=== PATIENT | female | born 1965 | race Caucasian/White ===

== ENCOUNTER 2022-05-17 11:57 | Inpatient (IN) | payer BC, SELFPAY ==
[2022-05-17] VITALS (11 sets, daily range): BP systolic 122–153; BP diastolic 55–84; PULSE 72–107; RESP 18–20; TEMP 36.2; O2SAT 94–99
--- NOTE | ~2022-05-17 | XR_ITS ---
EXAMINATION: XR foot LT min 3V DATE: 05/17/2022 12:58 INDICATION: Left heel wound. TECHNIQUE: 4 views of left foot were obtained. COMPARISON: None. FINDINGS: Bone alignment is normal. No fracture. There is mild osteoarthritis of first metatarsophala ngeal joint and some the interphalangeal joints and midfoot joints. Osteopenia is noted. There is an enthesophyte at posterior aspect of calcaneal tuberosity. There is soft tissue gas in the lateral felix l. IMPRESSION: 1. No evidence of osteomyelitis. 2. Mild polyarticular osteoarthritis. Reviewed, dictated and finalized at location B.
--- NOTE | ~2022-05-17 | US_ITS ---
US arterial ankle brachial ind INDICATION: Left foot ulcer TECHNIQUE: Segmental pressures and plethysmographic and Doppler waveforms of the brachial and lower e xtremity arteries were obtained. COMPARISON: None. FINDINGS: Right and left brachial artery pressures of 129 mm Hg and 123 mm Hg, respectively, are concordant (no rmal difference <= 30 mmHg). The right ankle-brachial index (JAVON) is 0.89 (normal >= 0.9-1.0). The right great toe-brachial index (TBI) is 0.38 (normal >= 0.60). The left JAVON is 0.72. The left TBI is 0.48. IMPRESSION: 1. Diminished bilateral ankle and toe brachial indices consistent with mild-moderate peripheral arter ial disease. Reviewed, dictated and finalized at location A. IMPRESSION: 1. Diminished bilateral ankle and toe brachial indices consistent with mild-mod erate peripheral arterial disease.
[2022-05-17 12:07] LABS: Glucose Point of Care 323 mg/dl (65-105)
[2022-05-17 12:56] LABS: Basophils Absolute Auto 0.1 K/mm3 (0.0-0.1); Basophils Percent Auto 0.4 % (0.2-1.2); Eosinophils Absolute Auto 0.2 K/mm3 (0-0.3); Hematocrit 43.7 % (37.0-47.0); Hemoglobin 14.2 g/dL (12.0-15.0); Immature Granulocyte Absolute 0.13 K/mm3 (0.00-0.031); Immature Granulocyte Percent A 0.6 % (0-0.5); Lymphocytes Percent Auto 12.6 % (18.3-44.2); Mean Corpuscular HGB Conc 32.5 g/dl (32-36); Mean Corpuscular Volume 92.2 fl (80-100); Mean Platelet Volume 10.1 fl (7.4-10.4); Monocytes Absolute Auto 1.5 K/mm3 (0.1-0.6); Monocytes Percent Auto 7.1 % (2.6-8.5); Neutrophils Absolute Auto 16.1 K/mm3 (1.3-6.7); Neutrophils Percent Auto 78.3 % (45.5-73.1); Platelet Count Result 336 k/mm3 (150-375); Red Blood Count 4.74 M/mm3 (4.2-5.4); Red Cell Distribution Width 13.1 % (11.5-14.5); White Blood Count 20.6 K/mm3 (4.5-10.0)
[2022-05-17 13:13] LABS: Estimated CRCL calculation 106 ml/min; Estimated Glomerular Filt Rate > 60
[2022-05-17] MEDS: SODIUM CHLORIDE 0.9% IV 1,000 ML 999 ML IV CONT (13:22)
[2022-05-17 13:30] LABS: INR 1.1; Prothrombin Time 13.4 Seconds (11.1-14.7)
[2022-05-17 13:31] LABS: Partial Thromboplastin Time 31.6 SECONDS (22.3-36.8)
[2022-05-17 13:36] LABS: Alanine Aminotransferase 18 U/L (6-35); Albumin Level 4.1 g/dL (3.5-5.1); Alkaline Phosphatase 150 U/L (38-126); Anion Gap 13 mmol/L (8-16); Aspartate Amino Transferase 19 U/L (14-36); Bilirubin,Total 0.7 mg/dL (0.2-1.3); Blood Urea Nitrogen 13 mg/dL (7-17); CRP 14.3 mg/dL (<1.0); Calcium 9.3 mg/dL (8.4-10.2); Carbon Dioxide 28 mmol/L (22-30); Chloride 96 mmol/L (98-107); Estimated CRCL calculation 106 ml/min; Estimated Glomerular Filt Rate > 60; Glucose 355 mg/dL (65-110); Magnesium 1.5 mg/dL (1.6-2.3); Potassium 3.7 mmol/L (3.4-5.0); Sodium 137 mmol/L (137-145)
[2022-05-17 13:39] LABS: Appearance Urine Slightly Cloudy (Clear); Bilirubin Urine 1+ (Negative); Blood Urine Trace-intact (Negative); Color Urine Yellow (Yellow); Glucose Urine UA 3+ mg/dL (Negative); Ketones Urine 1+ mg/dL (Negative); Leukocyte Esterase Ur Negative LEU/UL (Negative); Nitrate Urine Negative (Negative); Protein Urine 2+ mg/dL (Negative); Specific Grav Ur >= 1.030 (1.001-1.035); pH Urine 5.5 (5.0-9.0)
[2022-05-17 13:40] LABS: Lactic Acid Reflex 1.5 mmol/L (0.7-2.0)
[2022-05-17 13:41] LABS: Add Urine Microscopic? YES
[2022-05-17] MEDS: TETANUS,DIPHTHERIA,AC PERTUSSIS ADULT (0.5 ML) BOOSTRIX IM (13:53)
[2022-05-17] MEDS: metroNIDAZOLE 500 MG/ISO 100ML 500 MG/100 ML BAG 100 MG IVPB ×2 (13:53→22:46)
--- NOTE | 2022-05-17 13:54 | ED.WOUNDLAC ---
HPI - Wound/Laceration General Chief Complaint: Wound/Laceration Stated Complaint: foot wound-swelling Time Seen by Provider: 05/17/22 12:02 Source: patient and RN notes reviewed Mode of arrival: ambulatory Limitations: no limitations History of Present Illness HPI narrative: This is a 56 year old female who presents for evaluation of left foot wound. She noticed a callous to her left heel in February . She states a nurse friend has been treating her wound. She reports she removed the callous and she has been applying medication to the wound. She woke up this morning with her right foot red and swollen. She thinks it is because she walks around with no socks on. She denies fever, chills, nausea, vomiting or dizziness. She was told today in triage that she has diabetes. She has not seen a doctor in several years. She is unsure of her last tetanus vaccination as well. Extremity Location: Right: foot (heel) Patient tetanus UTD: No Related Data Home Medications Medication Instructions Recorded Confirmed No Home Medications 05/17/22 05/17/22 Allergies Allergy/AdvReac Type Severity Reaction Status Date / Time No Known Allergies Allergy Verified 05/17/22 16:49 Review of Systems Review of Systems: All systems reviewed & are unremarkable except as noted in HPI and below Constitutional: Constitutional: Denies chills, Denies fatigue and Denies fever(s) Cardiovascular: Cardiovascular: Denies chest pain and Denies radiating jaw, neck or arm pain Respiratory: Respiratory: Denies chest congestion, Denies cough and Denies dyspnea Integumentary/Breasts: Skin/Breast: Reports erythema and Reports skin ulcer PMFSH Past Medical History Medical History Tobacco abuse Type 2 diabetes mellitus (05/17/22) Surgical History Surgical History No history of previous surgery Family History Family History Father Heart disease Mother Heart disease Social History Social History Social History: Surrogate medical decision maker: Donald De La Garza, spouse. Code status: Full code. Smoking packs per day: 1 Smoking cigarettes per day: 20.0 Years smoked: 42 Smoking pack-years: 42.00 Smoking status: Current every day smoker Tobacco type: cigarettes Alcohol intake: never Substance use: current Substance use type: marijuana Other substance usage details: Occasional marijuana use. Additional living arrangements comments: The patient lives with her in [place]. She has no children. Spiritual care concerns: No Exam Const: General: no acute distress and alert Nutritional Appearance: well nourished Orientation/consciousness: patient oriented x3 HENMT: Head: normal to inspection Eyes: EOM: EOMs intact bilaterally Chest: Chest palpation & inspection: normal inspection of the chest Resp: Effort & Inspection: normal respiratory effort Auscultation: clear to auscultation bilaterally Cardio: Rate: regular rate Rhythm: regular rhythm GI: GI Palp: Yes Soft to palpation, No Tenderness to palpation present (GI) and No Guarding due to palpation present (GI) Auscultation: normal bowel sounds Skin: Wounds: wounds noted (left heel with ulceration with mild purulent discharge) Other: left foot is swollen and erythematous, palpable pedal pulses Neuro: General: patient oriented x3, moves all extremities and CN's II-XI intact bilaterally Cranial nerves: Yes Nystagmus not present Extrem: Other: left heel with ulceration Psych: Mental Status: mental status grossly normal Affect: normal affect Attitude: cooperative Course Reevaluation(s) Reevaluation #1: I Discussed with patient that she will need to be admitted for IV antibiotics and wound evaluation Da
[2022-05-17 13:57] LABS: Bacteria Urine Trace /hpf; Budding Yeast Urine Present /hpf; Mucus Urine Few /lpf; Squamous Epithelial Cell Urine Many /hpf (Few); WBC Urine 0-3 /hpf
--- NOTE | 2022-05-17 14:57 | ADMGEN ---
This patient, Debbie Elizalde, was admitted to Medical Room 243-. Patient/family oriented to hospital policies and general routines including ID bracelet, bed and alarms, visiting hours, pain management, procedures, bathroom and other care routines, personal items, smoking policy, room service/diet, and visiting hours. Information on how to activate the Rapid Response Team has been discussed. Patient/Family are encouraged to report perceived risks to care and to ask questions if they do not understand what they are told or what they should do.
--- NOTE | 2022-05-17 15:15 | PM.IMHP ---
H&P: HPI History of Present Illness Date/Time: 05/17/22 15:15 Chief Complaint: Left foot wound. Narrative: This is a 56-year-old female smoker with no significant medical history (she has not seen a physician for over 2 decades) who presented to the emergency department from home for evaluation of a left foot wound. She noticed a callused area on the left heel sometime over the summer and about 2 months ago her called attention to the area while they were in the swimming pool as the wound looked open. She has not sought treatment from a physician however she has a friend who does in-home nursing who has has been helping her tend to the wound. Two days ago she developed redness, swelling, and pain in the left heel and she came in today for evaluation. Upon arrival to triage her glucose was 323 and she has no known history of diabetes however she suspected it with a 70 pound unintentionally over the past 1 year and numbness/tingling in her feet. X-ray of the left heel showed no evidence of osteomyelitis however due to obvious infection she is being admitted to the hospital for IV antibiotics. She denies fever, chills, sweats, nausea, and vomiting. No history of multidrug resistant organisms. Review of Systems Review of Systems: Twelve systems were reviewed. No fever, chills, or sweats. No recent cold or flu symptoms. She lost 70 pounds unintentionally over the past 1 year however she goes on to say that she has been trying to cut out snacks and soda. No syncope or presyncope. She denies exertional chest pain, pleuritic pain, shortness a breath. Appetite has been fine. No nausea, vomiting, or diarrhea. No polyuria or polydipsia. No history of venous thromboembolism. Except as documented, all other systems were reviewed and are negative. [facility] Past Medical History Medical History (Updated 05/17/22 @ 17:39 by Diane Acuna PA-C) Tobacco abuse Type 2 diabetes mellitus (05/17/22) Surgical History Surgical History (Updated 05/17/22 @ 17:20 by Diane Acuna PA-C) No history of previous surgery Family History Family History Father Heart disease Mother Heart disease Social History Social History (Updated 05/17/22 @ 17:21 by Diane Acuna PA-C) Social History: Surrogate medical decision maker: Donald De La Garza, spouse. Code status: Full code. Smoking packs per day: 1 Smoking cigarettes per day: 20.0 Years smoked: 42 Smoking pack-years: 42.00 Smoking status: Current every day smoker Tobacco type: cigarettes Alcohol intake: never Substance use: current Substance use type: marijuana Other substance usage details: Occasional marijuana use. Additional living arrangements comments: The patient lives with her in [place]. She has no children. Spiritual care concerns: No Meds Home Medications and Allergies Home Medications Medication Instructions Recorded Confirmed Type No Home Medications 05/17/22 05/17/22 History Allergies Allergy/AdvReac Type Severity Reaction Status Date / Time No Known Allergies Allergy Verified 05/17/22 16:49 Vital Signs Vital Signs - 24 hr 05/17/22 12:03 05/17/22 13:21 05/17/22 13:22 Temperature 97.1 F L Pulse Rate 103 H 80 Respiratory Rate 20 18 Blood Pressure 153/84 H 132/75 Pulse Oximetry 99 97 97 Oxygen Delivery Room Air 05/17/22 13:23 05/17/22 13:30 05/17/22 13:31 Temperature Pulse Rate Respiratory Rate Blood Pressure 132/75 Pulse Oximetry 97 94 95 Oxygen Delivery 05/17/22 13:45 05/17/22 13:46 05/17/22 14:00 Temperature Pulse Rate 72 Respiratory Rate 18 Blood Pressure 146/71 H Pulse Oximetry 95 95 97 Oxygen Delivery 05/17/22 14:01 Temperature Pulse Rate Respiratory Rate Blood Pressure 150/72 H Pulse Oximetry 98 Oxygen Delivery Exam Narrative: General: Well-developed, nontoxic-a
[2022-05-17 17:48] LABS: Glucose Point of Care 363 mg/dl (65-105)
[2022-05-17] MEDS: MAGNESIUM SULF 2 GM/WATER 50ML 2 GM/50 ML BAG IVPB (18:23)
[2022-05-17] MEDS: INSULIN ASPART (*BKC) 100 UNITS/ML SUB-Q (18:23)
--- NOTE | 2022-05-17 19:12 | PM.CNGS ---
Assessment and Plan Assessment and plan (1) Diabetic foot ulcer: Qualifiers: Diabetes mellitus type: other specified (including MARINA) Diabetic foot ulcer location: heel Laterality: right Code(s): E11.621 - Type 2 diabetes mellitus with foot ulcer; L97.509 - Non-pressure chronic ulcer of other part of unspecified foot with unspecified severity Status: Acute Assessment and Plan: Patient has evidence of a left heel ulcer that appears to be developing some soft tissue infection. I have recommended proceeding with incision and drainage of left foot ulcer. Will plan to proceed in the morning under anesthesia. I have discussed that it is wound care will be required after this and she might still need prolonged IV antibiotics. She will need to have better control of her blood sugars and establish care with a primary doctor when she is discharged to help prevent any further wound complications. I might also need to get an arterial ultrasound to assess for any arterial occlusion or peripheral vascular disease. Quitting smoking will also be extremely important to help with wound healing. (2) Cellulitis in diabetic foot: Code(s): E11.628 - Type 2 diabetes mellitus with other skin complications; L03.119 - Cellulitis of unspecified part of limb Status: Acute (3) Tobacco abuse: Code(s): Z72.0 - Tobacco use Status: Acute (4) Type 2 diabetes mellitus: Onset Date: 05/17/22 Code(s): E11.9 - Type 2 diabetes mellitus without complications Status: Acute History of Present Illness Consult details Consult date: 05/17/22 Reason for consult: other ( Foot ulcer) Narrative: this is a 56-year-old woman who I am asked to see for a foot ulcer. She presented to the emergency department this afternoon with a chronic foot wound that worsened over the past few days. She states that she 1st noticed foot wound about 3 months ago and thinks it was due to walking in shoes without socks on. She was trying to treat this herself at home and has not seen a doctor in several years. She was going to be seen a Wound Clinic in [place] but has not seen them yet. She denies any prior knowledge of being diabetic. She has had some weight loss lately and has been very thirsty. She denies any fevers. She is having some tenderness around the outside of her left foot. Review of Systems Review of Systems: All systems reviewed & are unremarkable except as noted in HPI and below Constitutional: Constitutional: Denies chills and Denies fever(s) Eyes: Eyes: Denies change in vision ENT: Denies hearing loss, Denies neck pain and Denies sore throat Cardiovascular: Cardiovascular: Denies chest pain and Denies dyspnea Respiratory: Respiratory: Denies cough, Denies dyspnea and Denies wheezing Gastrointestinal: Gastrointestinal: Denies abdominal pain, Denies nausea and Denies vomiting Genitourinary: Genitourinary: Denies hematuria and Denies dysuria Musculoskeletal: Musculoskeletal: Reports as per HPI, Denies arthralgias, Denies joint swelling and Denies neck pain Endocrine: Endocrine: Reports polydipsia Allergic/Immunologic: Allergic/Immunologic: Denies wheezing [facility] Past Medical History Medical History Tobacco abuse Type 2 diabetes mellitus (05/17/22) Surgical History Surgical History No history of previous surgery Family History Family History Father Heart disease Mother Heart disease Social History Social History Social History: Surrogate medical decision maker: Donald De La Garza, spouse. Code status: Full code. Smoking packs per day: 1 Smoking cigarettes per day: 20.0 Years smoked: 42 Smoking pack-years: 42.00 Smoking status: Current every day
[2022-05-17 20:15] LABS: Hemoglobin A1C 11.3 % (<5.7)
[2022-05-17] MEDS: HYDROcodone/acetaminophen (*CRX) 7.5-325 MG TABLET 1 TAB PO (20:29)
[2022-05-17 21:11] LABS: Glucose Point of Care 254 mg/dl (65-105)
[2022-05-18] VITALS (11 sets, daily range): BP systolic 99–135; BP diastolic 56–72; PULSE 81–104; RESP 10–20; TEMP 36.3–36.9; O2SAT 93–100
[2022-05-18 05:06] LABS: Basophils Absolute Auto 0.1 K/mm3 (0.0-0.1); Basophils Percent Auto 0.3 % (0.2-1.2); Eosinophils Absolute Auto 0.2 K/mm3 (0-0.3); Eosinophils Percent Auto 0.7 % (0-4.4); Hematocrit 36.2 % (37.0-47.0); Hemoglobin 11.8 g/dL (12.0-15.0); Immature Granulocyte Absolute 0.19 K/mm3 (0.00-0.031); Immature Granulocyte Percent A 0.9 % (0-0.5); Lymphocytes Absolute Auto 1.63 K/mm3 (0.9-3.2); Lymphocytes Percent Auto 7.4 % (18.3-44.2); Mean Corpuscular HGB Conc 32.6 g/dl (32-36); Mean Corpuscular Hemoglobin 29.5 pg (26-34); Mean Corpuscular Volume 90.5 fl (80-100); Mean Platelet Volume 9.8 fl (7.4-10.4); Monocytes Absolute Auto 1.9 K/mm3 (0.1-0.6); Monocytes Percent Auto 8.5 % (2.6-8.5); Neutrophils Absolute Auto 18.1 K/mm3 (1.3-6.7); Neutrophils Percent Auto 82.2 % (45.5-73.1); Platelet Count Result 292 k/mm3 (150-375); Red Cell Distribution Width 12.7 % (11.5-14.5)
[2022-05-18 05:27] LABS: Alanine Aminotransferase 18 U/L (6-35); Albumin Level 3.2 g/dL (3.5-5.1); Alkaline Phosphatase 129 U/L (38-126); Anion Gap 9 mmol/L (8-16); Aspartate Amino Transferase 19 U/L (14-36); Bilirubin,Total 0.7 mg/dL (0.2-1.3); Blood Urea Nitrogen 10 mg/dL (7-17); Calcium 8.5 mg/dL (8.4-10.2); Carbon Dioxide 25 mmol/L (22-30); Chloride 100 mmol/L (98-107); Estimated CRCL calculation 101 ml/min; Estimated Glomerular Filt Rate > 60; Glucose 324 mg/dL (65-110); Magnesium 1.8 mg/dL (1.6-2.3); Potassium 3.6 mmol/L (3.4-5.0); Sodium 134 mmol/L (137-145)
[2022-05-18] MEDS: HYDROcodone/acetaminophen (*CRX) 7.5-325 MG TABLET 1 TAB PO ×2 (06:37→20:13)
[2022-05-18] MEDS: ONDANSETRON INJ 4 MG/2 ML VIAL IV PUSH (06:39)
[2022-05-18] MEDS: metroNIDAZOLE 500 MG/ISO 100ML 500 MG/100 ML BAG 100 MG IVPB ×3 (06:42→21:00)
--- NOTE | 2022-05-18 07:40 | WPDANESEPPF ---
Anes - Initial Pre Proc Eval Procedure: Operation Date: 05/18/22 08:00 Proposed Procedures p I&D Debride Lower Extremity Foot(Left) - Shahbaz Ignacio DO Date/Time: 05/18/22 07:40 Surgeon: Jarad Montero MD Pre Op Diagnosis: Infected Diabetic Foot Ulcer/New Onset Diabetes Me Patient Data Age: 56 Gender: F Height: 1.63 m Weight: 74.4 kg Last Vital Signs Temp 36.4 C 05/18/22 03:33 Pulse 104 H 05/18/22 03:33 Resp 20 05/18/22 03:33 BP 121/63 05/18/22 03:33 Pulse Ox 93 05/18/22 03:33 O2 Del Method Room Air 05/17/22 20:30 Allergies Allergy/AdvReac Type Severity Reaction Status Date / Time No Known Allergies Allergy Verified 05/17/22 16:49 Home Medications Medication Instructions Recorded Confirmed Type No Home Medications 05/17/22 05/17/22 History Laboratory Tests 05/17/22 05/17/22 05/17/22 12:05 12:49 12:49 WBC 20.6 K/mm3 H K/mm3 (4.5-10.0) RBC 4.74 M/mm3 M/mm3 (4.2-5.4) Hgb 14.2 g/dL g/dL (12.0-15.0) Hct 43.7 % % (37.0-47.0) MCV 92.2 fl fl (80-100) MCH 30.0 pg pg (26-34) MCHC 32.5 g/dl g/dl (32-36) RDW 13.1 % % (11.5-14.5) Plt Count 336 k/mm3 k/mm3 (150-375) MPV 10.1 fl fl (7.4-10.4) Immature Gran % (Auto) 0.6 % H % (0-0.5) Neut % (Auto) 78.3 % H % (45.5-73.1) Lymph % (Auto) 12.6 % L % (18.3-44.2) Garrett % (Auto) 7.1 % % (2.6-8.5) Eos % (Auto) 1.0 % % (0-4.4) Baso % (Auto) 0.4 % % (0.2-1.2) Lymph # (Auto) 2.60 K/mm3 K/mm3 (0.9-3.2) Garrett # (Auto) 1.5 K/mm3 H K/mm3 (0.1-0.6) Eos # (Auto) 0.2 K/mm3 K/mm3 (0-0.3) Baso # (Auto) 0.1 K/mm3 K/mm3 (0.0-0.1) Abs Immat Gran (auto) 0.13 K/mm3 H K/mm3 (0.00-0.031) Absolute Neuts (auto) 16.1 K/mm3 H K/mm3 (1.3-6.7) Absolute Nucleated RBC 0.0 K/mm3 K/mm3 (0.0-0.012) Nucleated RBC % 0.0 % % (0.0-0.2) PT 13.4 Seconds Seconds (11.1-14.7) INR 1.1 APTT 31.6 SECONDS SECONDS (22.3-36.8) Sodium Potassium Chloride Carbon Dioxide Anion Gap BUN Creatinine Estim Creat Clear Calc Estimated GFR Glucose POC Capillary Glucose 323 mg/dl H mg/dl (65-105) Hemoglobin A1c Lactic Acid Calcium Magnesium Total Bilirubin AST ALT Alkaline Phosphatase C-Reactive Protein Total Protein Albumin Urine Color Urine Appearance Urine pH Ur Specific Apex Urine Protein Urine Glucose (UA) Urine Ketones Ur Blood (Man) Urine Nitrate Urine Bilirubin Urine Urobilinogen Leukocyte Esterase Rfl Urine RBC Urine WBC Ur Squamous Epith Cells Urine Bacteria Urine Mucus Urine Yeast (Budding) 05/17/22 05/17/22 05/17/22 12:49 12:49 12:49 WBC RBC Hgb Hct MCV MCH MCHC RDW Plt Count MPV Immature Gran % (Auto) Neut % (Auto) Lymph % (Auto) Garrett % (Auto) Eos % (Auto) Baso % (Auto) Lymph # (Auto) Garrett # (Auto) Eos # (Auto) Baso # (Auto) Abs Immat Gran (auto) Absolute Neuts (auto) Absolute Nucleated RBC Nucleated RBC % PT INR APTT Sodium 137
--- NOTE | 2022-05-18 08:04 | WPDHPUPDATE1 ---
History and Physical Update Update Date/Time: 05/18/22 08:04 History and Physical has been reviewed, including an updated exam of the patient. There are NO changes in the patient's condition. Risks, benefits, and alternatives have been discussed and questions answered. Patient agrees to proceed with procedure.
[2022-05-18] MEDS: LACTATED RINGERS 1,000 ML 30 ML IV CONT (08:10)
--- NOTE | 2022-05-18 08:48 | W.PM.PROC2 ---
Procedure Note - Detailed Date of Procedure 05/18/22 Pre-op Diagnosis Left diabetic foot ulcer with abscess Post-op Diagnosis Same Procedure Performed 1. Incision and drainage of left foot abscess 2. Sharp excisional debridement of left foot ulcer measuring 6 cm x 2 cm including skin and subcutaneous fat Surgeon Shahbaz Ignacio, DO Anesthesia General and Local (2% lidocaine with epinephrine) Indications This is a 56-year-old woman who presented with a left heel ulcer that has slowly developed over the past 3 months. Over the past several days she has noticed worsening redness and foul smelling drainage around the wound. The pain and redness is extending up along the lateral surface of the heel and ankle. She was found to have a small left heel ulcer and was noted to have fluctuance and crepitus along the left lateral heel. Discussions were made with the patient about treatment options and decision was made to proceed with incision and drainage of left heel ulcer. Findings The patient was found to have a left heel abscess along the lateral aspect of the calcaneus. Incision and drainage was performed over the abscess and cultures were taken for aerobic and anaerobic culture and sensitivity. The incision was carried down to the open left heel ulcer that was more on the lateral plantar surface of the heel. Debridement of some of the skin and subcutaneous fat was performed using curved Arias scissors. The debridement dimensions measured 2 cm x 6 cm. Description of Procedure Procedure as well as risks, benefits, and alternatives were discussed with the patient. Written consent was obtained and placed in chart prior to procedure. Patient was brought back to surgical suite. She was placed supine on operating table. Time-out was done to confirm patient and procedure. She was then intubated by the anesthesia department. Her left foot area was prepped and draped in sterile fashion using Betadine prep. 2% lidocaine with epinephrine was infiltrated locally around the wound. A 6 cm incision was made from the area of fluctuance on the left lateral heel down to the heel ulcer on the plantar surface. Purulence fluid was drained and cultures were taken for aerobic and anaerobic culture and sensitivity. There was some necrotic tissue within the base of the abscess and wound. The skin also appeared slightly necrotic over the surface of the abscess on the lateral aspect. Excisional debridement was performed using curved Arias scissors including some of the skin and subcutaneous fat. The deep tissue appeared intact and viable. Hemostasis appeared adequate. The area was then irrigated with sterile saline. The wound was then packed with half-inch iodoform gauze. Fluff gauze and Kerlix wrap were then applied. The patient was then awakened from anesthesia, extubated, and transferred to recovery. Estimated Blood Loss 5 Urine Output 150 Packing Yes (Half-inch iodoform gauze) Complications No immediate complications Condition Stable Disposition Floor [facility] Billing Surgery - Charge Forward: Surgery Billing
[2022-05-18 09:08] LABS: Glucose Point of Care 317 mg/dl (65-105)
[2022-05-18 10:49] LABS: Glucose Point of Care 296 mg/dl (65-105)
--- NOTE | 2022-05-18 10:57 | PC.NURSE ---
Recovery stated they checked patients blood sugar downstairs and was 317, did not correct because they were told to leave it for us . 30 minute window had passed, LAUNCH ENGINEER re-checked patient's sugar once returned to floor at 10:47, sugar was 296. Sliding scale correction dose not given at this time due to timing of lunch time correction dose.
--- NOTE | 2022-05-18 11:55 | PM.IMPN ---
Progress Note: A&P Assessment and Plan (1) Diabetic foot ulcer: Qualifiers: Diabetes mellitus type: other specified (including MARINA) Diabetic foot ulcer location: heel Laterality: left Code(s): E11.621 - Type 2 diabetes mellitus with foot ulcer; L97.509 - Non-pressure chronic ulcer of other part of unspecified foot with unspecified severity Status: Acute (2) Cellulitis in diabetic foot: Code(s): E11.628 - Type 2 diabetes mellitus with other skin complications; L03.119 - Cellulitis of unspecified part of limb Status: Acute (3) Type 2 diabetes mellitus: Onset Date: 05/17/22 Code(s): E11.9 - Type 2 diabetes mellitus without complications Status: Acute (4) Tobacco abuse: Code(s): Z72.0 - Tobacco use Status: Acute (5) Murmur: Code(s): R01.1 - Cardiac murmur, unspecified Status: Acute Plan 05/17/22 Wound nurse has been consulted and they recommend surgery consultation for probable debridement. She has been started on cefepime, metronidazole, and vancomycin per antibiotic stewardship recommendations. This is a new diagnosis for the patient however she suspected it with an unintentional 70 pound weight loss and symptoms of neuropathy over the past 1 year. Start metformin upon discharge.? Initiate sliding scale insulin while in the hospital.? Depending on her hemoglobin A1c she may very well need to be started on insulin for a period of time. Given risk factors for heart disease, she would benefit from an SGLT2 inhibitor. Consult will be placed for the dietitian and unit educator. Smoking cessation is imperative and was discussed; I spent approximately 5 minutes counseling the patient on smoking cessation. Her at bedside will be good support for her. She understands the importance of quitting smoking and at this time she denies the need for nicotine patch and any other pharmacologic agents. 05/18/22 ECHO normal pt improved NGT clamped trial of PO anticipate NGT to be removed soon after possible dc in 24hrs Subjective Date/time seen: 05/18/22 11:55 pt feeling much better NGT is clamped pt wanting to drink +BM multiple acknowledges that we are waiting for GI Review of Systems Review of Systems: All systems reviewed & are unremarkable except as noted in HPI and below Exam Narrative: GEN: NAD, AAOx3, cooperative HEENT: NCAT, MMM, EOMI Neck: no JVD Heart: S1S2 RRR Lungs: CTA B/l Abd: soft, NT, ND, bowel sounds normoactive Ext: moves all, no cyanosis, no clubbing, no edema Objective Data Vital Signs Vital Signs: Vital Signs - 24 hr 05/17/22 12:03 05/17/22 13:21 05/17/22 13:22 Temperature 97.1 F L Pulse Rate 103 H 80 Respiratory Rate 20 18 Blood Pressure 153/84 H 132/75 Pulse Oximetry 99 97 97 Oxygen Delivery Room Air Oxygen Flow Rate 05/17/22 13:23 05/17/22 13:30 05/17/22 13:31 Temperature Pulse Rate Respiratory Rate Blood Pressure 132/75 Pulse Oximetry 97 94 95 Oxygen Delivery Oxygen Flow Rate 05/17/22 13:45 05/17/22 13:46 05/17/22 14:00 Temperature Pulse Rate 72 Respiratory Rate 18 Blood Pressure 146/71 H Pulse Oximetry 95 95 97 Oxygen Delivery Oxygen Flow Rate 05/17/22 14:01 05/17/22 19:23 05/17/22 20:30 Temperature 97.2 F L Pulse Rate 107 H Respiratory Rate 18 Blood Pressure 150/72 H 122/55 L Pulse Oximetry 98 94 Oxygen Delivery Room Air Oxygen Flow Rate 05/18/22 03:33 05/18/22 08:47 05/18/22 09:01 Temperature 97.6 F 97.4 F L Pulse Rate 104 H 86 85 Respiratory Rate 20 11 L 10 L Blood Pressure 121/63 110/63 113/65 Pulse Oximetry 93 96 100 Oxygen Delivery Simple Face Mask Simple Face Mask Oxygen Flow Rate 10 10 05/18/22 09:15 05/18/22 09:30 05/18/22 09:45 Temperature Pulse Rate 83 84 84 Respiratory Rate 13 11 L 12 Blood Pressure 110/65 99/56 L 99/56 L Pulse Oximetry 93 95 94 Oxygen Delivery Room Air Room Air
[2022-05-18 12:23] LABS: Glucose Point of Care 281 mg/dl (65-105)
[2022-05-18] MEDS: INSULIN ASPART (*BKC) 100 UNITS/ML SUB-Q ×2 (12:34→17:28)
[2022-05-18] MEDS: HYDROcodone/acetaminophen (*CRX) 5-325 MG TABLET 1 TAB PO (15:18)
--- NOTE | 2022-05-18 17:13 | ECHO_ITS ---
Patient Info Name: Debbie Elizalde Age: 56 years : 1965 Gender: Female Ht: 64 in Wt: 180 lbs BSA: 1.95 m2 HR: 88 bpm BP: 121 / 63 mmHg Heart Rhythm: Sinus Rhythm Technical Quality: Fair Exam Date: 05/18/2022 7:38 AM Exam Location: [facility] Pulmonary Exam Room: 243 Patient Status: Inpatient Admit Date: 05/17/2022 Staff Ordering Physician: Diane Acuna PA-C Fur Remodeler: Mary Ellen Duong RDCS Attending Provider: Jarad Montero MD Referring Physician: Kalpana SHETH; Exam Type: CA echo doppler color flow Study Info Indications - MURMUR PRE OP Complete two-dimensional, color flow and Doppler transthoracic echocardiogram is performed. Summary 1. Complete two-dimensional, color flow and Doppler transthoracic echocardiogram is performed. 2. Unremarkable echocardiogram. Left Ventricle Left ventricular chamber dimension is normal. Left ventricular systolic function is normal, estimated at 55-60%. The left ventricular diastolic function is normal. Right Ventricle Right ventricular chamber dimension is normal. Left Atria Left atrial chamber dimension is normal. Right Atria Right atrial chamber dimension is normal. Aortic Valve The aortic valve is normal. Pulmonic Valve The pulmonic valve is normal. Mitral Valve The mitral valve has normal leaflets. Tricuspid Valve The tricuspid valve leaflets are normal. Pericardium/Pleural The pericardium appears normal. Aorta The aortic root size at the sinus of Valsalva is normal. Left Ventricular Outflow Tract Name Value Normal LVOT 2D LVOT Diameter 2.0 cm LVOT Doppler LVOT Peak Gradient 6 mmHg LVOT Mean Gradient 4 mmHg LVOT VTI 24 cm LVOT VTI/AV VTI Ratio 0.8 LVOT Stroke Volume 72 ml LVOT CO 16.2 l/min LVOT CI 8.3 l/min/m2 Pulmonic Valve Name Value Normal PV Doppler PV Peak Gradient 5 mmHg Mitral Valve Name Value Normal MV Doppler MV Decel Sauk 601 cm/s2 MV PHT 52 ms MV Area (PHT) 4.2 cm2 4.0-5.0 MV Diastolic Function MV E Peak Velocity 108 cm/s MV A Peak Velocity 85 cm/s MV E/A 1.3 MV Decel Time
[2022-05-18 17:20] LABS: Glucose Point of Care 252 mg/dl (65-105)
[2022-05-18] MEDS: metFORMIN HCL 500 MG TABLET PO (17:28)
[2022-05-18 20:37] LABS: Glucose Point of Care 329 mg/dl (65-105)
[2022-05-19 02:28] LABS: Vancomycin Trough 11.6 ug/mL (10.0-20.0)
[2022-05-19 02:29] LABS: Anion Gap 9 mmol/L (8-16); Blood Urea Nitrogen 11 mg/dL (7-17); Calcium 8.5 mg/dL (8.4-10.2); Carbon Dioxide 24 mmol/L (22-30); Chloride 100 mmol/L (98-107); Estimated CRCL calculation 101 ml/min; Estimated Glomerular Filt Rate > 60; Glucose 252 mg/dL (65-110); Potassium 3.6 mmol/L (3.4-5.0); Sodium 133 mmol/L (137-145)
[2022-05-19 03:06] LABS: Basophils Absolute Auto 0.1 K/mm3 (0.0-0.1); Basophils Percent Auto 0.4 % (0.2-1.2); Eosinophils Absolute Auto 0.4 K/mm3 (0-0.3); Eosinophils Percent Auto 1.6 % (0-4.4); Hemoglobin 13.1 g/dL (12.0-15.0); Immature Granulocyte Absolute 0.18 K/mm3 (0.00-0.031); Immature Granulocyte Percent A 0.8 % (0-0.5); Lymphocytes Absolute Auto 2.24 K/mm3 (0.9-3.2); Lymphocytes Percent Auto 9.8 % (18.3-44.2); Mean Corpuscular Hemoglobin 29.9 pg (26-34); Mean Corpuscular Volume 93.6 fl (80-100); Mean Platelet Volume 10.3 fl (7.4-10.4); Monocytes Absolute Auto 1.9 K/mm3 (0.1-0.6); Monocytes Percent Auto 8.2 % (2.6-8.5); Neutrophils Absolute Auto 18.1 K/mm3 (1.3-6.7); Neutrophils Percent Auto 79.2 % (45.5-73.1); Platelet Count Result 282 k/mm3 (150-375); Red Blood Count 4.38 M/mm3 (4.2-5.4); White Blood Count 22.8 K/mm3 (4.5-10.0)
[2022-05-19 03:28] VITALS: BP 126/65; PULSE 92; RESP 17; TEMP 36.2; O2SAT 94
[2022-05-19] MEDS: metroNIDAZOLE 500 MG/ISO 100ML 500 MG/100 ML BAG 100 MG IVPB ×3 (06:42→21:59)
[2022-05-19] MEDS: HYDROcodone/acetaminophen (*CRX) 7.5-325 MG TABLET 1 TAB PO (06:44)
[2022-05-19 08:57] LABS: Glucose Point of Care 293 mg/dl (65-105)
[2022-05-19] MEDS: ENOXAPARIN 40 MG/0.4 ML SYRINGE SUB-Q (09:12)
[2022-05-19] MEDS: INSULIN ASPART (*BKC) 100 UNITS/ML SUB-Q ×2 (09:13→12:51)
[2022-05-19] MEDS: metFORMIN HCL 500 MG TABLET PO (09:13)
--- NOTE | 2022-05-19 11:23 | PM.PNGS ---
Progress Note: A&P Assessment and Plan (1) Diabetic foot ulcer: Qualifiers: Diabetes mellitus type: other specified (including MARINA) Diabetic foot ulcer location: heel Laterality: left Code(s): E11.621 - Type 2 diabetes mellitus with foot ulcer; L97.509 - Non-pressure chronic ulcer of other part of unspecified foot with unspecified severity Status: Acute Assessment and Plan: wound still has some foul odor but much drainage. Some necrotic tissue remains within wound bed. Will change wound care orders to Dakin's soaked 4 x 4 gauze dressing changes twice daily. Will reassess with wound care nurses tomorrow. Might need further debridement either surgically or with Santyl. Continue IV antibiotics. Wound cultures pending. (2) Tobacco abuse: Code(s): Z72.0 - Tobacco use Status: Acute (3) Type 2 diabetes mellitus: Onset Date: 05/17/22 Code(s): E11.9 - Type 2 diabetes mellitus without complications Status: Acute (4) Peripheral vascular disease: Code(s): I73.9 - Peripheral vascular disease, unspecified Status: Acute Assessment and Plan: JAVON results reviewed. Patient will need to quit smoking and might need to consider vascular surgery evaluation at some point. She does not have any signs of limb-threatening ischemia at this time but will need to be monitored as an outpatient. Subjective Subjective Date/Time Seen: 05/19/22 11:23 Interval history: Swelling slightly improved. Pain control. No fevers. Exam Extrem: Other: Bandage removed today. Still having foul-smelling drainage and some necrotic tissue within the base of wound. Erythema slightly improved. Edema improved. Objective Data Vital Signs Vital Signs: Vital Signs - 24 hr 05/18/22 14:18 05/18/22 19:24 05/18/22 19:56 Temperature 36.9 C 36.4 C Pulse Rate 97 90 Respiratory Rate 16 17 Blood Pressure 135/72 110/61 Pulse Oximetry 99 96 Oxygen Delivery Room Air 05/19/22 03:28 Temperature 36.2 C L Pulse Rate 92 Respiratory Rate 17 Blood Pressure 126/65 Pulse Oximetry 94 Oxygen Delivery Intake/Output Intake/Output: Intake & Output 05/16/22 05/17/22 05/18/22 05/19/22 23:59 23:59 23:59 23:59 Intake Total 1440 1870 1580 Output Total 600 Balance 1440 1270 1580 Meds/Results Medications: Active Medications Generic Name Dose Route Start Last Admin Trade Name Freq PRN Reason Stop Dose Admin Hydrocodone Bitart/Acetaminophen 1 tab 05/17/22 19:23 05/18/22 15:18 Hydrocodone/Acetaminophen (*Crx) 5-325 Mg Tablet PO 1 tab Q4H PRN Administration Pain Rated 4-6 Hydrocodone Bitart/Acetaminophen 1 tab 05/17/22 19:23 05/19/22 06:44 Hydrocodone/Acetaminophen (*Crx) 7.5-325 Mg Tablet PO 1 tab Q4H PRN Administration Pain Rated 7-10 Dextrose 12.5 gm 05/17/22 17:13 Dextrose 50% 25 Gm/50 Ml Syringe IV PUSH PRN PRN Hypoglycemia Protocol Enoxaparin Sodium 40 mg 05/18/22 09:00 05/19/22 09:12 Enoxaparin 40 Mg/0.4 Ml Syringe SUB-Q 40 mg DAILY JANEY Administration Glipizide 1.25 mg 05/19/22 11:30 Glipizide 1.25 Mg Tablet PO 05/19/22 11:31 ONCE ONE Glucagon 1 mg 05/17/22 17:13 Glucagon For Inj 1 Mg Vial IM PRN PRN Hypoglycemia Protocol Glucose 15 gm 05/17/22 17:13 Glucose Oral Gel 15 Gm Of Glucse In 37.5 Gm Tube PO PRN PRN Hypoglycemia Protocol Cefepime HCl 2 gm in 50 mls @ 100 mls/hr 05/17/22 22:00 05/19/22 09:12 Maxipime 2 Gm/D5w 50 Ml IVPB 100 mls/hr Q12HR JANEY Administration Metronidazole 500 mg in 100 mls @ 100 mls/hr 05/17/22 22:00 05/19/22 07:45 Flagyl 500 Mg/Iso Soln 100 Ml IVPB Infused Q8HR JANEY Infusion Dextrose 1,000 mls @ 100 mls/hr 05/17/22 17:13 Dextrose 5% 1,000 Ml IVPB PRN PRN Hypoglycemia Protocol Vancomycin HCl 1,750 mg in 500 mls @ 250 mls/hr 05/19/22 03:00 05/19/22 05:20 Va
[2022-05-19 12:28] LABS: Glucose Point of Care 226 mg/dl (65-105)
[2022-05-19] MEDS: SOD HYPOCHLORITE 1/4 STRENGTH 473 ML 1 APPLIC TOPICAL (12:39)
--- NOTE | 2022-05-19 13:22 | PM.IMPN ---
Progress Note: A&P Assessment and Plan (1) Diabetic foot ulcer: Qualifiers: Diabetes mellitus type: other specified (including MARINA) Diabetic foot ulcer location: heel Laterality: left Code(s): E11.621 - Type 2 diabetes mellitus with foot ulcer; L97.509 - Non-pressure chronic ulcer of other part of unspecified foot with unspecified severity Status: Acute (2) Cellulitis in diabetic foot: Code(s): E11.628 - Type 2 diabetes mellitus with other skin complications; L03.119 - Cellulitis of unspecified part of limb Status: Acute (3) Type 2 diabetes mellitus: Onset Date: 05/17/22 Code(s): E11.9 - Type 2 diabetes mellitus without complications Status: Acute (4) Tobacco abuse: Code(s): Z72.0 - Tobacco use Status: Acute (5) Murmur: Code(s): R01.1 - Cardiac murmur, unspecified Status: Acute (6) Newly diagnosed diabetes: Code(s): E11.9 - Type 2 diabetes mellitus without complications Status: Acute (7) Peripheral vascular disease: Code(s): I73.9 - Peripheral vascular disease, unspecified Status: Acute Plan 05/17/22 Wound nurse has been consulted and they recommend surgery consultation for probable debridement. She has been started on cefepime, metronidazole, and vancomycin per antibiotic stewardship recommendations. This is a new diagnosis for the patient however she suspected it with an unintentional 70 pound weight loss and symptoms of neuropathy over the past 1 year. Start metformin upon discharge.? Initiate sliding scale insulin while in the hospital.? Depending on her hemoglobin A1c she may very well need to be started on insulin for a period of time. Given risk factors for heart disease, she would benefit from an SGLT2 inhibitor. Consult will be placed for the dietitian and certified diabetes educator. Smoking cessation is imperative and was discussed; I spent approximately 5 minutes counseling the patient on smoking cessation. Her at bedside will be good support for her. She understands the importance of quitting smoking and at this time she denies the need for nicotine patch and any other pharmacologic agents. 05/18/22 ECHO normal pt improved? s/p drainage of R foot abscess consult dietary will try oral agents possible dc in 24hrs pending surgical clearance and wound care orders 05/19/22 increase metformin to 1000 BID start low dose glipizide slow correction to prevent rapid drop in chronically elevated BG wound care recs pending anticipate dc in 24-48 hrs Subjective Date/time seen: 05/19/22 13:22 pt doing ok, grumpy because wants a cigarette, declines nicotine patch , denies pain Review of Systems Review of Systems: All systems reviewed & are unremarkable except as noted in HPI and below Exam Narrative: GEN: NAD, AAOx3, cooperative HEENT: NCAT, MMM, EOMI Neck: no JVD Heart: S1S2 RRR Lungs: symmetric chest rise no use of accessory muscles aerating well Ext: moves all, no cyanosis, no clubbing, LLE edema wound visualized over medial ankle and heel, clean no purulent material could be expressed Objective Data Vital Signs Vital Signs: Vital Signs - 24 hr 05/18/22 14:18 05/18/22 19:24 05/18/22 19:56 Temperature 98.4 F 97.6 F Pulse Rate 97 90 Respiratory Rate 16 17 Blood Pressure 135/72 110/61 Pulse Oximetry 99 96 Oxygen Delivery Room Air 05/19/22 03:28 Temperature 97.2 F L Pulse Rate 92 Respiratory Rate 17 Blood Pressure 126/65 Pulse Oximetry 94 Oxygen Delivery Intake/Output Intake/Output: Intake & Output 05/16/22 05/17/22 05/18/22 05/19/22 23:59 23:59 23:59 23:59 Intake Total 1440 1870 1820 Output Total 600 Balance 1440 1270 1820 Meds/Results Medications: Active Medications Generic Name Dose Route Start Last Admin Trade Name Freq PRN Reason Stop Dose Admin Hydrocodone Bitart/Acetaminophen 1 tab 05/17/22 19:23 05/18/22 15:18 Hydrocodone/Acetaminophen (*
[2022-05-19 16:02] VITALS: BP 147/69; PULSE 87; RESP 18; TEMP 36.5; O2SAT 97
[2022-05-19] MEDS: ONDANSETRON INJ 4 MG/2 ML VIAL IV PUSH ×2 (16:33→23:25)
[2022-05-19 17:09] LABS: Glucose Point of Care 201 mg/dl (65-105)
[2022-05-19] MEDS: metFORMIN HCL 500 MG TABLET 1000 MG PO (17:26)
[2022-05-19 18:01] LABS: Glucose Point of Care 188 mg/dl (65-105)
[2022-05-19 19:55] VITALS: BP 150/71; PULSE 98; RESP 18; TEMP 36.6; O2SAT 97
[2022-05-19 21:34] LABS: Glucose Point of Care 245 mg/dl (65-105)
[2022-05-20 03:54] VITALS: BP 148/78; PULSE 98; RESP 18; TEMP 36.4; O2SAT 94
[2022-05-20] MEDS: ONDANSETRON INJ 4 MG/2 ML VIAL IV PUSH ×2 (04:10→08:47)
[2022-05-20] MEDS: metroNIDAZOLE 500 MG/ISO 100ML 500 MG/100 ML BAG 100 MG IVPB (05:15)
[2022-05-20 08:29] LABS: Glucose Point of Care 295 mg/dl (65-105)
[2022-05-20] MEDS: ENOXAPARIN 40 MG/0.4 ML SYRINGE SUB-Q (08:50)
[2022-05-20] MEDS: SOD HYPOCHLORITE 1/4 STRENGTH 473 ML 1 APPLIC TOPICAL (08:50)
[2022-05-20] MEDS: INSULIN ASPART (*BKC) 100 UNITS/ML SUB-Q ×2 (08:50→12:16)
--- NOTE | 2022-05-20 10:21 | PM.IMPN ---
Progress Note: A&P Assessment and Plan (1) Diabetic foot ulcer: Qualifiers: Diabetes mellitus type: other specified (including MARINA) Diabetic foot ulcer location: heel Laterality: left Code(s): E11.621 - Type 2 diabetes mellitus with foot ulcer; L97.509 - Non-pressure chronic ulcer of other part of unspecified foot with unspecified severity Status: Acute (2) Cellulitis in diabetic foot: Code(s): E11.628 - Type 2 diabetes mellitus with other skin complications; L03.119 - Cellulitis of unspecified part of limb Status: Acute (3) Type 2 diabetes mellitus: Onset Date: 05/17/22 Code(s): E11.9 - Type 2 diabetes mellitus without complications Status: Acute (4) Tobacco abuse: Code(s): Z72.0 - Tobacco use Status: Acute (5) Murmur: Code(s): R01.1 - Cardiac murmur, unspecified Status: Acute (6) Newly diagnosed diabetes: Code(s): E11.9 - Type 2 diabetes mellitus without complications Status: Acute (7) Peripheral vascular disease: Code(s): I73.9 - Peripheral vascular disease, unspecified Status: Acute Plan 05/17/22 Wound nurse has been consulted and they recommend surgery consultation for probable debridement. She has been started on cefepime, metronidazole, and vancomycin per antibiotic stewardship recommendations. This is a new diagnosis for the patient however she suspected it with an unintentional 70 pound weight loss and symptoms of neuropathy over the past 1 year. Start metformin upon discharge.? Initiate sliding scale insulin while in the hospital.? Depending on her hemoglobin A1c she may very well need to be started on insulin for a period of time. Given risk factors for heart disease, she would benefit from an SGLT2 inhibitor. Consult will be placed for the dietitian and informatics educator. Smoking cessation is imperative and was discussed; I spent approximately 5 minutes counseling the patient on smoking cessation. Her at bedside will be good support for her. She understands the importance of quitting smoking and at this time she denies the need for nicotine patch and any other pharmacologic agents. 05/18/22 ECHO normal pt improved? s/p drainage of R foot abscess consult dietary will try oral agents possible dc in 24hrs pending surgical clearance and wound care orders 05/19/22 increase metformin to 1000 BID start low dose glipizide slow correction to prevent rapid drop in chronically elevated BG wound care recs pending anticipate dc in 24-48 hrs 05/20/2022 Patient with nausea vomiting, metronidazole discontinued as well as cefepime. Continues imipenem and vancomycin Surgery to take patient back to OR today for 2nd debridement Hold oral antihyperglycemics as patient will be placed NPO today by surgery Continue oral antihyperglycemic titration after patient placed back into p.o. status Potassium repleted Phenergan for nausea insulin sliding scale increase to medium Surgery recommendations appreciated Subjective Date/time seen: 05/20/22 10:21 pt w nausea and vomiting this morning she states that she has been up all night vomiting. Spoke with RN Zostew changed to Phenergan, follow-up rounding patient's nausea has subsided Review of Systems Review of Systems: All systems reviewed & are unremarkable except as noted in HPI and below Exam Narrative: GEN: NAD, AAOx3, cooperative HEENT: NCAT, MMM, EOMI Neck: no JVD Heart: S1S2 RRR Lungs: clear to auscultation Ext: moves all, no cyanosis, no clubbing, left lower extremity with clean dry bandage not removed during today's examination Objective Data Vital Signs Vital Signs: Vital Signs - 24 hr 05/19/22 16:02 05/19/22 19:55 05/20/22 03:54 Temperature 97.7 F 97.8 F 97.5 F L Pulse Rate 87 98 98 Respiratory Rate 18 18 18 Blood Pressure 147/69 H 150/71 H 148/78 H Pulse Oximetry 97 97 94 Intake/Output Intake/Output: Intake & Output 1
[2022-05-20] MEDS: PROMETHAZINE HCL 25 MG TABLET PO ×2 (10:52→16:48)
[2022-05-20] MEDS: metFORMIN HCL 500 MG TABLET 1000 MG PO (10:52)
[2022-05-20] MEDS: PANTOPRAZOLE SODIUM IV 40 MG VIAL IV PUSH (10:52)
[2022-05-20 10:53] LABS: Basophils Absolute Auto 0.1 K/mm3 (0.0-0.1); Basophils Percent Auto 0.3 % (0.2-1.2); Hematocrit 39.7 % (37.0-47.0); Hemoglobin 13.1 g/dL (12.0-15.0); Immature Granulocyte Absolute 0.13 K/mm3 (0.00-0.031); Immature Granulocyte Percent A 0.7 % (0-0.5); Lymphocytes Percent Auto 7.9 % (18.3-44.2); Mean Corpuscular Hemoglobin 29.8 pg (26-34); Mean Corpuscular Volume 90.4 fl (80-100); Mean Platelet Volume 9.7 fl (7.4-10.4); Monocytes Absolute Auto 0.8 K/mm3 (0.1-0.6); Monocytes Percent Auto 4.5 % (2.6-8.5); Neutrophils Absolute Auto 15.3 K/mm3 (1.3-6.7); Neutrophils Percent Auto 86.6 % (45.5-73.1); Platelet Count Result 371 k/mm3 (150-375); Red Blood Count 4.39 M/mm3 (4.2-5.4); Red Cell Distribution Width 12.7 % (11.5-14.5); White Blood Count 17.7 K/mm3 (4.5-10.0)
[2022-05-20 11:03] LABS: Anion Gap 14 mmol/L (8-16); Blood Urea Nitrogen 11 mg/dL (7-17); Calcium 9.1 mg/dL (8.4-10.2); Carbon Dioxide 37 mmol/L (22-30); Chloride 87 mmol/L (98-107); Estimated CRCL calculation 102 ml/min; Estimated Glomerular Filt Rate > 60; Glucose 306 mg/dL (65-110); Sodium 138 mmol/L (137-145)
[2022-05-20 11:30] VITALS: BMI 28.4
--- NOTE | 2022-05-20 11:44 | PM.PNGS ---
Progress Note: A&P Assessment and Plan (1) Diabetic foot ulcer: Qualifiers: Diabetes mellitus type: other specified (including MARINA) Diabetic foot ulcer location: heel Laterality: left Code(s): E11.621 - Type 2 diabetes mellitus with foot ulcer; L97.509 - Non-pressure chronic ulcer of other part of unspecified foot with unspecified severity Status: Acute Assessment and Plan: Wound still with foul odor and some purulent drainage with necrotic tissue at the edges. Continue Dakin's soaked dressing changes. Discussed with Dr. Ignacio and she will likely need further surgical debridement. Will make her NPO for now and will coordinate with scheduling to see when she can be added onto the surgery schedule. Prelim wound cx show growth of streptococcus anginosus, gram stain with gram + cocci and gram - bacilli. Continue IV antibiotics. Hospitalist switching to IV Primaxin with Vancomycin due to patient's nausea/vomiting as a possible side effect from the antibiotics. (2) Tobacco abuse: Code(s): Z72.0 - Tobacco use Status: Acute (3) Type 2 diabetes mellitus: Onset Date: 05/17/22 Code(s): E11.9 - Type 2 diabetes mellitus without complications Status: Acute Assessment and Plan: Now with nausea and vomiting. Could be related to side effects of new medication or another etiology. Continue antiemetics and monitor closely. (4) Peripheral vascular disease: Code(s): I73.9 - Peripheral vascular disease, unspecified Status: Acute Assessment and Plan: Encouraged to stop smoking. Consider vascular surgery evaluation as an outpatient. Plan I have discussed the patient's case and plan of care with Dr. Ignacio. Subjective Subjective Date/Time Seen: 05/20/22 09:44 Patient reports: nausea, vomiting and afebrile Interval history: Patient seen and examined. Reports nausea starting yesterday and has had multiple episodes of vomiting overnight. She has not been able to keep any fluids or food down since yesterday. She reports only having a small amount of tea for breakfast and has since vomited. No other specific complaints at this time. Review of Systems Review of Systems: All systems reviewed & are unremarkable except as noted in HPI and below Exam Const: General: alert; No acute distress Orientation/consciousness: patient oriented x3 Extrem: Other: Dressing removed. Left lateral food wound with still a foul odor and some necrotic tissue on the edges, there is scant amount of purulent drainage expressed when palpating just posterior to the wound. The wound now has some extended blistering that extends from 3-9 o'clock at 9 cm. Erythema and edema of foot improved per patient. Objective Data Vital Signs Vital Signs: Vital Signs - 24 hr 05/19/22 16:02 05/19/22 19:55 05/20/22 03:54 Temperature 97.7 F 97.8 F 97.5 F L Pulse Rate 87 98 98 Respiratory Rate 18 18 18 Blood Pressure 147/69 H 150/71 H 148/78 H Pulse Oximetry 97 97 94 Intake/Output Intake/Output: Intake & Output 05/17/22 05/18/22 05/19/22 05/20/22 23:59 23:59 23:59 23:59 Intake Total 1440 1870 2870 1130 Output Total 600 400 Balance 1440 1270 2870 730 Meds/Results Medications: Active Medications Generic Name Dose Route Start Last Admin Trade Name Freq PRN Reason Stop Dose Admin Hydrocodone Bitart/Acetaminophen 1 tab 05/17/22 19:23 05/18/22 15:18 Hydrocodone/Acetaminophen (*Crx) 5-325 Mg Tablet PO 1 tab Q4H PRN Administration Pain Rated 4-6 Hydrocodone Bitart/Acetaminophen 1 tab 05/17/22 19:23 05/19/22 06:44 Hydrocodone/Acetaminophen (*Crx) 7.5-325 Mg Tablet PO 1 tab Q4H PRN Administration Pain Rated 7-10 Dextrose 12.5 gm 05/17/22 17:13 Dextrose 50% 25 Gm/50 Ml Syringe IV PUSH PRN PRN Hypoglycemia Protocol Enoxaparin Sodium 40 mg 05/18/22 09:00 05/20/22 08:50 Enoxaparin 40 Mg/0.4 Ml Syringe SUB-Q 4
[2022-05-20 12:06] LABS: Glucose Point of Care 292 mg/dl (65-105)
[2022-05-20] MEDS: SUCRALFATE SUSP 100 MG/ML 10 ML UDC 1000 MG PO ×3 (12:15→20:10)
[2022-05-20] MEDS: POTASSIUM CHLORIDE INJ 40 MEQ in SODIUM CHLORIDE 0.9% IV 500 ML 130 MEQ IVPB (13:13)
[2022-05-20 14:00] VITALS: BP 133/65; PULSE 92; RESP 18; TEMP 37; O2SAT 91
[2022-05-20 14:55] LABS: Vancomycin Trough 12.1 ug/mL (10.0-20.0)
[2022-05-20 17:25] LABS: Glucose Point of Care 193 mg/dl (65-105)
[2022-05-20] MEDS: metFORMIN HCL 500 MG TABLET PO (17:28)
[2022-05-20 20:02] VITALS: BP 138/67; PULSE 85; RESP 18; TEMP 37.2; O2SAT 96
[2022-05-20 20:27] LABS: Glucose Point of Care 284 mg/dl (65-105)
[2022-05-21] VITALS (11 sets, daily range): BP systolic 84–164; BP diastolic 54–75; PULSE 67–80; RESP 9–20; TEMP 36–36.9; O2SAT 94–100
[2022-05-21] MEDS: PROMETHAZINE HCL 25 MG TABLET PO (00:29)
[2022-05-21] MEDS: HYDROcodone/acetaminophen (*CRX) 7.5-325 MG TABLET 1 TAB PO ×2 (03:01→20:19)
[2022-05-21 03:13] LABS: Glucose Point of Care 246 mg/dl (65-105)
[2022-05-21 05:42] LABS: Basophils Absolute Auto 0.1 K/mm3 (0.0-0.1); Basophils Percent Auto 0.3 % (0.2-1.2); Eosinophils Absolute Auto 0.1 K/mm3 (0-0.3); Eosinophils Percent Auto 0.5 % (0-4.4); Hematocrit 35.9 % (37.0-47.0); Hemoglobin 11.5 g/dL (12.0-15.0); Immature Granulocyte Absolute 0.18 K/mm3 (0.00-0.031); Lymphocytes Absolute Auto 2.09 K/mm3 (0.9-3.2); Lymphocytes Percent Auto 11.3 % (18.3-44.2); Mean Corpuscular Hemoglobin 29.6 pg (26-34); Mean Corpuscular Volume 92.3 fl (80-100); Mean Platelet Volume 9.7 fl (7.4-10.4); Monocytes Absolute Auto 1.4 K/mm3 (0.1-0.6); Monocytes Percent Auto 7.4 % (2.6-8.5); Neutrophils Absolute Auto 14.7 K/mm3 (1.3-6.7); Neutrophils Percent Auto 79.5 % (45.5-73.1); Platelet Count Result 336 k/mm3 (150-375); Red Blood Count 3.89 M/mm3 (4.2-5.4); Red Cell Distribution Width 12.7 % (11.5-14.5); White Blood Count 18.5 K/mm3 (4.5-10.0)
[2022-05-21 05:52] LABS: Anion Gap 11 mmol/L (8-16); Blood Urea Nitrogen 11 mg/dL (7-17); Calcium 8.2 mg/dL (8.4-10.2); Carbon Dioxide 32 mmol/L (22-30); Chloride 91 mmol/L (98-107); Estimated CRCL calculation 101 ml/min; Estimated Glomerular Filt Rate > 60; Glucose 267 mg/dL (65-110); Magnesium 1.5 mg/dL (1.6-2.3); Potassium 2.9 mmol/L (3.4-5.0); Sodium 134 mmol/L (137-145)
--- NOTE | 2022-05-21 07:34 | PCNSR ---
On 05/21/22, the student,Richie Bailon, provided care and completed [facility] documentation on this patient. I have reviewed the student's documentation and agree with the findings.
[2022-05-21 08:40] LABS: Glucose Point of Care 284 mg/dl (65-105)
--- NOTE | 2022-05-21 09:38 | PM.IMPN ---
Progress Note: A&P Assessment and Plan (1) Diabetic foot ulcer: Qualifiers: Diabetes mellitus type: other specified (including MARINA) Diabetic foot ulcer location: heel Laterality: left Code(s): E11.621 - Type 2 diabetes mellitus with foot ulcer; L97.509 - Non-pressure chronic ulcer of other part of unspecified foot with unspecified severity Status: Acute (2) Cellulitis in diabetic foot: Code(s): E11.628 - Type 2 diabetes mellitus with other skin complications; L03.119 - Cellulitis of unspecified part of limb Status: Acute (3) Type 2 diabetes mellitus: Onset Date: 05/17/22 Code(s): E11.9 - Type 2 diabetes mellitus without complications Status: Acute (4) Tobacco abuse: Code(s): Z72.0 - Tobacco use Status: Acute (5) Murmur: Code(s): R01.1 - Cardiac murmur, unspecified Status: Acute (6) Newly diagnosed diabetes: Code(s): E11.9 - Type 2 diabetes mellitus without complications Status: Acute (7) Peripheral vascular disease: Code(s): I73.9 - Peripheral vascular disease, unspecified Status: Acute Plan 05/17/22 Wound nurse has been consulted and they recommend surgery consultation for probable debridement. She has been started on cefepime, metronidazole, and vancomycin per antibiotic stewardship recommendations. This is a new diagnosis for the patient however she suspected it with an unintentional 70 pound weight loss and symptoms of neuropathy over the past 1 year. Start metformin upon discharge.? Initiate sliding scale insulin while in the hospital.? Depending on her hemoglobin A1c she may very well need to be started on insulin for a period of time. Given risk factors for heart disease, she would benefit from an SGLT2 inhibitor. Consult will be placed for the dietitian and asphalt heater operator. Smoking cessation is imperative and was discussed; I spent approximately 5 minutes counseling the patient on smoking cessation. Her at bedside will be good support for her. She understands the importance of quitting smoking and at this time she denies the need for nicotine patch and any other pharmacologic agents. 05/18/22 ECHO normal pt improved? s/p drainage of R foot abscess consult dietary will try oral agents possible dc in 24hrs pending surgical clearance and wound care orders 05/19/22 increase metformin to 1000 BID start low dose glipizide slow correction to prevent rapid drop in chronically elevated BG wound care recs pending anticipate dc in 24-48 hrs 05/20/2022 Patient with nausea vomiting, metronidazole discontinued as well as cefepime. Continues imipenem and vancomycin Surgery to take patient back to OR today for 2nd debridement Hold oral antihyperglycemics as patient will be placed NPO today by surgery Continue oral antihyperglycemic titration after patient placed back into p.o. status Potassium repleted Phenergan for nausea insulin sliding scale increase to medium Surgery recommendations appreciated 05/21/22 pt w elevated blood glucose wants to be discharged on oral meds unable to titrate meds today as pt is NPO for 2nd debridement of L ankle abscess and wound possible dc home on glipizide 5mg and metformin cont supportive care Mag and K repleted am labs ordered Subjective Date/time seen: 05/21/22 09:38 pt doing ok lying in bed waiting for surgery Review of Systems Review of Systems: All systems reviewed & are unremarkable except as noted in HPI and below Exam Narrative: GEN: NAD, AAOx3, cooperative HEENT: NCAT, MMM, EOMI Neck: no JVD Heart: S1S2 RRR Lungs: clear to auscultation Ext: moves all, no cyanosis, no clubbing, left lower extremity with clean dry bandage not removed during today's examination Objective Data Vital Signs Vital Signs: Vital Signs - 24 hr 05/20/22 14:00 05/20/22 20:02 05/21/22 04:53 Temperature 98.6 F 98.9 F 96.8 F L Pulse Rate 92 85 79 Respirator
[2022-05-21 09:55] LABS: Glucose Point of Care 240 mg/dl (65-105)
[2022-05-21] MEDS: INSULIN ASPART (*BKC) 100 UNITS/ML SUB-Q ×3 (10:03→23:02)
[2022-05-21] MEDS: MAGNESIUM SULF 2 GM/WATER 50ML 2 GM/50 ML BAG IVPB (10:03)
[2022-05-21] MEDS: POTASSIUM CHLORIDE 20 MEQ TABLET 40 MEQ PO (10:04)
[2022-05-21] MEDS: PANTOPRAZOLE SODIUM IV 40 MG VIAL IV PUSH (10:04)
[2022-05-21] MEDS: SOD HYPOCHLORITE 1/4 STRENGTH 473 ML 1 APPLIC TOPICAL (10:04)
[2022-05-21] MEDS: KCL 20 MEQ/SW 100 ML 100 ML 50 MEQ IVPB (11:40)
[2022-05-21 12:12] LABS: Glucose Point of Care 207 mg/dl (65-105)
[2022-05-21 13:18] LABS: Glucose Point of Care 203 mg/dl (65-105)
[2022-05-21] MEDS: LACTATED RINGERS 1,000 ML 30 ML IV CONT ×2 (15:43→19:19)
[2022-05-21 17:07] LABS: Glucose Point of Care 253 mg/dl (65-105)
--- NOTE | 2022-05-21 17:29 | WPDANESEPPF ---
Anes - Initial Pre Proc Eval Procedure: Operation Date: 05/18/22 08:00 Proposed Procedures p I&D Debride Lower Extremity Foot(Left) - Shahbaz Ignacio DO Operation Date: 05/21/22 18:00 Proposed Procedures p Debridement Left Foot Wound - Shahbaz BrewsterOpal Ignacio DO Date/Time: 05/21/22 17:29 Surgeon: Jarad Montero MD Pre Op Diagnosis: Infected Diabetic Foot Ulcer/New Onset Diabetes Me Patient Data Age: 56 Gender: F Height: 1.63 m Weight: 73.9 kg Last Vital Signs Temp 36.5 C 05/21/22 15:40 Pulse 80 05/21/22 15:40 Resp 16 05/21/22 15:40 BP 154/75 H 05/21/22 15:40 Pulse Ox 100 05/21/22 15:40 O2 Del Method Room Air 05/21/22 15:40 O2 Flow Rate 10 05/18/22 09:01 Allergies Allergy/AdvReac Type Severity Reaction Status Date / Time No Known Allergies Allergy Verified 05/17/22 16:49 Home Medications Medication Instructions Recorded Confirmed Type No Home Medications 05/17/22 05/17/22 History Laboratory Tests 05/20/22 05/21/22 05/21/22 20:14 03:04 05:04 WBC 18.5 K/mm3 H K/mm3 (4.5-10.0) RBC 3.89 M/mm3 L M/mm3 (4.2-5.4) Hgb 11.5 g/dL L g/dL (12.0-15.0) Hct 35.9 % L % (37.0-47.0) MCV 92.3 fl fl (80-100) MCH 29.6 pg pg (26-34) MCHC 32.0 g/dl g/dl (32-36) RDW 12.7 % % (11.5-14.5) Plt Count 336 k/mm3 k/mm3 (150-375) MPV 9.7 fl fl (7.4-10.4) Immature Gran % (Auto) 1.0 % H % (0-0.5) Neut % (Auto) 79.5 % H % (45.5-73.1) Lymph % (Auto) 11.3 % L % (18.3-44.2) Ward % (Auto) 7.4 % % (2.6-8.5) Eos % (Auto) 0.5 % % (0-4.4) Baso % (Auto) 0.3 % % (0.2-1.2) Lymph # (Auto) 2.09 K/mm3 K/mm3 (0.9-3.2) Ward # (Auto) 1.4 K/mm3 H K/mm3 (0.1-0.6) Eos # (Auto) 0.1 K/mm3 K/mm3 (0-0.3) Baso # (Auto) 0.1 K/mm3 K/mm3 (0.0-0.1) Abs Immat Gran (auto) 0.18 K/mm3 H K/mm3 (0.00-0.031) Absolute Neuts (auto) 14.7 K/mm3 H K/mm3 (1.3-6.7) Absolute Nucleated RBC 0.0 K/mm3 K/mm3 (0.0-0.012) Nucleated RBC % 0.0 % % (0.0-0.2) Sodium Potassium Chloride Carbon Dioxide Anion Gap BUN Creatinine Estim Creat Clear Calc Estimated GFR Glucose POC Capillary Glucose 284 mg/dl H mg/dl 246 mg/dl H mg/dl (65-105) (65-105) Calcium Magnesium 05/21/22 05/21/22 05/21/22 05:04 08:36 09:49 WBC RBC Hgb Hct MCV MCH MCHC RDW Plt Count MPV Immature Gran % (Auto) Neut % (Auto) Lymph % (Auto) Ward % (Auto) Eos % (Auto) Baso % (Auto) Lymph # (Auto) Ward # (Auto) Eos # (Auto) Baso # (Auto) Abs Immat Gran (auto) Absolute Neuts (auto) Absolute Nucleated RBC Nucleated RBC % Sodium 134 mmol/L L mmol/L (137-145) Potassium 2.9 mmol/L L mmol/L (3.4-5.0) Chloride 91 mmol/L L mmol/L (98-107) Carbon Dioxide 32 mmol/L H mmol/L (22-30) Anion Gap 11 mmol/L mmol/L (8-16) BUN 11 mg/dL mg/dL (7-17) Creatinine 0.50 mg/dL L mg/dL (0.7-1.0) Estim Creat Clear Calc 101 ml/min ml/min Estimated GFR > 60 (59 - ) Glucose 267 mg/dL H mg/dL (65-110) POC Capillary Glucose 284 mg/dl H mg/dl 240 mg/dl H mg/dl (65-105) (65-105) Calcium 8.2 mg/dL L mg/dL (8.4-10.2) Magnesium 1.5 mg/dL L mg/dL (1.6-2.3) 05/21/22 05/21/22 05/21/22 12:10 13:15 17:05 WBC RBC
--- NOTE | 2022-05-21 18:11 | WPDHPUPDATE1 ---
History and Physical Update Update Date/Time: 05/21/22 18:11 History and Physical has been reviewed, including an updated exam of the patient. There are NO changes in the patient's condition. Risks, benefits, and alternatives have been discussed and questions answered. Patient agrees to proceed with procedure.
--- NOTE | 2022-05-21 18:20 | WPDHPUPDATE1 ---
History and Physical Update Update Date/Time: 05/21/22 18:20 History and Physical has been reviewed, including an updated exam of the patient. There are NO changes in the patient's condition. Risks, benefits, and alternatives have been discussed and questions answered. Patient agrees to proceed with procedure.
--- NOTE | 2022-05-21 19:23 | W.PM.PROC2 ---
Procedure Note - Detailed Date of Procedure 05/21/22 Pre-op Diagnosis Infected Diabetic Foot Ulcer/New Onset Diabetes Me Post-op Diagnosis Same Procedure Performed Sharp excisional debridement left foot ulcer measuring 6 cm x 4 cm including skin, subcutaneous fat, and fascia Surgeon Shahbaz Ignacio, DO Anesthesia General Indications This is a 48-year-old woman who presented with a necrotic wound to her left heel. She was developing a soft tissue necrotizing infection deep to this and underwent incision and drainage and debridement on 05/20/2022. She still continues to have some necrotic tissue within the wound bed and is having a fair amount of purulence drainage. Discussions were made with the patient about treatment options and decision was made to proceed with another debridement of the left foot wound. Findings The left foot wound was sharply debrided using a 15 blade scalpel. The necrotic skin around the surface of the wound was excised and the deep tissue was also excised down to healthy appearing tissue. The total wound measurement was 6 cm x 4 cm. The debridement included skin, subcutaneous fat, and fascia. Description of Procedure Procedure as well as risks, benefits, and alternatives were discussed with the patient. Written consent was obtained and placed in chart prior to procedure. Patient was brought back to surgical suite. She was placed supine on operating table. Time-out was done to confirm patient and procedure. She was then intubated by the anesthesia department. Left foot area was prepped and draped in sterile fashion using Betadine prep. A 15 blade scalpel was used to excise the necrotic skin around the surface of the wound. The tissue deep to this also had some necrotic areas and this was also sharply debrided using a 15 blade scalpel. I then also used a curette to further d?bride some of the base of the wound. There appeared to be mostly healthy appearing bleeding tissue within the wound base now. The area was irrigated with sterile saline. No other significant abnormalities were noted. Betadine-soaked Kerlix gauze was then placed within the wound bed followed by fluff 4 x 4 gauze, ABD pad, and Kerlix roll. The patient was then awakened from anesthesia, extubated, and transferred to recovery. Estimated Blood Loss 5 Urine Output 550 Complications No immediate complications Condition Stable Disposition Floor [facility] Billing Surgery - Charge Forward: Surgery Billing
[2022-05-21 19:26] LABS: Glucose Point of Care 196 mg/dl (65-105)
[2022-05-21] MEDS: fentaNYL CITRATE INJ (*CRX) 100 MCG/2 ML VIAL 25 MCG IV PUSH ×2 (19:41→19:48)
[2022-05-21] MEDS: SUCRALFATE SUSP 100 MG/ML 10 ML UDC 1000 MG PO (20:19)
[2022-05-21 23:10] LABS: Glucose Point of Care 227 mg/dl (65-105)
[2022-05-22] VITALS (7 sets, daily range): BP systolic 124–163; BP diastolic 52–77; PULSE 70–87; RESP 12–20; TEMP 36–36.9; O2SAT 95–100
[2022-05-22 03:33] LABS: Basophils Absolute Auto 0.1 K/mm3 (0.0-0.1); Basophils Percent Auto 0.5 % (0.2-1.2); Eosinophils Percent Auto 0.1 % (0-4.4); Hematocrit 37.3 % (37.0-47.0); Hemoglobin 12.2 g/dL (12.0-15.0); Immature Granulocyte Absolute 0.23 K/mm3 (0.00-0.031); Immature Granulocyte Percent A 1.3 % (0-0.5); Lymphocytes Absolute Auto 2.49 K/mm3 (0.9-3.2); Mean Corpuscular HGB Conc 32.7 g/dl (32-36); Mean Corpuscular Hemoglobin 29.8 pg (26-34); Mean Corpuscular Volume 91.2 fl (80-100); Mean Platelet Volume 9.4 fl (7.4-10.4); Monocytes Absolute Auto 1.3 K/mm3 (0.1-0.6); Neutrophils Absolute Auto 13.7 K/mm3 (1.3-6.7); Neutrophils Percent Auto 77.1 % (45.5-73.1); Platelet Count Result 344 k/mm3 (150-375); Red Blood Count 4.09 M/mm3 (4.2-5.4); Red Cell Distribution Width 12.6 % (11.5-14.5); White Blood Count 17.8 K/mm3 (4.5-10.0)
[2022-05-22 03:44] LABS: Anion Gap 11 mmol/L (8-16); Blood Urea Nitrogen 9 mg/dL (7-17); Calcium 8.5 mg/dL (8.4-10.2); Carbon Dioxide 33 mmol/L (22-30); Chloride 92 mmol/L (98-107); Estimated CRCL calculation 85 ml/min; Estimated Glomerular Filt Rate > 60; Glucose 223 mg/dL (65-110); Magnesium 1.8 mg/dL (1.6-2.3); Sodium 136 mmol/L (137-145)
[2022-05-22 04:01] LABS: Vancomycin Trough 17.6 ug/mL (10.0-20.0)
[2022-05-22] MEDS: INSULIN ASPART (*BKC) 100 UNITS/ML SUB-Q (05:55)
[2022-05-22] MEDS: SUCRALFATE SUSP 100 MG/ML 10 ML UDC 1000 MG PO ×4 (05:57→21:05)
[2022-05-22] MEDS: PROMETHAZINE HCL 25 MG TABLET PO ×2 (05:58→21:05)
[2022-05-22 06:03] LABS: Glucose Point of Care 215 mg/dl (65-105)
[2022-05-22] MEDS: PANTOPRAZOLE SODIUM IV 40 MG VIAL IV PUSH (08:22)
[2022-05-22] MEDS: ENOXAPARIN 40 MG/0.4 ML SYRINGE SUB-Q (08:22)
[2022-05-22] MEDS: glipiZIDE 2.5 MG TABLET PO (08:24)
[2022-05-22] MEDS: SOD HYPOCHLORITE 1/4 STRENGTH 473 ML 1 APPLIC TOPICAL (08:24)
[2022-05-22 08:45] LABS: Glucose Point of Care 192 mg/dl (65-105)
--- NOTE | 2022-05-22 09:07 | WPDANESPN ---
Anes - Prog Note Post-Op Date/Time: 05/22/22 08:35 Cardiovascular status: normal Respiratory status: normal Airway patency: baseline Mental status: baseline Post-Op hydration status: normal Vital Signs: Last Vital Signs Temp 97.1 F L 05/22/22 03:33 Pulse 85 05/22/22 03:33 Resp 20 05/22/22 03:33 BP 163/73 H 05/22/22 03:33 Pulse Ox 100 05/22/22 03:33 O2 Del Method Room Air 05/21/22 20:00 O2 Flow Rate 8 05/21/22 19:30 Pain Score (VAS): 0 I/O: Intake & Output 05/21/22 05/22/22 05/22/22 23:59 07:59 15:59 Intake Total 1050 440 Output Total 550 Balance 500 440 Laboratory Tests 05/22/22 03:28 05/22/22 03:28 05/21/22 05/21/22 05/21/22 09:49 12:10 13:15 WBC RBC Hgb Hct MCV MCH MCHC RDW Plt Count MPV Immature Gran % (Auto) Neut % (Auto) Lymph % (Auto) Cecil % (Auto) Eos % (Auto) Baso % (Auto) Lymph # (Auto) Cecil # (Auto) Eos # (Auto) Baso # (Auto) Abs Immat Gran (auto) Absolute Neuts (auto) Absolute Nucleated RBC Nucleated RBC % Sodium Potassium Chloride Carbon Dioxide Anion Gap BUN Creatinine Estim Creat Clear Calc Estimated GFR Glucose POC Capillary Glucose 240 H 207 H 203 H Calcium Magnesium Vancomycin Trough 05/21/22 05/21/22 05/21/22 17:05 19:24 22:59 WBC RBC Hgb Hct MCV MCH MCHC RDW Plt Count MPV Immature Gran % (Auto) Neut % (Auto) Lymph % (Auto) Cecil % (Auto) Eos % (Auto) Baso % (Auto) Lymph # (Auto) Cecil # (Auto) Eos # (Auto) Baso # (Auto) Abs Immat Gran (auto) Absolute Neuts (auto) Absolute Nucleated RBC Nucleated RBC % Sodium Potassium Chloride Carbon Dioxide Anion Gap BUN Creatinine Estim Creat Clear Calc Estimated GFR Glucose POC Capillary Glucose 253 H 196 H 227 H Calcium Magnesium Vancomycin Trough 05/22/22 05/22/22 05/22/22 03:28 03:28 03:28 WBC 17.8 H RBC 4.09 L Hgb 12.2 Hct 37.3 MCV 91.2 MCH 29.8 MCHC 32.7 RDW 12.6 Plt Count 344 MPV 9.4 Immature Gran % (Auto) 1.3 H Neut % (Auto) 77.1 H Lymph % (Auto) 14.0 L Cecil % (Auto) 7.0 Eos % (Auto) 0.1 Baso % (Auto) 0.5 Lymph # (Auto) 2.49 Cecil # (Auto) 1.3 H Eos # (Auto) 0.0 Baso # (Auto) 0.1 Abs Immat Gran (auto) 0.23 H Absolute Neuts (auto) 13.7 H Absolute Nucleated RBC 0.0 Nucleated RBC % 0.0 Sodium 136 L Potassium 4.0 Chloride 92 L Carbon Dioxide 33 H Anion Gap 11 BUN 9 Creatinine 0.60 L Estim Creat Clear Calc 85 Estimated GFR > 60 Glucose 223 H POC Capillary Glucose Calcium 8.5 Magnesium 1.8 Vancomycin Trough 17.6 05/22/22 05/22/22 05:53 08:42 WBC RBC Hgb Hct MCV MCH MCHC RDW Plt Count MPV Immature Gran % (Auto) Neut % (Auto) Lymph % (Auto) Cecil % (Auto) Eos % (Auto) Baso % (Auto) Lymph # (Auto) Cecil # (Auto) Eos # (Auto) Baso # (Auto) Abs Immat Gran (auto) Absolute Neuts (auto) Absolute Nucleated RBC Nucleated RBC % Sodium Potassium Chloride Carbon Dioxide Anion Gap BUN Creatinine Estim Creat Clear Calc Estimated GFR Glucose POC Capillary Glucose 215 H 192 H Calcium Magnesium Vancomycin Trough Microbiology 05/18/22 08:30 Abscess Anaerobic Culture - Preliminary Bacteroides pyogenes 05/18/22 08:30 Abscess Aerobic Culture - Final Streptococcus anginosus Post-procedural complaints: none Patient Feedback: Patient satisfied with anesthetic care.
[2022-05-22 12:26] LABS: Glucose Point of Care 150 mg/dl (65-105)
--- NOTE | 2022-05-22 13:50 | PM.PNGS ---
Progress Note: A&P Assessment and Plan (1) Diabetic foot ulcer: Qualifiers: Diabetes mellitus type: other specified (including MARINA) Diabetic foot ulcer location: heel Laterality: left Code(s): E11.621 - Type 2 diabetes mellitus with foot ulcer; L97.509 - Non-pressure chronic ulcer of other part of unspecified foot with unspecified severity Status: Acute Assessment and Plan: S/p second excisional debridement on 05/21 and wound looks good today. No further pockets of purulent drainage or significant necrotic tissue. Continue local wound care with Dakin's dressing changes. Continue IV antibiotics. Wound cx growing bacteroides pyogenes and streptococcus anginosus, awaiting final results. WBC 17k today, afebrile, repeat labs tomorrow. (2) Tobacco abuse: Code(s): Z72.0 - Tobacco use Status: Acute (3) Type 2 diabetes mellitus: Onset Date: 05/17/22 Code(s): E11.9 - Type 2 diabetes mellitus without complications Status: Acute (4) Peripheral vascular disease: Code(s): I73.9 - Peripheral vascular disease, unspecified Status: Acute Assessment and Plan: Encouraged to stop smoking. Consider vascular surgery evaluation as an outpatient. Plan I have discussed the patient's case and plan of care with Dr. Ignacio. Subjective Subjective Date/Time Seen: 05/22/22 13:50 Patient reports: no new complaints, feels better and afebrile Interval history: No acute events overnight. No complaints at this time. Review of Systems Review of Systems: All systems reviewed & are unremarkable except as noted in HPI and below Exam Const: General: comfortable, no acute distress and alert Orientation/consciousness: patient oriented x3 Skin: Other: Left foot dressing dry and intact, assessed by Dr. Ignacio earlier today. Objective Data Vital Signs Vital Signs: Vital Signs - 24 hr 05/21/22 14:18 05/21/22 15:40 05/21/22 19:19 Temperature 97.4 F L 97.7 F Pulse Rate 80 80 67 Respiratory Rate 14 16 9 L Blood Pressure 137/63 154/75 H 84/54 L Pulse Oximetry 98 100 100 Oxygen Delivery Room Air Simple Face Mask Oxygen Flow Rate 8 05/21/22 19:30 05/21/22 19:45 05/21/22 19:55 Temperature Pulse Rate 69 74 74 Respiratory Rate 20 14 14 Blood Pressure 94/61 L 142/73 H 142/73 H Pulse Oximetry 100 94 94 Oxygen Delivery Simple Face Mask Room Air Room Air Oxygen Flow Rate 8 05/21/22 19:57 05/21/22 20:12 05/21/22 20:42 Temperature 98.4 F 98.4 F 98.4 F Pulse Rate 73 73 77 Respiratory Rate 18 18 20 Blood Pressure 164/74 H 164/74 H 155/62 H Pulse Oximetry 95 95 96 Oxygen Delivery Oxygen Flow Rate 05/21/22 20:00 05/21/22 21:42 05/22/22 00:16 Temperature 98.4 F 96.8 F L Pulse Rate 80 78 Respiratory Rate 20 18 Blood Pressure 141/65 H 151/77 H Pulse Oximetry 97 95 Oxygen Delivery Room Air Oxygen Flow Rate 05/22/22 03:33 05/22/22 08:24 05/22/22 10:16 Temperature 97.1 F L 98.5 F Pulse Rate 85 73 Respiratory Rate 20 12 Blood Pressure 163/73 H 127/53 L Pulse Oximetry 100 96 Oxygen Delivery Room Air Oxygen Flow Rate Intake/Output Intake/Output: Intake & Output 05/19/22 05/20/22 05/21/22 05/22/22 23:59 23:59 23:59 23:59 Intake Total 2870 2890 2050 560 Output Total 950 550 Balance 2870 1940 1500 560 Meds/Results Medications: Active Medications Generic Name Dose Route Start Last Admin Trade Name Freq PRN Reason Stop Dose Admin Hydrocodone Bitart/Acetaminophen 1 tab 05/17/22 19:23 05/18/22 15:18 Hydrocodone/Acetaminophen (*Crx) 5-325 Mg Tablet PO 1 tab Q4H PRN Administration Pain Rated 4-6 Hydrocodone Bitart/Acetaminophen 1 tab 05/17/22 19:23 05/21/22 20:19 Hydrocodone/Acetaminophen (*Crx) 7.5-325 Mg Tablet PO 1 tab Q4H PRN Administration Pain Rated 7-10 Cefdinir 300 mg 05/22/22 21:00 Cefdinir 300 Mg Capsule PO 05/26/22 23:59 Q12HR JANEY Dextrose
--- NOTE | 2022-05-22 14:03 | PM.IMPN ---
Progress Note: A&P Assessment and Plan (1) Diabetic foot ulcer: Qualifiers: Diabetes mellitus type: other specified (including MARINA) Diabetic foot ulcer location: heel Laterality: left Code(s): E11.621 - Type 2 diabetes mellitus with foot ulcer; L97.509 - Non-pressure chronic ulcer of other part of unspecified foot with unspecified severity Status: Acute (2) Cellulitis in diabetic foot: Code(s): E11.628 - Type 2 diabetes mellitus with other skin complications; L03.119 - Cellulitis of unspecified part of limb Status: Acute (3) Type 2 diabetes mellitus: Onset Date: 05/17/22 Code(s): E11.9 - Type 2 diabetes mellitus without complications Status: Acute (4) Tobacco abuse: Code(s): Z72.0 - Tobacco use Status: Acute (5) Murmur: Code(s): R01.1 - Cardiac murmur, unspecified Status: Acute (6) Newly diagnosed diabetes: Code(s): E11.9 - Type 2 diabetes mellitus without complications Status: Acute (7) Peripheral vascular disease: Code(s): I73.9 - Peripheral vascular disease, unspecified Status: Acute Plan 05/17/22 Wound nurse has been consulted and they recommend surgery consultation for probable debridement. She has been started on cefepime, metronidazole, and vancomycin per antibiotic stewardship recommendations. This is a new diagnosis for the patient however she suspected it with an unintentional 70 pound weight loss and symptoms of neuropathy over the past 1 year. Start metformin upon discharge.? Initiate sliding scale insulin while in the hospital.? Depending on her hemoglobin A1c she may very well need to be started on insulin for a period of time. Given risk factors for heart disease, she would benefit from an SGLT2 inhibitor. Consult will be placed for the dietitian and air carrier inspector. Smoking cessation is imperative and was discussed; I spent approximately 5 minutes counseling the patient on smoking cessation. Her at bedside will be good support for her. She understands the importance of quitting smoking and at this time she denies the need for nicotine patch and any other pharmacologic agents. 05/18/22 ECHO normal pt improved? s/p drainage of R foot abscess consult dietary will try oral agents possible dc in 24hrs pending surgical clearance and wound care orders 05/19/22 increase metformin to 1000 BID start low dose glipizide slow correction to prevent rapid drop in chronically elevated BG wound care recs pending anticipate dc in 24-48 hrs 05/20/2022 Patient with nausea vomiting, metronidazole discontinued as well as cefepime. Continues imipenem and vancomycin Surgery to take patient back to OR today for 2nd debridement Hold oral antihyperglycemics as patient will be placed NPO today by surgery Continue oral antihyperglycemic titration after patient placed back into p.o. status Potassium repleted Phenergan for nausea insulin sliding scale increase to medium Surgery recommendations appreciated 05/21/22 pt w elevated blood glucose wants to be discharged on oral meds unable to titrate meds today as pt is NPO for 2nd debridement of L ankle abscess and wound possible dc home on glipizide 5mg and metformin cont supportive care Mag and K repleted am labs ordered 05/22/2022 interval history: patient s/p 2nd debridement of the left ankle wound on 05/21, no OM, Patient clinically stable is feeling much better compared to when she, discussed with power superintendent id will switch to oral abxm will continue present management, patient seen by surgery service and further recommendation to follow pt w elevated blood glucose wants to be discharged on oral meds, patient hemoglobin A1c is 11.3 will increase glipizide to 5 mg b.i.d. will continue metformin and consult air carrier inspector cont supportive care and Dwight repleted now close to normal am labs ordered Subjective Date/time seen: 05/22/22 14:03 05/11
[2022-05-22 17:25] LABS: Glucose Point of Care 120 mg/dl (65-105)
[2022-05-22] MEDS: CEFDINIR 300 MG CAPSULE PO (21:05)
[2022-05-22] MEDS: metroNIDAZOLE 250 MG TABLET 500 MG PO (21:05)
[2022-05-22 21:09] LABS: Glucose Point of Care 161 mg/dl (65-105)
[2022-05-22 23:34] LABS: Glucose Point of Care 177 mg/dl (65-105)
[2022-05-23 03:26] VITALS: BP 159/77; PULSE 77; RESP 18; TEMP 36.6; O2SAT 100
[2022-05-23 06:04] LABS: Basophils Absolute Auto 0.1 K/mm3 (0.0-0.1); Basophils Percent Auto 0.7 % (0.2-1.2); Eosinophils Absolute Auto 0.4 K/mm3 (0-0.3); Eosinophils Percent Auto 2.4 % (0-4.4); Hematocrit 38.4 % (37.0-47.0); Hemoglobin 12.5 g/dL (12.0-15.0); Immature Granulocyte Absolute 0.31 K/mm3 (0.00-0.031); Immature Granulocyte Percent A 2.1 % (0-0.5); Mean Corpuscular HGB Conc 32.6 g/dl (32-36); Mean Corpuscular Hemoglobin 29.8 pg (26-34); Mean Corpuscular Volume 91.6 fl (80-100); Mean Platelet Volume 9.8 fl (7.4-10.4); Monocytes Absolute Auto 1.2 K/mm3 (0.1-0.6); Monocytes Percent Auto 7.8 % (2.6-8.5); Neutrophils Absolute Auto 9.5 K/mm3 (1.3-6.7); Platelet Count Result 370 k/mm3 (150-375); Red Blood Count 4.19 M/mm3 (4.2-5.4); Red Cell Distribution Width 12.7 % (11.5-14.5)
[2022-05-23 06:11] LABS: Glucose Point of Care 130 mg/dl (65-105)
[2022-05-23 06:13] LABS: Anion Gap 8 mmol/L (8-16); Blood Urea Nitrogen 8 mg/dL (7-17); Calcium 8.5 mg/dL (8.4-10.2); Carbon Dioxide 32 mmol/L (22-30); Chloride 96 mmol/L (98-107); Estimated CRCL calculation 85 ml/min; Estimated Glomerular Filt Rate > 60; Glucose 136 mg/dL (65-110); Magnesium 1.6 mg/dL (1.6-2.3); Potassium 2.9 mmol/L (3.4-5.0); Sodium 136 mmol/L (137-145)
[2022-05-23] MEDS: SUCRALFATE SUSP 100 MG/ML 10 ML UDC 1000 MG PO ×4 (06:13→20:01)
[2022-05-23] MEDS: metroNIDAZOLE 250 MG TABLET 500 MG PO ×3 (06:13→21:00)
[2022-05-23] MEDS: glipiZIDE 2.5 MG TABLET PO (08:41)
[2022-05-23] MEDS: CEFDINIR 300 MG CAPSULE PO ×2 (08:41→20:01)
[2022-05-23] MEDS: PANTOPRAZOLE SODIUM IV 40 MG VIAL IV PUSH (08:41)
[2022-05-23] MEDS: POTASSIUM CHLORIDE 20 MEQ PACKET (FOR LIQUID) 40 MEQ PO (08:41)
[2022-05-23] MEDS: ENOXAPARIN 40 MG/0.4 ML SYRINGE SUB-Q (08:41)
[2022-05-23] MEDS: SOD HYPOCHLORITE 1/4 STRENGTH 473 ML 1 APPLIC TOPICAL (08:42)
[2022-05-23] MEDS: POTASSIUM CHLORIDE INJ 40 MEQ in SODIUM CHLORIDE 0.9% IV 500 ML 130 MEQ IVPB (08:42)
[2022-05-23] MEDS: MAGNESIUM OXIDE 400 MG TABLET PO (08:44)
[2022-05-23] MEDS: PROMETHAZINE HCL 25 MG TABLET PO (08:55)
[2022-05-23 09:45] VITALS: BP 142/57; PULSE 77; RESP 16; TEMP 36.7; O2SAT 96
[2022-05-23 11:51] LABS: Glucose Point of Care 200 mg/dl (65-105)
--- NOTE | 2022-05-23 12:00 | PM.IMPN ---
Progress Note: A&P Assessment and Plan (1) Diabetic foot ulcer: Qualifiers: Diabetes mellitus type: other specified (including MARINA) Diabetic foot ulcer location: heel Laterality: left Code(s): E11.621 - Type 2 diabetes mellitus with foot ulcer; L97.509 - Non-pressure chronic ulcer of other part of unspecified foot with unspecified severity Status: Acute (2) Cellulitis in diabetic foot: Code(s): E11.628 - Type 2 diabetes mellitus with other skin complications; L03.119 - Cellulitis of unspecified part of limb Status: Acute (3) Type 2 diabetes mellitus: Onset Date: 05/17/22 Code(s): E11.9 - Type 2 diabetes mellitus without complications Status: Acute (4) Tobacco abuse: Code(s): Z72.0 - Tobacco use Status: Acute (5) Murmur: Code(s): R01.1 - Cardiac murmur, unspecified Status: Acute (6) Newly diagnosed diabetes: Code(s): E11.9 - Type 2 diabetes mellitus without complications Status: Acute (7) Peripheral vascular disease: Code(s): I73.9 - Peripheral vascular disease, unspecified Status: Acute Plan 05/17/22 Wound nurse has been consulted and they recommend surgery consultation for probable debridement. She has been started on cefepime, metronidazole, and vancomycin per antibiotic stewardship recommendations. This is a new diagnosis for the patient however she suspected it with an unintentional 70 pound weight loss and symptoms of neuropathy over the past 1 year. Start metformin upon discharge.? Initiate sliding scale insulin while in the hospital.? Depending on her hemoglobin A1c she may very well need to be started on insulin for a period of time. Given risk factors for heart disease, she would benefit from an SGLT2 inhibitor. Consult will be placed for the dietitian and software educator. Smoking cessation is imperative and was discussed; I spent approximately 5 minutes counseling the patient on smoking cessation. Her at bedside will be good support for her. She understands the importance of quitting smoking and at this time she denies the need for nicotine patch and any other pharmacologic agents. 05/18/22 ECHO normal pt improved? s/p drainage of R foot abscess consult dietary will try oral agents possible dc in 24hrs pending surgical clearance and wound care orders 05/19/22 increase metformin to 1000 BID start low dose glipizide slow correction to prevent rapid drop in chronically elevated BG wound care recs pending anticipate dc in 24-48 hrs 05/20/2022 Patient with nausea vomiting, metronidazole discontinued as well as cefepime. Continues imipenem and vancomycin Surgery to take patient back to OR today for 2nd debridement Hold oral antihyperglycemics as patient will be placed NPO today by surgery Continue oral antihyperglycemic titration after patient placed back into p.o. status Potassium repleted Phenergan for nausea insulin sliding scale increase to medium Surgery recommendations appreciated 05/21/22 pt w elevated blood glucose wants to be discharged on oral meds unable to titrate meds today as pt is NPO for 2nd debridement of L ankle abscess and wound possible dc home on glipizide 5mg and metformin cont supportive care Mag and K repleted am labs ordered 05/23/2022 interval history: patient s/p 2nd debridement of the left ankle wound on 05/21, no OM, Patient clinically stable is feeling much better compared to when she arrived, on 05/22 discussed with corporate coordinator id will switch to oral abx, patient is on now cefdinir and flagyl, discuss with surgery service will monitor wound for couple of days, will continue present management, patient seen by surgery service and further recommendation to follow pt w elevated blood glucose wants to be discharged on oral meds, patient hemoglobin A1c is 11.3 will increase glipizide to 5 mg b.i.d. will continue metformin and consult software educator cont supportive
[2022-05-23 14:02] VITALS: BP 150/71; PULSE 73; RESP 18; TEMP 36.7; O2SAT 98
[2022-05-23] MEDS: glipiZIDE 5 MG TABLET PO (16:03)
--- NOTE | 2022-05-23 16:09 | PM.PNGS ---
Progress Note: A&P Assessment and Plan (1) Diabetic foot ulcer: Qualifiers: Diabetes mellitus type: other specified (including MARINA) Diabetic foot ulcer location: heel Laterality: left Code(s): E11.621 - Type 2 diabetes mellitus with foot ulcer; L97.509 - Non-pressure chronic ulcer of other part of unspecified foot with unspecified severity Status: Acute Assessment and Plan: S/p second excisional debridement on 05/21 and wound appears stable. Will switch to Santyl dressing changes and would recommend to continue this on discharge. Continue IV antibiotics. WBC trending down again today. Hopefully, if she continues to improve she could potentially be discharged tomorrow. Wound cx growing bacteroides pyogenes and streptococcus anginosus, awaiting final results. (2) Tobacco abuse: Code(s): Z72.0 - Tobacco use Status: Acute (3) Type 2 diabetes mellitus: Onset Date: 05/17/22 Code(s): E11.9 - Type 2 diabetes mellitus without complications Status: Acute (4) Peripheral vascular disease: Code(s): I73.9 - Peripheral vascular disease, unspecified Status: Acute Assessment and Plan: Encouraged to stop smoking. Consider vascular surgery evaluation as an outpatient. Plan I have discussed the patient's case and plan of care with Dr. Ignacio. Subjective Subjective Date/Time Seen: 05/23/22 14:09 Patient reports: no new complaints, feels better and afebrile Interval history: Patient seen and examined. No new complaints. No acute issues overnight. Review of Systems Review of Systems: All systems reviewed & are unremarkable except as noted in HPI and below Exam Const: General: comfortable and alert; No acute distress Orientation/consciousness: patient oriented x3 Skin: Other: Left foot dressing removed. Lateral left foot ulcer looks good today without any foul odor or purulent drainage, there is some yellow slough in about 60% of the wound bed and some pink tissue forming. Objective Data Vital Signs Vital Signs: Vital Signs - 24 hr 05/22/22 18:05 05/22/22 19:34 05/22/22 20:00 Temperature 98.1 F 97.6 F Pulse Rate 87 78 Respiratory Rate 20 18 Blood Pressure 124/55 L 146/62 H Pulse Oximetry 100 99 Oxygen Delivery Room Air 05/22/22 23:19 05/23/22 03:26 05/23/22 08:40 Temperature 98.2 F 97.9 F Pulse Rate 70 77 Respiratory Rate 17 18 Blood Pressure 140/52 L 159/77 H Pulse Oximetry 97 100 Oxygen Delivery Room Air 05/23/22 09:45 05/23/22 14:02 Temperature 98.0 F 98.0 F Pulse Rate 77 73 Respiratory Rate 16 18 Blood Pressure 142/57 H 150/71 H Pulse Oximetry 96 98 Oxygen Delivery Intake/Output Intake/Output: Intake & Output 05/20/22 05/21/22 05/22/22 05/23/22 23:59 23:59 23:59 23:59 Intake Total 2890 2050 1010 580 Output Total 792 567 1882 Balance 1940 1500 10 580 Meds/Results Medications: Active Medications Generic Name Dose Route Start Last Admin Trade Name Freq PRN Reason Stop Dose Admin Hydrocodone Bitart/Acetaminophen 1 tab 05/17/22 19:23 05/18/22 15:18 Hydrocodone/Acetaminophen (*Crx) 5-325 Mg Tablet PO 1 tab Q4H PRN Administration Pain Rated 4-6 Hydrocodone Bitart/Acetaminophen 1 tab 05/17/22 19:23 05/21/22 20:19 Hydrocodone/Acetaminophen (*Crx) 7.5-325 Mg Tablet PO 1 tab Q4H PRN Administration Pain Rated 7-10 Cefdinir 300 mg 05/22/22 21:00 05/23/22 08:41 Cefdinir 300 Mg Capsule PO 05/26/22 23:59 300 mg Q12HR JANEY Administration Dextrose 12.5 gm 05/17/22 17:13 Dextrose 50% 25 Gm/50 Ml Syringe IV PUSH PRN PRN Hypoglycemia Protocol Enoxaparin Sodium 40 mg 05/18/22 09:00 05/23/22 08:41 Enoxaparin 40 Mg/0.4 Ml Syringe SUB-Q 40 mg DAILY JANEY Administration Glipizide 5 mg 05/23/22 17:00 05/23/22 16:03 Glipizide 5 Mg Tablet PO 5 mg BID JANEY Administration Glucagon 1 mg 05/17/22 17:13 Glucagon For
[2022-05-23 18:33] LABS: Glucose Point of Care 115 mg/dl (65-105)
[2022-05-23] MEDS: HYDROcodone/acetaminophen (*CRX) 5-325 MG TABLET 1 TAB PO (18:35)
[2022-05-23 18:42] VITALS: BP 139/56; PULSE 74; RESP 16; TEMP 37.3; O2SAT 96
[2022-05-23 19:20] VITALS: BP 121/52; PULSE 80; RESP 17; TEMP 37.2; O2SAT 98
[2022-05-23 21:06] LABS: Glucose Point of Care 116 mg/dl (65-105)
[2022-05-23 23:23] VITALS: BP 149/62; PULSE 68; RESP 17; TEMP 36.2; O2SAT 99
[2022-05-24 00:12] LABS: Glucose Point of Care 143 mg/dl (65-105)
[2022-05-24 03:27] VITALS: BP 135/66; PULSE 77; RESP 18; TEMP 36.6; O2SAT 98
[2022-05-24] MEDS: SUCRALFATE SUSP 100 MG/ML 10 ML UDC 1000 MG PO ×2 (05:45→11:57)
[2022-05-24] MEDS: HYDROcodone/acetaminophen (*CRX) 7.5-325 MG TABLET 1 TAB PO (05:45)
[2022-05-24] MEDS: metroNIDAZOLE 250 MG TABLET 500 MG PO ×2 (05:45→14:14)
[2022-05-24 05:57] LABS: Glucose Point of Care 134 mg/dl (65-105)
[2022-05-24 06:50] LABS: Hematocrit 38.2 % (37.0-47.0); Hemoglobin 12.3 g/dL (12.0-15.0); Mean Corpuscular HGB Conc 32.2 g/dl (32-36); Mean Corpuscular Hemoglobin 29.6 pg (26-34); Mean Platelet Volume 9.7 fl (7.4-10.4); Platelet Count Result 398 k/mm3 (150-375); Red Blood Count 4.15 M/mm3 (4.2-5.4); Red Cell Distribution Width 12.8 % (11.5-14.5); White Blood Count 13.8 K/mm3 (4.5-10.0)
[2022-05-24 07:03] LABS: Anion Gap 10 mmol/L (8-16); Blood Urea Nitrogen 6 mg/dL (7-17); Calcium 8.6 mg/dL (8.4-10.2); Carbon Dioxide 32 mmol/L (22-30); Chloride 97 mmol/L (98-107); Estimated CRCL calculation 85 ml/min; Estimated Glomerular Filt Rate > 60; Glucose 133 mg/dL (65-110); Magnesium 1.7 mg/dL (1.6-2.3); Potassium 3.1 mmol/L (3.4-5.0); Sodium 139 mmol/L (137-145)
[2022-05-24 07:45] LABS: Glucose Point of Care 170 mg/dl (65-105)
[2022-05-24] MEDS: ENOXAPARIN 40 MG/0.4 ML SYRINGE SUB-Q (09:28)
[2022-05-24] MEDS: MAGNESIUM OXIDE 400 MG TABLET PO (09:29)
[2022-05-24] MEDS: glipiZIDE 5 MG TABLET PO (09:29)
[2022-05-24] MEDS: COLLAGENASE OINT 30 GM TUBE 1 APPLIC TOPICAL (09:29)
[2022-05-24] MEDS: CEFDINIR 300 MG CAPSULE PO (09:29)
[2022-05-24 09:30] VITALS: O2SAT 98
[2022-05-24 09:59] VITALS: BP 143/72; PULSE 65; RESP 20; TEMP 36.4; O2SAT 99
[2022-05-24 10:07] VITALS: O2SAT 96
[2022-05-24] MEDS: POTASSIUM CHLORIDE 20 MEQ TABLET 40 MEQ PO (10:50)
[2022-05-24] MEDS: PANTOPRAZOLE 40 MG TABLET PO (10:50)
[2022-05-24 11:42] LABS: Glucose Point of Care 227 mg/dl (65-105)
--- NOTE | 2022-05-24 11:52 | PM.PNGS ---
Progress Note: A&P Assessment and Plan (1) Diabetic foot ulcer: Qualifiers: Diabetes mellitus type: other specified (including MARINA) Diabetic foot ulcer location: heel Laterality: left Code(s): E11.621 - Type 2 diabetes mellitus with foot ulcer; L97.509 - Non-pressure chronic ulcer of other part of unspecified foot with unspecified severity Status: Acute Assessment and Plan: S/p second excisional debridement on 05/21 and wound appears stable. Will switch to Santyl dressing changes and would recommend to continue this on discharge. OK to discharge today. Will have patient follow up with me in [facility] in 2-3 weeks. (2) Tobacco abuse: Code(s): Z72.0 - Tobacco use Status: Acute (3) Type 2 diabetes mellitus: Onset Date: 05/17/22 Code(s): E11.9 - Type 2 diabetes mellitus without complications Status: Acute (4) Peripheral vascular disease: Code(s): I73.9 - Peripheral vascular disease, unspecified Status: Acute Assessment and Plan: Encouraged to stop smoking. Consider vascular surgery evaluation as an outpatient. Subjective Subjective Date/Time Seen: 05/24/22 11:52 Interval history: Pain controlled. No complaints. Hoping to go home today. Exam Extrem: Other: Left lateral foot ulcer with slight necrotic debris in wound bed. No surrounding erythema or purulent drainage. Objective Data Vital Signs Vital Signs: Vital Signs - 24 hr 05/23/22 14:02 05/23/22 18:42 05/23/22 19:20 Temperature 36.7 C 37.3 C 37.2 C Pulse Rate 73 74 80 Respiratory Rate 18 16 17 Blood Pressure 150/71 H 139/56 L 121/52 L Pulse Oximetry 98 96 98 Oxygen Delivery 05/23/22 20:00 05/23/22 23:23 05/24/22 03:27 Temperature 36.2 C L 36.6 C Pulse Rate 68 77 Respiratory Rate 17 18 Blood Pressure 149/62 H 135/66 Pulse Oximetry 99 98 Oxygen Delivery Room Air 05/24/22 09:59 05/24/22 09:30 05/24/22 10:07 Temperature 36.4 C L Pulse Rate 65 Respiratory Rate 20 Blood Pressure 143/72 H Pulse Oximetry 99 98 96 Oxygen Delivery Room Air Room Air Intake/Output Intake/Output: Intake & Output 10/1105/22/22 05/23/22 05/24/22 23:59 23:59 23:59 23:59 Intake Total 2050 1010 1600 420 Output Total 550 1000 700 Balance 1500 10 1600 -280 Meds/Results Medications: Active Medications Generic Name Dose Route Start Last Admin Trade Name Freq PRN Reason Stop Dose Admin Hydrocodone Bitart/Acetaminophen 1 tab 05/17/22 19:23 05/23/22 18:35 Hydrocodone/Acetaminophen (*Crx) 5-325 Mg Tablet PO 1 tab Q4H PRN Administration Pain Rated 4-6 Hydrocodone Bitart/Acetaminophen 1 tab 05/17/22 19:23 05/24/22 05:45 Hydrocodone/Acetaminophen (*Crx) 7.5-325 Mg Tablet PO 1 tab Q4H PRN Administration Pain Rated 7-10 Cefdinir 300 mg 05/22/22 21:00 05/24/22 09:29 Cefdinir 300 Mg Capsule PO 05/26/22 23:59 300 mg Q12HR JANEY Administration Collagenase 1 applic 05/24/22 09:00 05/24/22 09:29 Collagenase Oint 30 Gm Tube TOPICAL 1 applic QAM JANEY Administration Dextrose 12.5 gm 05/17/22 17:13 Dextrose 50% 25 Gm/50 Ml Syringe IV PUSH PRN PRN Hypoglycemia Protocol Enoxaparin Sodium 40 mg 05/18/22 09:00 05/24/22 09:28 Enoxaparin 40 Mg/0.4 Ml Syringe SUB-Q 40 mg DAILY JANEY Administration Glipizide 5 mg 05/23/22 17:00 05/24/22 09:29 Glipizide 5 Mg Tablet PO 5 mg BID JANEY Administration Glucagon 1 mg 05/17/22 17:13 Glucagon For Inj 1 Mg Vial IM PRN PRN Hypoglycemia Protocol Glucose 15 gm 05/17/22 17:13 Glucose Oral Gel 15 Gm Of Glucse In 37.5 Gm Tube PO PRN PRN Hypoglycemia Protocol Dextrose 1,000 mls @ 100 mls/hr 05/17/22 17:13 Dextrose 5% 1,000 Ml IVPB PRN PRN Hypoglycemia Protocol Insulin Aspart 3 - 6 units 05/21/22 12:00 05/24/22 08:53 Insulin Aspart (*Bkc) 100 Units/Ml SUB-Q Not
[2022-05-24 13:47] VITALS: BMI 27.3
[2022-05-24 14:04] VITALS: BP 145/71; PULSE 74; RESP 18; TEMP 36.7; O2SAT 100
[2022-05-24 15:25] VITALS: BMI 27.3
--- NOTE | 2022-05-24 16:07 | PM.DS ---
DS: Admitting Diagnosis Discharge Date 05/24/2022 Admitting Diagnosis Left foot wound. DS: Discharge Diagnosis Discharge Diagnosis (1) Diabetic foot ulcer: Qualifiers: Diabetes mellitus type: other specified (including MARINA) Diabetic foot ulcer location: heel Laterality: left Code(s): E11.621 - Type 2 diabetes mellitus with foot ulcer; L97.509 - Non-pressure chronic ulcer of other part of unspecified foot with unspecified severity Status: Acute (2) Cellulitis in diabetic foot: Code(s): E11.628 - Type 2 diabetes mellitus with other skin complications; L03.119 - Cellulitis of unspecified part of limb Status: Acute (3) Type 2 diabetes mellitus: Onset Date: 05/17/22 Code(s): E11.9 - Type 2 diabetes mellitus without complications Status: Acute (4) Tobacco abuse: Code(s): Z72.0 - Tobacco use Status: Acute (5) Murmur: Code(s): R01.1 - Cardiac murmur, unspecified Status: Acute (6) Newly diagnosed diabetes: Code(s): E11.9 - Type 2 diabetes mellitus without complications Status: Acute (7) Peripheral vascular disease: Code(s): I73.9 - Peripheral vascular disease, unspecified Status: Acute Plan 05/17/22 Wound nurse has been consulted and they recommend surgery consultation for probable debridement. She has been started on cefepime, metronidazole, and vancomycin per antibiotic stewardship recommendations. This is a new diagnosis for the patient however she suspected it with an unintentional 70 pound weight loss and symptoms of neuropathy over the past 1 year. Start metformin upon discharge.? Initiate sliding scale insulin while in the hospital.? Depending on her hemoglobin A1c she may very well need to be started on insulin for a period of time. Given risk factors for heart disease, she would benefit from an SGLT2 inhibitor. Consult will be placed for the dietitian and suede cleaner. Smoking cessation is imperative and was discussed; I spent approximately 5 minutes counseling the patient on smoking cessation. Her at bedside will be good support for her. She understands the importance of quitting smoking and at this time she denies the need for nicotine patch and any other pharmacologic agents. 05/18/22 ECHO normal pt improved? s/p drainage of R foot abscess consult dietary will try oral agents possible dc in 24hrs pending surgical clearance and wound care orders 05/19/22 increase metformin to 1000 BID start low dose glipizide slow correction to prevent rapid drop in chronically elevated BG wound care recs pending anticipate dc in 24-48 hrs 05/20/2022 Patient with nausea vomiting, metronidazole discontinued as well as cefepime. Continues imipenem and vancomycin Surgery to take patient back to OR today for 2nd debridement Hold oral antihyperglycemics as patient will be placed NPO today by surgery Continue oral antihyperglycemic titration after patient placed back into p.o. status Potassium repleted Phenergan for nausea insulin sliding scale increase to medium Surgery recommendations appreciated 05/21/22 pt w elevated blood glucose wants to be discharged on oral meds unable to titrate meds today as pt is NPO for 2nd debridement of L ankle abscess and wound possible dc home on glipizide 5mg and metformin cont supportive care Mag and K repleted am labs ordered 05/23/2022 interval history: patient s/p 2nd debridement of the left ankle wound on 05/21, no OM, Patient clinically stable is feeling much better compared to when she arrived, on 05/22 discussed with commissions manager id will switch to oral abx, patient is on now cefdinir and flagyl, discuss with surgery service will monitor wound for couple of days, will continue present management, patient seen by surgery service and further recommendation to follow pt w elevated blood glucose wants to be discharged on oral meds, patient hemoglobin A1c is 11.3 will increa
== END 2022-05-24 16:38 | disposition home health service (06) | DRG 380 ==
LOC: ANHED 12:19 → ANH2MED 14:51
PROVIDERS: Hospitalist; Physician Assistant; Surgery; Admitting Provider Chiropractor; Emergency Provider General Practice; Visit Provider Family Medicine
PROC: 0JBR0ZZ Excision of Left Foot Subcutaneous Tissue and Fascia, Open Approach (ICD-10-PCS; principal; 2022-05-18 08:00)
DX: E11.621 Type 2 diabetes mellitus with foot ulcer (principal); E11.51 Type 2 diabetes mellitus with diabetic peripheral angiopathy without gangrene; E11.628 Type 2 diabetes mellitus with other skin complications; L97.429 Non-pressure chronic ulcer of left heel and midfoot with unspecified severity; L02.612 Cutaneous abscess of left foot; F17.210 Nicotine dependence, cigarettes, uncomplicated; L03.116 Cellulitis of left lower limb; R01.1 Cardiac murmur, unspecified
CPT/HCPCS: 36415; 73630; 80048; 80053; 80202; 81001; 82565; 82948; 83036; 83605; 83735; 85025; 85027; 85610; 85730; 86140; 87040; 87070; 87075; 87076; 87077; 87185; 87205; 90471; 90715; 93306; 93922; 96365; 96366; 96367; 96375; 99285; A9270; C9113; G0378; G0379; J0692; J0743; J1100; J1650; J1815; J1940; J2250; J2405; J2704; J3010; J3370; J3475; J3480; J7030; J7040; J7050; J7120

== ENCOUNTER 2022-08-16 07:25 | Outpatient (RCR) | payer BC, SELFPAY ==
[2022-06-13 12:00] VITALS: BMI 25.7
--- NOTE | 2022-06-13 16:01 | P.PNWOUND_ITS ---
Wound Care Note Date/Time: 06/13/22 16:01 History: This is a 56-year-old diabetic woman who was hospitalized from 05/17 through 05/24 for a left foot infection. She underwent surgical debridement of the wound on 05/18/2022 and 05/21/2022. She has been treated with home health with daily dressing changes with Medihoney. She was originally doing Santyl but insurance was not covering this therefore it was switched to Medihoney. Wound history: Patient reports continuing daily dressing changes with Medihoney. Home health has still been seeing patient. Wound width: 6.7cm Wound length: 5.4cm Wound depth: 2cm Drainage: Serous Surrounding tissue appearance: healthy Percentage granulation tissue: 50% Treatment/Procedures: bedside debridement performed by wound care nurse today Dressings: Medihoney with gauze and tape Assessment and Plan Assessment and plan (1) Diabetic foot ulcer: Qualifiers: Diabetes mellitus type: other specified (including MARINA) Diabetic foot ulcer location: heel Laterality: left Code(s): E11.621 - Type 2 diabetes mellitus with foot ulcer; L97.509 - Non-pressure chronic ulcer of other part of unspecified foot with unspecified severity Status: Acute Assessment and Plan: * Patient is continuing to heal with local wound care. Debridement was performed in the wound care clinic today by the wound care nurse. Continue daily dressing changes with Medihoney. Follow-up in the office in 4 weeks. (2) Type 2 diabetes mellitus: Onset Date: 05/17/22 Code(s): E11.9 - Type 2 diabetes mellitus without complications Status: Acute (3) Peripheral vascular disease: Code(s): I73.9 - Peripheral vascular disease, unspecified Status: Acute Exam Extrem: Other: left lateral heel ulcer with signs of progressive healing. There is 1 area of deeper wound but no purulence drainage.
--- NOTE | 2022-07-15 16:46 | P.PNWOUND_ITS ---
Wound Care Note Date/Time: 07/15/22 16:46 History: This is a 56-year-old diabetic woman who was hospitalized from 05/17 through 05/24 for a left foot infection.? She underwent surgical debridement of the wound on 05/18/2022 and 05/21/2022.? She has been treated with home health with daily dressing changes with Santyl. She is doing well with dressing changes and has stopped smoking. She also states her blood sugars have been better controlled. She denies any claudication. Wound history: ? Patient reports continuing daily dressing changes with Santyl.? Home health has still been seeing patient. Wound width: 6 Wound length: 5 Wound depth: 1 Drainage: Serous Surrounding tissue appearance: healthy Percentage granulation tissue: 80% Assessment and Plan Assessment and plan (1) Diabetic foot ulcer: Qualifiers: Diabetes mellitus type: other specified (including MARINA) Diabetic foot ulcer location: heel Laterality: left Code(s): E11.621 - Type 2 diabetes mellitus with foot ulcer; L97.509 - Non-pressure chronic ulcer of other part of unspecified foot with unspecified severity Status: Acute Assessment and Plan: * Patient is continuing to heal with local wound care. Continue daily dressing changes with Santyl, Vaseline gauze and Kerlix wrap. Follow-up in the office in 4 weeks. (2) Type 2 diabetes mellitus: Onset Date: 05/17/22 Code(s): E11.9 - Type 2 diabetes mellitus without complications Status: Acute (3) Peripheral vascular disease: Code(s): I73.9 - Peripheral vascular disease, unspecified Status: Acute Exam Extrem: Other: Left lateral heel wound continues to gradually heal. There are no surrounding signs of infection. Minimal yellow slough in wound bed, otherwise good granulation tissue.
--- NOTE | 2022-08-16 18:10 | WPDWOUNDNOTE ---
Wound Care Note Date/Time: 08/16/22 08:15 History: This is a 56-year-old diabetic woman who was hospitalized from 05/17 through 05/24 for a left foot infection.? She underwent surgical debridement of the wound on 05/18/2022 and 05/21/2022.? She has been treated with home health with daily dressing changes with Santyl.? She is doing well with dressing changes and has cut down significantly on her smoking.? She also states her blood sugars have been better controlled.? She denies any claudication. Wound history: ? Patient reports continuing daily dressing changes with Santyl.? Wound width: 1.7 cm Wound length: 3.9 cm Wound depth: 0.5 cm Surrounding tissue appearance: healthy Percentage granulation tissue: 100% Assessment and Plan Assessment and plan (1) Diabetic foot ulcer: Qualifiers: Diabetes mellitus type: other specified (including MARINA) Diabetic foot ulcer location: heel Laterality: left Code(s): E11.621 - Type 2 diabetes mellitus with foot ulcer; L97.509 - Non-pressure chronic ulcer of other part of unspecified foot with unspecified severity Status: Acute Assessment and Plan: Wound continues to heal with local wound care. Can discontinue Santyl and just do silver gel dressing changes at this point. Follow up in 6 weeks. (2) Type 2 diabetes mellitus: Onset Date: 05/17/22 Code(s): E11.9 - Type 2 diabetes mellitus without complications Status: Acute (3) Tobacco abuse: Code(s): Z72.0 - Tobacco use Status: Acute Assessment and Plan: Patient had quit smoking but now is smoking just a couple cigarettes a day. I re-iterated the importance of smoking cessation with her PVD and diabetes. (4) Peripheral vascular disease: Code(s): I73.9 - Peripheral vascular disease, unspecified Status: Acute Exam Extrem: Other: Left lateral foot wound continuing to heal gradually. No surrounding erythema. No purulent drainage.
== END 2022-09-11 23:59 | disposition home or self-care (01) ==
LOC: ANHWOC 07:25
PROVIDERS: Visit Provider Surgery
DX: E11.621 Type 2 diabetes mellitus with foot ulcer (principal); L97.429 Non-pressure chronic ulcer of left heel and midfoot with unspecified severity
CPT/HCPCS: 97602; 99213; 99214; G0463

== ENCOUNTER 2022-09-26 13:09 | Outpatient (RCR) | payer BC, SELFPAY ==
[2022-09-12 00:04] VITALS: BMI 25.7
--- NOTE | 2022-09-26 16:05 | P.PNWOUND_ITS ---
Wound Care Note Date/Time: 09/26/22 16:05 History: This is a 56-year-old diabetic woman who was hospitalized from 05/17/22 through 05/24/22 for a left foot infection.? She underwent surgical debridement of the wound on 05/18/2022 and 05/21/2022.? She has been treated with home health with daily dressing changes with Santyl.? She is doing well with dressing changes and has cut down significantly on her smoking.? She also states her blood sugars have been better controlled.? She denies any claudication. At her last visit, Santyl was discontinued and this was switched to Silver gel. Wound history: ? Patient reports continuing daily dressing changes with silver gel.? Wound width: 3 cm Wound length: 0.7 cm Wound depth: 0.5 cm Drainage: Serosanguinous Surrounding tissue appearance: healthy Percentage granulation tissue: 100% Assessment and Plan Assessment and plan (1) Diabetic foot ulcer: Qualifiers: Diabetes mellitus type: other specified (including MARINA) Diabetic foot ulcer location: heel Laterality: left Code(s): E11.621 - Type 2 diabetes mellitus with foot ulcer; L97.509 - Non-pressure chronic ulcer of other part of unspecified foot with unspecified severity Status: Acute Assessment and Plan: Continue current treatment with silver gel daily dressing changes. Patient has Podiatry appointment to follow up on diabetic foot exams and toenail care. Will have her follow up with me one more time in 6 weeks to assess wound. (2) Type 2 diabetes mellitus: Onset Date: 05/17/22 Code(s): E11.9 - Type 2 diabetes mellitus without complications Status: Acute Assessment and Plan: Stressed importance of strict glucose control (3) Peripheral vascular disease: Code(s): I73.9 - Peripheral vascular disease, unspecified Status: Acute (4) Tobacco abuse: Code(s): Z72.0 - Tobacco use Status: Acute Assessment and Plan: Stressed importance of quitting smoking. Warned her of the risks of repeat foot wounds and eventual amputation if she continues to smoke. Exam 2 Extrem: Other: Left lateral heel wound continues to improve. Good granulation tissue and signs of skin healing.
--- NOTE | 2022-11-07 13:08 | PCWOUND ---
Addendum entered by Carlos Enrique Hough RN 11/07/22 13:30: received direction from Dr elder office patient does not need to be rescheduled. let patient know and that she should call if wound reopens. Original Note: wocn note patient did not show up for appointment today. called her, she states wound is barely open just a slit and she must of forgot about appointment. placed call to surgeon with info to determine about rescheduling.
--- NOTE | 2022-11-12 14:11 | PCWOUND ---
WOCN NOTE Patient called today with home health nurse on the line. nurse concerned for future wound problems for patient. nurse explained she removed a callus on the patients foot and tiny amount of serosanguineous exudate was present. no s/s of infection today but feels the rest of the callus needs to be removed by a doctor. Placed call to surgeon, Dr Ignacio, spoke to office staff and explained the situation as reported by the patient and home home nurse. Received call back, if surgical incision area is closed and new wounds are the concern patient needs to follow with golf cart mechanic for senior living foot care, offloading, etc. placed call to patient, asked if surgical wound are is closed, patient reported yes . explained to patient she will now need senior living care that is usually provided by a golf cart mechanic. she needs foot and nail care, offloading show insoles, etc. patient agreed she understand and reports she has a golf cart mechanic already, she just does not like him much and wanted the surgeon to follow her. explained she needs to follow her current golf cart mechanic or she can choose to find a new one. patient agreed.
== END 2022-11-07 13:29 | disposition home or self-care (01) ==
LOC: ANHWOC 13:09
PROVIDERS: Visit Provider Surgery
DX: E11.621 Type 2 diabetes mellitus with foot ulcer (principal); L97.429 Non-pressure chronic ulcer of left heel and midfoot with unspecified severity
CPT/HCPCS: 99213; G0463

== ENCOUNTER 2023-07-23 09:45 | Inpatient (IN) | payer BC, SELFPAY ==
--- NOTE | ~2023-07-23 | XR_ITS ---
EXAMINATION: XR foot LT min 3V DATE: 07/23/2023 10:15 INDICATION: Left fifth toe inflammation and erythema. TECHNIQUE: 4 views of left foot were obtained. COMPARISON: Left foot radiographs 05/17/2022 FINDINGS: Bone alignment is normal. No fracture. There is diffuse osteopenia. There is mild osteoarth ritis of first metatarsophalangeal joint and some of the midfoot joints and interphalangeal joints. T here is an enthesophyte at posterior aspect of calcaneal tuberosity. IMPRESSION: 1. No evidence of osteomyelitis. 2. Polyarticular osteoarthritis. Reviewed, dictated and finalized at location [facility]. [employer]
[2023-07-23 09:59] VITALS: BP 120/61; PULSE 90; RESP 18; TEMP 36.7; O2SAT 100
[2023-07-23 10:30] LABS: Basophils Absolute Auto 0.1 K/mm3 (0.0-0.1); Basophils Percent Auto 0.4 % (0.2-1.2); Eosinophils Absolute Auto 0.4 K/mm3 (0-0.3); Eosinophils Percent Auto 3.4 % (0-4.4); Hemoglobin 10.7 g/dL (12.0-15.0); Immature Granulocyte Absolute 0.05 K/mm3 (0.00-0.031); Immature Granulocyte Percent A 0.4 % (0-0.5); Lymphocytes Absolute Auto 2.21 K/mm3 (0.9-3.2); Lymphocytes Percent Auto 19.6 % (18.3-44.2); Mean Corpuscular HGB Conc 30.6 g/dl (32-36); Mean Corpuscular Hemoglobin 28.2 pg (26-34); Mean Corpuscular Volume 92.1 fl (80-100); Mean Platelet Volume 9.1 fl (7.4-10.4); Monocytes Absolute Auto 0.9 K/mm3 (0.1-0.6); Monocytes Percent Auto 8.3 % (2.6-8.5); Neutrophils Absolute Auto 7.6 K/mm3 (1.3-6.7); Neutrophils Percent Auto 67.9 % (45.5-73.1); Platelet Count Result 392 k/mm3 (150-375); Red Cell Distribution Width 12.3 % (11.5-14.5); White Blood Count 11.3 K/mm3 (4.5-10.0)
[2023-07-23 10:42] LABS: Prothrombin Time 13.6 Seconds (11.1-14.7)
[2023-07-23 10:43] LABS: Partial Thromboplastin Time 32.6 SECONDS (22.3-36.8)
[2023-07-23 10:45] LABS: Lactic Acid Reflex 1.8 mmol/L (0.7-2.0)
[2023-07-23 11:01] LABS: Erythrocyte Sedimentation Rate 80 mm/hr (0-20)
[2023-07-23 11:03] LABS: Albumin Level 3.9 g/dL (3.5-5.1); Anion Gap 8 mmol/L (8-16); CRP 2.9 mg/dL (<1.0); Carbon Dioxide 25 mmol/L (22-30); Chloride 105 mmol/L (98-107); Sodium 138 mmol/L (137-145)
[2023-07-23 11:24] LABS: Alanine Aminotransferase 17 U/L (6-35); Alkaline Phosphatase 134 U/L (38-126); Aspartate Amino Transferase 22 U/L (14-36); Bilirubin,Total 0.6 mg/dL (0.2-1.3); Blood Urea Nitrogen 14 mg/dL (7-17); Calcium 9.5 mg/dL (8.4-10.2); Estimated CRCL calculation 73 ml/min; Estimated Glomerular Filt Rate > 60; Glucose 200 mg/dL (65-110); Potassium 4.2 mmol/L (3.4-5.0)
[2023-07-23 12:12] VITALS: BP 123/65; PULSE 78; RESP 14; O2SAT 98
--- NOTE | 2023-07-23 12:29 | ED.EXTPRO ---
HPI - Extremity Problem General Chief complaint: Extremity Problem,Nontraumatic Stated complaint: BLACK 5TH TOE L FOOT Time Seen by Provider: 07/23/23 10:04 History of Present Illness HPI Narrative: patient is a 57-year-old female who presents ER with concerns for an infected toe. Left foot. Digit 5. Noticed it was black and necrotic this morning. She reports that she also noticed this morning that her 4th and 5th toe or erythematous on top with some redness streaking into her midfoot in towards ankle. No fevers or chills or sweats. Reports she had also noticed her dog sniffing in looking at her toe over last week but had not noticed the wound prior to today. She has history of previous diabetic ulcer to the heel last year that was cared for here through wound care. She has no additional concerns at this time. Reports she has been compliant with her home medications. Patient does take Plavix. Related Data Home Medications Medication Instructions Recorded Confirmed atorvastatin 40 mg tablet 40 mg PO QHS 07/23/23 07/23/23 clopidogrel 75 mg tablet 75 mg PO DAILY 07/23/23 07/23/23 dapagliflozin propanediol 10 mg 10 mg PO QAM 07/23/23 07/23/23 tablet (Farxiga) gabapentin 300 mg capsule 300 mg PO BID 07/23/23 07/23/23 metformin 500 mg tablet,extended 1,000 mg PO DAILY 07/23/23 07/23/23 release 24 hr Allergies Allergy/AdvReac Type Severity Reaction Status Date / Time No Known Allergies Allergy Verified 07/23/23 10:03 Review of Systems Review of Systems: All systems reviewed & are unremarkable except as noted in HPI and below ENT: Reports system reviewed and no additional complaints, except as documented Cardiovascular: Cardiovascular: Reports no additional cardiovascular complaints Respiratory: Respiratory: Reports no additional respiratory complaints Gastrointestinal: Gastrointestinal: Reports no additional gastrointestinal complaints Musculoskeletal: Musculoskeletal: Denies arthralgias, Denies joint swelling and Denies muscle cramps Integumentary/Breasts: Skin/Breast: Reports erythema and Reports skin ulcer PMFSH Past Medical History Medical History Tobacco abuse Type 2 diabetes mellitus (05/17/22) Surgical History Surgical History No history of previous surgery Family History Family History Father Heart disease Mother Heart disease Social History Social History Social History: Surrogate medical decision maker: Donald De La Garza, spouse. Code status: Full code. Smoking packs per day: 1 Smoking cigarettes per day: 20.0 Years smoked: 42 Smoking pack-years: 42.00 Smoking status: Current every day smoker Alcohol intake: never Substance use: current Substance use type: marijuana Other substance usage details: Occasional marijuana use. Lack of Transportation: No Lack of Food: Never True Current Housing: I Have Housing Concerned About Future Housing: No Difficulty Paying Gas/Electric Bills: No Difficulty Paying for Meds: No Currently Unemployed: No Education: Don't Know Difficulty w/ Childcare or Family Care: No Additional living arrangements comments: The patient lives with her in [place]. She has no children. Spiritual care concerns: No Exam Narrative: GENERAL: Well-appearing, well-nourished, and in no acute distress. HEAD: Normocephalic, atraumatic. ENT: Mucous membranes moist. NECK: Supple. CHEST: Clear to auscultation. No respiratory distress. HEART: Regular rate and rhythm. Normal peripheral pulses. ABDOMEN: Soft, nontender, nondistended. EXTREMITIES: Normal range of motion. No edema. SKIN: Warm, dry, no rash. a chronic left 5th digit plantar aspect with erythema over the dorsal aspect of the 4th and
[2023-07-23] MEDS: CEFEPIME 2 GM/NS 50 ML 2 GM/50 ML BAG IVPB ×2 (12:48→20:50)
[2023-07-23] MEDS: metroNIDAZOLE 500 MG/ISO 100ML 500 MG/100 ML BAG 100 MG IVPB ×2 (13:37→21:20)
[2023-07-23 13:38] VITALS: BP 129/66; PULSE 72; RESP 17; O2SAT 97
[2023-07-23 14:48] VITALS: BMI 28.0
--- NOTE | 2023-07-23 14:52 | ADMGEN ---
This patient, Debbie Elizalde, was admitted to Medical Room 247-. Patient/family oriented to hospital policies and general routines including ID bracelet, bed and alarms, visiting hours, pain management, procedures, bathroom and other care routines, personal items, smoking policy, room service/diet, and visiting hours. Information on how to activate the Rapid Response Team has been discussed. Patient/Family are encouraged to report perceived risks to care and to ask questions if they do not understand what they are told or what they should do.
[2023-07-23 15:00] VITALS: BP 126/63; PULSE 78; RESP 17; TEMP 36.5; O2SAT 100
[2023-07-23] MEDS: VANCOMYCIN 1,750 MG/NS 500 ML 1,750 MG/500 ML BAG 250 MG IVPB (15:19)
--- NOTE | 2023-07-23 16:18 | WPDCN ---
Assessment and Plan Assessment and plan (1) Peripheral vascular disease: Code(s): I73.9 - Peripheral vascular disease, unspecified Status: Acute Assessment and Plan: The patient's per vascular disease and within the last year has undergone tension and then placement of the left lower extremity at [facility]. Records are not available at this time to review. She remains on Plavix for antiplatelet therapy. We will get a JAVON of the bilateral extremities tomorrow. (2) Cellulitis in diabetic foot: Code(s): E11.628 - Type 2 diabetes mellitus with other skin complications; L03.119 - Cellulitis of unspecified part of limb Status: Acute Assessment and Plan: Cellulitis of the left forefoot which is mild. Treatment has been started with cefepime and vancomycin IV. Continue to monitor. (3) Gangrene of toe of left foot: Code(s): I96 - Gangrene, not elsewhere classified Status: Acute Assessment and Plan: Currently she only has dry gangrene of the left 5th toe. This could be the result of thromboembolic infect and trash toe . No paint the left 4th and 5th toes with Betadine b.i.d. and cover with dry gauze and a sock. She was instructed to only ambulate with a postoperative shoe on the left foot to the bathroom and back to bed. Discuss the possibility of need to have amputation of the left 5th toe. If she has any critical areas of stenosis in the left lower extremity which would possibly impair healing of a left 5th toe amputation wound then we may have to have her be transferred as inpatient or possibly follow-up as an outpatient with her vascular surgeon at [place]. Will follow. HPI Data of Consult Date/Time: 07/23/23 16:18 Requesting Physician: Vandana Coker DO Primary Care Provider: Shahnaz Pratt, PA Consult Narrative Reason for consult: Cellulitis of left foot and dry gangrene of left 5th toe Narrative: Debbie De La Garza is a 57 year old female he has had about a 1 to 2 year known diagnosis of type 2 diabetes on oral therapy. This was diagnosed after she had a left heel wound which did eventually heal with care in the [facility]. She recently developed redness the lateral aspect of the left forefoot and discoloration and now dry gangrene of the left 5th toe. She is able to move all of her toes and does not have any significant pain in the left 5th toe. Within the last 12 months she had a left lower extremity vascular intervention with placement of stents at [facility]. She remains on antiplatelet therapy with Plavix. She is able to ambulate about 100 yd but then has to stop due to leg cramps. She still follows with a vascular surgeon at [place]. Review of Systems Review of Systems: The remainder of the review of systems to include constitutional, HEENT, cardiovascular, respiratory, GI, , integumentary, musculoskeletal, endocrine, immunologic, hematologic, psychiatric, and neurologic are all negative except for which is mentioned above in the HPI. [facility] Past Medical History Medical History Tobacco abuse Type 2 diabetes mellitus (05/17/22) Surgical History Surgical History No history of previous surgery Family History Family History Father Heart disease Mother Heart disease Social History Social History Social History: Surrogate medical decision maker: Donald De La Garza, spouse. Code status: Full code. Smoking packs per day: 1 Smoking cigarettes per day: 20.0 Years smoked: 42 Smoking pack-years: 42.00 Smoking status: Current every day smoker Alcohol intake: never Substance use: current Substance use type: marijuana Other substance usage details: Occasional tianna
--- NOTE | 2023-07-23 19:08 | PM.IMHP ---
H&P: HPI History of Present Illness Date/Time: 07/23/23 19:08 Chief Complaint: Left foot pain and discoloration Narrative: A 57-year-old female with hx of PAD s/p stent who presents ER with concerns for an infected left fifth toe. She Noticed it was black and necrotic this morning.? She reports that she also noticed this morning that her 4th and 5th toe are red on top spreading into her midfoot in towards ankle.? No fevers or chills or sweats.? Reports she had also noticed her dog sniffing in looking at her toe over last week but had not noticed the wound prior to today.? She has history of previous diabetic ulcer to the heel last year that was cared for here through wound care.? She has no additional concerns at this time.? Reports she has been compliant with her home medications.? Patient does take Plavix. She was evaluated in the ED and found to have gangrene of the left fifth toe and cellulitis of the left foot. X-ray was negative for bone involvement. She was stated on vancomycin and cefepime and general surgery consuilted. General surgery recommended continuing antibiotics and also getting JAVON with the possibility of amputation peninf on result of JAVON Review of Systems Review of Systems: All systems reviewed & are unremarkable except as noted in HPI and below PMFSH Past Medical History Medical History Tobacco abuse Type 2 diabetes mellitus (05/17/22) Surgical History Surgical History No history of previous surgery Family History Family History Father Heart disease Mother Heart disease Social History Social History Social History: Surrogate medical decision maker: Donald De La Garza, spouse. Code status: Full code. Smoking packs per day: 1 Smoking cigarettes per day: 20.0 Years smoked: 42 Smoking pack-years: 42.00 Smoking status: Current every day smoker Alcohol intake: never Substance use: current Substance use type: marijuana Other substance usage details: Occasional marijuana use. Lack of Transportation: No Lack of Food: Never True Current Housing: I Have Housing Concerned About Future Housing: No Difficulty Paying Gas/Electric Bills: No Difficulty Paying for Meds: No Currently Unemployed: No Education: Don't Know Difficulty w/ Childcare or Family Care: No Additional living arrangements comments: The patient lives with her in [place]. She has no children. Spiritual care concerns: No Meds Home Medications and Allergies Home Medications Medication Instructions Recorded Confirmed Type atorvastatin 40 mg tablet 40 mg PO QHS 07/23/23 07/23/23 History clopidogrel 75 mg tablet 75 mg PO DAILY 07/23/23 07/23/23 History dapagliflozin propanediol 10 mg 10 mg PO QAM 07/23/23 07/23/23 History tablet (Farxiga) gabapentin 300 mg capsule 300 mg PO BID 07/23/23 07/23/23 History metformin 500 mg tablet,extended 1,000 mg PO DAILY 07/23/23 07/23/23 History release 24 hr Allergies Allergy/AdvReac Type Severity Reaction Status Date / Time No Known Allergies Allergy Verified 07/23/23 10:03 Vital Signs Vital Signs - 24 hr 07/23/23 09:59 07/23/23 12:12 07/23/23 13:38 Temperature 98.1 F Pulse Rate 90 78 72 Respiratory Rate 18 14 17 Blood Pressure 120/61 123/65 129/66 Pulse Oximetry 100 98 97 Oxygen Delivery Room Air 07/23/23 15:00 Temperature 97.7 F Pulse Rate 78 Respiratory Rate 17 Blood Pressure 126/63 Pulse Oximetry 100 Oxygen Delivery Exam Narrative: ?GENERAL: Well-appearing, well-nourished, and in no acute distress. HEAD: Normocephalic, atraumatic. ENT: Mucous membranes moist. NECK: Supple. CHEST: Clear to auscultation.? No respiratory distress. HEART: Regular rate and rhythm. ? Normal periphera
[2023-07-23 19:32] LABS: Basophils Absolute Auto 0.1 K/mm3 (0.0-0.1); Basophils Percent Auto 0.5 % (0.2-1.2); Eosinophils Absolute Auto 0.5 K/mm3 (0-0.3); Eosinophils Percent Auto 5.2 % (0-4.4); Hematocrit 31.2 % (37.0-47.0); Hemoglobin 9.5 g/dL (12.0-15.0); Immature Granulocyte Absolute 0.03 K/mm3 (0.00-0.031); Immature Granulocyte Percent A 0.3 % (0-0.5); Lymphocytes Absolute Auto 2.49 K/mm3 (0.9-3.2); Lymphocytes Percent Auto 25.4 % (18.3-44.2); Mean Corpuscular HGB Conc 30.4 g/dl (32-36); Mean Corpuscular Hemoglobin 28.3 pg (26-34); Mean Corpuscular Volume 92.9 fl (80-100); Monocytes Percent Auto 9.9 % (2.6-8.5); Neutrophils Absolute Auto 5.7 K/mm3 (1.3-6.7); Neutrophils Percent Auto 58.7 % (45.5-73.1); Platelet Count Result 362 k/mm3 (150-375); Red Blood Count 3.36 M/mm3 (4.2-5.4); Red Cell Distribution Width 12.2 % (11.5-14.5); White Blood Count 9.8 K/mm3 (4.5-10.0)
[2023-07-23 19:51] LABS: Anion Gap 6 mmol/L (8-16); Blood Urea Nitrogen 20 mg/dL (7-17); Calcium 8.5 mg/dL (8.4-10.2); Carbon Dioxide 27 mmol/L (22-30); Chloride 104 mmol/L (98-107); Estimated CRCL calculation 65 ml/min; Estimated Glomerular Filt Rate > 60; Glucose 186 mg/dL (65-110); Sodium 137 mmol/L (137-145)
[2023-07-23] MEDS: ATORVASTATIN 40 MG TABLET PO (20:50)
[2023-07-23 20:55] LABS: Glucose Point of Care 174 mg/dl (65-105)
[2023-07-23] MEDS: MELATONIN 3 MG TABLET 6 MG PO (21:20)
[2023-07-24 00:26] VITALS: BP 116/64; PULSE 69; RESP 18; TEMP 36.7; O2SAT 98
[2023-07-24] MEDS: metroNIDAZOLE 500 MG/ISO 100ML 500 MG/100 ML BAG 100 MG IVPB ×3 (05:44→20:36)
[2023-07-24 06:29] LABS: Estimated CRCL calculation 73 ml/min; Estimated Glomerular Filt Rate > 60
[2023-07-24 08:10] LABS: Anion Gap 3 mmol/L (8-16); Blood Urea Nitrogen 16 mg/dL (7-17); Calcium 9.3 mg/dL (8.4-10.2); Carbon Dioxide 26 mmol/L (22-30); Chloride 105 mmol/L (98-107); Estimated CRCL calculation 73 ml/min; Estimated Glomerular Filt Rate > 60; Glucose 155 mg/dL (65-110); Potassium 4.5 mmol/L (3.4-5.0); Sodium 134 mmol/L (137-145)
[2023-07-24 08:20] LABS: Glucose Point of Care 159 mg/dl (65-105)
[2023-07-24 08:27] LABS: Basophils Percent Auto 0.4 % (0.2-1.2); Eosinophils Absolute Auto 0.4 K/mm3 (0-0.3); Eosinophils Percent Auto 3.8 % (0-4.4); Hematocrit 33.3 % (37.0-47.0); Hemoglobin 10.4 g/dL (12.0-15.0); Immature Granulocyte Absolute 0.03 K/mm3 (0.00-0.031); Immature Granulocyte Percent A 0.3 % (0-0.5); Lymphocytes Percent Auto 20.4 % (18.3-44.2); Mean Corpuscular HGB Conc 31.2 g/dl (32-36); Mean Corpuscular Hemoglobin 28.5 pg (26-34); Mean Corpuscular Volume 91.2 fl (80-100); Mean Platelet Volume 8.8 fl (7.4-10.4); Monocytes Absolute Auto 0.7 K/mm3 (0.1-0.6); Neutrophils Absolute Auto 6.7 K/mm3 (1.3-6.7); Neutrophils Percent Auto 68.1 % (45.5-73.1); Platelet Count Result 370 k/mm3 (150-375); Red Blood Count 3.65 M/mm3 (4.2-5.4); White Blood Count 9.8 K/mm3 (4.5-10.0)
[2023-07-24] MEDS: EMPAGLIFLOZIN 25 MG TABLET PO (09:17)
[2023-07-24] MEDS: metFORMIN HCL XR 500 MG TAB.SR.24H 1000 MG PO (09:18)
[2023-07-24] MEDS: CLOPIDOGREL BISULFATE 75 MG TABLET PO (09:18)
[2023-07-24] MEDS: GABAPENTIN 300 MG CAPSULE PO ×2 (09:18→17:40)
[2023-07-24] MEDS: CEFEPIME 2 GM/NS 50 ML 2 GM/50 ML BAG IVPB ×2 (09:19→20:35)
[2023-07-24] MEDS: VANCOMYCIN 1,250 MG/NS 250 ML 1,250 MG/250 ML BAG 166.67 MG IVPB (10:36)
--- NOTE | 2023-07-24 10:37 | PM.IMPN ---
Progress Note: A&P Assessment and Plan (1) Cellulitis of left foot: Code(s): L03.116 - Cellulitis of left lower limb Status: Acute Assessment and Plan: Continue IV Abx of Vancomycin, Flagyl and Cefepime General Surgery is following Unable to do JAVON on this pt due to machine not currently working. Trend labs and VS. Not currently meeting Sepsis criteria. PRN pain meds as ordered. (2) Gangrene of toe of left foot: Code(s): I96 - Gangrene, not elsewhere classified Status: Acute Assessment and Plan: See #1 (3) Peripheral vascular disease: Code(s): I73.9 - Peripheral vascular disease, unspecified Status: Chronic Assessment and Plan: Chronic in nature. Continue Plavix Pt's Vascular surgeon is at [facility]. (4) Type 2 diabetes mellitus: Onset Date: 05/17/22 Code(s): E11.9 - Type 2 diabetes mellitus without complications Status: Chronic Assessment and Plan: Hold all oral/injectable hypoglycemics Initiate Adult insulin protocol with moderate SSI Novolog for tighter glucose control as pt will likely need for healing from surgery. Check A1C Glucose checks AC and HS Hypoglycemic protocol. Continue diabetic diet (5) Dyslipidemia: Code(s): E78.5 - Hyperlipidemia, unspecified Status: Acute Assessment and Plan: Continue Statin therapy with Lipitor 40 mg po HS Time Spent With Patient Time with patient: 25 - 35 minutes Subjective Date/time seen: 07/24/23 0905 Interval history: This very pleasant 57 year old female pt was examined at the bedside today in interval assessment after being admitted for a necrotic left fifth toe. She has no complaints of pain and notes that the redness that was spreading up onto her foot has improved greatly. JAVON's were ordered by Dr. Johnson from general surgery, however, I received a call from [facility] and they advised that they were unable to do any ABIs currently as the machine was broken and not available. Dr. Johnson was made aware and he plans to discuss amputation with pt. At this time she remains on IV Abx of Vancomycin and Cefepime. She has no fevers or any other acute distress/complaints. Review of Systems Review of Systems: All systems reviewed & are unremarkable except as noted in HPI and below Exam Const: General: comfortable and no acute distress HENMT: Mouth: Yes moist mucous membranes Eyes: General: appearance normal, both eyes and all related structures Neck: Neck: supple and no JVD Lymphatic: lymphadenopathy not noted Resp: Effort & Inspection: normal respiratory effort Auscultation: clear to auscultation bilaterally Cardio: Rate: regular rate Rhythm: regular rhythm Heart sounds: no gallops, no murmurs and no rubs GI: Inspection: non-distended GI Palp: Yes Soft to palpation and No Tenderness to palpation present (GI) Auscultation: normal bowel sounds Skin: General skin exam: normal color and no rashes or lesions noted Lesions: no lesions noted Rashes: no rashes noted Wounds: wounds noted (Left fifth toe with gangrene. Red at base of MP joint, no streaking.) Neuro: Speech: normal speech Motor exam (neuro): 5/5 motor strength present throughout and Normal motor muscle tone present throughout Sensory Exam: normal sensation Extrem: Other: Freely and equally MAEW without any focal deficit. Psych: Mental Status: mental status grossly normal Affect: normal affect Objective Data Vital Signs Vital Signs: Vital Signs - 24 hr 07/23/23 12:12 07/23/23 13:38 07/23/23 15:00 Temperature 97.7 F Pulse Rate 78 72 78 Respiratory Rate 14 17 17 Blood Pressure 123/65 129/66 126/63 Pulse Oximetry 98 97 100 07/24/23 00:26 Temperature 98.0 F Pulse Rate 69 Respiratory Rate 18 Blood Pressure 116/64 Pulse Oximetry 98 Intake/Output Intake/Output: Intake & Output 07/21/23 07/22/23 07/23/23 07/24/23 23:59 23:59 23:59 23:59 Intake Total 840 460 Output Tot
[2023-07-24 10:48] VITALS: BP 116/60; PULSE 75; RESP 18; TEMP 36.8; O2SAT 98
[2023-07-24 12:07] LABS: Glucose Point of Care 159 mg/dl (65-105)
[2023-07-24 12:37] LABS: Hemoglobin A1C 6.5 % (<5.7)
--- NOTE | 2023-07-24 14:09 | PM.PNGS ---
Progress Note: A&P Assessment and Plan (1) Gangrene of toe of left foot: Code(s): I96 - Gangrene, not elsewhere classified Status: Acute Assessment and Plan: Cellulitis of the left foot improved. I have recommended proceeding with amputation of the Left 5th toe tomorrow. Continue IV antibiotics for now. She is agreeable to proceeding with the surgery. We will keep her NPO after midnight. I did explain to her that if the wound did not heal that she may need further vascular intervention by her vascular surgeons at [place] which she would then have to see an outpatient. Subjective Subjective Date/Time Seen: 07/24/23 14:09 Interval history: Patient is doing well today. States that the pain the left foot is decreased. Less feeling of pressure and swelling. She remains on cefepime and vancomycin IV. Had ordered a JAVON to be done however it can not be done in radiology at this time. Exam Extrem: Other: Left 5th toe with dry gangrene up to the metatarsophalangeal joint. Redness around the base of the left 5th toe improved and there is no longer any streaking up on the dorsum of the left forefoot. Objective Data Vital Signs Vital Signs: Vital Signs - 24 hr 07/23/23 15:00 07/24/23 00:26 07/24/23 10:48 Temperature 36.5 C 36.7 C 36.8 C Pulse Rate 78 69 75 Respiratory Rate 17 18 18 Blood Pressure 126/63 116/64 116/60 Pulse Oximetry 100 98 98 Oxygen Delivery 07/24/23 09:30 Temperature Pulse Rate Respiratory Rate Blood Pressure Pulse Oximetry Oxygen Delivery Room Air Intake/Output Intake/Output: Intake & Output 07/21/23 07/22/23 07/23/23 07/24/23 23:59 23:59 23:59 23:59 Intake Total 840 1120 Output Total 2 Balance 840 1118 Meds/Results Medications: Active Medications Generic Name Dose Route Start Last Admin Trade Name Freq PRN Reason Stop Dose Admin Acetaminophen 650 mg 07/23/23 12:31 Acetaminophen 325 Mg Tablet PO Q4H PRN Mild Pain (1-3) or Fever Hydrocodone Bitart/Acetaminophen 1 tab 07/23/23 12:31 Hydrocodone/Acetaminophen (*Crx) 5-325 Mg Tablet PO Q4H PRN Pain Rated 4-6 Atorvastatin Calcium 40 mg 07/23/23 21:00 07/23/23 20:50 Atorvastatin 40 Mg Tablet PO 40 mg QHS JANEY Administration Clopidogrel Bisulfate 75 mg 07/24/23 09:00 07/24/23 09:18 Clopidogrel Bisulfate 75 Mg Tablet PO 75 mg DAILY JANEY Administration Dextrose 12.5 gm 07/24/23 10:47 Dextrose 50% 25 Gm/50 Ml Syringe IV PUSH PRN PRN Hypoglycemia Protocol Gabapentin 300 mg 07/24/23 09:00 07/24/23 09:18 Gabapentin 300 Mg Capsule PO 300 mg BID JANEY Administration Glucagon 1 mg 07/24/23 10:47 Glucagon For Inj 1 Mg Vial IM PRN PRN Hypoglycemia Protocol Glucose 15 gm 07/24/23 10:47 Glucose Oral Gel 15 Gm Of Glucse In 37.5 Gm Tube PO PRN PRN Hypoglycemia Protocol Cefepime HCl 2 gm in 50 mls @ 100 mls/hr 07/23/23 21:00 07/24/23 09:19 Maxipime 2 Gm/Ns 50 Ml IVPB 100 mls/hr Q12H JANEY Administration Metronidazole 500 mg in 100 mls @ 100 mls/hr 07/23/23 22:00 07/24/23 07:58 Flagyl 500 Mg/Iso Soln 100 Ml IVPB Infused Q8H JANEY Infusion Vancomycin HCl 1,250 mg in 250 mls @ 166.667 mls/hr 07/24/23 09:00 07/24/23 10:36 Vancomycin 1,250 Mg/Ns 250 Ml IVPB 166.67 mls/hr Q18H JANEY Administration Dextrose 1,000 mls @ 100 mls/hr 07/24/23 10:47 Dextrose 5% 1,000 Ml IVPB PRN PRN Hypoglycemia Protocol Insulin Aspart 3 - 6 units 07/24/23 12:00 07/24/23 12:53 Insulin Aspart (*Bkc) 100 Units/Ml SUB-Q Not Given TIDWM JANEY Protocol Melatonin 6 mg 07/23/23 21:00 07/23/23 21:20 Melatonin 3 Mg Tablet PO 6 mg HS JANEY Administration Morphine Sulfate 2 mg 07/23/23 12:31 Morphine Sulfate (*Crx) 2 Mg/Ml Inj IV PUSH Q2H PRN Pain Rated 7-10 Ondansetron HCl 4 mg 07/23/23 12:31 Ondansetron Inj 4 Mg
[2023-07-24 17:13] LABS: Glucose Point of Care 145 mg/dl (65-105)
[2023-07-24 18:17] VITALS: BP 140/73; PULSE 82; RESP 18; TEMP 36.7; O2SAT 100
[2023-07-24 19:53] VITALS: BP 117/57; PULSE 77; RESP 18; TEMP 36.6; O2SAT 99
[2023-07-24 20:00] VITALS: PULSE 77; RESP 18; O2SAT 99
[2023-07-24] MEDS: MELATONIN 3 MG TABLET 6 MG PO (20:36)
[2023-07-24] MEDS: ATORVASTATIN 40 MG TABLET PO (20:36)
[2023-07-24 21:15] LABS: Glucose Point of Care 190 mg/dl (65-105)
[2023-07-25] VITALS (11 sets, daily range): BP systolic 106–160; BP diastolic 50–78; PULSE 70–81; RESP 14–20; TEMP 36.4–36.9; O2SAT 94–100
[2023-07-25 03:00] LABS: Anion Gap 5 mmol/L (8-16); Basophils Absolute Auto 0.1 K/mm3 (0.0-0.1); Basophils Percent Auto 0.5 % (0.2-1.2); Blood Urea Nitrogen 19 mg/dL (7-17); Calcium 9.2 mg/dL (8.4-10.2); Carbon Dioxide 28 mmol/L (22-30); Chloride 106 mmol/L (98-107); Eosinophils Absolute Auto 0.6 K/mm3 (0-0.3); Estimated CRCL calculation 73 ml/min; Estimated Glomerular Filt Rate > 60; Glucose 155 mg/dL (65-110); Hematocrit 32.5 % (37.0-47.0); Hemoglobin 9.9 g/dL (12.0-15.0); Immature Granulocyte Absolute 0.04 K/mm3 (0.00-0.031); Immature Granulocyte Percent A 0.4 % (0-0.5); Lymphocytes Absolute Auto 2.27 K/mm3 (0.9-3.2); Lymphocytes Percent Auto 23.9 % (18.3-44.2); Mean Corpuscular HGB Conc 30.5 g/dl (32-36); Mean Corpuscular Hemoglobin 27.9 pg (26-34); Mean Corpuscular Volume 91.5 fl (80-100); Mean Platelet Volume 9.2 fl (7.4-10.4); Monocytes Absolute Auto 0.9 K/mm3 (0.1-0.6); Monocytes Percent Auto 9.5 % (2.6-8.5); Neutrophils Absolute Auto 5.7 K/mm3 (1.3-6.7); Neutrophils Percent Auto 59.7 % (45.5-73.1); Platelet Count Result 356 k/mm3 (150-375); Potassium 4.2 mmol/L (3.4-5.0); Red Blood Count 3.55 M/mm3 (4.2-5.4); Red Cell Distribution Width 12.2 % (11.5-14.5); Sodium 139 mmol/L (137-145); White Blood Count 9.5 K/mm3 (4.5-10.0)
[2023-07-25 03:01] LABS: Vancomycin Trough 10.8 ug/mL (10.0-20.0)
[2023-07-25 04:06] LABS: Erythrocyte Sedimentation Rate 122 mm/hr (0-20)
[2023-07-25] MEDS: VANCOMYCIN 1,250 MG/NS 250 ML 1,250 MG/250 ML BAG 166.67 MG IVPB ×2 (04:16→16:00)
[2023-07-25] MEDS: metroNIDAZOLE 500 MG/ISO 100ML 500 MG/100 ML BAG 100 MG IVPB ×2 (05:47→17:38)
[2023-07-25 09:08] LABS: Glucose Point of Care 129 mg/dl (65-105)
[2023-07-25] MEDS: GABAPENTIN 300 MG CAPSULE PO ×2 (09:28→17:39)
--- NOTE | 2023-07-25 09:48 | PM.IMPN ---
Progress Note: A&P Assessment and Plan (1) Cellulitis of left foot: Code(s): L03.116 - Cellulitis of left lower limb Status: Acute Assessment and Plan: Continue IV Abx of Vancomycin, Flagyl and Cefepime General Surgery is following Unable to do JAVON on this pt due to machine not currently working. Trend labs and VS. Not currently meeting Sepsis criteria. PRN pain meds as ordered. (2) Gangrene of toe of left foot: Code(s): I96 - Gangrene, not elsewhere classified Status: Acute Assessment and Plan: See #1 (3) Peripheral vascular disease: Code(s): I73.9 - Peripheral vascular disease, unspecified Status: Chronic Assessment and Plan: Chronic in nature. Continue Plavix Pt's Vascular surgeon is at [facility]. (4) Type 2 diabetes mellitus: Onset Date: 05/17/22 Code(s): E11.9 - Type 2 diabetes mellitus without complications Status: Chronic Assessment and Plan: Hold all oral/injectable hypoglycemics Initiate Adult insulin protocol with moderate SSI Novolog for tighter glucose control as pt will likely need for healing from surgery. Check A1C Glucose checks AC and HS Hypoglycemic protocol. Continue diabetic diet (5) Dyslipidemia: Code(s): E78.5 - Hyperlipidemia, unspecified Status: Acute Assessment and Plan: Continue Statin therapy with Lipitor 40 mg po HS Plan Patient going to the operating room for amputation left 5th toe at 2:[address] Johnson Time Spent With Patient Time with patient: 25 - 35 minutes Subjective Date/time seen: 07/25/23 09:48 Interval history: 07/24: This very pleasant 57 year old female pt was examined at the bedside today in interval assessment after being admitted for a necrotic left fifth toe. She has no complaints of pain and notes that the redness that was spreading up onto her foot has improved greatly. JAVON's were ordered by Dr. Johnson from general surgery, however, I received a call from [facility] and they advised that they were unable to do any ABIs currently as the machine was broken and not available. Dr. Johnson was made aware and he plans to discuss amputation with pt. At this time she remains on IV Abx of Vancomycin and Cefepime. She has no fevers or any other acute distress/complaints. 07/25: patient awake alert oriented with wound to the left 5th digit. Wound is bandaged. Surgery is board and planning on amputation in the operating room had at 2:00 p.m. today. IV antibiotics continue. New IV is being placed at time of evaluation by ultrasound. Patient denies any other complaints except pain to the left foot 5th digit. Review of Systems Review of Systems: All systems reviewed & are unremarkable except as noted in HPI and below Exam Narrative: GENERAL: Well-appearing, well-nourished, and in no acute distress. HEAD: Normocephalic, atraumatic. ENT: Mucous membranes moist. NECK: Supple. no JVD CHEST: Clear to auscultation.? No respiratory distress. HEART: Regular rate and rhythm. ? Normal peripheral pulses. ABDOMEN: Soft, nontender, nondistended. EXTREMITIES: Normal range of motion.? No edema. SKIN: Warm, dry, no rash. a chronic left 5th digit plantar aspect with erythema over the dorsal aspect of the 4th and 5th digits of the same foot with erythema streaking up towards the ankle. NEURO:? Alert and oriented x3. PSYCH: Normal mood and affect. Objective Data Vital Signs Vital Signs: Vital Signs - 24 hr 07/24/23 10:48 07/24/23 18:17 07/24/23 19:53 Temperature 36.8 C 36.7 C 36.6 C Pulse Rate 75 82 77 Respiratory Rate 18 18 18 Blood Pressure 116/60 140/73 117/57 L Pulse Oximetry 98 100 99 Oxygen Delivery 07/24/23 20:00 07/25/23 05:02 Temperature 36.4 C Pulse Rate 77 70 Respiratory Rate 18 17 Blood Pressure 106/50 L Pulse Oximetry 99 98 Oxygen Delivery Room Air Intake/Output Intake/Output: Intake & Output 07/22/23 07/23/23 07/24/23 07/25/23
[2023-07-25] MEDS: CEFEPIME 2 GM/NS 50 ML 2 GM/50 ML BAG IVPB ×2 (10:37→20:59)
[2023-07-25 12:19] LABS: Glucose Point of Care 114 mg/dl (65-105)
[2023-07-25] MEDS: LACTATED RINGERS 1,000 ML 30 ML IV CONT (14:25)
--- NOTE | 2023-07-25 14:51 | WPDANESEPPF ---
Anes - Initial Pre Proc Eval Procedure: Operation Date: 07/25/23 14:00 Proposed Procedures p Left Fifth Toe Amputation - Tadeo Johnson MD Date/Time: 07/25/23 14:51 Surgeon: MARA Lamb Pre Op Diagnosis: necrotic foot wound with cellulitis Patient Data Age: 57 Gender: F Height: 1.63 m Weight: 74 kg Last Vital Signs Temp 36.8 C 07/25/23 14:28 Pulse 74 07/25/23 14:28 Resp 16 07/25/23 14:28 BP 149/69 H 07/25/23 14:28 Pulse Ox 100 07/25/23 14:28 O2 Del Method Room Air 07/25/23 14:28 Allergies Allergy/AdvReac Type Severity Reaction Status Date / Time No Known Allergies Allergy Verified 07/25/23 14:21 Home Medications Medication Instructions Recorded Confirmed Type atorvastatin 40 mg tablet 40 mg PO QHS 07/23/23 07/23/23 History clopidogrel 75 mg tablet 75 mg PO DAILY 07/23/23 07/23/23 History dapagliflozin propanediol 10 mg 10 mg PO QAM 07/23/23 07/23/23 History tablet (Farxiga) gabapentin 300 mg capsule 300 mg PO BID 07/23/23 07/23/23 History metformin 500 mg tablet,extended 1,000 mg PO DAILY 07/23/23 07/23/23 History release 24 hr Laboratory Tests 07/24/23 07/24/23 07/25/23 17:11 20:34 02:12 WBC 9.5 K/mm3 (4.5-10.0) RBC 3.55 L M/mm3 (4.2-5.4) Hgb 9.9 L g/dL (12.0-15.0) Hct 32.5 L % (37.0-47.0) MCV 91.5 fl (80-100) MCH 27.9 pg (26-34) MCHC 30.5 L g/dl (32-36) RDW 12.2 % (11.5-14.5) Plt Count 356 k/mm3 (150-375) MPV 9.2 fl (7.4-10.4) Immature Gran % (Auto) 0.4 % (0-0.5) Neut % (Auto) 59.7 % (45.5-73.1) Lymph % (Auto) 23.9 % (18.3-44.2) [place] % (Auto) 9.5 H % (2.6-8.5) Eos % (Auto) 6.0 H % (0-4.4) Baso % (Auto) 0.5 % (0.2-1.2) Lymph # (Auto) 2.27 K/mm3 (0.9-3.2) [place] # (Auto) 0.9 H K/mm3 (0.1-0.6) Eos # (Auto) 0.6 H K/mm3 (0-0.3) Baso # (Auto) 0.1 K/mm3 (0.0-0.1) Abs Immat Gran (auto) 0.04 H K/mm3 (0.00-0.031) Absolute Neuts (auto) 5.7 K/mm3 (1.3-6.7) Absolute Nucleated RBC 0.0 K/mm3 (0.0-0.012) Nucleated RBC % 0.0 % (0.0-0.2) ESR 122 H mm/hr (0-20) Sodium 139 mmol/L (137-145) Potassium 4.2 mmol/L (3.4-5.0) Chloride 106 mmol/L (98-107) Carbon Dioxide 28 mmol/L (22-30) Anion Gap 5 L mmol/L (8-16) BUN 19 H mg/dL (7-17) Creatinine 0.70 mg/dL (0.7-1.0) Estim Creat Clear Calc 73 ml/min Estimated GFR > 60 (59 - ) Glucose 155 H mg/dL (65-110) POC Capillary Glucose 145 H mg/dl 190 H mg/dl (65-105) (65-105) Calcium 9.2 mg/dL (8.4-10.2) Vancomycin Trough 07/25/23 07/25/23 07/25/23 02:32 09:05 12:17 WBC RBC Hgb Hct MCV MCH MCHC RDW Plt Count MPV Immature Gran % (Auto) Neut % (Auto) Lymph % (Auto) [place] % (Auto) Eos % (Auto) Baso % (Auto) Lymph # (Auto) [place] # (Auto) Eos # (Auto) Baso # (Auto) Abs Immat Gran (auto) Absolute Neuts (auto) Absolute Nucleated RBC Nucleated RBC % ESR Sodium Potassium Chloride Carbon Dioxide Anion Gap BUN Creatinine Estim Creat Clear Calc Estimated GFR Glucose POC Capillary Glucose 129 H mg/dl 114 H mg/dl (65-105) (65-105) Calcium Vancomycin Trough 10.8 ug/mL (10.0-20.0) Patient hx anesthesia problems: none Family h
--- NOTE | 2023-07-25 14:52 | WPDHPUPDATE1 ---
History and Physical Update Update Date/Time: 07/25/23 14:52 History and Physical has been reviewed, including an updated exam of the patient. There are NO changes in the patient's condition. Risks, benefits, and alternatives have been discussed and questions answered. Patient agrees to proceed with procedure.
[2023-07-25] MEDS: BUPivacaine HCL 0.5% 10 ML AMP 30 ML INFILTRATE (15:43)
--- NOTE | 2023-07-25 16:04 | W.PM.PROC2 ---
Procedure Note - Detailed Date of Procedure 07/25/23 Pre-op Diagnosis Dry gangrene left 5th toe and left foot cellulitis. Post-op Diagnosis Same Procedure Performed Amputation of left 5th toe. Surgeon Tadeo Johnson MD Anesthesia MAC and Local Indications Patient is a 57-year-old female who has peripheral vascular disease. He has had vascular event of the left lower extremity with placement of a stent at [facility] within the last 12 months. She suddenly developed pain redness and swelling of her left 5th toe a few days ago. It has gone on to develop dry gangrene with some mild cellulitis of the left foot. The cellulitis has improved with IV antibiotics and she presents now for amputation of the gangrenous left 5th toe. Findings There was dry gangrene of the left 5th toe all the way up to the left proximal metatarsophalangeal joint. The end of the metatarsal appeared to be normal without evidence of any osteomyelitis. The tissue surrounding the metatarsal head was viable without evidence of any infection or necrosis. Description of Procedure After informed consent was obtained patient brought to the operating room she was placed supine position and IV sedation with LMA anesthesia was administered. The left foot from the mid distal leg to the toes was then prepped and draped usual sterile fashion. Time-out was then performed correctly identifying the patient as well as procedure to be performed. Site marking was verified and she was already on scheduled IV antibiotics. I then started by making a circumferential incision around the base of the left 5th toe and extending it along the lateral forefoot towards the heel. Dissection carried sharply down through these tissues until encountered the proximal metatarsophalangeal joint. I then sharply cut through the joint and disarticulated the necrotic gangrenous left 5th toe. This was sent to pathology for examination. I then further sharply the surrounding tissues from the left 5th metatarsal head. A past elevator was also used to help dissect the tonsil had away from the surrounding tissue. I then proceeded to divide the left 5th metatarsal to the head of the bone. This is done with a small bone cutter. This portion bone was sent to pathology as well. Then used a small rongeur to remove any sharp edges off the edge of the bone. There was some bleeding within the wound which was easily achieved electrocautery. I then irrigated out the wound with sterile saline solution. Stasis was good. I then loosely closed the joint capsule with a single 2-0 Vicryl suture placed in a horizontal mattress fashion. The wound was then partially closed by placement of interrupted 3-0 nylon sutures placed in vertical mattress fashion to close the lateral portion of the wound. This left a 1x1cm open incision on the foot which was then packed with quarter-inch iodoform gauze. In the foot an incision was then cleaned and then sterile dressing was applied and the foot was wrapped with Kerlix gauze and a 4in Fili wrap. The patient tolerated the procedure well no complications. All sponges, needles, and instrument counts were correct at the end procedure. EBL was __5_cc. The patient was awakened and taken to recovery in stable and satisfactory condition. Implants None Estimated Blood Loss 5 Urine Output 2 Drains No Packing Yes (About 4 inches of quarter-inch iodoform gauze) Pathology Yes (Left 5th toe and left 5th metatarsal head sent to pathology) Complications No immediate complications Condition Stable Disposition PACU [facility] Billing Surgery - Charge Forward: Surgery Billing
[2023-07-25 16:38] LABS: Glucose Point of Care 96 mg/dl (65-105)
[2023-07-25 17:16] LABS: Glucose Point of Care 91 mg/dl (65-105)
[2023-07-25 20:00] LABS: Glucose Point of Care 163 mg/dl (65-105)
[2023-07-25] MEDS: ATORVASTATIN 40 MG TABLET PO (21:00)
[2023-07-26] MEDS: metroNIDAZOLE 500 MG/ISO 100ML 500 MG/100 ML BAG 100 MG IVPB ×3 (02:38→17:32)
[2023-07-26] MEDS: VANCOMYCIN 1,250 MG/NS 250 ML 1,250 MG/250 ML BAG 125 MG IVPB (03:06)
[2023-07-26 03:30] VITALS: BP 151/64; PULSE 69; RESP 16; TEMP 36.5; O2SAT 99
[2023-07-26 05:37] LABS: Estimated CRCL calculation 85 ml/min; Estimated Glomerular Filt Rate > 60
[2023-07-26 08:27] LABS: Glucose Point of Care 181 mg/dl (65-105)
[2023-07-26 08:56] VITALS: BP 128/61; PULSE 79; RESP 18; TEMP 36.6; O2SAT 99
[2023-07-26] MEDS: GABAPENTIN 300 MG CAPSULE PO ×2 (09:05→17:32)
[2023-07-26] MEDS: CLOPIDOGREL BISULFATE 75 MG TABLET PO (09:05)
[2023-07-26] MEDS: CEFEPIME 2 GM/NS 50 ML 2 GM/50 ML BAG IVPB ×2 (09:06→20:19)
[2023-07-26] MEDS: metFORMIN HCL XR 500 MG TAB.SR.24H 1000 MG PO (12:12)
[2023-07-26] MEDS: EMPAGLIFLOZIN 25 MG TABLET PO (12:12)
[2023-07-26 12:23] LABS: Glucose Point of Care 216 mg/dl (65-105)
[2023-07-26 13:00] VITALS: BP 138/68; PULSE 74; RESP 18; TEMP 36.8; O2SAT 97
--- NOTE | 2023-07-26 14:30 | PM.PNGS ---
Progress Note: A&P Assessment and Plan (1) Amputated toe of left foot: Code(s): S98.132A - Complete traumatic amputation of one left lesser toe, initial encounter Status: Acute Assessment and Plan: Wound looks good after amputation yesterday. Packing removed. There was a small amount of bleeding from the wound which appeared to stop after gentle pressure. Will start silver gel dressing changes with gauze and Fili wrap today. Patient will stay in the hospital today and I will check the wound again tomorrow. Possibly discharge tomorrow. (2) Gangrene of toe of left foot: Code(s): I96 - Gangrene, not elsewhere classified Status: Resolved (3) Cellulitis of left foot: Code(s): L03.116 - Cellulitis of left lower limb Status: Acute Assessment and Plan: Currently on multiple antibiotics including vancomycin, metronidazole, cefepime Subjective Subjective Date/Time Seen: 07/26/23 14:30 Post Op day: 1 Patient reports: no new complaints and afebrile Exam Extrem: Left lower extremity: foot (Fifth toe amp wound looks good, no purulence, good blood supply) Objective Data Vital Signs Vital Signs: Vital Signs - 24 hr 07/25/23 15:56 07/25/23 16:10 07/25/23 16:25 Temperature 36.9 C Pulse Rate 79 78 79 Respiratory Rate 16 16 14 Blood Pressure 121/68 140/70 150/73 H Pulse Oximetry 100 100 98 Oxygen Delivery Simple Face Mask Simple Face Mask Room Air Oxygen Flow Rate 8 8 07/25/23 16:40 07/25/23 17:14 07/25/23 17:29 Temperature 36.7 C 36.7 C Pulse Rate 75 76 79 Respiratory Rate 20 18 18 Blood Pressure 150/72 H 160/60 H 152/78 H Pulse Oximetry 94 98 96 Oxygen Delivery Room Air Oxygen Flow Rate 07/25/23 17:59 07/25/23 19:13 07/25/23 20:08 Temperature 36.7 C 36.9 C Pulse Rate 78 81 Respiratory Rate 18 20 Blood Pressure 150/70 H 118/59 L Pulse Oximetry 98 98 Oxygen Delivery Room Air Oxygen Flow Rate 07/25/23 23:30 07/26/23 03:30 07/26/23 08:56 Temperature 36.4 C L 36.5 C 36.6 C Pulse Rate 70 69 79 Respiratory Rate 16 16 18 Blood Pressure 109/56 L 151/64 H 128/61 Pulse Oximetry 99 99 99 Oxygen Delivery Oxygen Flow Rate 07/26/23 09:10 07/26/23 13:00 Temperature 36.8 C Pulse Rate 74 Respiratory Rate 18 Blood Pressure 138/68 Pulse Oximetry 97 Oxygen Delivery Room Air Oxygen Flow Rate Intake/Output Intake/Output: Intake & Output 07/23/23 07/24/23 07/25/23 07/26/23 23:59 23:59 23:59 23:59 Intake Total 840 2750 1580 1470 Output Total 2 2 Balance 840 2748 1578 1470 Meds/Results Medications: Active Medications Generic Name Dose Route Start Last Admin Trade Name Freq PRN Reason Stop Dose Admin Acetaminophen 650 mg 07/23/23 12:31 Acetaminophen 325 Mg Tablet PO Q4H PRN Mild Pain (1-3) or Fever Hydrocodone Bitart/Acetaminophen 1 tab 07/23/23 12:31 Hydrocodone/Acetaminophen (*Crx) 5-325 Mg Tablet PO Q4H PRN Pain Rated 4-6 Atorvastatin Calcium 40 mg 07/23/23 21:00 07/25/23 21:00 Atorvastatin 40 Mg Tablet PO 40 mg QHS JANEY Administration Clopidogrel Bisulfate 75 mg 07/24/23 09:00 07/26/23 09:05 Clopidogrel Bisulfate 75 Mg Tablet PO 75 mg DAILY JANEY Administration Dextrose 12.5 gm 07/24/23 10:47 Dextrose 50% 25 Gm/50 Ml Syringe IV PUSH PRN PRN Hypoglycemia Protocol Empagliflozin 25 mg 07/26/23 10:40 07/26/23 12:12 Empagliflozin 25 Mg Tablet PO 25 mg DAILY JANEY Administration Gabapentin 300 mg 07/24/23 09:00 07/26/23 09:05 Gabapentin 300 Mg Capsule PO 300 mg BID JANEY Administration Glucagon 1 mg 07/24/23 10:47 Glucagon For Inj 1 Mg Vial IM PRN PRN Hypoglycemia Protocol Glucose 15 gm 07/24/23 10:47 Glucose Oral Gel 15 Gm Of Glucse In 37.5 Gm Tube PO PRN PRN Hypoglycemia Protocol Cefepime HCl 2 gm in 50 mls @ 100 mls/hr 07/23/23 21:00 07/26/23 09:36 Maxipime 2 Gm/
--- NOTE | 2023-07-26 14:40 | PM.IMPN ---
Progress Note: A&P Assessment and Plan (1) Cellulitis of left foot: Code(s): L03.116 - Cellulitis of left lower limb Status: Acute Assessment and Plan: Continue IV Abx of Vancomycin, Flagyl and Cefepime General Surgery is following Unable to do JAVON on this pt due to machine not currently working. Trend labs and VS. Not currently meeting Sepsis criteria. PRN pain meds as ordered. (2) Gangrene of toe of left foot: Code(s): I96 - Gangrene, not elsewhere classified Status: Resolved Assessment and Plan: See #1 07/26: postop day 1 left foot 5th digit amputation with wound care provided by General surgery. Continue IV antibiotics. Consider discharge tomorrow after surgery evaluates. (3) Peripheral vascular disease: Code(s): I73.9 - Peripheral vascular disease, unspecified Status: Chronic Assessment and Plan: Chronic in nature. Continue Plavix Pt's Vascular surgeon is at [facility]. (4) Type 2 diabetes mellitus: Onset Date: 05/17/22 Code(s): E11.9 - Type 2 diabetes mellitus without complications Status: Chronic Assessment and Plan: Hold all oral/injectable hypoglycemics Initiate Adult insulin protocol with moderate SSI Novolog for tighter glucose control as pt will likely need for healing from surgery. Check A1C Glucose checks AC and HS Hypoglycemic protocol. Continue diabetic diet 07/26: Restarted metformin and Jardiance which appear to have discontinued when she went to the operating room and returned to the floor. Patient refused SSI at lunchtime. (5) Dyslipidemia: Code(s): E78.5 - Hyperlipidemia, unspecified Status: Acute Assessment and Plan: Continue Statin therapy with Lipitor 40 mg po HS Time Spent With Patient Time with patient: 25 - 35 minutes Subjective Date/time seen: 07/26/23 14:40 Interval history: 07/24: This very pleasant 57 year old female pt was examined at the bedside today in interval assessment after being admitted for a necrotic left fifth toe. She has no complaints of pain and notes that the redness that was spreading up onto her foot has improved greatly. JAVON's were ordered by Dr. Johnson from general surgery, however, I received a call from [facility] and they advised that they were unable to do any ABIs currently as the machine was broken and not available. Dr. Johnson was made aware and he plans to discuss amputation with pt. At this time she remains on IV Abx of Vancomycin and Cefepime. She has no fevers or any other acute distress/complaints. 07/25: Patient awake alert oriented with wound to the left 5th digit. Wound is bandaged. Surgery is board and planning on amputation in the operating room had at 2:00 p.m. today. IV antibiotics continue. New IV is being placed at time of evaluation by ultrasound. Patient denies any other complaints except pain to the left foot 5th digit. 07/26: Patient is postop day 1 left foot 5th digit amputation. general surgery has seen patient will keep in the hospital overnight on IV antibiotics with silver gel for wound care. Patient possibly could discharge tomorrow. Patient was hoping to be able to leave today but understands caution. Restarted oral anti hyperglycemic medications today. Patient did refuse supplemental insulin injection for nursing staff at lunch. Patient takes Farxiga at home but this is substituted with Jardiance while in the hospital. Review of Systems Review of Systems: All systems reviewed & are unremarkable except as noted in HPI and below Exam Narrative: GENERAL: Well-appearing, well-nourished, and in no acute distress. HEAD: Normocephalic, atraumatic. ENT: Mucous membranes moist. NECK: Supple. no JVD CHEST: Clear to auscultation.? No respiratory distress. HEART: Regular rate and rhythm. ? Normal peripheral pulses. ABDOMEN: Soft, nontender, nondistended. EXTREMITIES: Normal range of motion.? No edema. SKIN: Warm, dry, no rash. Left f
[2023-07-26 16:12] LABS: Vancomycin Trough 17.1 ug/mL (10.0-20.0)
[2023-07-26 16:56] VITALS: BP 151/69; PULSE 77; RESP 18; TEMP 36.4; O2SAT 98
[2023-07-26 17:00] LABS: Glucose Point of Care 176 mg/dl (65-105)
[2023-07-26] MEDS: VANCOMYCIN 1,250 MG/NS 250 ML 1,250 MG/250 ML BAG 166.67 MG IVPB (18:35)
[2023-07-26 19:30] VITALS: BP 144/63; PULSE 82; RESP 17; TEMP 36.6; O2SAT 97
[2023-07-26 20:00] VITALS: PULSE 82; RESP 17; O2SAT 97
[2023-07-26] MEDS: ATORVASTATIN 40 MG TABLET PO (20:19)
[2023-07-26] MEDS: MELATONIN 5 MG TABLET PO (20:19)
[2023-07-26 21:00] LABS: Glucose Point of Care 141 mg/dl (65-105)
[2023-07-27] MEDS: metroNIDAZOLE 500 MG/ISO 100ML 500 MG/100 ML BAG 100 MG IVPB ×2 (03:00→09:36)
[2023-07-27] MEDS: VANCOMYCIN 1,250 MG/NS 250 ML 1,250 MG/250 ML BAG 166.67 MG IVPB (05:44)
[2023-07-27 06:00] VITALS: BP 135/68; PULSE 72; RESP 19; TEMP 36.7; O2SAT 99
[2023-07-27 08:42] LABS: Glucose Point of Care 150 mg/dl (65-105)
[2023-07-27] MEDS: GABAPENTIN 300 MG CAPSULE PO (08:52)
[2023-07-27] MEDS: metFORMIN HCL XR 500 MG TAB.SR.24H 1000 MG PO (08:52)
[2023-07-27] MEDS: EMPAGLIFLOZIN 25 MG TABLET PO (08:52)
[2023-07-27] MEDS: CLOPIDOGREL BISULFATE 75 MG TABLET PO (08:52)
[2023-07-27] MEDS: CEFEPIME 2 GM/NS 50 ML 2 GM/50 ML BAG IVPB (08:53)
[2023-07-27 09:03] LABS: Hematocrit 33.6 % (37.0-47.0); Hemoglobin 10.2 g/dL (12.0-15.0); Mean Corpuscular HGB Conc 30.4 g/dl (32-36); Mean Corpuscular Hemoglobin 27.9 pg (26-34); Mean Corpuscular Volume 91.8 fl (80-100); Mean Platelet Volume 9.1 fl (7.4-10.4); Platelet Count Result 379 k/mm3 (150-375); Red Blood Count 3.66 M/mm3 (4.2-5.4); Red Cell Distribution Width 12.3 % (11.5-14.5); White Blood Count 11.5 K/mm3 (4.5-10.0)
[2023-07-27 09:18] LABS: Anion Gap 8 mmol/L (8-16); Blood Urea Nitrogen 13 mg/dL (7-17); Calcium 8.9 mg/dL (8.4-10.2); Carbon Dioxide 23 mmol/L (22-30); Chloride 106 mmol/L (98-107); Estimated CRCL calculation 85 ml/min; Estimated Glomerular Filt Rate > 60; Glucose 152 mg/dL (65-110); Potassium 4.1 mmol/L (3.4-5.0); Sodium 137 mmol/L (137-145)
[2023-07-27 12:27] LABS: Glucose Point of Care 159 mg/dl (65-105)
--- NOTE | 2023-07-27 13:36 | PM.PNGS ---
Progress Note: A&P Assessment and Plan (1) Amputated toe of left foot: Code(s): S98.132A - Complete traumatic amputation of one left lesser toe, initial encounter Status: Acute Assessment and Plan: Wound looks good. Erythema noted distal forefoot laterally. White blood cell count up to 17,000 today. Will discharge on clindamycin and close follow-up with Dr. Johnson this week. Continue silver gel dressings with gauze and Fili wrap. Walk with cast shoe. (2) Cellulitis of left foot: Code(s): L03.116 - Cellulitis of left lower limb Status: Acute Assessment and Plan: Improved. Home on clindamycin. Subjective Subjective Date/Time Seen: 07/27/23 13:36 Post Op day: 2 Patient reports: no new complaints and afebrile Exam Extrem: Left lower extremity: foot (Amp wound looks good, erythema on distal forefoot assoc toe 4 and amp) Details: tenderness Location: of the base of the 5th metatarsal (Mild) and other (No bleeding, amp wound healing); no crepitus Objective Data Vital Signs Vital Signs: Vital Signs - 24 hr 07/26/23 16:56 07/26/23 19:30 07/26/23 20:00 Temperature 36.4 C L 36.6 C Pulse Rate 77 82 82 Respiratory Rate 18 17 17 Blood Pressure 151/69 H 144/63 H Pulse Oximetry 98 97 97 Oxygen Delivery Room Air 07/27/23 06:00 07/27/23 09:00 Temperature 36.7 C Pulse Rate 72 Respiratory Rate 19 Blood Pressure 135/68 Pulse Oximetry 99 Oxygen Delivery Room Air Intake/Output Intake/Output: Intake & Output 07/24/23 07/25/23 07/26/23 07/27/23 23:59 23:59 23:59 23:59 Intake Total 2750 1580 2610 1170 Output Total 2 2 Balance 2748 1578 2610 1170 Meds/Results Medications: Active Medications Generic Name Dose Route Start Last Admin Trade Name Freq PRN Reason Stop Dose Admin Acetaminophen 650 mg 07/23/23 12:31 Acetaminophen 325 Mg Tablet PO Q4H PRN Mild Pain (1-3) or Fever Hydrocodone Bitart/Acetaminophen 1 tab 07/23/23 12:31 Hydrocodone/Acetaminophen (*Crx) 5-325 Mg Tablet PO Q4H PRN Pain Rated 4-6 Atorvastatin Calcium 40 mg 07/23/23 21:00 07/26/23 20:19 Atorvastatin 40 Mg Tablet PO 40 mg QHS JANEY Administration Clopidogrel Bisulfate 75 mg 07/24/23 09:00 07/27/23 08:52 Clopidogrel Bisulfate 75 Mg Tablet PO 75 mg DAILY JANEY Administration Dextrose 12.5 gm 07/24/23 10:47 Dextrose 50% 25 Gm/50 Ml Syringe IV PUSH PRN PRN Hypoglycemia Protocol Empagliflozin 25 mg 07/26/23 10:40 07/27/23 08:52 Empagliflozin 25 Mg Tablet PO 25 mg DAILY JANEY Administration Gabapentin 300 mg 07/24/23 09:00 07/27/23 08:52 Gabapentin 300 Mg Capsule PO 300 mg BID JANEY Administration Glucagon 1 mg 07/24/23 10:47 Glucagon For Inj 1 Mg Vial IM PRN PRN Hypoglycemia Protocol Glucose 15 gm 07/24/23 10:47 Glucose Oral Gel 15 Gm Of Glucse In 37.5 Gm Tube PO PRN PRN Hypoglycemia Protocol Cefepime HCl 2 gm in 50 mls @ 100 mls/hr 07/23/23 21:00 07/27/23 09:23 Maxipime 2 Gm/Ns 50 Ml IVPB Infused Q12H JANEY Infusion Dextrose 1,000 mls @ 100 mls/hr 07/24/23 10:47 Dextrose 5% 1,000 Ml IVPB PRN PRN Hypoglycemia Protocol Metronidazole 500 mg in 100 mls @ 100 mls/hr 07/25/23 18:00 07/27/23 10:36 Flagyl 500 Mg/Iso Soln 100 Ml IVPB Infused Q8H JANEY Infusion Vancomycin HCl 1,250 mg in 250 mls @ 166.667 mls/hr 07/26/23 18:00 07/27/23 05:44 Vancomycin 1,250 Mg/Ns 250 Ml IVPB 166.67 mls/hr Q12H JANEY Administration Insulin Aspart 3 - 6 units 07/24/23 12:00 07/27/23 12:44 Insulin Aspart (*Bkc) 100 Units/Ml SUB-Q Not Given TIDWM JANEY Protocol Melatonin 5 mg 07/26/23 19:52 07/26/23 20:19 Melatonin 5 Mg Tablet PO 5 mg HS PRN Administration Sleep Metformin HCl 1,000 mg 07/26/23 10:40 07/27/23 08:52 Metformin Hcl Xr 500 Mg Tab.Sr.24h PO 1,000 mg DAILY@0800 JANEY Administration M
--- NOTE | 2023-07-27 14:05 | PM.DS ---
DS: Admitting Diagnosis Discharge Date 07/27/2023 Admitting Diagnosis Cellulitis left foot Gangrene left 5th toe DS: Discharge Diagnosis Discharge Diagnosis Plan Patient had 5th toe amputated and will follow-up with orthopedics as an outpatient. Patient will continue clindamycin for 5 days. DS: Summary Hospital Course Reason for hospitalization: Cellulitis of left foot Gangrene of left 5th toe Hospital Course: Interval history: 07/24: This very pleasant 57 year old female pt was examined at the bedside today in interval assessment after being admitted for a necrotic left fifth toe. She has no complaints of pain and notes that the redness that was spreading up onto her foot has improved greatly. JAVON's were ordered by Dr. Johnson from general surgery, however, I received a call from [facility] and they advised that they were unable to do any ABIs currently as the machine was broken and not available. Dr. Johnson was made aware and he plans to discuss amputation with pt. At this time she remains on IV Abx of Vancomycin and Cefepime. She has no fevers or any other acute distress/complaints. 07/25:? Patient awake alert oriented with wound to the left 5th digit.? Wound is bandaged.? Surgery is board and planning on amputation in the operating room had at 2:00 p.m. today.? IV antibiotics continue.? New IV is being placed at time of evaluation by ultrasound.? Patient denies any other complaints except pain to the left foot 5th digit. 07/26:? Patient is postop day 1 left foot 5th digit amputation. general surgery has seen patient will keep in the hospital overnight on IV antibiotics with silver gel for wound care.? Patient possibly could discharge tomorrow.? Patient was hoping to be able to leave today but understands caution.? Restarted oral anti hyperglycemic medications today.? Patient did refuse supplemental insulin injection for nursing staff at lunch.? Patient takes Farxiga at home but this is substituted with Jardiance while in the hospital. 07/27: Patient is alert and oriented x4 denies any complaints. Denies any pain to the foot. States she is ambulating well with the Lasso shoe. Dressing is dry and intact. Pedal and posterior tibial pulses are palpable and equal bilaterally. Plan to discharge patient home today on clindamycin to follow-up with orthopedics outpatient. Status at Discharge Functional status at discharge: independent ambulation Overall status at discharge: patient is progressing back to baseline Time Spent with Patient Time attestation: Total time spent providing and/or coordinating discharge services: Time spent: Less than 30 minutes Exam Narrative: Patient is alert and oriented x4 and appears in no acute distress. States she is looking forward to going to home. Const: General: comfortable and no acute distress HENMT: Face/Nose/Sinus: Normal nares present Mouth: Yes moist mucous membranes Eyes: General: appearance normal, both eyes and all related structures Sclera: sclerae normal Pupils: Equal, round and reactive pupils present EOM: EOMs intact bilaterally Neck: Neck: supple and no JVD Resp: Effort & Inspection: normal respiratory effort Auscultation: clear to auscultation bilaterally Cardio: Rate: regular rate Rhythm: regular rhythm Other: No murmur, gallop, rub noted GI: GI Palp: Yes Soft to palpation Other: Abdomen is flat, soft to palpation and nontender with bowel sounds present x4 quadrants Skin: General skin exam: normal color Neuro: Motor exam (neuro): 5/5 motor strength present throughout and Normal motor muscle tone present throughout Sensory Exam: normal sensation Extrem: General: normal exam except as noted (Dressing to left foot dry intact with walking shoe in place) Psych: Mental Status: mental status grossly normal Affect: normal affect DS: Data Data Completed and Pending Pending studies at discharge: Pending at discharge 07/25/23 16:29 Surgical [PTH] Routine
[2023-07-27 14:36] VITALS: BP 128/55; PULSE 80; RESP 16; TEMP 36.9; O2SAT 99
== END 2023-07-27 15:52 | disposition home or self-care (01) | DRG 314 ==
LOC: ANHED 10:10 → ANH2MED 14:18
PROVIDERS: Nurse Practitioner Adult Health; Student in an Organized Health Care Education/Training Program; Surgery; Admitting Provider Student in an Organized Health Care Education/Training Program; Emergency Provider Emergency Medicine; PCP Physician Assistant; Visit Provider Nurse Practitioner Family
PROC: 0Y6Y0Z0 Detachment at Left 5th Toe, Complete, Open Approach (ICD-10-PCS; principal; 2023-07-25 14:00)
DX: E11.52 Type 2 diabetes mellitus with diabetic peripheral angiopathy with gangrene (principal); I96 Gangrene, not elsewhere classified; L03.116 Cellulitis of left lower limb; E78.5 Hyperlipidemia, unspecified; F17.210 Nicotine dependence, cigarettes, uncomplicated; Z79.02 Long term (current) use of antithrombotics/antiplatelets; Z79.84 Long term (current) use of oral hypoglycemic drugs
CPT/HCPCS: 36415; 73630; 80048; 80053; 80202; 82565; 82948; 83036; 83605; 85025; 85027; 85610; 85652; 85730; 86140; 88305; 88311; 96365; 96366; 96367; 96375; 99285; A9270; G0378; G0379; J0692; J1836; J2250; J2405; J2704; J3010; J3370; J7120

== ENCOUNTER 2023-08-25 04:17 | Observation (INO) | payer BC, SELFPAY ==
[2023-08-25] VITALS (10 sets, daily range): BP systolic 103–123; BP diastolic 49–68; PULSE 82–107; RESP 14–20; TEMP 36.6–37.1; O2SAT 94–98; BMI 28.8
--- NOTE | ~2023-08-25 | XR_ITS ---
Left foot Technique: AP, oblique, and lateral views were obtained. Clinical History: Postoperative change COMPARISON: 07/23/2023 Findings: Patient is status post interval transmetatarsal interpretation of the fifth digit. There is apparent oblique fracture of the distal fifth metatarsal remnant, acute in appearance. Remaining oss eous structures and joint spaces appear intact. No gross soft tissue abnormality evident. Impression: Status post interval transmetatarsal dictation the fifth digit. Oblique fracture of the distal fifth metatarsal remnant, which has an acute appearance. Reviewed, dictated and finalized at location . IAL DI[employer] COOK Impression: Status post interval transmetatarsal dictation the fifth digit. Oblique fractur e of the distal fifth metatarsal remnant, which has an acute appearance.
--- NOTE | ~2023-08-25 | CT_ITS ---
EXAMINATION: CT brain wo con INDICATION: Dizziness and weakness COMPARISON: None TECHNIQUE: Standard unenhanced head CT. The dose-length product (DLP) was 605.33 mGy-cm. The mA was a djusted according to patient size. Iterative reconstruction technique was employed. FINDINGS: No acute intraparenchymal hemorrhage. No evidence of mass lesion. No evidence of acute infa rction. There is mild periventricular and subcortical hypodensity probably related to small vessel is chemic disease. There is mild prominence of the sulci and ventricles related to cerebral atrophy. Int racranial calcified cerebral atherosclerosis is noted. No extra-axial collections. No mass effect or midline shift. The orbits and soft tissues are unremarkable. There is mild mucosal thickening of the paranasal sinuses. IMPRESSION: 1. No acute intracranial abnormality. 2. Age related findings. Reviewed, dictated and finalized at location F. EL SUPERVISOR
--- NOTE | ~2023-08-25 | XR_ITS ---
Portable chest x-ray Comparison: 04/09/2018 Clinical History: Weakness Findings: Lungs are clear, without focal consolidation or pleural effusion. Cardiomediastinal silho uette is stable. Bones and soft tissues are unremarkable. Impression: Normal chest. Reviewed, dictated and finalized at location . [employer] OF ANALYTICS Impression: Normal chest.
--- NOTE | 2023-08-25 04:28 | ECG_ITS ---
Measurements Intervals [place] Rate: 105 P: 65 RI: 152 QRS: -46 QRSD: 111 T: 72 QT: 348 QTc: 460 Interpretive Statements SINUS TACHYCARDIA INCOMPLETE RIGHT BUNDLE BRANCH BLOCK LEFT ANTERIOR FASCICULAR BLOCK BASELINE ARTIFACT- I, AVL ABNORMAL ECG NO PREVIOUS ECG AVAILABLE FOR COMPARISON Electronically Signed On 08-25-2023 6:24:08 SOFTWARE SPECIALIST by Jermain Pepper D.O.
[2023-08-25 04:37] LABS: Basophils Absolute Auto 0.1 K/mm3 (0.0-0.1); Basophils Percent Auto 0.4 % (0.2-1.2); Eosinophils Absolute Auto 0.1 K/mm3 (0-0.3); Eosinophils Percent Auto 1.2 % (0-4.4); Hemoglobin 11.1 g/dL (12.0-15.0); Immature Granulocyte Absolute 0.06 K/mm3 (0.00-0.031); Immature Granulocyte Percent A 0.5 % (0-0.5); Lymphocytes Absolute Auto 0.49 K/mm3 (0.9-3.2); Lymphocytes Percent Auto 4.1 % (18.3-44.2); Mean Corpuscular Hemoglobin 27.6 pg (26-34); Mean Platelet Volume 9.9 fl (7.4-10.4); Monocytes Absolute Auto 0.8 K/mm3 (0.1-0.6); Monocytes Percent Auto 6.4 % (2.6-8.5); Neutrophils Absolute Auto 10.3 K/mm3 (1.3-6.7); Neutrophils Percent Auto 87.4 % (45.5-73.1); Platelet Count Result 286 k/mm3 (150-375); Red Blood Count 4.02 M/mm3 (4.2-5.4); Red Cell Distribution Width 13.1 % (11.5-14.5); White Blood Count 11.8 K/mm3 (4.5-10.0)
[2023-08-25 05:23] LABS: Alanine Aminotransferase 22 U/L (6-35); Albumin Level 3.9 g/dL (3.5-5.1); Alkaline Phosphatase 109 U/L (38-126); Anion Gap 10 mmol/L (8-16); Aspartate Amino Transferase 31 U/L (14-36); Bilirubin,Total 0.6 mg/dL (0.2-1.3); Blood Urea Nitrogen 24 mg/dL (7-17); Carbon Dioxide 24 mmol/L (22-30); Chloride 103 mmol/L (98-107); Estimated CRCL calculation 58 ml/min; Estimated Glomerular Filt Rate > 60; Glucose 251 mg/dL (65-110); Potassium 3.9 mmol/L (3.4-5.0); Sodium 137 mmol/L (137-145)
--- NOTE | 2023-08-25 05:27 | ED.GENADULT ---
HPI - General Adult General Chief complaint: Weakness <Leonel Soto MD - Last Filed: 08/25/23 08:06> Stated complaint: WEAKNESS <Leonel Soto MD - Last Filed: 08/25/23 08:06> Time Seen by Provider: 08/25/23 08:06 <Leonel Soto MD - Last Filed: 08/25/23 08:06> History of Present Illness HPI narrative: This is a 57-year-old female with a history of diabetes and peripheral neuropathy presenting with generalized weakness. Patient says that she went to bed feeling fine. She woke during the night and was unable to get out of the bed. Her helped her up but she was feeling weak in her legs and slid to the ground. They were unable to get her off the floor and they had call an ambulance tp bring her into the hospital. At this time the patient says she feels weak all over but worse in her legs. She is denying fever chills, URI symptoms, chest pain, difficulty breathing, abdominal pain or urinary symptoms. Patient has a healing amputation of her 5th toe on the left foot she has seen Dr. Johnson. Next appointment is tomorrow. <Leonel Soto MD - Last Filed: 08/25/23 08:06> Related Data Home medications: Home Medications Medication Instructions Recorded Confirmed atorvastatin 40 mg tablet 40 mg PO QHS 07/23/23 08/25/23 clopidogrel 75 mg tablet 75 mg PO DAILY 07/23/23 08/25/23 dapagliflozin propanediol 10 mg 10 mg PO QAM 07/23/23 08/25/23 tablet (Farxiga) gabapentin 300 mg capsule 300 mg PO BID 07/23/23 08/25/23 metformin 500 mg tablet,extended 1,000 mg PO DAILY 07/23/23 08/25/23 release 24 hr <Leonel Soto MD - Last Filed: 08/25/23 08:06> Allergies/adverse reactions: Allergies Allergy/AdvReac Type Severity Reaction Status Date / Time No Known Allergies Allergy Verified 08/20/23 14:18 <Leonel Soto MD - Last Filed: 08/25/23 08:06> COUNT INCLUDES THE [facility] Past Medical History Medical History: Medical History (Updated 08/25/23 @ 13:55 by Diane Acuna PA-C) Dyslipidemia Peripheral vascular disease (05/2022) Diminished bilateral ankle and toe brachial indices consistent with [id number] peripheral arterial disease on JAVON. Tobacco abuse Type 2 diabetes mellitus (05/17/22) <Leonel Soto MD - Last Filed: 08/25/23 08:06> Surgical History Surgical History: Surgical History (Updated 08/25/23 @ 13:55 by Diane Acuna PA-C) Amputation of fifth toe of left foot (07/2023) For dry gangrene of the left 5th toe. History of incision and drainage (05/2022) Incision and drainage of left foot abscess with sharp excisional debridement of left foot ulcer. <Leonel Soto MD - Last Filed: 08/25/23 08:06> Family History Family History: Family History Father Heart disease Mother Heart disease Mother Diabetes mellitus <Leonel Soto MD - Last Filed: 08/25/23 08:06> Social History Social History: Social History Social History: Surrogate medical decision maker: Donald De La Garza, spouse. Code status: Full code. Smoking packs per day: 2 Smoking cigarettes per day: 40.0 Years smoked: 40 Smoking pack-years: 80.00 Smoking status: Former smoker Alcohol intake: never Substance use: current Substance use type: marijuana Other substance usage details: Occasional marijuana use. Do You Feel Safe in your Home?: Yes Lack of Transportation: No Lack of Food: Never True Current Housing: I Have Housing Concerned About Future Housing: No Difficulty Paying Gas/Electric Bills: No Difficulty Paying for Meds: No Currently Unemployed: No Education: High School Diploma/GED Difficulty w/ Childcare or Family Care: No Additional living arrangements comments: The patient lives with her in [place]. She has no children. Spiritual care concerns: No <Leonel Soto MD - Last Filed:
[2023-08-25] MEDS: SODIUM CHLORIDE 0.9% IV 1,000 ML 999 ML IV CONT ×2 (05:34→10:10)
[2023-08-25 07:01] LABS: Lactic Acid Reflex 1.5 mmol/L (0.7-2.0)
[2023-08-25 07:02] LABS: Prothrombin Time 13.7 Seconds (11.1-14.7)
[2023-08-25 07:03] LABS: Partial Thromboplastin Time 32.8 SECONDS (22.3-36.8)
[2023-08-25 07:58] LABS: Appearance Urine Clear (Clear); Bacteria Urine None Seen /hpf; Bilirubin Urine Negative (Negative); Blood Urine Negative (Negative); Color Urine Yellow (Yellow); Glucose Urine UA 3+ mg/dL (Negative); Ketones Urine Negative (Negative); Leukocyte Esterase Ur Negative LEU/UL (Negative); Nitrate Urine Negative (Negative); Non Pathogenic Casts 0-2; Protein Urine 1+ mg/dL (Negative); RBC Urine 0-2 /hpf (0-2); Specific Grav Ur 1.031 (1.001-1.035); Squamous Epithelial Cell Urine None seen /hpf (Few); Urobilinogen Urine 0.2 mg/dL (<2.0); WBC Urine 0-5 /hpf
[2023-08-25 08:00] LABS: Add Urine Microscopic? YES
[2023-08-25 08:41] LABS: Influenza A QL RT-PCR Negative (Negative); Influenza B QL RT-PCR Negative (Negative); RSV RNA, RT-PCR Negative (Negative); SARS-CoV-2 RNA PCR Positive (Negative)
[2023-08-25] MEDS: MECLIZINE HCL 25 MG TABLET PO (10:48)
--- NOTE | 2023-08-25 11:07 | PC.NURSE ---
Attempted to call pt Donald at twice to give update, no answer and no option to leave a message.
--- NOTE | 2023-08-25 11:52 | ADMGEN ---
This patient, Debbie Elizalde, was admitted to [facility] Surg Room 311-01 at 1119. Patient/family oriented to hospital policies and general routines including ID bracelet, bed and alarms, visiting hours, pain management, procedures, bathroom and other care routines, personal items, smoking policy, room service/diet, and visiting hours. Information on how to activate the Rapid Response Team has been discussed. Patient/Family are encouraged to report perceived risks to care and to ask questions if they do not understand what they are told or what they should do.
--- NOTE | 2023-08-25 13:35 | PM.IMHP ---
H&P: HPI History of Present Illness Date/Time: 08/25/23 14:00 Chief Complaint: Weakness. Narrative: This is a 57-year-old female with type 2 diabetes mellitus, anemia, and peripheral vascular disease who presented to the emergency department via EMS from home for evaluation of weakness. The patient provides the following history. She reports feeling fine when she went to sleep last night. She awoke at about 03:00 to go to the bathroom and was unable to get out of bed due to generalized weakness. Her helped her out of bed but she was too weak to stand and slid to the ground. They were apparently unable to get her off of the floor and called 911. She was afebrile with stable vital signs on arrival to the ED. She had no complaints other than weakness and specifically denies fever, chills, cold and flu symptoms, chest pain, pleuritic pain, shortness a breath, abdominal pain, nausea, vomiting, diarrhea, dysuria, vertigo, visual changes, focal weakness, paresthesias, facial droop, and difficulties speaking and swallowing. Labs were significant for a WBC count of 11.8, hemoglobin 11.1, BUN 24, glucose 251, lactic acid 1.5. She was positive for COVID on viral screen. Chest x-ray was unremarkable. She reported feeling dizzy and wobbly when her orthostatic vital signs were taken and she is being admitted in this setting. Note that the orthostatic vital signs were unremarkable. Review of Systems Review of Systems: Twelve systems were reviewed. She is status post left 5th toe amputation on 07/25/2023 for dry gangrene with associated cellulitis per Dr. Johnson. She is supposed to have a follow-up appointment with him tomorrow; she is currently on cefdinir for that. Except as documented, all other systems were reviewed and are negative. [facility] Past Medical History Medical History (Updated 08/25/23 @ 13:55 by Diane Acuna PA-C) Dyslipidemia Peripheral vascular disease (05/2022) Diminished bilateral ankle and toe brachial indices consistent with [id number] peripheral arterial disease on JAVON. Tobacco abuse Type 2 diabetes mellitus (05/17/22) Surgical History Surgical History (Updated 08/25/23 @ 13:55 by Diane Acuna PA-C) Amputation of fifth toe of left foot (07/2023) For dry gangrene of the left 5th toe. History of incision and drainage (05/2022) Incision and drainage of left foot abscess with sharp excisional debridement of left foot ulcer. Family History Family History Father Heart disease Mother Heart disease Mother Diabetes mellitus Social History Social History Social History: Surrogate medical decision maker: Donald Holli, spouse. Code status: Full code. Smoking packs per day: 2 Smoking cigarettes per day: 40.0 Years smoked: 40 Smoking pack-years: 80.00 Smoking status: Former smoker Alcohol intake: never Substance use: current Substance use type: marijuana Other substance usage details: Occasional marijuana use. Do You Feel Safe in your Home?: Yes Lack of Transportation: No Lack of Food: Never True Current Housing: I Have Housing Concerned About Future Housing: No Difficulty Paying Gas/Electric Bills: No Difficulty Paying for Meds: No Currently Unemployed: No Education: High School Diploma/GED Difficulty w/ Childcare or Family Care: No Additional living arrangements comments: The patient lives with her in [place]. She has no children. Spiritual care concerns: No Meds Home Medications and Allergies Home Medications Medication Instructions Recorded Confirmed Type atorvastatin 40 mg tablet 40 mg PO QHS 07/23/23 08/25/23 History clopidogrel 75 mg tablet 75 mg PO DAILY 07/23/23 08/25/23 History dapagliflozin propanediol 10 mg 10 mg PO QAM 07/23/23 08/25/23 History tablet (Farxiga) gabapentin 300 mg capsule 300 mg PO
[2023-08-25] MEDS: CEPHALEXIN 500 MG CAPSULE PO ×2 (16:14→21:05)
[2023-08-25] MEDS: REMDESIVIR 200 MG/NS 250 ML 200 MG/250 ML BAG 250 MG IVPB (16:14)
[2023-08-25 16:35] LABS: Glucose Point of Care 77 mg/dl (65-105)
[2023-08-25] MEDS: GABAPENTIN 300 MG CAPSULE PO (17:39)
[2023-08-25 20:47] LABS: Glucose Point of Care 97 mg/dl (65-105)
[2023-08-25] MEDS: ATORVASTATIN 40 MG TABLET PO (21:05)
[2023-08-26] VITALS (11 sets, daily range): BP systolic 99–126; BP diastolic 55–75; PULSE 69–81; RESP 18; TEMP 36.3–39.4; O2SAT 93–100
[2023-08-26] MEDS: CEPHALEXIN 500 MG CAPSULE PO ×3 (05:40→21:16)
[2023-08-26 07:09] LABS: Hematocrit 34.3 % (37.0-47.0); Hemoglobin 10.1 g/dL (12.0-15.0); Mean Corpuscular HGB Conc 29.4 g/dl (32-36); Mean Corpuscular Hemoglobin 27.3 pg (26-34); Mean Corpuscular Volume 92.7 fl (80-100); Mean Platelet Volume 9.8 fl (7.4-10.4); Platelet Count Result 235 k/mm3 (150-375); Red Cell Distribution Width 13.2 % (11.5-14.5); White Blood Count 6.2 K/mm3 (4.5-10.0)
[2023-08-26 07:22] LABS: Anion Gap 10 mmol/L (8-16); Blood Urea Nitrogen 16 mg/dL (7-17); Calcium 8.7 mg/dL (8.4-10.2); Carbon Dioxide 22 mmol/L (22-30); Chloride 105 mmol/L (98-107); Estimated CRCL calculation 75 ml/min; Estimated Glomerular Filt Rate > 60; Glucose 115 mg/dL (65-110); Magnesium 1.9 mg/dL (1.6-2.3); Potassium 3.9 mmol/L (3.4-5.0); Sodium 137 mmol/L (137-145)
[2023-08-26 07:48] LABS: Glucose Point of Care 109 mg/dl (65-105)
[2023-08-26] MEDS: ENOXAPARIN 40 MG/0.4 ML SYRINGE SUB-Q (09:16)
[2023-08-26] MEDS: metFORMIN HCL XR 500 MG TAB.SR.24H 1000 MG PO (09:16)
[2023-08-26] MEDS: GABAPENTIN 300 MG CAPSULE PO (09:16)
[2023-08-26] MEDS: CLOPIDOGREL BISULFATE 75 MG TABLET PO (09:17)
[2023-08-26] MEDS: EMPAGLIFLOZIN 25 MG TABLET BY MOUTH (09:17)
--- NOTE | 2023-08-26 10:31 | PM.IMPN ---
Progress Note: A&P Assessment and Plan (1) COVID: Code(s): U07.1 - COVID-19 Status: Acute Assessment and Plan: Continue supportive care. Monitor VS. (2) Weakness: Code(s): R53.1 - Weakness Status: Acute Assessment and Plan: PT and OT evaluation Fall Precautions (3) Amputation of fifth toe of left foot: Onset Date: 07/2023 Code(s): S98.132A - Complete traumatic amputation of one left lesser toe, initial encounter Status: Acute Assessment and Plan: Monitor for any S/S of acute infection. Suspect due to PVD from DM. (4) Type 2 diabetes mellitus: Onset Date: 05/17/22 Code(s): E11.9 - Type 2 diabetes mellitus without complications Status: Chronic Assessment and Plan: Glucose checks AC and HS SSI low dose with meals and at bedtime. Hypoglycemic protocol Continue Jardiance Continue Metformin Recent A1C 6.3. (5) Peripheral vascular disease: Onset Date: 05/2022 Code(s): I73.9 - Peripheral vascular disease, unspecified Status: Chronic Time Spent With Patient Time with patient: 15 - 25 minutes Subjective Date/time seen: 08/26/23 0915 Interval history: This 57 year old female pt was examined at the bedside today in interval assessment after being admitted for cough being positive for COVID, and generalized weakness. Orthostats are negative. She has been started on Remdesivir and will have a PT evaluation today. No other acute complaints or symptoms. Review of Systems Review of Systems: All systems reviewed & are unremarkable except as noted in HPI and below Exam Narrative: General:?Well-developed, nontoxic-appearing female in bed in no distress. HEENT:??PERRL, EOMI. Sclera anicteric. Tacky mucous membranes. Essentially edentulous. Neck:??Supple. Respiratory:?Lungs are clear to auscultation bilaterally. Cardiovascular:??Regular rate and rhythm with S1-S2. 2/6 murmur at the left sternal border. Gastrointestinal:??Abdomen is soft, nontender, and nondistended with positive bowel sounds. Skin:??Warm and dry. Left foot is recently dressed and that was not removed for examination. According to ED physician note, there was a black eschar on the operative site without surrounding erythema, edema, drainage, or odor. Extremities:??No cyanosis, clubbing, or significant edema. Radial and pedal pulses intact. Neurological:??Alert.? Cranial nerves 2-12 are grossly intact. No gross focal deficits to casual conversation. Psychiatric:?Appropriate mood and affect. Objective Data Vital Signs Vital Signs: Vital Signs - 24 hr 08/25/23 11:06 08/25/23 14:00 08/25/23 21:06 Temperature 97.8 F 98.8 F Pulse Rate 97 95 82 Respiratory Rate 18 20 18 Blood Pressure 119/61 108/66 103/49 L Pulse Oximetry 94 98 Oxygen Delivery 08/26/23 06:00 08/26/23 08:00 08/26/23 08:30 Temperature 99.7 F H Pulse Rate 80 73 79 Respiratory Rate 18 Blood Pressure 126/58 L 118/61 123/56 L Pulse Oximetry 93 Oxygen Delivery 08/26/23 08:45 08/26/23 09:00 Temperature Pulse Rate 81 Respiratory Rate Blood Pressure 120/59 L Pulse Oximetry Oxygen Delivery Room Air Intake/Output Intake/Output: Intake & Output 08/23/23 08/24/23 08/25/23 08/26/23 23:59 23:59 23:59 23:59 Intake Total 1240 120 Output Total 300 Balance 940 120 Meds/Results Medications: Active Medications Generic Name Dose Route Start Last Admin Trade Name Freq PRN Reason Stop Dose Admin Acetaminophen 650 mg 08/25/23 14:00 Acetaminophen 325 Mg Tablet PO Q6H PRN Mild Pain (1-3) or Fever Atorvastatin Calcium 40 mg 08/25/23 21:00 08/25/23 21:05 Atorvastatin 40 Mg Tablet PO 40 mg QHS JANEY Administration Cephalexin HCl 500 mg 08/25/23 14:05 08/26/23 05:40 Cephalexin 500 Mg Capsule PO 500 mg Q8HR JANEY Administration Clopidogrel Bisulfate 75 mg 08/26/23 09:00 08/26/23 09:17 Clopid
[2023-08-26] MEDS: REMDESIVIR 100 MG/NS 250 ML 100 MG/250 ML BAG 250 MG IVPB (11:17)
[2023-08-26 11:25] LABS: Glucose Point of Care 167 mg/dl (65-105)
[2023-08-26] MEDS: ACETAMINOPHEN 325 MG TABLET 650 MG PO (16:39)
[2023-08-26 16:59] LABS: Glucose Point of Care 74 mg/dl (65-105)
[2023-08-26 20:25] LABS: Glucose Point of Care 127 mg/dl (65-105)
[2023-08-26] MEDS: ATORVASTATIN 40 MG TABLET PO (21:16)
[2023-08-27 06:00] VITALS: BP 131/50; PULSE 76; RESP 18; TEMP 36.5; O2SAT 96
[2023-08-27 06:11] LABS: Basophils Percent Auto 0.5 % (0.2-1.2); Eosinophils Absolute Auto 0.1 K/mm3 (0-0.3); Eosinophils Percent Auto 2.7 % (0-4.4); Hematocrit 35.3 % (37.0-47.0); Hemoglobin 10.5 g/dL (12.0-15.0); Immature Granulocyte Absolute 0.01 K/mm3 (0.00-0.031); Immature Granulocyte Percent A 0.3 % (0-0.5); Lymphocytes Absolute Auto 1.13 K/mm3 (0.9-3.2); Lymphocytes Percent Auto 30.7 % (18.3-44.2); Mean Corpuscular HGB Conc 29.7 g/dl (32-36); Mean Corpuscular Hemoglobin 27.3 pg (26-34); Mean Corpuscular Volume 91.7 fl (80-100); Mean Platelet Volume 9.8 fl (7.4-10.4); Monocytes Absolute Auto 0.5 K/mm3 (0.1-0.6); Monocytes Percent Auto 14.1 % (2.6-8.5); Neutrophils Absolute Auto 1.9 K/mm3 (1.3-6.7); Neutrophils Percent Auto 51.7 % (45.5-73.1); Platelet Count Result 226 k/mm3 (150-375); Red Blood Count 3.85 M/mm3 (4.2-5.4); Red Cell Distribution Width 13.2 % (11.5-14.5); White Blood Count 3.7 K/mm3 (4.5-10.0)
[2023-08-27 06:22] LABS: Prothrombin Time 13.4 Seconds (11.1-14.7)
[2023-08-27] MEDS: CEPHALEXIN 500 MG CAPSULE PO (06:24)
[2023-08-27 06:29] LABS: Alanine Aminotransferase 28 U/L (6-35); Albumin Level 3.5 g/dL (3.5-5.1); Alkaline Phosphatase 101 U/L (38-126); Anion Gap 4 mmol/L (8-16); Aspartate Amino Transferase 46 U/L (14-36); Bilirubin Indirect 0.2 mg/dL (0-1.1); Bilirubin,Total 0.5 mg/dL (0.2-1.3); Blood Urea Nitrogen 14 mg/dL (7-17); Calcium 8.5 mg/dL (8.4-10.2); Carbon Dioxide 26 mmol/L (22-30); Chloride 106 mmol/L (98-107); Estimated CRCL calculation 75 ml/min; Estimated Glomerular Filt Rate > 60; Glucose 106 mg/dL (65-110); Magnesium 1.8 mg/dL (1.6-2.3); Potassium 3.9 mmol/L (3.4-5.0); Sodium 136 mmol/L (137-145)
[2023-08-27 07:38] LABS: Glucose Point of Care 130 mg/dl (65-105)
[2023-08-27] MEDS: ENOXAPARIN 40 MG/0.4 ML SYRINGE SUB-Q (08:41)
[2023-08-27] MEDS: CLOPIDOGREL BISULFATE 75 MG TABLET PO (08:42)
[2023-08-27] MEDS: EMPAGLIFLOZIN 25 MG TABLET BY MOUTH (08:42)
[2023-08-27] MEDS: GABAPENTIN 300 MG CAPSULE PO (08:42)
[2023-08-27] MEDS: metFORMIN HCL XR 500 MG TAB.SR.24H 1000 MG PO (08:42)
[2023-08-27 08:49] LABS: Hypochromasia 1+ (NORMAL); Platelet Estimate Adequate (Adequate); Schistocytes None Seen (NORMAL)
--- NOTE | 2023-08-27 10:51 | PM.DS ---
DS: Admitting Diagnosis Discharge Date 08/27/23 Admitting Diagnosis COVID-19 DS: Discharge Diagnosis Discharge Diagnosis (1) COVID: Code(s): U07.1 - COVID-19 Status: Acute (2) Weakness: Code(s): R53.1 - Weakness Status: Acute (3) Amputation of fifth toe of left foot: Onset Date: 07/2023 Code(s): S98.132A - Complete traumatic amputation of one left lesser toe, initial encounter Status: Acute (4) Type 2 diabetes mellitus: Onset Date: 05/17/22 Code(s): E11.9 - Type 2 diabetes mellitus without complications Status: Chronic (5) Peripheral vascular disease: Onset Date: 05/2022 Code(s): I73.9 - Peripheral vascular disease, unspecified Status: Chronic DS: Summary Hospital Course Hospital Course: This is a 57-year-old female with type 2 diabetes, anemia, PVD present to the ED on 08/25/2023 due to generalized weakness.?She was afebrile with stable vital signs on arrival to the ED. She had no complaints other than weakness and specifically denies fever, chills, cold and flu symptoms, chest pain, pleuritic pain, shortness a breath, abdominal pain, nausea, vomiting, diarrhea, dysuria, vertigo, visual changes, focal weakness, paresthesias, facial droop, and difficulties speaking and swallowing. Labs were significant for a WBC count of 11.8, hemoglobin 11.1, BUN 24, glucose 251, lactic acid 1.5. She was positive for COVID on viral screen. Chest x-ray was unremarkable.? She was started on remdesivir. Patient did not require any oxygen supplementation. After receiving 2 doses of remdesivir patient states that she did not want any more of it and that she would like to go home. Due to patient not having difficulties with walking, taking care resolve or breathing she will be discharged home. Patient's lungs are clear on day of discharge. Her labs and vital signs are stable and she is medically clear for discharge at this time. Time Spent with Patient Time attestation: Total time spent providing and/or coordinating discharge services: Exam Narrative: GENERAL: Comfortable, no acute distress HENMT: moist mucous membranes EYES: EOM intact b/l NECK: no lymphadenopathy RESPIRATORY: clear to auscultation CARDIO: RRR GI: soft, nontender, bowel sounds present SKIN: no rashes EXTREMITIES: no edema, redness or tenderness DS: Data Data Completed and Pending Labs on day of discharge: Labs from last 24 hours 08/27/23 08/27/23 08/26/23 07:35 05:53 19:42 WBC 3.7 L RBC 3.85 L Hgb 10.5 L Hct 35.3 L MCV 91.7 MCH 27.3 MCHC 29.7 L RDW 13.2 Plt Count 226 MPV 9.8 Immature Gran % (Auto) 0.3 Neut % (Auto) 51.7 Lymph % (Auto) 30.7 Mora % (Auto) 14.1 H Eos % (Auto) 2.7 Baso % (Auto) 0.5 Lymph # (Auto) 1.13 Mora # (Auto) 0.5 Eos # (Auto) 0.1 Baso # (Auto) 0.0 Abs Immat Gran (auto) 0.01 Absolute Neuts (auto) 1.9 Absolute Nucleated RBC 0.0 Nucleated RBC % 0.0 Platelet Estimate Adequate Hypochromasia 1+ Schistocytes None seen PT 13.4 INR 1.0 Sodium 136 L Potassium 3.9 Chloride 106 Carbon Dioxide 26 Anion Gap 4 L BUN 14 Creatinine 0.70 Estim Creat Clear Calc 75 Estimated GFR > 60 Glucose 106 POC Capillary Glucose 130 H 127 H Calcium 8.5 Magnesium 1.8 Total Bilirubin 0.5 Direct Bilirubin 0.0 Indirect Bilirubin 0.2 AST 46 H ALT 28 Alkaline Phosphatase 101 Total Protein 7.0 Albumin 3.5 08/26/23 08/26/23 16:55 11:22 WBC RBC Hgb Hct MCV MCH MCHC RDW Plt Count MPV Immature Gran % (Auto) Neut % (Auto) Lymph % (Auto) Mora % (Auto) Eos % (Auto) Baso % (Auto) Lymph # (Auto) Mora # (Auto) Eos # (Auto) Baso # (Auto) Abs Immat Gran (auto) Absolute Neuts (auto) Absolute Nucleated RBC Nucleated RBC % Platelet Estimate Hypochromasia Sc
[2023-08-27 11:30] LABS: Glucose Point of Care 117 mg/dl (65-105)
== END 2023-08-27 12:05 | disposition home or self-care (01) ==
LOC: ANHED 11:22 → ANH3MEDSUR 11:24
PROVIDERS: Emergency Medicine; Physician Assistant; Admitting Provider Internal Medicine; Emergency Provider Emergency Medicine; PCP Physician Assistant; Visit Provider Nurse Practitioner Adult Health
DX: U07.1 COVID-19 (principal); R53.1 Weakness; Z98.890 Other specified postprocedural states; E86.0 Dehydration; E11.51 Type 2 diabetes mellitus with diabetic peripheral angiopathy without gangrene; R94.31 Abnormal electrocardiogram [ECG] [EKG]; E11.42 Type 2 diabetes mellitus with diabetic polyneuropathy; D64.9 Anemia, unspecified; E78.5 Hyperlipidemia, unspecified; Z89.422 Acquired absence of other left toe(s); Z87.891 Personal history of nicotine dependence; F12.90 Cannabis use, unspecified, uncomplicated; Z79.02 Long term (current) use of antithrombotics/antiplatelets; Z79.84 Long term (current) use of oral hypoglycemic drugs; Z79.899 Other long term (current) drug therapy; Z83.3 Family history of diabetes mellitus
CPT/HCPCS: 36415; 70450; 71045; 73630; 80048; 80053; 81001; 82248; 82948; 83605; 83735; 85025; 85027; 85610; 85730; 86850; 86900; 86901; 87040; 87637; 93005; 96361; 96365; 96374; 96376; 97161; 97165; 99285; A9270; G0378; G0379; J0248; J1650; J7030

== ENCOUNTER 2023-11-05 19:13 | Emergency (ER) | payer BC, SELFPAY ==
--- NOTE | ~2023-11-05 | XR_ITS ---
EXAMINATION: XR chest 1V portable Exam Date/Time: 11/05/2023 19:25 CDT HISTORY: SOB, LIGHTHEADED AND DIZZY X 1 DAY Comparison: 08/25/2023. RESULT: Lines, tubes, and devices: None. Lungs and pleura: Clear. Cardiomediastinal silhouette: Stable. Other: No acute osseous or upper abdominal finding. IMPRESSION: No acute cardiopulmonary process. Reviewed, dictated and finalized at location K.
--- NOTE | ~2023-11-05 | CT_ITS ---
EXAMINATION: CT brain wo con DATE: 11/05/2023 19:54 INDICATION: dizzy . TECHNIQUE: Computed tomography (CT) of the head was performed without intravenous contrast. The mA wa s adjusted according to patient size. Iterative reconstruction technique was employed. The dose-lengt h product was 605.33 mGy-cm. COMPARISON: 08/25/2023. FINDINGS: No acute intracranial hemorrhage or extra-axial fluid collection. No hydrocephalus, mass, or herniation. No acute ischemic infarct. Unremarkable dural venous sinus attenuation. No acute osseous abnormality. The aerated spaces are clear. Mild atrophy and chronic white matter change. Atherosclerotic intracranial calcification. IMPRESSION: No acute intracranial process. Reviewed, dictated and finalized at location K.
[2023-11-05 19:13] VITALS: BP 152/76; PULSE 104; RESP 18; TEMP 37.2; O2SAT 94
--- NOTE | 2023-11-05 19:24 | ECG_ITS ---
Measurements Intervals [place] Rate: 104 P: 70 WY: 144 QRS: -40 QRSD: 104 T: 69 QT: 344 QTc: 453 Interpretive Statements SINUS TACHYCARDIA LEFT AXIS DEVIATION INCOMPLETE RIGHT BUNDLE BRANCH BLOCK BORDERLINE R WAVE PROGRESSION, ANTERIOR LEADS BORDERLINE ECG COMPARED TO ECG 08/25/2023 04:24:54 LEFT-AXIS DEVIATION NOW PRESENT Electronically Signed On 11-06-2023 12:12:36 CDT by Jermain Pepper D.O.
[2023-11-05] MEDS: SODIUM CHLORIDE 0.9% IV 1,000 ML 999 ML IV CONT (19:41)
[2023-11-05] MEDS: ONDANSETRON INJ 4 MG/2 ML VIAL IV PUSH (19:41)
[2023-11-05 19:43] LABS: Basophils Percent Auto 0.3 % (0.2-1.2); Eosinophils Absolute Auto 0.1 K/mm3 (0-0.3); Eosinophils Percent Auto 0.9 % (0-4.4); Hematocrit 33.9 % (37.0-47.0); Hemoglobin 10.5 g/dL (12.0-15.0); Immature Granulocyte Absolute 0.08 K/mm3 (0.00-0.031); Immature Granulocyte Percent A 0.5 % (0-0.5); Lymphocytes Absolute Auto 1.33 K/mm3 (0.9-3.2); Lymphocytes Percent Auto 8.8 % (18.3-44.2); Mean Corpuscular Hemoglobin 26.3 pg (26-34); Mean Platelet Volume 9.6 fl (7.4-10.4); Monocytes Absolute Auto 1.1 K/mm3 (0.1-0.6); Monocytes Percent Auto 7.3 % (2.6-8.5); Neutrophils Absolute Auto 12.4 K/mm3 (1.3-6.7); Neutrophils Percent Auto 82.2 % (45.5-73.1); Platelet Count Result 344 k/mm3 (150-375); Red Blood Count 3.99 M/mm3 (4.2-5.4); Red Cell Distribution Width 14.9 % (11.5-14.5); White Blood Count 15.1 K/mm3 (4.5-10.0)
[2023-11-05 19:54] LABS: Alanine Aminotransferase 15 U/L (6-35); Albumin Level 3.8 g/dL (3.5-5.1); Alkaline Phosphatase 123 U/L (38-126); Anion Gap 7 mmol/L (4-12); Aspartate Amino Transferase 21 U/L (14-36); Bilirubin,Total 0.7 mg/dL (0.2-1.3); Blood Urea Nitrogen 19 mg/dL (7-17); Calcium 9.6 mg/dL (8.4-10.2); Carbon Dioxide 28 mmol/L (22-30); Chloride 101 mmol/L (98-107); Estimated CRCL calculation 73 ml/min; Estimated Glomerular Filt Rate > 60; Glucose 196 mg/dL (65-110); Potassium 3.9 mmol/L (3.4-5.0); Sodium 136 mmol/L (137-145)
[2023-11-05 19:57] LABS: Magnesium 1.9 mg/dL (1.6-2.3)
[2023-11-05 19:57] LABS: Lactic Acid Reflex 1.1 mmol/L (0.7-2.0)
[2023-11-05 20:19] LABS: Influenza A QL RT-PCR Negative (Negative); Influenza B QL RT-PCR Negative (Negative); RSV RNA, RT-PCR Negative (Negative); SARS-CoV-2 RNA PCR Negative (Negative)
[2023-11-05 20:50] LABS: Appearance Urine Clear (Clear); Bilirubin Urine Negative (Negative); Blood Urine 1+ (Negative); Color Urine Yellow (Yellow); Glucose Urine UA 3+ mg/dL (Negative); Ketones Urine 1+ mg/dL (Negative); Nitrate Urine Negative (Negative); Protein Urine 3+ mg/dL (Negative); Urobilinogen Urine 0.2 mg/dL (<2.0)
[2023-11-05 20:51] LABS: Leukocyte Esterase Ur Negative LEU/UL (Negative)
[2023-11-05 20:56] LABS: Bacteria Urine None Seen /hpf; Need Manual Microscopic Reviewed; Squamous Epithelial Cell Urine None Seen /hpf (Few); WBC Urine 0-5 /hpf (0-3)
--- NOTE | 2023-11-05 20:56 | ED.DIZZY ---
HPI - Dizziness General Chief Complaint: Dizziness Stated Complaint: DIZZINESS, N/V Time Seen by Provider: 11/05/23 19:16 History of Present Illness HPI Narrative: Patient is a 57-year-old female who presents to the emergency department who presents the emergency department this evening complaining of lightheadedness. Patient denies any spinning sensation, states that it is more of a lightheadedness sensation and feeling unsteady on her feet when she gets up. she denies any falls, any recent trauma or head injuries. Patient has had a toe amputation a few months ago but other than that denies any recent illness. She denies any chest pain or shortness of breath, admits that she has been nauseous and has been vomiting yesterday, denies any abdominal pain, dysuria or hematuria, constipation or diarrhea, melena or hematochezia. Patient also denies any fevers or chills. There are no other modifying, alleviating, or precipitating factors at this time. Related Data Home Medications Medication Instructions Recorded Confirmed atorvastatin 40 mg tablet 40 mg PO QHS 07/23/23 09/17/23 clopidogrel 75 mg tablet 75 mg PO DAILY 07/23/23 09/17/23 dapagliflozin propanediol 10 mg 10 mg PO QAM 07/23/23 09/17/23 tablet (Farxiga) gabapentin 300 mg capsule 300 mg PO BID 07/23/23 09/10/23 metformin 500 mg tablet,extended 1,000 mg PO DAILY 07/23/23 09/17/23 release 24 hr Allergies Allergy/AdvReac Type Severity Reaction Status Date / Time No Known Allergies Allergy Verified 11/05/23 19:22 Review of Systems Review of Systems: All systems are reviewed and are negative unless stated otherwise in the HPI. [facility] Past Medical History Medical History Dyslipidemia Peripheral vascular disease (05/2022) Diminished bilateral ankle and toe brachial indices consistent with [id number] peripheral arterial disease on JAVON. 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 History of incision and drainage (05/2022) Incision and drainage of left foot abscess with sharp excisional debridement of left foot ulcer. Family History Family History Father Heart disease Mother Heart disease Mother Diabetes mellitus Social History Social History Social History: Surrogate medical decision maker: Donald De La Garza, spouse. Code status: Full code. Smoking packs per day: 2 Smoking cigarettes per day: 40.0 Years smoked: 40 Smoking pack-years: 80.00 Smoking status: Former smoker Alcohol intake: never Substance use: current Substance use type: marijuana Other substance usage details: Occasional marijuana use. Do You Feel Safe in your Home?: Yes Lack of Transportation: No Lack of Food: Never True Current Housing: I Have Housing Concerned About Future Housing: No Difficulty Paying Gas/Electric Bills: No Difficulty Paying for Meds: No Currently Unemployed: No Education: High School Diploma/GED Difficulty w/ Childcare or Family Care: No Additional living arrangements comments: The patient lives with her in [place]. She has no children. Spiritual care concerns: No Exam Narrative: General: Alert, awake, afebrile, in no acute distress. HEENT: PERRL, no rhinorrhea, no post nasal drip, oropharynx clear. Neck: Trachea midline, no JVD, no lymphadenopathy. Cardiovascular: Regular rate and rhythm, no murmurs, rubs or gallops, no peripheral edema. Respiratory: Clear to auscultation bilaterally, no tachypnea, no wheezing, no rhonchi, no rubs, no respiratory distress. Abdomen: Soft, nontender, nondistended, no rebound, no guarding, no peritoneal signs. Muscul
[2023-11-05 20:57] LABS: Add Urine Microscopic? YES
[2023-11-05 21:40] VITALS: BP 112/54; PULSE 98; RESP 16; O2SAT 97
[2023-11-05 22:20] VITALS: BP 122/64; PULSE 92; RESP 15; O2SAT 99
== END 2023-11-05 22:20 | disposition home or self-care (01) ==
PROVIDERS: Emergency Provider Emergency Medicine; PCP Physician Assistant
DX: E86.0 Dehydration (principal); R11.2 Nausea with vomiting, unspecified; D72.829 Elevated white blood cell count, unspecified; E78.5 Hyperlipidemia, unspecified; I73.9 Peripheral vascular disease, unspecified; E11.9 Type 2 diabetes mellitus without complications; Z89.422 Acquired absence of other left toe(s); Z87.891 Personal history of nicotine dependence; Z79.84 Long term (current) use of oral hypoglycemic drugs; R00.0 Tachycardia, unspecified; I45.10 Unspecified right bundle-branch block; R94.31 Abnormal electrocardiogram [ECG] [EKG]
CPT/HCPCS: 36415; 70450; 71045; 80053; 81001; 83605; 83735; 85025; 87637; 93005; 96361; 96374; 99284; J2405; J7030

== ENCOUNTER 2023-11-06 17:55 | Inpatient (IN) | payer BC, SELFPAY ==
--- NOTE | ~2023-11-06 | XR_ITS ---
EXAM: XR foot LT min 3V DATE: 11/06/2023 19:16 HISTORY: infected foot . COMPARISON: None available. FINDINGS: Severely decreased mineralization. Status post left distal fifth metatarsal indication. Os teopenia and focal erosion noted along the fifth metatarsal stump. Obliquely oriented lucency in the base of fifth metatarsal. Moderate scattered degenerative changes. Vascular calcification. Achilles e nthesopathy. Forefoot soft tissue swelling. IMPRESSION: Osteomyelitis involving the distal aspect fifth metatarsal stump. Possible oblique fractu re of the fifth metatarsal base. Reviewed, dictated and finalized at location K. IMPRESSION: Osteomyelitis involving the distal aspect fifth metatarsal stump. P ossible oblique fracture of the fifth metatarsal base.
--- NOTE | ~2023-11-06 | CT_ITS ---
CTA OF the left lower extremity EXAMINATION: CTA LE DATE: 11/11/2023 17:07 INDICATION: TECHNIQUE: Computed tomography angiography (CTA) of the left lower extremity was performed with 100 m L Omnipaque 350 intravenous contrast in the arterial phase. Automated exposure control and iterative reconstruction technique were employed. The dose-length product was 867.96 mGy-cm. 3-D volume rendere d images created by the technologist on a separate workstation COMPARISON: X-ray foot 10/29/2023 FINDINGS: Severe atherosclerotic calcifications in the arteries of the left lower extremity. Severe multifocal stenoses in the left internal iliac artery. Long stent in the distal superficial femoral artery and p roximal popliteal artery. The stent appears to be patent. Slow flow in the distal popliteal artery an d trifurcation. Short stent in the trunk of the peroneal and popliteal arteries. Minimal flow in the proximal posterior tibial artery, no definite flow in the mid and distal posterior tibial artery. Slo w flow in the peroneal artery with multifocal atherosclerotic calcifications, flow in the peroneal ar rebekah terminates at the level of the syndesmosis. Slow flow below the level of the ankle via the anter ior tibial artery, with multifocal atherosclerotic calcifications. Overall this evaluation is limited by slow arterial flow and venous contamination. Oblique fracture of the proximal aspect of the base the fifth metatarsal, with sclerotic margins, pro bably old. Overlying soft tissue calcification and soft tissue ulcer. Focal osteopenia and erosion in the stump of the distal fifth metatarsal. Status post distal fifth metatarsal and fifth toe amputati on. IMPRESSION: CT and radiographic findings suspicious for osteomyelitis of the distal aspect of the fifth metatarsa l stump. Old possibly nonunited fracture of the base the fifth metatarsal, with subtle areas of cortical thinn ing with an overlying soft tissue defect which may suggest the presence of subtle osteomyelitis. Consider MRI of the foot without and with contrast for further evaluation of osteomyelitis. Severe atherosclerotic disease in the left lower extremity with multifocal severe stenoses. Patent di stal SFA/proximal popliteal stent. Probably patent short stent in the trunk of the peroneal and poste rior tibial arteries. 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 Tenuous flow to the foot appears to be maintained via the a nterior tibial artery. Reviewed, dictated and finalized at location K. IMPRESSION: CT and radiographic findings suspicious for osteomyelitis of the distal aspect of the fifth metatarsal stump. Old possibly nonunited fracture of the base the fifth metatarsal, with subtle a reas of cortical thinning with an overlying soft tissue defect which may sugges t the presence of subtle osteomyelitis. Consider MRI of the foot without and with contrast for further evaluation of os teomyelitis. Severe atherosclerotic disease in the left lower extremity with multifocal donny re stenoses. Patent distal SFA/proximal popliteal stent. Probably patent short stent in the trunk of the peroneal and posterior tibial arteries. 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 Tenuous flow to the foot appears to b e maintained via the anterior tibial artery.
--- NOTE | ~2023-11-06 | XR_ITS ---
EXAMINATION: XR chest 1V Exam Date/Time: 11/06/2023 19:10 CDT HISTORY: weakness Comparison: 11/05/2023. RESULT: Lines, tubes, and devices: None. Lungs and pleura: Clear. Cardiomediastinal silhouette: Stable. Other: No acute osseous or upper abdominal finding. IMPRESSION: No acute cardiopulmonary process. Reviewed, dictated and finalized at location K.
--- NOTE | ~2023-11-06 | US_ITS ---
EXAMINATION: US arterial ankle brachial ind DATE: 11/11/2023 08:26 INDICATION: Peripheral arterial disease. Nonhealing diabetic infection. TECHNIQUE: Segmental pressures and plethysmographic and Doppler waveforms of the brachial and lower e xtremity arteries were obtained. COMPARISON: ABIs 05/18/2022 FINDINGS: Right and left brachial artery pressures of 163 mm Hg and 175 mm Hg, respectively, are concordant (no rmal difference <= 30 mmHg). The right ankle-brachial index (JAVON) is 0.98 (normal >= 0.9-1.0). The right great toe-brachial index (TBI) is 0.51 (normal >= 0.65). Arterial Doppler waveforms are biphasic in posterior tibial artery an d biphasic in dorsalis pedis. The left JAVON is 0.91. The left TBI is 0.39. Arterial Doppler waveforms are at least biphasic in poste rior tibial artery and monophasic in dorsalis pedis. IMPRESSION: 1. Mildly decreased ABIs, improved from 05/18/2022, consistent with arterial occlusive disease. Reviewed, dictated and finalized at location A. IMPRESSION: 1. Mildly decreased ABIs, improved from 05/18/2022, consistent with arterial occ lusive disease.
[2023-11-06 18:03] VITALS: BP 142/63; PULSE 107; RESP 20; TEMP 37.8; O2SAT 97
--- NOTE | 2023-11-06 18:30 | ECG_ITS ---
Measurements Intervals Lane Rate: 99 P: 58 IA: 152 QRS: -35 QRSD: 102 T: 61 QT: 353 QTc: 454 Interpretive Statements SINUS RHYTHM LEFT AXIS DEVIATION POSSIBLE LEFT ATRIAL ENLARGEMENT INCOMPLETE RIGHT BUNDLE BRANCH BLOCK DELAYED PRECORDIAL R/S TRANSITION BASELINE WANDER- I, II, AVR, AVL, AVF, V1-V6 BORDERLINE ECG COMPARED TO ECG 11/05/2023 19:19:59 SINUS RHYTHM NOW PRESENT Electronically Signed On 11-06-2023 20:24:32 CDT by Jermain Pepper D.O.
--- NOTE | 2023-11-06 18:31 | ED_ITS ---
HPI - Weakness General Chief complaint: Weakness <Carmen Gracia PA-C - Last Filed: 11/16/23 02:49> Stated complaint: lethargy, N/V <Carmen Gracia PA-C - Last Filed: 11/16/23 02:49> Time Seen by Provider: 11/06/23 20:44 <Carmen Gracia PA-C - Last Filed: 11/16/23 02:49> Focused HPI: 57 y/o F with a hx of T2DM presents to the ED with her at bedside for generalized weakness for 1 week. she reports associated nausea and vomiting. Pt states she was seen at our ER yesterday and was discharged home with Zofran without improvement. Denies chest pain, shortness of breath, cough or congestion, abdominal pain, dysuria or hematuria, diarrhea. Patient had a left 5th toe amputation performed by Dr. Johnson on 08/04/24. She has been seeing wound care since for assistance with healing. Her dresses her wound daily and states he notices some increased redness around the wound. GENERAL: Well-appearing, well-nourished, and in no acute distress. HEAD: Normocephalic, atraumatic. CHEST: Clear to auscultation. ?No respiratory distress. EXT: Left foot: 5th toe amputation with poor wound healing, large open ulceration with malodorous purulent drainage and surrounding blanching erythema and warmth. HEART: Regular rate and rhythm.? NEURO: ?Alert and oriented x3. Patient screened in triage and initial orders placed.? ?Additional care and disposition to be based upon?diagnostic testing and treatment. <Carmen Gracia PA-C - Last Filed: 11/16/23 02:49> Focused HPI: 57 y/o F with a hx of T2DM presents to the ED with her at bedside for generalized weakness for 1 week. she reports associated nausea and vomiting. Pt states she was seen at our ER yesterday and was discharged home with Zofran without improvement. Denies chest pain, shortness of breath, cough or congestion, abdominal pain, dysuria or hematuria, diarrhea. Patient had a left 5th toe amputation performed by Dr. Johnson on 08/04/24. She has been seeing wound care since for assistance with healing twice a week and was told her wound is healing well in the last appointment. Her dresses her wound daily and states he notices some increased redness around the wound today and is concerned about infection. GENERAL: Well-appearing, well-nourished, and in no acute distress. HEAD: Normocephalic, atraumatic. CHEST: Clear to auscultation. ?No respiratory distress. EXT: Left foot: 5th toe amputation with poor wound healing, large open ulceration with malodorous purulent drainage and surrounding blanching erythema and warmth. HEART: Regular rate and rhythm.? NEURO: ?Alert and oriented x3. Patient screened in triage and initial orders placed.? ?Additional care and disposition to be based upon?diagnostic testing and treatment. <Bertha Villa MD - Last Filed: 11/17/23 05:58> Related Data Home medications: Home Medications Medication Instructions Recorded Confirmed atorvastatin 40 mg tablet 40 mg PO QHS 07/23/23 11/06/23 dapagliflozin propanediol 10 mg 10 mg PO QAM 07/23/23 11/06/23 tablet (Farxiga) sitagliptin phosphate 100 mg 100 mg PO QAM 11/06/23 11/06/23 tablet (Januvia) <Carmen Gracia PA-C - Last Filed: 11/16/23 02:49> Allergies/Adverse reactions: Allergies Allergy/AdvReac Type Severity Reaction Status Date / Time No Known Allergies Allergy Verified 11/12/23 14:47 <Carmen Gracia PA-C - Last Filed: 11/16/23 02:49> Review of Systems Review of Systems: All systems reviewed & are unremarkable except as noted in HPI and below <Bertha Villa MD - Last Filed: 11/17/23 05:58> PMFSH Past Medical History Medical History: Medical History Diabetic foot ulcer Dyslipidemia Peripheral vascular disease (05/2022) Diminished bilateral ankle and toe brachial indices consistent with euzw-fu-tznphuaf peripheral arterial disease on JAVON. Tobacco abuse Type 2 diabetes mellitus (05/17/22) <Carmen Gracia PA-C - Last Filed: 11/16/23 02:49> Surgical History Surgical History: Surgical History Amputation of fifth toe of left foot (07/2023) For dry gangrene of the left 5th toe. History of incision and drainage (05/2022) Incision and drainage of left foot abscess with sharp excisional debridement of left foot ulcer. <Carmen Gracia PA-C - Last Filed: 11/16/23 02:49> Family History Family History: Family History Father Heart disease Mother Heart disease Mother Diabetes mellitus <Carmen Gracia PA-C - Last Filed: 11/16/23 02:49> Social History Social History: Social History Social History: Patient lives with her spouse of 23 years. She does not meet biologic children but has 2 step children. She used to smoke 1-2 packs a beers per day since she was a young teen but quit smoking February 24, 2023. She still occasionally uses marijuana. She denies any history of heavy alcohol use and has not used any alcohol in many years. She is disabled. They have a [place]. Surrogate medical decision maker: Dnoald De La Garza, spouse. Code status: Full code. Smoking packs per day: 2 Smoking cigarettes per day: 40.0 Years smoked: 40 Smoking pack-years: 80.00 Smoking status: Current every day smoker Tobacco type: e-cigarettes/vaping Smoking end date: 02/24/23 Alcohol intake: never Substance use: current Substance use type: marijuana Other substance usage details: Every once in awhile Do You Feel Safe in your Home?: Yes Lack of Transportation: No Lack of Food: Never True Current Housing: I Have Housing Concerned About Future Housing: No Difficulty Paying Gas/Electric Bills: No Difficulty Paying for Meds: No Currently Unemployed: No Education: Don't Know Difficulty w/ Childcare or Family Care: No Additional living arrangements comments: The patient lives with her in [place]. She has no children. Spiritual care concerns: No <Carmen Gracia PA-C - Last Filed: 11/16/23 02:49> Exam Const: General: healthy appearing <MD Elizabeth Farley Last Filed: 11/17/23 05:58> Nutritional Appearance: well nourished <Bertha Villa MD - Last Filed: 11/17/23 05:58> Orientation/consciousness: patient oriented x3 <MD Elizabeth Farley Last Filed: 11/17/23 05:58> Chest: Chest palpation & inspection: normal inspection of the chest <MD Elizabeth Farley Last Filed: 11/17/23 05:58> Resp: Effort & Inspection: normal respiratory effort <MD Elizabeth Farley Last Filed: 11/17/23 05:58> Auscultation: clear to auscultation bilaterally <MD Elizabeth Farley Last Filed: 11/17/23 05:58> Cardio: Rate: tachycardic <MD Elizabeth Farley Last Filed: 11/17/23 05:58> Rhythm: regular rhythm <MD Elizabeth Farley Last Filed: 11/17/23 05:58> GI: GI Palp: Yes Soft to palpation <Bertha Villa MD - Last Filed: 11/17/23 05:58> Skin: Wounds: wounds noted <Bertha Villa MD - Last Filed: 11/17/23 05:58> Other: Left fifth toe dressing removed and area appears erythematous and malodorous with pustular drainage. <Bertha Villa MD - Last Filed: 11/17/23 05:58> Neuro: General: patient oriented x3, moves all extremities and no focal motor deficits <Bertha Villa MD - Last Filed: 11/17/23 05:58> Psych: Affect: normal affect <MD Elizabeth Farley Last Filed: 11/17/23 05:58> Attitude: cooperative <MD Elizabeth Farley Last Filed: 11/17/23 05:58> Course Vital Signs Vital signs: Vital Signs Temperature 100.1 F H 03/28/24 18:03 Pulse Rate 107 H 11/06/23 18:03 Respiratory Rate 20 11/06/23 18:03 Blood Pressure 142/63 H 11/06/23 18:03 Pulse Oximetry 97 11/06/23 18:03 Oxygen Delivery Room Air 11/06/23 18:03 Temperature 97.7 F 11/16/23 20:48 Pulse Rate 73 11/16/23 20:48 Respiratory Rate 16 11/16/23 20:48 Blood Pressure 138/54 L 11/16/23 20:48 Pulse Oximetry 100 11/16/23 20:48 Oxygen Delivery Room Air 11/16/23 20:00 Oxygen Flow Rate 8 11/12/23 16:57 <Carmen Gracia PA-C - Last Filed: 11/16/23 02:49> Vital Signs Temperature 100.1 F H 11/06/23 18:03 Pulse Rate 107 H 11/06/23 18:03 Respiratory Rate 20 11/06/23 18:03 Blood Pressure 142/63 H 11/06/23 18:03 Pulse Oximetry 97 11/06/23 18:03 Oxygen Delivery Room Air 11/06/23 18:03 Temperature 97.7 F 11/16/23 20:48 Pulse Rate 73 11/16/23 20:48 Respiratory Rate 16 11/16/23 20:48 Blood Pressure 138/54 L 11/16/23 20:48 Pulse Oximetry 100 11/16/23 20:48 Oxygen Delivery Room Air 11/16/23 20:00 Oxygen Flow Rate 8 11/12/23 16:57 <Bertha Villa MD - Last Filed: 11/17/23 05:58> MDM - Weakness MDM Narrative Medical decision making narrative: Patient evaluated in the ED and blood work obtained including inflammatory markers. Patients CRP and ESR noted to be elevated and a WBC of 15. CXR obtained revealed no acute process. Left foot xray revealed osteomyelitis involving the distal aspect fifth metatarsal stump. Possible oblique fracture of the fifth metatarsal base. Patient was started on IV antibiotics and case discussed with on-call hospitalist who accepted admission. Case was also discussed with the on- call general surgeon for wound evaluation for possible debridement. Patient was admitted in stable condition. . <Bertha Villa MD - Last Filed: 11/17/23 05:58> Lab Data Result diagrams: 11/16/23 05:12 11/16/23 05:12 <Carmen Gracia PA-C - Last Filed: 11/16/23 02:49> Labs: Lab Results 11/06/23 11/06/23 11/06/23 Range/Units 18:40 18:47 18:48 WBC 15.8 H (4.5-10.0) K/mm3 RBC 3.82 L (4.2-5.4) M/mm3 Hgb 10.1 L (12.0-15.0) g/dL Hct 32.9 L (37.0-47.0) % MCV 86.1 (80-100) fl MCH 26.4 (26-34) pg MCHC 30.7 L (32-36) g/dl RDW 15.0 H (11.5-14.5) % Plt Count 351 (150-375) k/mm3 MPV 9.5 (7.4-10.4) fl Immature Gran % (Auto) 0.4 (0-0.5) % Neut % (Auto) 86.3 H (45.5-73.1) % Lymph % (Auto) 5.5 L (18.3-44.2) % [place] % (Auto) 7.3 (2.6-8.5) % Eos % (Auto) 0.3 (0-4.4) % Baso % (Auto) 0.2 (0.2-1.2) % Lymph # (Auto) 0.86 L (0.9-3.2) K/mm3 [place] # (Auto) 1.2 H (0.1-0.6) K/mm3 Eos # (Auto) 0.0 (0-0.3) K/mm3 Baso # (Auto) 0.0 (0.0-0.1) K/mm3 Abs Immat Gran (auto) 0.07 H (0.00-0.031) K/mm3 Absolute Neuts (auto) 13.6 H (1.3-6.7) K/mm3 Absolute Nucleated RBC 0.000 (0.0-0.012) K/mm3 Nucleated RBC % 0.0 (0.0-0.2) % ESR 99 H (0-20) mm/hr Sodium 134 L (137-145) mmol/L Potassium 4.1 (3.4-5.0) mmol/L Chloride 99 (98-107) mmol/L Carbon Dioxide 26 (22-30) mmol/L Anion Gap 9 (4-12) mmol/L BUN 19 H (7-17) mg/dL Creatinine 0.70 (0.7-1.0) mg/dL Estim Creat Clear Calc 74 ml/min Estimated GFR > 60 (59 - ) Glucose 204 H (65-110) mg/dL Lactic Acid 0.9 (0.7-2.0) mmol/L Calcium 9.3 (8.4-10.2) mg/dL Total Bilirubin 0.8 (0.2-1.3) mg/dL AST 28 (14-36) U/L ALT 17 (6-35) U/L Alkaline Phosphatase 126 (38-126) U/L C-Reactive Protein 27.4 H (<1.0) mg/dL Total Protein 8.0 (6.3-8.2) g/dL Albumin 3.7 (3.5-5.1) g/dL Influenza A (RT-PCR) Negative (Negative) Influenza B (RT-PCR) Negative (Negative) RSV (RT-PCR) Negative (Negative) SARS-CoV-2 RNA (RT-PCR) Negative (Negative) <Carmen Gracia PA-C - Last Filed: 11/16/23 02:49> Lab Results 11/06/23 11/06/23 11/06/23 Range/Units 18:40 18:47 18:48 WBC 15.8 H (4.5-10.0) K/mm3 RBC 3.82 L (4.2-5.4) M/mm3 Hgb 10.1 L (12.0-15.0) g/dL Hct 32.9 L (37.0-47.0) % MCV 86.1 (80-100) fl MCH 26.4 (26-34) pg MCHC 30.7 L (32-36) g/dl RDW 15.0 H (11.5-14.5) % Plt Count 351 (150-375) k/mm3 MPV 9.5 (7.4-10.4) fl Immature Gran % (Auto) 0.4 (0-0.5) % Neut % (Auto) 86.3 H (45.5-73.1) % Lymph % (Auto) 5.5 L (18.3-44.2) % [place] % (Auto) 7.3 (2.6-8.5) % Eos % (Auto) 0.3 (0-4.4) % Baso % (Auto) 0.2 (0.2-1.2) % Lymph # (Auto) 0.86 L (0.9-3.2) K/mm3 [place] # (Auto) 1.2 H (0.1-0.6) K/mm3 Eos # (Auto) 0.0 (0-0.3) K/mm3 Baso # (Auto) 0.0 (0.0-0.1) K/mm3 Abs Immat Gran (auto) 0.07 H (0.00-0.031) K/mm3 Absolute Neuts (auto) 13.6 H (1.3-6.7) K/mm3 Absolute Nucleated RBC 0.000 (0.0-0.012) K/mm3 Nucleated RBC % 0.0 (0.0-0.2) % ESR 99 H (0-20) mm/hr Sodium 134 L (137-145) mmol/L Potassium 4.1 (3.4-5.0) mmol/L Chloride 99 (98-107) mmol/L Carbon Dioxide 26 (22-30) mmol/L Anion Gap 9 (4-12) mmol/L BUN 19 H (7-17) mg/dL Creatinine 0.70 (0.7-1.0) mg/dL Estim Creat Clear Calc 74 ml/min Estimated GFR > 60 (59 - ) Glucose 204 H (65-110) mg/dL Lactic Acid 0.9 (0.7-2.0) mmol/L Calcium 9.3 (8.4-10.2) mg/dL Total Bilirubin 0.8 (0.2-1.3) mg/dL AST 28 (14-36) U/L ALT 17 (6-35) U/L Alkaline Phosphatase 126 (38-126) U/L C-Reactive Protein 27.4 H (<1.0) mg/dL Total Protein 8.0 (6.3-8.2) g/dL Albumin 3.7 (3.5-5.1) g/dL Influenza A (RT-PCR) Negative (Negative) Influenza B (RT-PCR) Negative (Negative) RSV (RT-PCR) Negative (Negative) SARS-CoV-2 RNA (RT-PCR) Negative (Negative) <Bertha Villa MD - Last Filed: 11/17/23 05:58> Discharge Plan Discharge Clinical Impression: Osteomyelitis <Carmen Gracia PA-C - Last Filed: 11/16/23 02:49> Patient Disposition: Still a Patient <Carmen Gracia PA-C - Last Filed: 11/16/23 02:49> Condition: Stable <Carmen Gracia PA-C - Last Filed: 11/16/23 02:49>
[2023-11-06 18:57] LABS: Basophils Percent Auto 0.2 % (0.2-1.2); Eosinophils Percent Auto 0.3 % (0-4.4); Hematocrit 32.9 % (37.0-47.0); Hemoglobin 10.1 g/dL (12.0-15.0); Immature Granulocyte Absolute 0.07 K/mm3 (0.00-0.031); Immature Granulocyte Percent A 0.4 % (0-0.5); Lymphocytes Absolute Auto 0.86 K/mm3 (0.9-3.2); Lymphocytes Percent Auto 5.5 % (18.3-44.2); Mean Corpuscular HGB Conc 30.7 g/dl (32-36); Mean Corpuscular Hemoglobin 26.4 pg (26-34); Mean Corpuscular Volume 86.1 fl (80-100); Mean Platelet Volume 9.5 fl (7.4-10.4); Monocytes Absolute Auto 1.2 K/mm3 (0.1-0.6); Monocytes Percent Auto 7.3 % (2.6-8.5); Neutrophils Absolute Auto 13.6 K/mm3 (1.3-6.7); Neutrophils Percent Auto 86.3 % (45.5-73.1); Platelet Count Result 351 k/mm3 (150-375); Red Blood Count 3.82 M/mm3 (4.2-5.4); White Blood Count 15.8 K/mm3 (4.5-10.0)
[2023-11-06 19:09] LABS: Lactic Acid Reflex 0.9 mmol/L (0.7-2.0)
[2023-11-06 19:26] LABS: Alanine Aminotransferase 17 U/L (6-35); Albumin Level 3.7 g/dL (3.5-5.1); Alkaline Phosphatase 126 U/L (38-126); Anion Gap 9 mmol/L (4-12); Aspartate Amino Transferase 28 U/L (14-36); Bilirubin,Total 0.8 mg/dL (0.2-1.3); Blood Urea Nitrogen 19 mg/dL (7-17); Calcium 9.3 mg/dL (8.4-10.2); Carbon Dioxide 26 mmol/L (22-30); Chloride 99 mmol/L (98-107); Estimated CRCL calculation 74 ml/min; Estimated Glomerular Filt Rate > 60; Glucose 204 mg/dL (65-110); Potassium 4.1 mmol/L (3.4-5.0); Sodium 134 mmol/L (137-145)
[2023-11-06 19:35] LABS: Influenza A QL RT-PCR Negative (Negative); Influenza B QL RT-PCR Negative (Negative); RSV RNA, RT-PCR Negative (Negative); SARS-CoV-2 RNA PCR Negative (Negative)
[2023-11-06 19:46] LABS: CRP 27.4 mg/dL (<1.0)
[2023-11-06 20:12] LABS: Erythrocyte Sedimentation Rate 99 mm/hr (0-20)
[2023-11-06] MEDS: SODIUM CHLORIDE 0.9% IV 1,000 ML 999 ML IV CONT (21:07)
[2023-11-06] MEDS: cefTRIAXone 2 GM/NS 100 ML 2 GM/100 ML BAG IVPB (21:07)
[2023-11-06 21:28] VITALS: BP 160/80; PULSE 97; RESP 13; O2SAT 100
[2023-11-06] MEDS: ACETAMINOPHEN 325 MG TABLET 650 MG PO (21:31)
[2023-11-06] MEDS: VANCOMYCIN 2,000 MG/NS 500 ML 2,000 MG/500 ML BAG 250 MG IVPB (22:50)
[2023-11-06 23:50] VITALS: BMI 29.6
[2023-11-06 23:56] VITALS: BP 110/61; PULSE 87; RESP 16; TEMP 36.7; O2SAT 100
--- NOTE | 2023-11-07 00:06 | ADMGEN ---
This patient, Debbie Elizalde, was admitted to Medical Room 348-01. Patient/family oriented to hospital policies and general routines including ID bracelet, bed and alarms, visiting hours, pain management, procedures, bathroom and other care routines, personal items, smoking policy, room service/diet, and visiting hours. Information on how to activate the Rapid Response Team has been discussed. Patient/Family are encouraged to report perceived risks to care and to ask questions if they do not understand what they are told or what they should do.
[2023-11-07 04:52] VITALS: BP 146/69; PULSE 97; RESP 16; TEMP 36.6; O2SAT 99
[2023-11-07 06:18] LABS: Estimated CRCL calculation 76 ml/min; Estimated Glomerular Filt Rate > 60
[2023-11-07 07:51] LABS: Anion Gap 5 mmol/L (4-12); Blood Urea Nitrogen 16 mg/dL (7-17); Calcium 8.7 mg/dL (8.4-10.2); Carbon Dioxide 27 mmol/L (22-30); Chloride 104 mmol/L (98-107); Estimated CRCL calculation 76 ml/min; Estimated Glomerular Filt Rate > 60; Glucose 135 mg/dL (65-110); Potassium 3.5 mmol/L (3.4-5.0); Sodium 136 mmol/L (137-145)
[2023-11-07 08:09] LABS: Basophils Percent Auto 0.3 % (0.2-1.2); Eosinophils Absolute Auto 0.3 K/mm3 (0-0.3); Eosinophils Percent Auto 2.4 % (0-4.4); Hematocrit 30.5 % (37.0-47.0); Hemoglobin 9.2 g/dL (12.0-15.0); Immature Granulocyte Absolute 0.08 K/mm3 (0.00-0.031); Immature Granulocyte Percent A 0.7 % (0-0.5); Lymphocytes Absolute Auto 1.12 K/mm3 (0.9-3.2); Lymphocytes Percent Auto 9.3 % (18.3-44.2); Mean Corpuscular HGB Conc 30.2 g/dl (32-36); Mean Corpuscular Hemoglobin 26.4 pg (26-34); Mean Corpuscular Volume 87.6 fl (80-100); Mean Platelet Volume 9.7 fl (7.4-10.4); Monocytes Absolute Auto 1.3 K/mm3 (0.1-0.6); Monocytes Percent Auto 10.4 % (2.6-8.5); Neutrophils Absolute Auto 9.3 K/mm3 (1.3-6.7); Neutrophils Percent Auto 76.9 % (45.5-73.1); Platelet Count Result 319 k/mm3 (150-375); Red Blood Count 3.48 M/mm3 (4.2-5.4); Red Cell Distribution Width 15.2 % (11.5-14.5); White Blood Count 12.1 K/mm3 (4.5-10.0)
--- NOTE | 2023-11-07 08:19 | PM.IMHP ---
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 the patient had initially came to the ER the night before and was given fluids and discharged home after antiemetics. She returns this evening because of chills worsening fatigue and nausea. On arrival to the ER she was found to be febrile with a temperature of 100.1?. The dressings were removed from her left ray wound site and she was noted have some purulent appearing drainage from the area and increased erythema. The patient stated that her wound had not changed prior to that in that they usually visualized the wound each day. Patient did have moderate leukocytosis with a white count of 15.8 and her CRP and ESR Were at or exceeding limits she had when she had prior infection. She reports that her glucoses have been pretty good and her fasting glucose is the only Accu-Cheks she does during the day and it is been between 120 and 160 on average. She did not check her glucoses on the because she felt so bad. The patient does smell strongly of urine but denies any dysuria or urinary symptoms Beyond her baseline. her UA performed on the demonstrate 3+ protein 3+ glucose 1+ ketones and 1+ blood without evidence of infection. Blood cultures were obtained in the ER. She received 1 dose of Rocephin and 1 dose of vancomycin. Review of Systems Review of Systems: 12 systems were reviewed with pertinent positives and negatives per HPI. Except as documented in the HPI, all other systems were reviewed and are negative. [facility] Past Medical History Medical History Dyslipidemia Peripheral vascular disease (05/2022) Diminished bilateral ankle and toe brachial indices consistent with [id number] peripheral arterial disease on JAVON. 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 History of incision and drainage (05/2022) Incision and drainage of left foot abscess with sharp excisional debridement of left foot ulcer. Family History Family History Father Heart disease Mother Heart disease Mother Diabetes mellitus Social History Social History (Updated 11/07/23 @ 21:37 by Maggie Simon DO) Social History: Patient lives with her spouse of 23 years. She does not meet biologic children but has 2 step children. She used to smoke 1-2 packs a beers per day since she was a young teen but quit smoking February 24, 2023. She still occasionally uses marijuana. She denies any history of heavy alcohol use and has not used any alcohol in many years. She is disabled. They have a [place]. Surrogate medical decision maker: Donald Almarazosh, spouse. Code status: Full code. Smoking packs per day: 2 Smoking cigarettes per day: 40.0 Years smoked: 40 Smoking pack-years: 80.00 Smoking status: Current every day smoker Tobacco type: e-cigarettes/vaping Smoking end date: 02/24/23 Alcohol intake: never Substance use: current Substance use type: marijuana Other substance usage details: Every once in awhile Do You Feel Safe in your Home?: Yes Lack of Transportation: No Lack of Food: Never True Current Housing: I Have Housing Concerned About Future Housing: No Difficulty Paying Gas/Electric Bills: No Difficulty Paying for Meds: No Currently Unemployed: No Education: Don't Know Difficulty w/ Childcare or Family Care: No Additional living arrangements comments: The patient lives with her in [place]. She has no children. Spiritual care concerns: No Meds Home Medications and Allergies Home Medications Medication Instructions Recorded Confirmed Type atorvastatin 40 mg tablet 40 mg PO QHS 07/23/23 11/06/23 History dapagliflozin propanediol 10 mg 10 mg PO QAM 07/23/23 11/06/23 History tablet (Farxiga) sitagliptin phosphate 100 mg 100 mg PO QAM 11/06/23 11/06/23 History tablet (Januvia) Allergies Allergy/AdvReac Type Severity Reaction Status Date / Time No Known Allergies Allergy Verified 11/05/23 19:22 Vital Signs Vital Signs - 24 hr 11/06/23 18:03 11/06/23 21:28 11/06/23 23:56 Temperature 100.1 F H 98.1 F Pulse Rate 107 H 97 87 Respiratory Rate 20 13 16 Blood Pressure 142/63 H 160/80 H 110/61 Pulse Oximetry 97 100 100 Oxygen Delivery Room Air 11/07/23 04:52 Temperature 97.8 F Pulse Rate 97 Respiratory Rate 16 Blood Pressure 146/69 H Pulse Oximetry 99 Oxygen Delivery Exam Narrative: Weight 70.4 kg BMI 29.7 Const: Other: Appears much older than stated age, disheveled, smells strongly of urine, height weight proportionate, no acute distress HENMT: Other: Mucous membranes are tacky, no oral pharyngeal erythema, edentulous in upper and lower jaw Eyes: Other: Pupils are equal and reactive, no scleral icterus Neck: Other: Supple, nontender Resp: Other: Decreased breath sounds at the bases, no increased work of breathing Cardio: Other: Regular rate, 2+ bilateral radial pulses, unable to palpate pedal or posterior tibial pulses of bilateral lower extremities GI: Other: Soft, nontender, nondistended, positive bowel sounds Skin: Other: No jaundice, no pallor Neuro: Other: Alert orient x4, speech is clear, no facial asymmetry, no localizing neurologic deficits noted on limited exam Extrem: Other: Patient has chronic wound to the left lateral foot at prior amputation site with small amount of greenish appearing drainage, foot is slightly increased edema especially in the lateral portion, no palpable pulses Psych: Other: Appropriate mood and affect, pleasant and cooperative, judgment and insight intact H&P: Results Labs Labs: Laboratory Tests 11/07/23 05:44 11/07/23 05:47 11/06/23 11/06/23 11/06/23 18:40 18:47 18:48 WBC 15.8 H RBC 3.82 L Hgb 10.1 L Hct 32.9 L MCV 86.1 MCH 26.4 MCHC 30.7 L RDW 15.0 H Plt Count 351 MPV 9.5 Immature Gran % (Auto) 0.4 Neut % (Auto) 86.3 H Lymph % (Auto) 5.5 L [place] % (Auto) 7.3 Eos % (Auto) 0.3 Baso % (Auto) 0.2 Lymph # (Auto) 0.86 L [place] # (Auto) 1.2 H Eos # (Auto) 0.0 Baso # (Auto) 0.0 Abs Immat Gran (auto) 0.07 H Absolute Neuts (auto) 13.6 H Absolute Nucleated RBC 0.000 Nucleated RBC % 0.0 ESR 99 H Sodium 134 L Potassium 4.1 Chloride 99 Carbon Dioxide 26 Anion Gap 9 BUN 19 H Creatinine 0.70 Estim Creat Clear Calc 74 Estimated GFR > 60 Glucose 204 H Lactic Acid 0.9 Calcium 9.3 Total Bilirubin 0.8 AST 28 ALT 17 Alkaline Phosphatase 126 C-Reactive Protein 27.4 H Total Protein 8.0 Albumin 3.7 Influenza A (RT-PCR) Negative Influenza B (RT-PCR) Negative RSV (RT-PCR) Negative SARS-CoV-2 RNA (RT-PCR) Negative 11/07/23 11/07/23 05:44 05:47 WBC 12.1 H RBC 3.48 L Hgb 9.2 L Hct 30.5 L MCV 87.6 MCH 26.4 MCHC 30.2 L RDW 15.2 H Plt Count 319 MPV 9.7 Immature Gran % (Auto) 0.7 H Neut % (Auto) 76.9 H Lymph % (Auto) 9.3 L [place] % (Auto) 10.4 H Eos % (Auto) 2.4 Baso % (Auto) 0.3 Lymph # (Auto) 1.12 [place] # (Auto) 1.3 H Eos # (Auto) 0.3 Baso # (Auto) 0.0 Abs Immat Gran (auto) 0.08 H Absolute Neuts (auto) 9.3 H Absolute Nucleated RBC 0.000 Nucleated RBC % 0.0 ESR Sodium 136 L Potassium 3.5 Chloride 104 Carbon Dioxide 27 Anion Gap 5 L BUN 16 Creatinine 0.70 0.70 Estim Creat Clear Calc 76 76 Estimated GFR > 60 > 60 Glucose 135 H Lactic Acid Calcium 8.7 Total Bilirubin AST ALT Alkaline Phosphatase C-Reactive Protein Total Protein Albumin Influenza A (RT-PCR) Influenza B (RT-PCR) RSV (RT-PCR) SARS-CoV-2 RNA (RT-PCR) Impressions Chest X-Ray 11/06/23 19:42 IMPRESSION: No acute cardiopulmonary process. Foot X-Ray 11/06/23 19:42 IMPRESSION: Osteomyelitis involving the distal aspect fifth metatarsal stump. Possible oblique fracture of the fifth metatarsal base. Assessment and Plan Assessment and plan (1) Sepsis: Qualifiers: Sepsis acute organ dysfunction status: without acute organ dysfunction Sepsis type: sepsis due to unspecified organism Qualified Code(s): A41.9 - Sepsis, unspecified organism Code(s): A41.9 - Sepsis, unspecified organism Status: Acute (2) Osteomyelitis: Qualifiers: Laterality: left Osteomyelitis location: foot Osteomyelitis type: unspecified type Qualified Code(s): M86.9 - Osteomyelitis, unspecified Code(s): M86.9 - Osteomyelitis, unspecified Status: Acute (3) Complication of toe amputation stump: Code(s): T87.9 - Unspecified complications of amputation stump Status: Acute (4) Type 2 diabetes mellitus with hyperglycemia: Qualifiers: Diabetes mellitus long distance operator insulin use: without long distance operator use Qualified Code(s): E11.65 - Type 2 diabetes mellitus with hyperglycemia Code(s): E11.65 - Type 2 diabetes mellitus with hyperglycemia Status: Chronic (5) Peripheral vascular disease: Onset Date: 05/2022 Code(s): I73.9 - Peripheral vascular disease, unspecified Status: Chronic Plan given the patient's history of peripheral vascular disease and diabetes will broaden patient's antibiotic coverage to Zosyn. Will continue vancomycin. Blood cultures are pending. Will optimize glucose contro to help with wound healing. Will continue patient's oral hypoglycemic agents and will add sliding scale insulin with Accu-Cheks a.c. HS and hypoglycemia protocol. MEDICAL DECISION MAKING NARRATIVE -Spoke with the ED provider in detail regarding patient's evaluation, workup and management -Patient seen and examined at bedside -Collaborated with patient's nurse at the bedside in detail and addressed all concerns -Labs, electrolytes, radiology, investigations and test results reviewed -ED/Consult/Nursing/Ancilliary notes on the chart reviewed and appreciated -Spoke with patient/family at the bedside and all questions answered Quality VTE Prophylaxis VTE prophylaxis: pharmacologic ordered ( Lovenox 40 mg subQ daily.)
[2023-11-07] MEDS: EMPAGLIFLOZIN 25 MG TABLET BY MOUTH (08:26)
[2023-11-07] MEDS: PIPERACILLN/TAZ 3.375GM/NS50ML 3.375 GM/50 ML BAG IVPB ×3 (08:26→18:36)
[2023-11-07 08:40] LABS: Glucose Point of Care 135 mg/dl (65-105)
[2023-11-07] MEDS: ENOXAPARIN 40 MG/0.4 ML SYRINGE SUB-Q (09:02)
[2023-11-07] MEDS: SODIUM CHLORIDE 0.9% IV 1,000 ML 100 ML IV CONT (09:02)
[2023-11-07 12:06] LABS: Glucose Point of Care 205 mg/dl (65-105)
[2023-11-07] MEDS: INSULIN ASPART (*BKC) 100 UNITS/ML SUB-Q (12:23)
[2023-11-07] MEDS: COLLAGENASE OINT 30 GM TUBE 1 APPLIC TOPICAL (14:56)
[2023-11-07] MEDS: VANCOMYCIN 1,250 MG/NS 250 ML 1,250 MG/250 ML BAG 166.67 MG IVPB (15:07)
--- NOTE | 2023-11-07 15:11 | P.PNIM_ITS ---
Progress Note: A&P Assessment and Plan (1) Sepsis: Qualifiers: Sepsis type: sepsis due to unspecified organism Sepsis acute organ dysfunction status: without acute organ dysfunction Qualified Code(s): A41.9 - Sepsis, unspecified organism Code(s): A41.9 - Sepsis, unspecified organism Status: Acute Assessment and Plan: * WBC 15.8 --> 12.1 * BC pending * Vancomycin and Zosyn (2) Osteomyelitis: Qualifiers: Osteomyelitis type: unspecified type Osteomyelitis location: foot Laterality: left Qualified Code(s): M86.9 - Osteomyelitis, unspecified Code(s): M86.9 - Osteomyelitis, unspecified Status: Acute Assessment and Plan: * s/p 5th left toe amputation with Dr. Johnson on 07/25/23 * patient has been following in wound clinic * left foot XR showed osteomyelitis involving the distal aspect fifth metatarsal stump. Possible oblique fracture of the fifth metatarsal base * Vancomycin and Zosyn * general surgery consulted (3) Complication of toe amputation stump: Code(s): T87.9 - Unspecified complications of amputation stump Status: Acute Assessment and Plan: * see above (4) Type 2 diabetes mellitus with hyperglycemia: Qualifiers: Diabetes mellitus intermediate frame tender insulin use: without intermediate frame tender use Qualified Code(s): E11.65 - Type 2 diabetes mellitus with hyperglycemia Code(s): E11.65 - Type 2 diabetes mellitus with hyperglycemia Status: Chronic Assessment and Plan: * accuchecks * hypoglycemic protocol * sliding scale insulin * continue patient's home PO regimen (5) Peripheral vascular disease: Onset Date: 05/2022 Code(s): I73.9 - Peripheral vascular disease, unspecified Status: Chronic Subjective Date/time seen: 11/07/23 15:11 Interval history: Patient lying comfortably in bed. She is in no distress, denies any pain at the time of exam. She denies symptomatic symptoms, fevers, chills but does endorse increased malaise. Gen surgery consulted, Alex who previously performed her surgery is out of town. Dr. Álvarez saw her and plan to continue AB therapy and possibly plan for I&D on Friday. Will continue to closely monitor. Review of Systems Review of Systems: All systems reviewed & are unremarkable except as noted in HPI and below Exam Narrative: General: Alert, awake, well nourished in no acute distress. HEENT: PERRLA, EOMI Neck: supple Cardiovascular: RRR, no murmurs, rubs or gallops Respiratory: Clear to auscultation bilaterally, no wheezing, no rhonchi, no rubs, no respiratory distress. Abdomen: Soft, nontender, nondistended, no rebound, no guarding, BS present. Musculoskeletal: Left LL edema, non-pitting into the foot. pedal pulses present bilaterally. Skin: 5th toe amputation with poor wound healing, large open ulceration with malodorous purulent drainage and surrounding blanching erythema and warmth. Psychiatric: normal behavior and judgment Neurological: A&O x3. No focal deficits, speech is clear and fluent. Objective Data Vital Signs Vital Signs: Vital Signs - 24 hr 11/06/23 18:03 11/06/23 21:28 11/06/23 23:56 Temperature 100.1 F H 98.1 F Pulse Rate 107 H 97 87 Respiratory Rate 20 13 16 Blood Pressure 142/63 H 160/80 H 110/61 Pulse Oximetry 97 100 100 Oxygen Delivery Room Air 11/07/23 04:52 11/07/23 08:30 Temperature 97.8 F Pulse Rate 97 Respiratory Rate 16 Blood Pressure 146/69 H Pulse Oximetry 99 Oxygen Delivery Room Air Intake/Output Intake/Output: Intake & Output 11/04/23 11/05/23 11/06/23 11/07/23 23:59 23:59 23:59 23:59 Intake Total 1100 1590 Output Total 350 Balance 1100 1240 Meds/Results Medications: Active Medications Generic Name Dose Route Start Last Admin Trade Name Freq PRN Reason Stop Dose Admin Atorvastatin Calcium 40 mg 11/07/23 21:00 Atorvastatin 40 Mg Tablet PO QHS JANEY Collagenase 1 applic 11/07/23 15:00 11/07/23 14:56 Collagenase Oint 30 Gm Tube TOPICAL 1 applic QAM JANEY Administration Dextrose 12.5 gm 11/07/23 07:14 Dextrose 50% 25 Gm/50 Ml Syringe IV PUSH PRN PRN Hypoglycemia Protocol Empagliflozin 25 mg 11/07/23 09:00 11/07/23 08:26 Empagliflozin 25 Mg Tablet BY MOUTH 25 mg QAM JANEY Administration Enoxaparin Sodium 40 mg 11/07/23 09:00 11/07/23 09:02 Enoxaparin 40 Mg/0.4 Ml Syringe SUB-Q 40 mg DAILY JANEY Administration Glucagon 1 mg 11/07/23 07:14 Glucagon For Inj 1 Mg Vial IM PRN PRN Hypoglycemia Protocol Glucose 15 gm 11/07/23 07:14 Glucose Oral Gel 15 Gm Of Glucse In 37.5 Gm Tube PO PRN PRN Hypoglycemia Protocol Vancomycin HCl 1,250 mg in 250 mls @ 166.667 mls/hr 11/07/23 16:00 11/07/23 15:07 Vancomycin 1,250 Mg/Ns 250 Ml IVPB 166.67 mls/hr Q18H JANEY Administration Piperacillin/Tazobactam/Dextrose 3.375 gm in 50 mls @ 100 mls/hr 11/07/23 07:15 11/07/23 13:58 Zosyn 3.375 Gm/Ns 50 Ml IVPB 100 mls/hr Q6H JANEY Administration Dextrose 1,000 mls @ 100 mls/hr 11/07/23 07:14 Dextrose 5% 1,000 Ml IVPB PRN PRN Hypoglycemia Protocol Sodium Chloride 1,000 mls @ 100 mls/hr 11/07/23 08:30 11/07/23 09:02 Normal Saline Iv IV CONT 100 mls/hr .Q10H JANEY Administration Insulin Aspart 1 - 3 units 11/07/23 21:00 Insulin Aspart (*Bkc) 100 Units/Ml SUB-Q HS JANEY Protocol Insulin Aspart 3 - 6 units 11/07/23 08:00 11/07/23 12:23 Insulin Aspart (*Bkc) 100 Units/Ml SUB-Q 3 units TIDWM JANEY Administration Protocol Sitagliptin Phosphate 100 mg 11/07/23 09:00 11/07/23 08:26 Sitagliptin 100 Mg Tablet PO 100 mg QAM JANEY Administration Radiology Results: ITS Impressions Chest X-Ray 11/06/23 19:42 IMPRESSION: No acute cardiopulmonary process. Foot X-Ray 11/06/23 19:42 IMPRESSION: Osteomyelitis involving the distal aspect fifth metatarsal stump. Possible oblique fracture of the fifth metatarsal base. Labs Labs: Laboratory Results - last 24 hr 11/06/23 11/06/23 11/06/23 18:40 18:47 18:48 WBC 15.8 H RBC 3.82 L Hgb 10.1 L Hct 32.9 L MCV 86.1 MCH 26.4 MCHC 30.7 L RDW 15.0 H Plt Count 351 MPV 9.5 Immature Gran % (Auto) 0.4 Neut % (Auto) 86.3 H Lymph % (Auto) 5.5 L [place] % (Auto) 7.3 Eos % (Auto) 0.3 Baso % (Auto) 0.2 Lymph # (Auto) 0.86 L [place] # (Auto) 1.2 H Eos # (Auto) 0.0 Baso # (Auto) 0.0 Abs Immat Gran (auto) 0.07 H Absolute Neuts (auto) 13.6 H Absolute Nucleated RBC 0.000 Nucleated RBC % 0.0 ESR 99 H Sodium 134 L Potassium 4.1 Chloride 99 Carbon Dioxide 26 Anion Gap 9 BUN 19 H Creatinine 0.70 Estim Creat Clear Calc 74 Estimated GFR > 60 Glucose 204 H POC Capillary Glucose Lactic Acid 0.9 Calcium 9.3 Total Bilirubin 0.8 AST 28 ALT 17 Alkaline Phosphatase 126 C-Reactive Protein 27.4 H Total Protein 8.0 Albumin 3.7 Influenza A (RT-PCR) Negative Influenza B (RT-PCR) Negative RSV (RT-PCR) Negative SARS-CoV-2 RNA (RT-PCR) Negative 11/07/23 11/07/23 11/07/23 05:44 05:47 08:28 WBC 12.1 H RBC 3.48 L Hgb 9.2 L Hct 30.5 L MCV 87.6 MCH 26.4 MCHC 30.2 L RDW 15.2 H Plt Count 319 MPV 9.7 Immature Gran % (Auto) 0.7 H Neut % (Auto) 76.9 H Lymph % (Auto) 9.3 L [place] % (Auto) 10.4 H Eos % (Auto) 2.4 Baso % (Auto) 0.3 Lymph # (Auto) 1.12 [place] # (Auto) 1.3 H Eos # (Auto) 0.3 Baso # (Auto) 0.0 Abs Immat Gran (auto) 0.08 H Absolute Neuts (auto) 9.3 H Absolute Nucleated RBC 0.000 Nucleated RBC % 0.0 ESR Sodium 136 L Potassium 3.5 Chloride 104 Carbon Dioxide 27 Anion Gap 5 L BUN 16 Creatinine 0.70 0.70 Estim Creat Clear Calc 76 76 Estimated GFR > 60 > 60 Glucose 135 H POC Capillary Glucose 135 H Lactic Acid Calcium 8.7 Total Bilirubin AST ALT Alkaline Phosphatase C-Reactive Protein Total Protein Albumin Influenza A (RT-PCR) Influenza B (RT-PCR) RSV (RT-PCR) SARS-CoV-2 RNA (RT-PCR) 11/07/23 11:55 WBC RBC Hgb Hct MCV MCH MCHC RDW Plt Count MPV Immature Gran % (Auto) Neut % (Auto) Lymph % (Auto) [place] % (Auto) Eos % (Auto) Baso % (Auto) Lymph # (Auto) [place] # (Auto) Eos # (Auto) Baso # (Auto) Abs Immat Gran (auto) Absolute Neuts (auto) Absolute Nucleated RBC Nucleated RBC % ESR Sodium Potassium Chloride Carbon Dioxide Anion Gap BUN Creatinine Estim Creat Clear Calc Estimated GFR Glucose POC Capillary Glucose 205 H Lactic Acid Calcium Total Bilirubin AST ALT Alkaline Phosphatase C-Reactive Protein Total Protein Albumin Influenza A (RT-PCR) Influenza B (RT-PCR) RSV (RT-PCR) SARS-CoV-2 RNA (RT-PCR) Quality VTE Prophylaxis VTE prophylaxis: pharmacologic ordered (switched to heparin in case of surgical procedure on Friday)
[2023-11-07 15:31] VITALS: BP 112/58; PULSE 89; RESP 16; TEMP 37.1; O2SAT 95
--- NOTE | 2023-11-07 15:57 | PM.CNGS ---
Assessment and Plan Assessment and plan (1) Complication of toe amputation stump: Code(s): T87.9 - Unspecified complications of amputation stump Status: Acute Assessment and Plan: Complicated left foot wound which has been slowly healing with Santyl dressing changes daily. Foot now edematous with some evidence on imaging of osteomyelitis. Continue Santyl dressing changes for now. (2) Osteomyelitis: Qualifiers: Osteomyelitis type: unspecified type Osteomyelitis location: foot Laterality: left Qualified Code(s): M86.9 - Osteomyelitis, unspecified Code(s): M86.9 - Osteomyelitis, unspecified Status: Acute Assessment and Plan: Distal aspect 5th metatarsal stump. Also possible oblique fracture of the 5th metatarsal base. Continue IV Zosyn. Continue wound care (3) Peripheral vascular disease: Onset Date: 05/2022 Code(s): I73.9 - Peripheral vascular disease, unspecified Status: Chronic Assessment and Plan: No pulses palpable in either foot. Will get ABIs. (4) Type 2 diabetes mellitus with hyperglycemia: Qualifiers: Diabetes mellitus group home insulin use: without group home use Qualified Code(s): E11.65 - Type 2 diabetes mellitus with hyperglycemia Code(s): E11.65 - Type 2 diabetes mellitus with hyperglycemia Status: Chronic Assessment and Plan: Blood sugars in the low 200s. Poor control making wound healing more difficult. (5) Tobacco abuse: Code(s): Z72.0 - Tobacco use Status: Chronic Assessment and Plan: Chronic smoker. Also impairing ability to heal. History of Present Illness Consult details Consult date: 11/07/23 Requesting physician: Bertha Villa MD Narrative: Patient is a 57-year-old diabetic woman who had stenting of peripheral vascular disease in her left leg at an outside facility. She had a blackened left 5th toe and cellulitis of the left foot last July. She was seen in consultation by Dr. Johnson. She was felt to have dry gangrene of the 5th toe but some cellulitis of the left foot. She underwent amputation of the left 5th toe on 07/25/2023. After the amputation she was noted to have an area of nonviable tissue on the lateral aspect of the left foot. This was subsequently debrided and she has been followed regularly in the [facility] and by Dr. Johnson. She has been receiving Santyl dressing changes with some improvement in the lateral left foot wound. Dr. Johnson had just seen her in the wound clinic 5 days ago. The wound has been granulating and healing slowly. The patient and her spouse tell me that about 2 days after she was seen, the left foot began to swell and it was painful for her. They came to the emergency room at [facility] yesterday. Plain films of the left foot showed osteomyelitis of the distal aspect 5th metatarsal stump. The foot was swollen and tender and there was some purulent drainage from the wound. She was admitted to the hospitalist to diagnosed her as having sepsis. She has been on Zosyn and vancomycin. I was asked to see her in consultation regarding the recent changes in her left foot suggesting ongoing infection and osteomyelitis. Patient is known to have peripheral vascular disease. The last set of arterial Dopplers in our records are from May of 2022 which showed an JAVON of the left foot of 0.76. She is seen now in consultation. She is has her foot does feel better than it did when she came in last night. She had a low-grade fever last night of 37.8. White blood cell count on admission was 15,800. This has decreased to 12,100 this morning. She is seen now in consultation. Review of Systems Review of Systems: All systems reviewed & are unremarkable except as noted in HPI and below (HPI and those items noted below) Constitutional: Constitutional: Denies chills and Denies fever(s) Cardiovascular: Cardiovascular: Denies chest pain, Denies diaphoresis, Denies dyspnea and Denies paroxysmal nocturnal dyspnea Respiratory: Respiratory: Denies chest congestion, Denies cough and Denies dyspnea Integumentary/Breasts: Skin/Breast: Denies lesions and Denies rash [facility] Past Medical History Medical History Dyslipidemia Peripheral vascular disease (05/2022) Diminished bilateral ankle and toe brachial indices consistent with [id number] peripheral arterial disease on JAVON. 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 History of incision and drainage (05/2022) Incision and drainage of left foot abscess with sharp excisional debridement of left foot ulcer. Family History Family History Father Heart disease Mother Heart disease Mother Diabetes mellitus Social History Social History Social History: Surrogate medical decision maker: Donald De La Garza, spouse. Code status: Full code. Smoking packs per day: 2 Smoking cigarettes per day: 40.0 Years smoked: 40 Smoking pack-years: 80.00 Smoking status: Current every day smoker Tobacco type: e-cigarettes/vaping Alcohol intake: never Substance use: current Substance use type: marijuana Other substance usage details: Every once in awhile Do You Feel Safe in your Home?: Yes Lack of Transportation: No Lack of Food: Never True Current Housing: I Have Housing Concerned About Future Housing: No Difficulty Paying Gas/Electric Bills: No Difficulty Paying for Meds: No Currently Unemployed: No Education: Don't Know Difficulty w/ Childcare or Family Care: No Additional living arrangements comments: The patient lives with her in [place]. She has no children. Spiritual care concerns: No Meds Home Medications and Allergies Home Medications Medication Instructions Recorded Confirmed Type atorvastatin 40 mg tablet 40 mg PO QHS 07/23/23 11/06/23 History dapagliflozin propanediol 10 mg 10 mg PO QAM 07/23/23 11/06/23 History tablet (Farxiga) sitagliptin phosphate 100 mg 100 mg PO QAM 11/06/23 11/06/23 History tablet (Januvia) Allergies Allergy/AdvReac Type Severity Reaction Status Date / Time No Known Allergies Allergy Verified 11/05/23 19:22 Vital Signs Vital Signs - 24 hr 11/06/23 18:03 11/06/23 21:28 11/06/23 23:56 Temperature 37.8 C H 36.7 C Pulse Rate 107 H 97 87 Respiratory Rate 20 13 16 Blood Pressure 142/63 H 160/80 H 110/61 Pulse Oximetry 97 100 100 Oxygen Delivery Room Air 11/07/23 04:52 11/07/23 08:30 11/07/23 15:31 Temperature 36.6 C 37.1 C Pulse Rate 97 89 Respiratory Rate 16 16 Blood Pressure 146/69 H 112/58 L Pulse Oximetry 99 95 Oxygen Delivery Room Air Exam Const: General: comfortable, no acute distress, alert and awake HENMT: Head: normocephalic and atraumatic Mouth: Yes Normal oral and palatal mucosa present Eyes: Conjunctivae: conjunctivae normal Pupils: Equal, round and reactive pupils present EOM: EOMs intact bilaterally Neck: Neck: normal visual inspection, no lymphadenopathy and nontender Resp: Effort & Inspection: normal respiratory effort Auscultation: clear to auscultation bilaterally Cardio: Rate: regular rate Rhythm: regular rhythm Heart sounds: no gallops, no murmurs and no rubs Peripheral pulses: other (No posterior tibial or dorsalis pedis pulses palpable in either foot) GI: Inspection: non-distended GI Palp: Yes Soft to palpation, No Tenderness to palpation present (GI), No Hepatomegaly present and No Splenomegaly present Skin: Lesions: no lesions Rashes: no rashes Neuro: General: no focal motor deficits and CN's II-XI intact bilaterally Cranial nerves: Yes Equal, round and reactive pupils present, Yes Bilaterally intact EOM present, Yes facial symmetry and Yes Midline tongue present Speech: normal speech Motor exam (neuro): 5/5 motor strength present throughout and Motor abnormalities not present Extrem: General: no clubbing, cyanosis or edema and edema Right lower extremity: foot (Dry eschar lateral distal foot, no sign infection) Details: no edema and vascular exam Details: dorsalis pedis pulse absent, posterior tibial pulse absent, not cool and no cyanosis; no tenderness, no unusual warmth and no crepitus Left lower extremity: foot (Open wound lateral foot 8 x 2.5 x 1 cm. ) Details: edema Location: of the dorsal foot and of the base of the 5th metatarsal and vascular exam Details: dorsalis pedis pulse absent and posterior tivial pulse absent; no crepitus Other: Left lateral foot wound-status post 5th toe amputation. Wound is 80% granulated but with slough distally and necrotic tissue proximally. There is 2+ edema. No purulent drainage noted. Mild tenderness. No erythema Psych: Affect: normal affect Thought process: Normal thought process present Insight: Good insight present (Psych) Results Labs 11/07/23 05:44 11/07/23 05:47 Labs: Abnormal lab results 11/06/23 11/06/23 11/07/23 Range/Units 18:47 18:48 05:44 WBC 15.8 H 12.1 H (4.5-10.0) K/mm3 RBC 3.82 L 3.48 L (4.2-5.4) M/mm3 Hgb 10.1 L 9.2 L (12.0-15.0) g/dL Hct 32.9 L 30.5 L (37.0-47.0) % MCHC 30.7 L 30.2 L (32-36) g/dl RDW 15.0 H 15.2 H (11.5-14.5) % Immature Gran % (Auto) 0.7 H (0-0.5) % Neut % (Auto) 86.3 H 76.9 H (45.5-73.1) % Lymph % (Auto) 5.5 L 9.3 L (18.3-44.2) % [place] % (Auto) 10.4 H (2.6-8.5) % Lymph # (Auto) 0.86 L (0.9-3.2) K/mm3 [place] # (Auto) 1.2 H 1.3 H (0.1-0.6) K/mm3 Abs Immat Gran (auto) 0.07 H 0.08 H (0.00-0.031) K/mm3 Absolute Neuts (auto) 13.6 H 9.3 H (1.3-6.7) K/mm3 ESR 99 H (0-20) mm/hr Sodium 134 L 136 L (137-145) mmol/L Anion Gap 5 L (4-12) mmol/L BUN 19 H (7-17) mg/dL Glucose 204 H 135 H (65-110) mg/dL POC Capillary Glucose (65-105) mg/dl C-Reactive Protein 27.4 H (<1.0) mg/dL 11/07/23 11/07/23 Range/Units 08:28 11:55 WBC (4.5-10.0) K/mm3 RBC (4.2-5.4) M/mm3 Hgb (12.0-15.0) g/dL Hct (37.0-47.0) % MCHC (32-36) g/dl RDW (11.5-14.5) % Immature Gran % (Auto) (0-0.5) % Neut % (Auto) (45.5-73.1) % Lymph % (Auto) (18.3-44.2) % [place] % (Auto) (2.6-8.5) % Lymph # (Auto) (0.9-3.2) K/mm3 [place] # (Auto) (0.1-0.6) K/mm3 Abs Immat Gran (auto) (0.00-0.031) K/mm3 Absolute Neuts (auto) (1.3-6.7) K/mm3 ESR (0-20) mm/hr Sodium (137-145) mmol/L Anion Gap (4-12) mmol/L BUN (7-17) mg/dL Glucose (65-110) mg/dL POC Capillary Glucose 135 H 205 H (65-105) mg/dl C-Reactive Protein (<1.0) mg/dL Diabetes panel 11/06/23 11/07/23 11/07/23 Range/Units 18:47 05:44 05:47 Sodium 134 L 136 L (137-145) mmol/L Potassium 4.1 3.5 (3.4-5.0) mmol/L Chloride 99 104 (98-107) mmol/L Carbon Dioxide 26 27 (22-30) mmol/L BUN 19 H 16 (7-17) mg/dL Creatinine 0.70 0.70 0.70 (0.7-1.0) mg/dL Glucose 204 H 135 H (65-110) mg/dL Calcium 9.3 8.7 (8.4-10.2) mg/dL AST 28 (14-36) U/L ALT 17 (6-35) U/L Alkaline Phosphatase 126 (38-126) U/L Total Protein 8.0 (6.3-8.2) g/dL Albumin 3.7 (3.5-5.1) g/dL Calcium panel 11/06/23 11/07/23 Range/Units 18:47 05:44 Calcium 9.3 8.7 (8.4-10.2) mg/dL Albumin 3.7 (3.5-5.1) g/dL Pituitary panel 11/06/23 11/07/23 11/07/23 Range/Units 18:47 05:44 05:47 Sodium 134 L 136 L (137-145) mmol/L Potassium 4.1 3.5 (3.4-5.0) mmol/L Chloride 99 104 (98-107) mmol/L Carbon Dioxide 26 27 (22-30) mmol/L BUN 19 H 16 (7-17) mg/dL Creatinine 0.70 0.70 0.70 (0.7-1.0) mg/dL Glucose 204 H 135 H (65-110) mg/dL Calcium 9.3 8.7 (8.4-10.2) mg/dL Adrenal panel 11/06/23 11/07/23 11/07/23 Range/Units 18:47 05:44 05:47 Sodium 134 L 136 L (137-145) mmol/L Potassium 4.1 3.5 (3.4-5.0) mmol/L Chloride 99 104 (98-107) mmol/L Carbon Dioxide 26 27 (22-30) mmol/L BUN 19 H 16 (7-17) mg/dL Creatinine 0.70 0.70 0.70 (0.7-1.0) mg/dL Glucose 204 H 135 H (65-110) mg/dL Calcium 9.3 8.7 (8.4-10.2) mg/dL Total Bilirubin 0.8 (0.2-1.3) mg/dL AST 28 (14-36) U/L ALT 17 (6-35) U/L Alkaline Phosphatase 126 (38-126) U/L Total Protein 8.0 (6.3-8.2) g/dL Albumin 3.7 (3.5-5.1) g/dL All other labs normal.
[2023-11-07 17:50] LABS: Glucose Point of Care 143 mg/dl (65-105)
[2023-11-07] MEDS: HEPARIN SODIUM 5,000 UNITS/ML VIAL 5000 UNITS SUB-Q (20:36)
[2023-11-07 21:43] VITALS: TEMP 38.5
[2023-11-07] MEDS: ACETAMINOPHEN 325 MG TABLET 650 MG PO (21:43)
[2023-11-07 22:12] LABS: Glucose Point of Care 161 mg/dl (65-105)
[2023-11-07 22:21] VITALS: BP 148/66; PULSE 89; RESP 16; TEMP 38.5; O2SAT 95
[2023-11-07 22:43] VITALS: TEMP 37.1
[2023-11-08] MEDS: PIPERACILLN/TAZ 3.375GM/NS50ML 3.375 GM/50 ML BAG IVPB ×3 (00:27→14:18)
[2023-11-08 06:00] VITALS: BP 156/78; PULSE 77; RESP 21; TEMP 36.8; O2SAT 100
[2023-11-08 07:57] LABS: Glucose Point of Care 125 mg/dl (65-105)
[2023-11-08] MEDS: EMPAGLIFLOZIN 25 MG TABLET BY MOUTH (08:46)
[2023-11-08] MEDS: HEPARIN SODIUM 5,000 UNITS/ML VIAL 5000 UNITS SUB-Q ×2 (08:46→20:40)
[2023-11-08 09:34] LABS: Basophils Percent Auto 0.3 % (0.2-1.2); Eosinophils Absolute Auto 0.2 K/mm3 (0-0.3); Eosinophils Percent Auto 1.3 % (0-4.4); Hemoglobin 8.9 g/dL (12.0-15.0); Immature Granulocyte Absolute 0.08 K/mm3 (0.00-0.031); Immature Granulocyte Percent A 0.7 % (0-0.5); Lymphocytes Absolute Auto 1.22 K/mm3 (0.9-3.2); Lymphocytes Percent Auto 10.2 % (18.3-44.2); Mean Corpuscular HGB Conc 29.7 g/dl (32-36); Mean Corpuscular Hemoglobin 25.8 pg (26-34); Mean Platelet Volume 9.5 fl (7.4-10.4); Monocytes Absolute Auto 0.8 K/mm3 (0.1-0.6); Monocytes Percent Auto 6.7 % (2.6-8.5); Neutrophils Absolute Auto 9.7 K/mm3 (1.3-6.7); Neutrophils Percent Auto 80.8 % (45.5-73.1); Platelet Count Result 319 k/mm3 (150-375); Red Blood Count 3.45 M/mm3 (4.2-5.4); Red Cell Distribution Width 15.2 % (11.5-14.5)
[2023-11-08 09:44] LABS: Anion Gap 2 mmol/L (4-12); Blood Urea Nitrogen 13 mg/dL (7-17); Calcium 8.6 mg/dL (8.4-10.2); Carbon Dioxide 31 mmol/L (22-30); Chloride 102 mmol/L (98-107); Estimated CRCL calculation 76 ml/min; Estimated Glomerular Filt Rate > 60; Glucose 180 mg/dL (65-110); Potassium 3.6 mmol/L (3.4-5.0); Sodium 135 mmol/L (137-145)
[2023-11-08 10:09] LABS: Vancomycin Trough 9.3 ug/mL (10.0-20.0)
[2023-11-08 11:02] LABS: Anisocytosis 1+; Hypochromasia 1+; Platelet Estimate Adequate (Adequate); Schistocytes None Seen
--- NOTE | 2023-11-08 11:23 | PM.PNGS ---
Progress Note: A&P Assessment and Plan (1) Fever: Qualifiers: Fever type: unspecified Qualified Code(s): R50.9 - Fever, unspecified Code(s): R50.9 - Fever, unspecified Status: Acute Assessment and Plan: 38.5 about 10:00 p.m. last night. May be due to necrotic tissue in left foot wound. (2) Open wound of left foot with complication: Qualifiers: Encounter type: subsequent encounter Qualified Code(s): S91.302D - Unspecified open wound, left foot, subsequent encounter Code(s): S91.302A - Unspecified open wound, left foot, initial encounter Status: Chronic Assessment and Plan: Central portion of 5th metatarsal wound continues to granulate and looks good. Distally and proximally in this wound, there is tissue and possibly underlying infection. This could be the cause of her fever and persistent white blood cell count. Will excisionally debride this at the bedside today. (3) Osteomyelitis: Qualifiers: Osteomyelitis type: unspecified type Osteomyelitis location: foot Laterality: left Qualified Code(s): M86.9 - Osteomyelitis, unspecified Code(s): M86.9 - Osteomyelitis, unspecified Status: Acute Assessment and Plan: Distal 5th metatarsal stump on plain films. Fever as noted. Necrotic tissue as noted. Continue Zosyn and vancomycin antibiotics. (4) Type 2 diabetes mellitus with hyperglycemia: Qualifiers: Diabetes mellitus railroad accountant insulin use: without railroad accountant use Qualified Code(s): E11.65 - Type 2 diabetes mellitus with hyperglycemia Code(s): E11.65 - Type 2 diabetes mellitus with hyperglycemia Status: Chronic Assessment and Plan: Blood sugars look good, staying in the 100s. (5) Amputation of fifth toe of left foot: Onset Date: 07/2023 Code(s): S98.132A - Complete traumatic amputation of one left lesser toe, initial encounter Status: Chronic Assessment and Plan: Performed 07/25/2023. Wound did not heal and eventually opened. (6) Peripheral vascular disease: Onset Date: 05/2022 Code(s): I73.9 - Peripheral vascular disease, unspecified Status: Chronic Assessment and Plan: 0.72 JAVON in May 2022. Repeat JAVON ordered yesterday but not completed. Will reorder. Patient has no palpable pulses in either foot although some of the left 5th metatarsal wound is granulating and healing. Subjective Subjective Date/Time Seen: 11/08/23 11:23 Patient reports: no new complaints, feels better, tolerating a regular diet, no bowel movement and fever Interval history: Patient feels like her left foot is better. Says toes don't look as swollen. Less discomfort Review of Systems Review of Systems: Fever All systems reviewed & are unremarkable except as noted in HPI and below (HPI) Exam Narrative: Febrile to 38.5 about 10:30 last night Const: General: cooperative, comfortable, alert, awake and well groomed; No ill appearing Nutritional Appearance: average body habitus Orientation/consciousness: patient oriented x3 and No confusion Extrem: Right lower extremity: foot (5th MT eschar unchanged) Details: no tenderness, no unusual warmth, no edema and no crepitus Left lower extremity: foot (Lateral foot wound appears same, necrotic tissue as before) Details: edema Location: diffusely (Left foot edema much improved from yesterday) Details: non-pitting and 1+ (Trace to 1+ edema) and other (5th MT wound shows necrotic tissue distally and proximally.); no crepitus Psych: Appearance: grossly normal Mental Status: mental status grossly normal Speech and movement: Normal speech and movement present Affect: normal affect Attitude: cooperative Thought content: Yes Normal thought content present Insight: Good insight present (Psych) Judgement: Good judgement present (Psych) Objective Data Vital Signs Vital Signs: Vital Signs - 24 hr 11/07/23 15:31 11/07/23 21:43 11/07/23 22:21 Temperature 37.1 C 38.5 C H 38.5 C H Pulse Rate 89 89 Respiratory Rate 16 16 Blood Pressure 112/58 L 148/66 H Pulse Oximetry 95 95 11/07/23 22:43 11/08/23 06:00 Temperature 37.1 C 36.8 C Pulse Rate 77 Respiratory Rate 21 H Blood Pressure 156/78 H Pulse Oximetry 100 Intake/Output Intake/Output: Intake & Output 11/05/23 11/06/23 11/07/23 11/08/23 23:59 23:59 23:59 23:59 Intake Total 1100 3790 600 Output Total 350 450 Balance 1100 3440 150 Meds/Results Medications: Active Medications Generic Name Dose Route Start Last Admin Trade Name Freq PRN Reason Stop Dose Admin Acetaminophen 650 mg 11/07/23 21:29 11/07/23 21:43 Acetaminophen 325 Mg Tablet PO 650 mg Q4H PRN Administration Mild Pain (1-3) or Fever Atorvastatin Calcium 40 mg 11/07/23 21:00 11/07/23 20:02 Atorvastatin 40 Mg Tablet PO Not Given QHS JANEY Collagenase 1 applic 11/07/23 15:00 11/07/23 14:56 Collagenase Oint 30 Gm Tube TOPICAL 1 applic QAM JANEY Administration Dextrose 12.5 gm 11/07/23 07:14 Dextrose 50% 25 Gm/50 Ml Syringe IV PUSH PRN PRN Hypoglycemia Protocol Empagliflozin 25 mg 11/07/23 09:00 11/08/23 08:46 Empagliflozin 25 Mg Tablet BY MOUTH 25 mg QAM JANEY Administration Glucagon 1 mg 11/07/23 07:14 Glucagon For Inj 1 Mg Vial IM PRN PRN Hypoglycemia Protocol Glucose 15 gm 11/07/23 07:14 Glucose Oral Gel 15 Gm Of Glucse In 37.5 Gm Tube PO PRN PRN Hypoglycemia Protocol Heparin Sodium (Porcine) 5,000 units 11/07/23 21:00 11/08/23 08:46 Heparin Sodium 5,000 Units/Ml Vial SUB-Q 5,000 units Q12HR JANEY Administration Piperacillin/Tazobactam/Dextrose 3.375 gm in 50 mls @ 100 mls/hr 11/07/23 07:15 11/08/23 07:08 Zosyn 3.375 Gm/Ns 50 Ml IVPB Infused Q6H JANEY Infusion Dextrose 1,000 mls @ 100 mls/hr 11/07/23 07:14 Dextrose 5% 1,000 Ml IVPB PRN PRN Hypoglycemia Protocol Vancomycin HCl 1,500 mg in 500 mls @ 250 mls/hr 11/08/23 11:00 Vancomycin 1,500 Mg/Ns 500 Ml IVPB Q12H JANEY Insulin Aspart 1 - 3 units 11/07/23 21:00 11/07/23 21:48 Insulin Aspart (*Bkc) 100 Units/Ml SUB-Q Not Given HS [facility] Protocol Insulin Aspart 3 - 6 units 11/07/23 08:00 11/08/23 08:01 Insulin Aspart (*Bkc) 100 Units/Ml SUB-Q Not Given TIDWM [facility] Protocol Sitagliptin Phosphate 100 mg 11/07/23 09:00 11/08/23 08:46 Sitagliptin 100 Mg Tablet PO 100 mg QAM JANEY Administration Radiology Results: ITS Impressions Chest X-Ray 11/06/23 19:42 IMPRESSION: No acute cardiopulmonary process. Foot X-Ray 11/06/23 19:42 IMPRESSION: Osteomyelitis involving the distal aspect fifth metatarsal stump. Possible oblique fracture of the fifth metatarsal base. Labs Labs: Laboratory Results - last 24 hr 11/07/23 11/07/23 11/07/23 11:55 17:26 21:47 WBC RBC Hgb Hct MCV MCH MCHC RDW Plt Count MPV Immature Gran % (Auto) Neut % (Auto) Lymph % (Auto) [place] % (Auto) Eos % (Auto) Baso % (Auto) Lymph # (Auto) [place] # (Auto) Eos # (Auto) Baso # (Auto) Abs Immat Gran (auto) Absolute Neuts (auto) Absolute Nucleated RBC Nucleated RBC % Platelet Estimate Hypochromasia Anisocytosis Schistocytes Sodium Potassium Chloride Carbon Dioxide Anion Gap BUN Creatinine Estim Creat Clear Calc Estimated GFR Glucose POC Capillary Glucose 205 H 143 H 161 H Calcium Vancomycin Trough 11/08/23 11/08/23 07:55 08:59 WBC 12.0 H RBC 3.45 L Hgb 8.9 L Hct 30.0 L MCV 87.0 MCH 25.8 L MCHC 29.7 L RDW 15.2 H Plt Count 319 MPV 9.5 Immature Gran % (Auto) 0.7 H Neut % (Auto) 80.8 H Lymph % (Auto) 10.2 L [place] % (Auto) 6.7 Eos % (Auto) 1.3 Baso % (Auto) 0.3 Lymph # (Auto) 1.22 [place] # (Auto) 0.8 H Eos # (Auto) 0.2 Baso # (Auto) 0.0 Abs Immat Gran (auto) 0.08 H Absolute Neuts (auto) 9.7 H Absolute Nucleated RBC 0.000 Nucleated RBC % 0.0 Platelet Estimate Adequate Hypochromasia 1+ Anisocytosis 1+ Schistocytes None seen Sodium 135 L Potassium 3.6 Chloride 102 Carbon Dioxide 31 H Anion Gap 2 L BUN 13 Creatinine 0.70 Estim Creat Clear Calc 76 Estimated GFR > 60 Glucose 180 H POC Capillary Glucose 125 H Calcium 8.6 Vancomycin Trough 9.3 L White blood cell count slowly decreasing, still 12,000. Some evidence left shift on automated differential Imaging Attestation: I personally reviewed and interpreted this imaging study as follows: (Pending ankle brachial index)
[2023-11-08] MEDS: VANCOMYCIN 1,500 MG/NS 500 ML 1,500 MG/500 ML BAG 250 MG IVPB ×2 (11:28→22:18)
[2023-11-08] MEDS: COLLAGENASE OINT 30 GM TUBE 1 APPLIC TOPICAL (11:29)
--- NOTE | 2023-11-08 11:39 | W.PM.PROC2 ---
Procedure Note - Detailed Date of Procedure 11/08/23 Pre-op Diagnosis Necrotic tissue left 5th NV wound Post-op Diagnosis Same (with infection) Procedure Performed Excisional debridement skin, subcutaneous, and muscle left lateral foot wound Surgeon Grabiel Álvarez MD Anesthesia None Indications Patient with chronic poorly healing left lateral foot wound is admitted with diabetic foot infection, sepsis, imaging evidence of osteomyelitis. Febrile to 38.5 last night. Has necrotic tissue in the distal and proximal aspect of the wound. Plan to debride necrotic tissue and any underlying infection. Findings More proximal or posterior area of necrosis and underlying purulent fluid measured 2 x 1.7 cm and was 2 cm deep. This area also tracked 2.5 cm more posterior. Most of the purulent fluid was in this more posterior area and this is where the culture was taken. This wound came very close and may have communicated with the 5th MT. The more distal or anterior wound measured 2.7 x 1.8 x 0.7 cm. Minimal purulence was seen with this wound. The more posterior wound had a size of 6.8cm3 and the more distal wound debridement was 15.6cm3 making the total area [id number]. Description of Procedure Patient was in right lateral decubitus position in her hospital bed. I began the debridement with the more proximal necrotic tissue area. Necrotic skin, subcutaneous, and muscle was debrided with excisional technique. As mentioned, this was a fairly deep wound with depth of 2 cm. Necrotic as well as purulent fluid was in the wound. Cultures were taken for aerobes anaerobes and Gram stain. Once as much necrotic tissue as I could remove was taken, I held pressure and used silver nitrate cautery to achieve hemostasis. As mentioned, this wound tracked 2.5 cm more proximally. The more distal area of necrotic tissue was then debrided. Necrotic subcutaneous and muscle were again excisionally debrided. This tissue was removed and it was not nearly as deep as the previous, more proximal, wound had been. She did have some sensation in the most distal wound. Nonetheless I was able to debride a lot of necrotic tissue with some purulent fluid in the distal aspect of the 5th metatarsal wound as well. Silver nitrate cautery and gentle pressure were used to achieve hemostasis. The wound was dressed with collagenase dressing appointment or Santyl and 4x4s with Kerlix roll were then placed. Patient tolerated the procedure well. Estimated Blood Loss -2 Drains No Packing No Pathology Other (Cultures sent) Condition Stable Disposition No change [facility] Billing Surgery - Charge Forward: Surgery Billing (Excisional debridement skin, subcutaneous, muscle of 22.4cm3 left foot)
[2023-11-08 12:52] LABS: Glucose Point of Care 227 mg/dl (65-105)
[2023-11-08] MEDS: INSULIN ASPART (*BKC) 100 UNITS/ML SUB-Q (12:58)
[2023-11-08 14:00] VITALS: BP 140/64; PULSE 68; RESP 18; TEMP 37.1; O2SAT 97
--- NOTE | 2023-11-08 14:32 | P.PNIM_ITS ---
Progress Note: A&P Assessment and Plan (1) Sepsis: Qualifiers: Sepsis acute organ dysfunction status: without acute organ dysfunction Sepsis type: sepsis due to unspecified organism Qualified Code(s): A41.9 - S epsis, unspecified organism Code(s): A41.9 - Sepsis, unspecified organism Status: Acute Assessment and Plan: 11/08/2023 * Patient currently meeting sepsis criteria with temp of 101.3, heart rate of 107, white blood cell count 12.0, and known source of infection the left foot. * Blood culture showing no growth on preliminary read * Foot wound culture is pending * Patient was originally given Zosyn and vancomycin * Will switch to cefepime, vancomycin, and Flagyl for diabetic foot wound protocol * Left foot x-ray showing osteomyelitis involving the distal aspect of the 5th metatarsal, possible oblique fracture of the 5th metatarsal base. * General surgery was consulted * Patient had a bedside debridement of her wound with General surgery (2) Osteomyelitis: Qualifiers: Laterality: left Osteomyelitis location: foot Osteomyelitis type: unspecified type Qualified Code(s): M86.9 - Osteomyelitis, unspecified Code(s): M86.9 - Osteomyelitis, unspecified Status: Acute Assessment and Plan: 11/08/2023 * The left foot x-ray showing osteomyelitis involving the distal aspect of the 5th metatarsal, possible oblique fracture of the 5th metatarsal base * General surgery consulted * Patient had a bedside debridement of her wound with General surgery * Blood culture showing no growth on preliminary read * Foot wound was cultured and is pending * Patient was given Zosyn and vancomycin initially and we will switch to cefepime vancomycin and Flagyl for diabetic foot wound protocol (3) Complication of toe amputation stump: Code(s): T87.9 - Unspecified complications of amputation stump Status: Acute Assessment and Plan: 11/08/2023 * See above (4) Type 2 diabetes mellitus with hyperglycemia: Qualifiers: 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: without buttermilk drier operator use Qualified Code(s): E11.65 - Type 2 diabetes mellitus with hyperglycemia Code(s): E11.65 - Type 2 diabetes mellitus with hyperglycemia Status: Chronic Assessment and Plan: 11/08/2023 * Blood sugars ranging 125-227 * Hemoglobin A1c on 07/24/2023 was 6.5 * Accu-Cheks AC and HS * Hypoglycemic protocol in place * Moderate does sliding scale insulin ordered * Continue Januvia and Jardiance in replacement of her Wade (5) Peripheral vascular disease: Onset Date: 05/2022 Code(s): I73.9 - Peripheral vascular disease, unspecified Status: Chronic Assessment and Plan: 11/08/2023 * Of note (6) Diabetic foot ulcer: Qualifiers: Diabetes mellitus type: other specified (including MARINA) Diabetic foot ulcer location: heel Laterality: left Code(s): E11.621 - Type 2 diabetes mellitus with foot ulcer; L97.509 - Non-pressure chronic ulcer of other part of unspecified foot with unspecified severity Status: Acute Assessment and Plan: 11/08/2023: * Patient has a diabetic foot ulcer on the lateral aspect of her right foot that looks dry with black eschar. Dr. Álvarez notified of this finding. Time Spent With Patient Time with patient: Greater than 35 minutes Subjective Date/time seen: 11/08/23 14:32 Interval history: This is a 57-year-old female who presented to hospital on 11/07/2023 with complaint of chills and weakness. On arrival to the ED of [facility] she was found to be afebrile with a temp of 100.1?. The dressing was removed from her left foot where she had a recent amputation of the left 5th digit due to dry gangrene and was noted to have per [place] drainage. Workup in the hospital included a chest x-ray which was negative for any acute cardiopulmonary disease. She also had a foot x-ray which showed osteomyelitis involving the distal aspect of the 5th metatarsal stump, possible oblique fracture of the 5th metatarsal base. She was given IV fluids, a dose of Lovenox, Zosyn, and vancomycin while in the ED. Initial labs show a white blood cell count of 12.0, hemoglobin 8.9, sodium 135. UA showed 3+ urine protein, 3+ urine glucose, 1+ urine ketones, 1+ urine blood, 3-5 urine RBCs. Blood cultures were obtained and are showing no growth on preliminary read. General surgery was consulted and patient was taken to the OR 2 day and she had an excisional debridement of skin, subcutaneous, and muscle on the left lateral foot wound. On examination today patient is alert oriented x3, lying in the bed. Patient denies any fever, chills, nausea, vomiting, diarrhea, abdominal pain, chest pain, shortness a breath, headache. She does have some pain down in that left foot however it is well controlled at this time. Will continue with Vancomycin and will change Zosyn to Cefepime and then add Flagyl considering it is a diabetic foot wound. She also has a wound on the right lateral aspect of her right foot that appears dry with black eschar present. I talked to Dr. Álvarez about this wound make sure that he is aware that it is there. He said there is nothing to do for it at this time. He will be by to see her again in the morning. Review of Systems Review of Systems: All systems reviewed & are unremarkable except as noted in HPI and below Constitutional: Constitutional: Reports as per HPI and Reports no additional constitutional complaints Eyes: Eyes: Reports as per HPI and Reports no additional eye complaints ENT: Reports system reviewed and no additional complaints, except as documented and Reports as per HPI Cardiovascular: Cardiovascular: Reports as per HPI and Reports no additional cardiovascular complaints Respiratory: Respiratory: Reports as per HPI and Reports no additional respiratory complaints Gastrointestinal: Gastrointestinal: Reports as per HPI and Reports no additional gastrointestinal complaints Genitourinary: Genitourinary: Reports no additional female genitourinary complaints and Reports as per HPI Musculoskeletal: Musculoskeletal: Reports no additional musculoskeletal complaints and Reports as per HPI Integumentary/Breasts: Skin/Breast: Reports system reviewed and no additional complaints, except as docu and Reports as per HPI Neurologic: Reports system reviewed and no additional complaints, except as documented and Reports as per HPI Psychiatric: Psychiatric: Reports no additional psychiatric complaints and Reports as per HPI Exam Narrative: General: In no acute distress, well nourished Head: atraumatic, no encephalopathy Eyes: EOMI, PERRLA, slcera clear ENT: moist mucous membranes, nasal passages clear Neck: supple, no JVD, no adenopathy, trachea midline Cardiac: Normal S1 and S2. No murmur, gallops or friction rubs, peripheral pulse s intact. Respiratory: Lungs clear to auscultation, no adventitious lung sounds Gastrointestinal: soft, non-distended, non-tender, normoactive bowel sounds. : voiding without difficulty. Extremities: moves all extremities well, no edema, good ROM, strength 5/5 Skin: Dressing to left foot with mild shadowing, right foot has an ulceration on the lateral aspect of her foot that looks dry with black eschar, there is redness noted around it. Neuro: Alert and oriented x4, cranial nerves intact, no neuro deficits. Psych: normal mood, normal affect, interactive Objective Data Vital Signs Vital Signs: Vital Signs - 24 hr 11/07/23 15:31 11/07/23 21:43 11/07/23 22:21 Temperature 98.8 F 101.3 F H 101.3 F H Pulse Rate 89 89 Respiratory Rate 16 16 Blood Pressure 112/58 L 148/66 H Pulse Oximetry 95 95 Oxygen Delivery 11/07/23 22:43 11/08/23 06:00 11/08/23 08:50 Temperature 98.8 F 98.2 F Pulse Rate 77 Respiratory Rate 21 H Blood Pressure 156/78 H Pulse Oximetry 100 Oxygen Delivery Room Air Intake/Output Intake/Output: Intake & Output 11/05/23 11/06/23 11/07/23 11/08/23 23:59 23:59 23:59 23:59 Intake Total 1100 3790 1420 Output Total 350 2000 Balance 1100 3440 -580 Meds/Results Medications: Active Medications Generic Name Dose Route Start Last Admin Trade Name Freq PRN Reason Stop Dose Admin Acetaminophen 650 mg 11/07/23 21:29 11/07/23 21:43 Acetaminophen 325 Mg Tablet PO 650 mg Q4H PRN Administration Mild Pain (1-3) or Fever Atorvastatin Calcium 40 mg 11/07/23 21:00 11/07/23 20:02 Atorvastatin 40 Mg Tablet PO Not Given QHS JANEY Collagenase 1 applic 11/07/23 15:00 11/08/23 11:29 Collagenase Oint 30 Gm Tube TOPICAL 1 applic QAM JANEY Administration Dextrose 12.5 gm 11/07/23 07:14 Dextrose 50% 25 Gm/50 Ml Syringe IV PUSH PRN PRN Hypoglycemia Protocol Empagliflozin 25 mg 11/07/23 09:00 11/08/23 08:46 Empagliflozin 25 Mg Tablet BY MOUTH 25 mg QAM JANEY Administration Glucagon 1 mg 11/07/23 07:14 Glucagon For Inj 1 Mg Vial IM PRN PRN Hypoglycemia Protocol Glucose 15 gm 11/07/23 07:14 Glucose Oral Gel 15 Gm Of Glucse In 37.5 Gm Tube PO PRN PRN Hypoglycemia Protocol Heparin Sodium (Porcine) 5,000 units 11/07/23 21:00 11/08/23 08:46 Heparin Sodium 5,000 Units/Ml Vial SUB-Q 5,000 units Q12HR JANEY Administration Piperacillin/Tazobactam/Dextrose 3.375 gm in 50 mls @ 100 mls/hr 11/07/23 07:15 11/08/23 14:18 Zosyn 3.375 Gm/Ns 50 Ml IVPB 100 mls/hr Q6H JANEY Administration Dextrose 1,000 mls @ 100 mls/hr 11/07/23 07:14 Dextrose 5% 1,000 Ml IVPB PRN PRN Hypoglycemia Protocol Vancomycin HCl 1,500 mg in 500 mls @ 250 mls/hr 11/08/23 11:00 11/08/23 11:28 Vancomycin 1,500 Mg/Ns 500 Ml IVPB 250 mls/hr Q12H JANEY Administration Insulin Aspart 1 - 3 units 11/07/23 21:00 11/07/23 21:48 Insulin Aspart (*Bkc) 100 Units/Ml SUB-Q Not Given HS JANEY Protocol Insulin Aspart 3 - 6 units 11/07/23 08:00 11/08/23 12:58 Insulin Aspart (*Bkc) 100 Units/Ml SUB-Q 3 units TIDWM JANEY Administration Protocol Sitagliptin Phosphate 100 mg 11/07/23 09:00 11/08/23 08:46 Sitagliptin 100 Mg Tablet PO 100 mg QAM JANEY Administration Radiology Results: ITS Impressions Chest X-Ray 11/06/23 19:42 IMPRESSION: No acute cardiopulmonary process. Foot X-Ray 11/06/23 19:42 IMPRESSION: Osteomyelitis involving the distal aspect fifth metatarsal stump. Possible oblique fracture of the fifth metatarsal base. Labs Labs: Laboratory Results - last 24 hr 11/07/23 11/07/23 11/08/23 17:26 21:47 07:55 WBC RBC Hgb Hct MCV MCH MCHC RDW Plt Count MPV Immature Gran % (Auto) Neut % (Auto) Lymph % (Auto) [place] % (Auto) Eos % (Auto) Baso % (Auto) Lymph # (Auto) [place] # (Auto) Eos # (Auto) Baso # (Auto) Abs Immat Gran (auto) Absolute Neuts (auto) Absolute Nucleated RBC Nucleated RBC % Platelet Estimate Hypochromasia Anisocytosis Schistocytes Sodium Potassium Chloride Carbon Dioxide Anion Gap BUN Creatinine Estim Creat Clear Calc Estimated GFR Glucose POC Capillary Glucose 143 H 161 H 125 H Calcium Vancomycin Trough 11/08/23 11/08/23 08:59 12:48 WBC 12.0 H RBC 3.45 L Hgb 8.9 L Hct 30.0 L MCV 87.0 MCH 25.8 L MCHC 29.7 L RDW 15.2 H Plt Count 319 MPV 9.5 Immature Gran % (Auto) 0.7 H Neut % (Auto) 80.8 H Lymph % (Auto) 10.2 L [place] % (Auto) 6.7 Eos % (Auto) 1.3 Baso % (Auto) 0.3 Lymph # (Auto) 1.22 [place] # (Auto) 0.8 H Eos # (Auto) 0.2 Baso # (Auto) 0.0 Abs Immat Gran (auto) 0.08 H Absolute Neuts (auto) 9.7 H Absolute Nucleated RBC 0.000 Nucleated RBC % 0.0 Platelet Estimate Adequate Hypochromasia 1+ Anisocytosis 1+ Schistocytes None seen Sodium 135 L Potassium 3.6 Chloride 102 Carbon Dioxide 31 H Anion Gap 2 L BUN 13 Creatinine 0.70 Estim Creat Clear Calc 76 Estimated GFR > 60 Glucose 180 H POC Capillary Glucose 227 H Calcium 8.6 Vancomycin Trough 9.3 L Imaging Radiologist's impression: EXAM:? XR foot LT min 3V DATE: 11/06/2023 19:16 HISTORY: infected foot . COMPARISON:? None available. FINDINGS:? Severely decreased mineralization. Status post left distal fifth metatarsal indication. Osteopenia and focal erosion noted along the fifth metatarsal stump. Obliquely oriented lucency in the base of fifth metatarsal. Moderate scattered degenerative changes. Vascular calcification. Achilles enthesopathy. Forefoot soft tissue swelling. IMPRESSION: Osteomyelitis involving the distal aspect fifth metatarsal stump. Possible oblique fracture of the fifth metatarsal base. Reviewed, dictated and finalized at location [facility]. EXAMINATION:? XR chest 1V Exam Date/Time:? 11/06/2023 19:10 CDT HISTORY: weakness ? Comparison:? 11/05/2023. RESULT: Lines, tubes, and devices:? None. Lungs and pleura:? Clear. Cardiomediastinal silhouette:? Stable. Other:? No acute osseous or upper abdominal finding. ? IMPRESSION: No acute cardiopulmonary process. Reviewed, dictated and finalized at location [facility]. Quality VTE Prophylaxis VTE prophylaxis: pharmacologic ordered (switched to heparin in case of surgical procedure on Friday)
[2023-11-08] MEDS: CEFEPIME 2 GM/NS 50 ML 2 GM/50 ML BAG IVPB (16:23)
[2023-11-08] MEDS: metroNIDAZOLE 500 MG/ISO 100ML 500 MG/100 ML BAG 100 MG IVPB ×2 (17:06→22:18)
[2023-11-08 17:17] LABS: Glucose Point of Care 147 mg/dl (65-105)
[2023-11-08 20:02] VITALS: BP 142/73; PULSE 89; RESP 16; TEMP 37.6; O2SAT 98
[2023-11-08 21:10] LABS: Glucose Point of Care 167 mg/dl (65-105)
[2023-11-09] MEDS: CEFEPIME 2 GM/NS 50 ML 2 GM/50 ML BAG IVPB ×2 (03:55→15:21)
[2023-11-09] MEDS: metroNIDAZOLE 500 MG/ISO 100ML 500 MG/100 ML BAG 100 MG IVPB ×3 (05:00→21:29)
[2023-11-09 05:21] VITALS: BP 144/68; PULSE 84; RESP 18; TEMP 36.4; O2SAT 98
[2023-11-09 06:17] LABS: Hematocrit 30.8 % (37.0-47.0); Hemoglobin 9.1 g/dL (12.0-15.0); Mean Corpuscular HGB Conc 29.5 g/dl (32-36); Mean Corpuscular Hemoglobin 25.9 pg (26-34); Mean Corpuscular Volume 87.7 fl (80-100); Mean Platelet Volume 9.6 fl (7.4-10.4); Platelet Count Result 344 k/mm3 (150-375); Red Blood Count 3.51 M/mm3 (4.2-5.4); Red Cell Distribution Width 15.1 % (11.5-14.5); White Blood Count 12.2 K/mm3 (4.5-10.0)
[2023-11-09 06:23] LABS: Anion Gap 5 mmol/L (4-12); Blood Urea Nitrogen 9 mg/dL (7-17); Calcium 8.6 mg/dL (8.4-10.2); Carbon Dioxide 26 mmol/L (22-30); Chloride 104 mmol/L (98-107); Estimated CRCL calculation 87 ml/min; Estimated Glomerular Filt Rate > 60; Glucose 157 mg/dL (65-110); Potassium 3.2 mmol/L (3.4-5.0); Sodium 135 mmol/L (137-145)
[2023-11-09 08:40] LABS: Glucose Point of Care 148 mg/dl (65-105)
[2023-11-09] MEDS: POTASSIUM CHLORIDE 20 MEQ ER TABLET 40 MEQ PO (09:05)
[2023-11-09] MEDS: HEPARIN SODIUM 5,000 UNITS/ML VIAL 5000 UNITS SUB-Q ×2 (09:05→21:29)
[2023-11-09] MEDS: EMPAGLIFLOZIN 25 MG TABLET BY MOUTH (09:05)
[2023-11-09] MEDS: COLLAGENASE OINT 30 GM TUBE 1 APPLIC TOPICAL (09:06)
--- NOTE | 2023-11-09 11:28 | P.PNIM_ITS ---
Progress Note: A&P Assessment and Plan (1) Sepsis: Qualifiers: Sepsis type: sepsis due to unspecified organism Sepsis acute organ dysfunction status: without acute organ dysfunction Qualified Code(s): A41.9 - Sepsis, unspecified organism Code(s): A41.9 - Sepsis, unspecified organism Status: Acute Assessment and Plan: 11/08/2023 * Patient currently meeting sepsis criteria with temp of 101.3, heart rate of 107, white blood cell count 12.0, and known source of infection the left foot. * Blood culture showing no growth on preliminary read * Foot wound culture is pending * Patient was originally given Zosyn and vancomycin * Will switch to cefepime, vancomycin, and Flagyl for diabetic foot wound protocol * Left foot x-ray showing osteomyelitis involving the distal aspect of the 5th metatarsal, possible oblique fracture of the 5th metatarsal base. * General surgery was consulted * Patient had a bedside debridement of her wound with General surgery 11/08: General surgery to transition patient to oral antibiotics planned discharge tomorrow after wound care consult will follow-up in clinic for further surgical planning. (2) Osteomyelitis: Qualifiers: Osteomyelitis type: unspecified type Osteomyelitis location: foot Laterality: left Qualified Code(s): M86.9 - Osteomyelitis, unspecified Code(s): M86.9 - Osteomyelitis, unspecified Status: Acute Assessment and Plan: 11/08/2023 * The left foot x-ray showing osteomyelitis involving the distal aspect of the 5th metatarsal, possible oblique fracture of the 5th metatarsal base * General surgery consulted * Patient had a bedside debridement of her wound with General surgery * Blood culture showing no growth on preliminary read * Foot wound was cultured and is pending * Patient was given Zosyn and vancomycin initially and we will switch to cefepime vancomycin and Flagyl for diabetic foot wound protocol 11/08: General surgery to transition patient to oral antibiotics planned discharge tomorrow after wound care consult will follow-up in clinic for further surgical planning. (3) Complication of toe amputation stump: Code(s): T87.9 - Unspecified complications of amputation stump Status: Acute Assessment and Plan: 11/08/2023 * See above 11/08: General surgery to transition patient to oral antibiotics planned discharge tomorrow after wound care consult will follow-up in clinic for further surgical planning. 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 Qual ified Code(s): E11.65 - Type 2 diabetes mellitus with hyperglycemia Code(s): E11.65 - Type 2 diabetes mellitus with hyperglycemia Status: Chronic Assessment and Plan: 11/08/2023 * Blood sugars ranging 125-227 * Hemoglobin A1c on 07/24/2023 was 6.5 * Accu-Cheks AC and HS * Hypoglycemic protocol in place * Moderate does sliding scale insulin ordered * Continue Januvia and Jardiance in replacement of her Farxiga 11/08: Morning glucose 148 by fingerstick (5) Peripheral vascular disease: Onset Date: 05/2022 Code(s): I73.9 - Peripheral vascular disease, unspecified Status: Chronic Assessment and Plan: 11/08/2023 * Of note (6) Diabetic foot ulcer: Qualifiers: Diabetes mellitus type: other specified (including MARINA) Diabetic foot ulcer location: heel Laterality: left Code(s): E11.621 - Type 2 diabetes mellitus with foot ulcer; L97.509 - Non-pressure chronic ulcer of other part of unspecified foot with unspecified severity Status: Acute Assessment and Plan: 11/08/2023: * Patient has a diabetic foot ulcer on the lateral aspect of her right foot that looks dry with black eschar. Dr. Álvarez notified of this finding. 11/08: General surgery to transition patient to oral antibiotics planned discharge tomorrow after wound care consult will follow-up in clinic for further surgical planning. Wound Care to consult on bilateral foot wounds tomorrow. Time Spent With Patient Time with patient: 25 - 35 minutes Subjective Date/time seen: 11/09/23 11:28 Interval history: 11/07: This is a 57-year-old female who presented to hospital on 11/07/2023 with complaint of chills and weakness. On arrival to the ED of [facility] she was found to be afebrile with a temp of 100.1?. The dressing was removed from her left foot where she had a recent amputation of the left 5th digit due to dry gangrene and was noted to have per [place] drainage. Workup in the hospital included a chest x-ray which was negative for any acute cardiopulmonary disease. She also had a foot x-ray which showed osteomyelitis involving the distal aspect of the 5th metatarsal stump, possible oblique fracture of the 5th metatarsal base. She was given IV fluids, a dose of Lovenox, Zosyn, and vancomycin while in the ED. Initial labs show a white blood cell count of 12.0, hemoglobin 8.9, sodium 135. UA showed 3+ urine protein, 3+ urine glucose, 1+ urine ketones, 1+ urine blood, 3-5 urine RBCs. Blood cultures were obtained and are showing no growth on preliminary read. General surgery was consulted and patient was taken to the OR 2 day and she had an excisional debridement of skin, subcutaneous, and muscle on the left lateral foot wound. 11/07: On examination today patient is alert oriented x3, lying in the bed. Patient denies any fever, chills, nausea, vomiting, diarrhea, abdominal pain, chest pain, shortness a breath, headache. She does have some pain down in that left foot however it is well controlled at this time. Will continue with Vancomycin and will change Zosyn to Cefepime and then add Flagyl considering it is a diabetic foot wound. She also has a wound on the right lateral aspect of her right foot that appears dry with black eschar present. I talked to Dr. Álvarez about this wound make sure that he is aware that it is there. He said there is nothing to do for it at this time. He will be by to see her again in the morning. 11/08: Patient is awake, alert oriented, no current complaints except her bilateral foot wounds. RN stated that patient has been incontinent to urine. Dr. Álvarez saw patient and wants wound care to see patient tomorrow and he will place patient on oral antibiotics for office follow up with Dr. Johnson to plan further surgical intervention in the future for chronic osteomyelitis. Review of Systems Review of Systems: All systems reviewed & are unremarkable except as noted in HPI and below Exam Narrative: GENERAL: Well-appearing, well-nourished, and in no acute distress. HEAD: Normocephalic, atraumatic. ENT:? Mucous membranes moist. CHEST: Clear to auscultation.? No respiratory distress. HEART: Regular rate and rhythm. ? Normal peripheral pulses. ABDOMEN: Soft, nontender, nondistended. EXTREMITIES: Normal range of motion. No peripheral edema. Left foot wound had just been wrapped by surgery, right lateral foot wound with eschar and minimal surrounding erythema no purulence. Will have Santyl applied and dressing until wound care can see patient tomorrow. SKIN: Warm dry normal color NEURO: Alert and oriented x3. PSYCH: Normal mood and affect Objective Data Vital Signs Vital Signs: Vital Signs - 24 hr 11/08/23 14:00 11/08/23 20:02 11/09/23 05:21 Temperature 37.1 C 37.6 C H 36.4 C L Pulse Rate 68 89 84 Respiratory Rate 18 16 18 Blood Pressure 140/64 142/73 H 144/68 H Pulse Oximetry 97 98 98 Intake/Output Intake/Output: Intake & Output 11/06/23 11/07/23 11/08/23 11/09/23 23:59 23:59 23:59 23:59 Intake Total 1100 3790 3410 1090 Output Total 350 3600 350 Balance 1100 3440 -190 740 Meds/Results Medications: Active Medications Generic Name Dose Route Start Last Admin Trade Name Freq PRN Reason Stop Dose Admin Acetaminophen 650 mg 11/07/23 21:29 11/07/23 21:43 Acetaminophen 325 Mg Tablet PO 650 mg Q4H PRN Administration Mild Pain (1-3) or Fever Atorvastatin Calcium 40 mg 11/07/23 21:00 11/08/23 20:37 Atorvastatin 40 Mg Tablet PO Not Given QHS JANEY Collagenase 1 applic 11/07/23 15:00 11/09/23 09:06 Collagenase Oint 30 Gm Tube TOPICAL 1 applic QAM JANEY Administration Dextrose 12.5 gm 11/07/23 07:14 Dextrose 50% 25 Gm/50 Ml Syringe IV PUSH PRN PRN Hypoglycemia Protocol Empagliflozin 25 mg 11/07/23 09:00 11/09/23 09:05 Empagliflozin 25 Mg Tablet BY MOUTH 25 mg QAM JANEY Administration Glucagon 1 mg 11/07/23 07:14 Glucagon For Inj 1 Mg Vial IM PRN PRN Hypoglycemia Protocol Glucose 15 gm 11/07/23 07:14 Glucose Oral Gel 15 Gm Of Glucse In 37.5 Gm Tube PO PRN PRN Hypoglycemia Protocol Heparin Sodium (Porcine) 5,000 units 11/07/23 21:00 11/09/23 09:05 Heparin Sodium 5,000 Units/Ml Vial SUB-Q 5,000 units Q12HR JANEY Administration Dextrose 1,000 mls @ 100 mls/hr 11/07/23 07:14 Dextrose 5% 1,000 Ml IVPB PRN PRN Hypoglycemia Protocol Vancomycin HCl 1,500 mg in 500 mls @ 250 mls/hr 11/08/23 11:00 11/09/23 00:18 Vancomycin 1,500 Mg/Ns 500 Ml IVPB Infused Q12H JANEY Infusion Metronidazole 500 mg in 100 mls @ 100 mls/hr 11/08/23 16:00 11/09/23 06:00 Flagyl 500 Mg/Iso Soln 100 Ml IVPB Infused Q8HR JANEY Infusion Cefepime HCl 2 gm in 50 mls @ 100 mls/hr 11/08/23 15:00 11/09/23 04:25 Maxipime 2 Gm/Ns 50 Ml IVPB Infused Q12H JANEY Infusion Insulin Aspart 1 - 3 units 11/07/23 21:00 11/08/23 22:15 Insulin Aspart (*Bkc) 100 Units/Ml SUB-Q Not Given HS JANEY Protocol Insulin Aspart 3 - 6 units 11/07/23 08:00 11/09/23 08:56 Insulin Aspart (*Bkc) 100 Units/Ml SUB-Q Not Given TIDWM JANEY Protocol Sitagliptin Phosphate 100 mg 11/07/23 09:00 11/09/23 09:05 Sitagliptin 100 Mg Tablet PO 100 mg QAM JANEY Administration Radiology Results: ITS Impressions Chest X-Ray 11/06/23 19:42 IMPRESSION: No acute cardiopulmonary process. Foot X-Ray 11/06/23 19:42 IMPRESSION: Osteomyelitis involving the distal aspect fifth metatarsal stump. Possible oblique fracture of the fifth metatarsal base. Labs Labs: Laboratory Results - last 24 hr 11/08/23 11/08/23 11/08/23 12:48 17:13 20:42 WBC RBC Hgb Hct MCV MCH MCHC RDW Plt Count MPV Sodium Potassium Chloride Carbon Dioxide Anion Gap BUN Creatinine Estim Creat Clear Calc Estimated GFR Glucose POC Capillary Glucose 227 H 147 H 167 H Calcium 11/09/23 11/09/23 05:47 08:30 WBC 12.2 H RBC 3.51 L Hgb 9.1 L Hct 30.8 L MCV 87.7 MCH 25.9 L MCHC 29.5 L RDW 15.1 H Plt Count 344 MPV 9.6 Sodium 135 L Potassium 3.2 L Chloride 104 Carbon Dioxide 26 Anion Gap 5 L BUN 9 Creatinine 0.60 L Estim Creat Clear Calc 87 Estimated GFR > 60 Glucose 157 H POC Capillary Glucose 148 H Calcium 8.6 Pulse Oximetry SpO2 results: 98% on room air Quality VTE Prophylaxis VTE prophylaxis: pharmacologic ordered (switched to heparin in case of surgical procedure on Friday)
[2023-11-09] MEDS: VANCOMYCIN 1,500 MG/NS 500 ML 1,500 MG/500 ML BAG 250 MG IVPB (11:36)
[2023-11-09 11:47] LABS: Glucose Point of Care 159 mg/dl (65-105)
[2023-11-09 12:32] VITALS: O2SAT 100
[2023-11-09 14:00] VITALS: BP 151/67; PULSE 80; RESP 16; TEMP 36.6; O2SAT 98
--- NOTE | 2023-11-09 15:20 | P.PNGS_ITS ---
Progress Note: A&P Assessment and Plan (1) Open wound of left foot with complication: Qualifiers: Encounter type: subsequent encounter Qualified Code(s): S91.302D - Unspecified open wound, left foot, subsequent encounter Code(s): S91.302A - Unspecified open wound, left foot, initial encounter Status: Chronic Assessment and Plan: edema gone and swelling down. Wound looks much better after debridement yesterday. Talked about management osteomyelitis 5th MT and patient would prefer surgery rather than prolonged IV antibiotics. Recheck again tomorrow with wound nurses and hopefully discharge on oral antibiotics tomorrow. Dr. Johnson to continue to follow managing wound and possible osteomyelitis as outpatient. 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 (5) Type 2 diabetes mellitus: Onset Date: 05/17/22 Code(s): E11.9 - Type 2 diabetes mellitus without complications Status: Chronic Subjective Subjective Date/Time Seen: 11/09/23 15:20 Post Op day: 1 (debridement left 5th MT wound) Patient reports: no new complaints, no bowel movement and afebrile Exam Const: General: cooperative, comfortable, no acute distress, alert and awake Orientation/consciousness: patient oriented x3 and No confusion Extrem: Left lower extremity: foot (wound has reduced necrotic tissue at debridement sites, no purulence.) Details: no tenderness, no unusual warmth, no edema, no ecchymosis and no crepitus Objective Data Vital Signs Vital Signs: Vital Signs - 24 hr 11/08/23 20:02 11/09/23 05:21 11/09/23 12:32 Temperature 37.6 C H 36.4 C L Pulse Rate 89 84 Respiratory Rate 16 18 Blood Pressure 142/73 H 144/68 H Pulse Oximetry 98 98 100 Oxygen Delivery Room Air 11/09/23 09:05 11/09/23 14:00 Temperature 36.6 C Pulse Rate 80 Respiratory Rate 16 Blood Pressure 151/67 H Pulse Oximetry 98 Oxygen Delivery Room Air Intake/Output Intake/Output: Intake & Output 11/06/23 11/07/23 11/08/23 11/09/23 23:59 23:59 23:59 23:59 Intake Total 1100 3790 3410 1330 Output Total 350 3600 350 Balance 1100 3440 -190 980 Meds/Results Medications: Active Medications Generic Name Dose Route Start Last Admin Trade Name Freq PRN Reason Stop Dose Admin Acetaminophen 650 mg 11/07/23 21:29 11/07/23 21:43 Acetaminophen 325 Mg Tablet PO 650 mg Q4H PRN Administration Mild Pain (1-3) or Fever Atorvastatin Calcium 40 mg 11/07/23 21:00 11/08/23 20:37 Atorvastatin 40 Mg Tablet PO Not Given QHS JANEY Collagenase 1 applic 11/07/23 15:00 11/09/23 09:06 Collagenase Oint 30 Gm Tube TOPICAL 1 applic QAM JANEY Administration Dextrose 12.5 gm 11/07/23 07:14 Dextrose 50% 25 Gm/50 Ml Syringe IV PUSH PRN PRN Hypoglycemia Protocol Empagliflozin 25 mg 11/07/23 09:00 11/09/23 09:05 Empagliflozin 25 Mg Tablet BY MOUTH 25 mg QAM JANEY Administration Glucagon 1 mg 11/07/23 07:14 Glucagon For Inj 1 Mg Vial IM PRN PRN Hypoglycemia Protocol Glucose 15 gm 11/07/23 07:14 Glucose Oral Gel 15 Gm Of Glucse In 37.5 Gm Tube PO PRN PRN Hypoglycemia Protocol Heparin Sodium (Porcine) 5,000 units 11/07/23 21:00 11/09/23 09:05 Heparin Sodium 5,000 Units/Ml Vial SUB-Q 5,000 units Q12HR JANEY Administration Dextrose 1,000 mls @ 100 mls/hr 11/07/23 07:14 Dextrose 5% 1,000 Ml IVPB PRN PRN Hypoglycemia Protocol Vancomycin HCl 1,500 mg in 500 mls @ 250 mls/hr 11/08/23 11:00 11/09/23 11:36 Vancomycin 1,500 Mg/Ns 500 Ml IVPB 250 mls/hr Q12H JANEY Administration Metronidazole 500 mg in 100 mls @ 100 mls/hr 11/08/23 16:00 11/09/23 14:18 Flagyl 500 Mg/Iso Soln 100 Ml IVPB 100 mls/hr Q8HR JANEY Administration Cefepime HCl 2 gm in 50 mls @ 100 mls/hr 11/08/23 15:00 11/09/23 04:25 Maxipime 2 Gm/Ns 50 Ml IVPB Infused Q12H JANEY Infusion Insulin Aspart 1 - 3 units 11/07/23 21:00 11/08/23 22:15 Insulin Aspart (*Bkc) 100 Units/Ml SUB-Q Not Given HS JANEY Protocol Insulin Aspart 3 - 6 units 11/07/23 08:00 11/09/23 11:59 Insulin Aspart (*Bkc) 100 Units/Ml SUB-Q Not Given TIDWM [facility] Protocol Sitagliptin Phosphate 100 mg 11/07/23 09:00 11/09/23 09:05 Sitagliptin 100 Mg Tablet PO 100 mg QAM AJNEY Administration Radiology Results: ITS Impressions Chest X-Ray 11/06/23 19:42 IMPRESSION: No acute cardiopulmonary process. Foot X-Ray 11/06/23 19:42 IMPRESSION: Osteomyelitis involving the distal aspect fifth metatarsal stump. Possible oblique fracture of the fifth metatarsal base. Labs Labs: Laboratory Results - last 24 hr 11/08/23 11/08/23 11/09/23 17:13 20:42 05:47 WBC 12.2 H RBC 3.51 L Hgb 9.1 L Hct 30.8 L MCV 87.7 MCH 25.9 L MCHC 29.5 L RDW 15.1 H Plt Count 344 MPV 9.6 Sodium 135 L Potassium 3.2 L Chloride 104 Carbon Dioxide 26 Anion Gap 5 L BUN 9 Creatinine 0.60 L Estim Creat Clear Calc 87 Estimated GFR > 60 Glucose 157 H POC Capillary Glucose 147 H 167 H Calcium 8.6 11/09/23 11/09/23 08:30 11:42 WBC RBC Hgb Hct MCV MCH MCHC RDW Plt Count MPV Sodium Potassium Chloride Carbon Dioxide Anion Gap BUN Creatinine Estim Creat Clear Calc Estimated GFR Glucose POC Capillary Glucose 148 H 159 H Calcium
[2023-11-09 17:00] LABS: Glucose Point of Care 112 mg/dl (65-105)
[2023-11-09 20:58] VITALS: BP 155/65; PULSE 84; RESP 16; TEMP 36.6; O2SAT 97
[2023-11-09] MEDS: ATORVASTATIN 40 MG TABLET PO (21:29)
[2023-11-09 22:14] LABS: Glucose Point of Care 142 mg/dl (65-105)
[2023-11-09 23:28] LABS: Vancomycin Trough 14.4 ug/mL (10.0-20.0)
[2023-11-10] MEDS: VANCOMYCIN 1,750 MG/NS 500 ML 1,750 MG/500 ML BAG 250 MG IVPB ×2 (00:27→12:36)
[2023-11-10] MEDS: CEFEPIME 2 GM/NS 50 ML 2 GM/50 ML BAG IVPB ×2 (02:17→16:15)
[2023-11-10 03:53] VITALS: BP 145/61; PULSE 80; RESP 20; TEMP 36.4; O2SAT 96
[2023-11-10] MEDS: metroNIDAZOLE 500 MG/ISO 100ML 500 MG/100 ML BAG 100 MG IVPB ×3 (05:23→21:17)
[2023-11-10 06:17] LABS: Hematocrit 32.5 % (37.0-47.0); Hemoglobin 9.3 g/dL (12.0-15.0); Mean Corpuscular HGB Conc 28.6 g/dl (32-36); Mean Corpuscular Hemoglobin 26.1 pg (26-34); Mean Platelet Volume 10.1 fl (7.4-10.4); Platelet Count Result 387 k/mm3 (150-375); Red Blood Count 3.57 M/mm3 (4.2-5.4); Red Cell Distribution Width 15.3 % (11.5-14.5); White Blood Count 14.7 K/mm3 (4.5-10.0)
[2023-11-10 06:25] LABS: Anion Gap 8 mmol/L (4-12); Blood Urea Nitrogen 9 mg/dL (7-17); Carbon Dioxide 24 mmol/L (22-30); Chloride 104 mmol/L (98-107); Estimated CRCL calculation 87 ml/min; Estimated Glomerular Filt Rate > 60; Glucose 112 mg/dL (65-110); Potassium 3.8 mmol/L (3.4-5.0); Sodium 136 mmol/L (137-145)
[2023-11-10 08:00] VITALS: O2SAT 96
[2023-11-10 08:32] LABS: Glucose Point of Care 106 mg/dl (65-105)
[2023-11-10] MEDS: EMPAGLIFLOZIN 25 MG TABLET BY MOUTH (08:46)
[2023-11-10] MEDS: HEPARIN SODIUM 5,000 UNITS/ML VIAL 5000 UNITS SUB-Q ×2 (08:47→21:16)
--- NOTE | 2023-11-10 10:52 | PM.DS ---
DS: Summary Time Spent with Patient Time attestation: Total time spent providing and/or coordinating discharge services: DS: Data Data Completed and Pending Labs on day of discharge: Labs from last 24 hours 11/10/23 11/10/23 11/09/23 08:28 05:58 22:24 WBC 14.7 H RBC 3.57 L Hgb 9.3 L Hct 32.5 L MCV 91.0 MCH 26.1 MCHC 28.6 L RDW 15.3 H Plt Count 387 H MPV 10.1 Sodium 136 L Potassium 3.8 Chloride 104 Carbon Dioxide 24 Anion Gap 8 BUN 9 Creatinine 0.60 L Estim Creat Clear Calc 87 Estimated GFR > 60 Glucose 112 H POC Capillary Glucose 106 H Calcium 9.0 Vancomycin Trough 14.4 11/09/23 11/09/23 11/09/23 21:14 16:49 11:42 WBC RBC Hgb Hct MCV MCH MCHC RDW Plt Count MPV Sodium Potassium Chloride Carbon Dioxide Anion Gap BUN Creatinine Estim Creat Clear Calc Estimated GFR Glucose POC Capillary Glucose 142 H 112 H 159 H Calcium Vancomycin Trough Preliminary micro results at discharge 11/08/23 11:18 Anaerobic Culture - Preliminary Foot Left Aerobic Culture - Preliminary Staphylococcus aureus 11/06/23 21:04 Blood Culture - Preliminary Blood 11/06/23 21:04 Blood Culture - Preliminary Blood Discharge Plan Discharge Consulting providers: Grabiel Álvarez Patient Instructions: How to Stop Smoking (DC) Discharge Medications: No Action atorvastatin 40 mg tablet 40 mg PO QHS dapagliflozin propanediol [Farxiga] 10 mg tablet 10 mg PO QAM Januvia 100 mg tablet 100 mg PO QAM Date of admission: 11/06/23 23:19 Primary Care Provider: DesiShahnaz Admitting Provider: Maggie Simon Attending physician on admission: Maggie Simon
[2023-11-10] MEDS: ONDANSETRON HCL ODT 4 MG TABLET PO (12:18)
[2023-11-10] MEDS: COLLAGENASE OINT 30 GM TUBE 1 APPLIC TOPICAL (12:18)
[2023-11-10 12:22] LABS: Glucose Point of Care 126 mg/dl (65-105)
--- NOTE | 2023-11-10 12:34 | P.PNIM_ITS ---
Progress Note: A&P Assessment and Plan (1) Sepsis: Qualifiers: Sepsis type: sepsis due to unspecified organism Sepsis acute organ dysfunction status: without acute organ dysfunction Qualified Code(s): A41.9 - Sepsis, unspecified organism Code(s): A41.9 - Sepsis, unspecified organism Status: Acute Assessment and Plan: 11/08/2023 * Patient currently meeting sepsis criteria with temp of 101.3, heart rate of 107, white blood cell count 12.0, and known source of infection the left foot. * Blood culture showing no growth on preliminary read * Foot wound culture is pending * Patient was originally given Zosyn and vancomycin * Will switch to cefepime, vancomycin, and Flagyl for diabetic foot wound protocol * Left foot x-ray showing osteomyelitis involving the distal aspect of the 5th metatarsal, possible oblique fracture of the 5th metatarsal base. * General surgery was consulted * Patient had a bedside debridement of her wound with General surgery 11/08: General surgery to transition patient to oral antibiotics planned discharge tomorrow after wound care consult will follow-up in clinic for further surgical planning. 11/09: foot appears more erythematous white blood cell count has increased patient has developed diarrhea and nausea. Surgery is changing planned will keep inpatient and have Dr. Johnson evaluate tomorrow (2) Osteomyelitis: Qualifiers: Osteomyelitis type: unspecified type Osteomyelitis location: foot Laterality: left Qualified Code(s): M86.9 - Osteomyelitis, unspecified Code(s): M86.9 - Osteomyelitis, unspecified Status: Acute Assessment and Plan: 11/08/2023 * The left foot x-ray showing osteomyelitis involving the distal aspect of the 5th metatarsal, possible oblique fracture of the 5th metatarsal base * General surgery consulted * Patient had a bedside debridement of her wound with General surgery * Blood culture showing no growth on preliminary read * Foot wound was cultured and is pending * Patient was given Zosyn and vancomycin initially and we will switch to cefepime vancomycin and Flagyl for diabetic foot wound protocol 11/08: General surgery to transition patient to oral antibiotics planned discharge tomorrow after wound care consult will follow-up in clinic for further surgical planning. 11/09: foot appears more erythematous white blood cell count has increased patient has developed diarrhea and nausea. Surgery is changing planned will keep inpatient and have Dr. Johnson evaluate tomorrow (3) Complication of toe amputation stump: Code(s): T87.9 - Unspecified complications of amputation stump Status: Acute Assessment and Plan: 11/08/2023 * See above 11/08: General surgery to transition patient to oral antibiotics planned discharge tomorrow after wound care consult will follow-up in clinic for further surgical planning. 11/09: foot appears more erythematous white blood cell count has increased patient has developed diarrhea and nausea. Surgery is changing planned will keep inpatient and have Dr. Johnson evaluate tomorrow (4) Type 2 diabetes mellitus with hyperglycemia: Qualifiers: Diabetes mellitus residential insulin use: without toaster element repairer use Q ualified Code(s): E11.65 - Type 2 diabetes mellitus with hyperglycemia Code(s): E11.65 - Type 2 diabetes mellitus with hyperglycemia Status: Chronic Assessment and Plan: 11/08/2023 * Blood sugars ranging 125-227 * Hemoglobin A1c on 07/24/2023 was 6.5 * Accu-Cheks AC and HS * Hypoglycemic protocol in place * Moderate does sliding scale insulin ordered * Continue Januvia and Jardiance in replacement of her Yusufga 11/08: Morning glucose 148 by fingerstick 11/09: morning glucose 106 by fingerstick (5) Peripheral vascular disease: Onset Date: 05/2022 Code(s): I73.9 - Peripheral vascular disease, unspecified Status: Chronic Assessment and Plan: 11/08/2023 * Of note (6) Diabetic foot ulcer: Qualifiers: Diabetes mellitus type: other specified (including MARINA) Diabetic foot ulcer location: heel Laterality: left Code(s): E11.621 - Type 2 diabetes mellitus with foot ulcer; L97.509 - Non-pressure chronic ulcer of other part of unspecified foot with unspecified severity Status: Acute Assessment and Plan: 11/08/2023: * Patient has a diabetic foot ulcer on the lateral aspect of her right foot that looks dry with black eschar. Dr. Álvarez notified of this finding. 11/08: General surgery to transition patient to oral antibiotics planned discharge tomorrow after wound care consult will follow-up in clinic for further surgical planning. Wound Care to consult on bilateral foot wounds tomorrow. 11/09: foot appears more erythematous white blood cell count has increased patient has developed diarrhea and nausea. Surgery is changing planned will keep inpatient and have Dr. Johnson evaluate tomorrow Time Spent With Patient Time with patient: 25 - 35 minutes Subjective Date/time seen: 11/10/23 12:34 Interval history: Yesterday patient had requested something to help her have a bowel movement as she had been constipated for 6 days. Ordered magnesium citrate but does not appear this was ever given. Patient developed multiple bowel movements with diarrhea overnight. She notes a little nausea today. Initial plans were for surgery to discharge patient on oral antibiotics for follow-up planning further amputation however today when surgery evaluated patient her foot was more erythematous and her white blood cell count had increased. They are planning to keep patient admitted and Dr. Johnson will see her tomorrow to determine if she needs further amputation while admitted. Wound care is also to see patient today. Review of Systems Review of Systems: All systems reviewed & are unremarkable except as noted in HPI and below Exam Narrative: GENERAL: appears older than stated age, well-nourished, and in no acute distress. HEAD: Normocephalic, atraumatic. ENT:? Mucous membranes moist. CHEST: Clear to auscultation.? No respiratory distress. HEART: Regular rate and rhythm. ? Normal peripheral pulses. ABDOMEN: Soft, nontender, nondistended. EXTREMITIES: Normal range of motion. Left foot wound had just been wrapped by surgery, right lateral foot wound with eschar and minimal surrounding erythema no purulence. Will have Santyl applied and dressing until wound care can see patient. surgery reports that left foot is more erythematous and appears worse than previously SKIN: Warm dry normal color NEURO: Alert and oriented x3. PSYCH: Normal mood and affect Objective Data Vital Signs Vital Signs: Vital Signs - 24 hr 11/09/23 14:00 11/09/23 20:58 11/09/23 20:00 Temperature 36.6 C 36.6 C Pulse Rate 80 84 Respiratory Rate 16 16 Blood Pressure 151/67 H 155/65 H Pulse Oximetry 98 97 Oxygen Delivery Room Air 11/10/23 03:53 11/10/23 08:00 Temperature 36.4 C Pulse Rate 80 Respiratory Rate 20 Blood Pressure 145/61 H Pulse Oximetry 96 96 Oxygen Delivery Room Air Intake/Output Intake/Output: Intake & Output 11/07/23 11/08/23 11/09/23 11/10/23 23:59 23:59 23:59 23:59 Intake Total 3790 3410 2370 640 Output Total 350 3600 350 Balance 3440 -190 2020 640 Meds/Results Medications: Active Medications Generic Name Dose Route Start Last Admin Trade Name Freq PRN Reason Stop Dose Admin Acetaminophen 650 mg 11/07/23 21:29 11/07/23 21:43 Acetaminophen 325 Mg Tablet PO 650 mg Q4H PRN Administration Mild Pain (1-3) or Fever Atorvastatin Calcium 40 mg 11/07/23 21:00 11/09/23 21:29 Atorvastatin 40 Mg Tablet PO 40 mg QHS JANEY Administration Collagenase 1 applic 11/07/23 15:00 11/10/23 12:18 Collagenase Oint 30 Gm Tube TOPICAL 1 applic QAM JANEY Administration Dextrose 12.5 gm 11/07/23 07:14 Dextrose 50% 25 Gm/50 Ml Syringe IV PUSH PRN PRN Hypoglycemia Protocol Empagliflozin 25 mg 11/07/23 09:00 11/10/23 08:46 Empagliflozin 25 Mg Tablet BY MOUTH 25 mg QAM JANEY Administration Glucagon 1 mg 11/07/23 07:14 Glucagon For Inj 1 Mg Vial IM PRN PRN Hypoglycemia Protocol Glucose 15 gm 11/07/23 07:14 Glucose Oral Gel 15 Gm Of Glucse In 37.5 Gm Tube PO PRN PRN Hypoglycemia Protocol Heparin Sodium (Porcine) 5,000 units 11/07/23 21:00 11/10/23 08:47 Heparin Sodium 5,000 Units/Ml Vial SUB-Q 5,000 units Q12HR JANEY Administration Dextrose 1,000 mls @ 100 mls/hr 11/07/23 07:14 Dextrose 5% 1,000 Ml IVPB PRN PRN Hypoglycemia Protocol Metronidazole 500 mg in 100 mls @ 100 mls/hr 11/08/23 16:00 11/10/23 05:23 Flagyl 500 Mg/Iso Soln 100 Ml IVPB 100 mls/hr Q8HR JANEY Administration Cefepime HCl 2 gm in 50 mls @ 100 mls/hr 11/08/23 15:00 11/10/23 02:17 Maxipime 2 Gm/Ns 50 Ml IVPB 100 mls/hr Q12H JANEY Administration Vancomycin HCl 1,750 mg in 500 mls @ 250 mls/hr 11/10/23 00:00 11/10/23 00:27 Vancomycin 1,750 Mg/Ns 500 Ml IVPB 250 mls/hr Q12H JANEY Administration Insulin Aspart 1 - 3 units 11/07/23 21:00 11/09/23 21:17 Insulin Aspart (*Bkc) 100 Units/Ml SUB-Q Not Given HS [facility] Protocol Insulin Aspart 3 - 6 units 11/07/23 08:00 11/10/23 12:29 Insulin Aspart (*Bkc) 100 Units/Ml SUB-Q Not Given TIDWM [facility] Protocol Ondansetron HCl 4 mg 11/10/23 11:39 11/10/23 12:18 Ondansetron Hcl Odt 4 Mg Tablet PO 4 mg Q6H PRN Administration Nausea And Vomiting Sitagliptin Phosphate 100 mg 11/07/23 09:00 11/10/23 08:46 Sitagliptin 100 Mg Tablet PO 100 mg QAM [facility] Administration Radiology Results: ITS Impressions Chest X-Ray 11/06/23 19:42 IMPRESSION: No acute cardiopulmonary process. Foot X-Ray 11/06/23 19:42 IMPRESSION: Osteomyelitis involving the distal aspect fifth metatarsal stump. Possible oblique fracture of the fifth metatarsal base. Labs Labs: Laboratory Results - last 24 hr 11/09/23 11/09/23 11/09/23 16:49 21:14 22:24 WBC RBC Hgb Hct MCV MCH MCHC RDW Plt Count MPV Sodium Potassium Chloride Carbon Dioxide Anion Gap BUN Creatinine Estim Creat Clear Calc Estimated GFR Glucose POC Capillary Glucose 112 H 142 H Calcium Vancomycin Trough 14.4 11/10/23 11/10/23 11/10/23 05:58 08:28 12:20 WBC 14.7 H RBC 3.57 L Hgb 9.3 L Hct 32.5 L MCV 91.0 MCH 26.1 MCHC 28.6 L RDW 15.3 H Plt Count 387 H MPV 10.1 Sodium 136 L Potassium 3.8 Chloride 104 Carbon Dioxide 24 Anion Gap 8 BUN 9 Creatinine 0.60 L Estim Creat Clear Calc 87 Estimated GFR > 60 Glucose 112 H POC Capillary Glucose 106 H 126 H Calcium 9.0 Vancomycin Trough Pulse Oximetry SpO2 results: 96% on room air Attestation: I personally reviewed and interpreted this pulse oximetry as follows: Interpretation: no need for supplemental oxygenation at this time Quality VTE Prophylaxis VTE prophylaxis: pharmacologic ordered (switched to heparin in case of surgical procedure)
--- NOTE | 2023-11-10 13:13 | PM.PNGS ---
Progress Note: A&P Assessment and Plan (1) Open wound of left foot with complication: Qualifiers: Encounter type: subsequent encounter Qualified Code(s): S91.302D - Unspecified open wound, left foot, subsequent encounter Code(s): S91.302A - Unspecified open wound, left foot, initial encounter Status: Chronic Assessment and Plan: Left foot wound s/p excisional debridement on 11/07. Left foot x-rays showed osteomyelitis of the distal 5th metatarsal stump. Wound care consulted today and continued Santyl dressing changes. There is new erythema extending over the dorsal foot today. Will continue IV antibiotics for today and Dr. Johnson will evaluate the patient tomorrow to decide on surgical management of the osteomyelitis. Wound cx growing staph aureus, final sensitivities pending. 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 Álvarez. Subjective Subjective Date/Time Seen: 11/10/23 13:13 Post Op day: 2 (excisional debridement necrotic left foot wound) Patient reports: afebrile Interval history: This is a 57-year-old woman who was being followed as an outpatient by Dr. Johnson for a left foot wound status post left fifth toe amputation in July. She return to the ER with a necrotic left foot wound. Left foot x-rays showing evidence of osteomyelitis in the distal left fifth metatarsal stump. She was started on IV antibiotics. Wound cultures growing Staphylococcus aureus, final cultures pending. She underwent excisional debridement at the bedside by Dr. Álvarez 2 days ago. Chart reviewed. She is seen today with her at the bedside. Dressing removed and wound care saw the patient earlier this morning. They continued Santyl dressing changes. They noticed scant amount of purulence drainage at the proximal aspect of the wound that also probes to bone. Her reports erythema across the dorsal foot today that was not present prior to admission. No acute events overnight. Exam Const: General: comfortable and no acute distress Orientation/consciousness: patient oriented x3 Extrem: Right upper extremity: normal to inspection Left upper extremity: normal to inspection Right lower extremity: normal capillary refill and foot (Small dry eschar on the right lateral foot, no evident) Details: no edema; no tenderness and no unusual warmth; no edema Left lower extremity: foot Details: tenderness (tenderness at the proximal and distal areas of the wound), toes with normal ROM, warmth, edema Location: diffusely (edema of the lower leg and foot) Details: pitting, 2+ and 3+ and vascular exam Details: dorsalis pedis pulse present (palpable), posterior tibial pulse present (weaker, but found with doppler) and normal capillary refill Other: Left lateral foot wound at the area of the 5th toe amputation extending proximally down to the midfoot with the most proximal area of the wound having necrotic tissue and scant purulent drainage, erythema extending diffusely across the dorsal foot extending to the medial side of the foot. Objective Data Vital Signs Vital Signs: Vital Signs - 24 hr 11/09/23 14:00 11/09/23 20:58 11/09/23 20:00 Temperature 97.9 F 97.8 F Pulse Rate 80 84 Respiratory Rate 16 16 Blood Pressure 151/67 H 155/65 H Pulse Oximetry 98 97 Oxygen Delivery Room Air 11/10/23 03:53 11/10/23 08:00 Temperature 97.6 F Pulse Rate 80 Respiratory Rate 20 Blood Pressure 145/61 H Pulse Oximetry 96 96 Oxygen Delivery Room Air Intake/Output Intake/Output: Intake & Output 11/07/23 11/08/23 11/09/23 11/10/23 23:59 23:59 23:59 23:59 Intake Total 3790 3410 2370 1140 Output Total 350 3600 350 Balance 3440 -190 2020 1140 Meds/Results Medications: Active Medications Generic Name Dose Route Start Last Admin Trade Name Freq PRN Reason Stop Dose Admin Acetaminophen 650 mg 11/07/23 21:29 11/07/23 21:43 Acetaminophen 325 Mg Tablet PO 650 mg Q4H PRN Administration Mild Pain (1-3) or Fever Atorvastatin Calcium 40 mg 11/07/23 21:00 11/09/23 21:29 Atorvastatin 40 Mg Tablet PO 40 mg QHS JANEY Administration Collagenase 1 applic 11/07/23 15:00 11/10/23 12:18 Collagenase Oint 30 Gm Tube TOPICAL 1 applic QAM JANEY Administration Dextrose 12.5 gm 11/07/23 07:14 Dextrose 50% 25 Gm/50 Ml Syringe IV PUSH PRN PRN Hypoglycemia Protocol Empagliflozin 25 mg 11/07/23 09:00 11/10/23 08:46 Empagliflozin 25 Mg Tablet BY MOUTH 25 mg QAM JANEY Administration Glucagon 1 mg 11/07/23 07:14 Glucagon For Inj 1 Mg Vial IM PRN PRN Hypoglycemia Protocol Glucose 15 gm 11/07/23 07:14 Glucose Oral Gel 15 Gm Of Glucse In 37.5 Gm Tube PO PRN PRN Hypoglycemia Protocol Heparin Sodium (Porcine) 5,000 units 11/07/23 21:00 11/10/23 08:47 Heparin Sodium 5,000 Units/Ml Vial SUB-Q 5,000 units Q12HR JANEY Administration Dextrose 1,000 mls @ 100 mls/hr 11/07/23 07:14 Dextrose 5% 1,000 Ml IVPB PRN PRN Hypoglycemia Protocol Metronidazole 500 mg in 100 mls @ 100 mls/hr 11/08/23 16:00 11/10/23 05:23 Flagyl 500 Mg/Iso Soln 100 Ml IVPB 100 mls/hr Q8HR JANEY Administration Cefepime HCl 2 gm in 50 mls @ 100 mls/hr 11/08/23 15:00 11/10/23 02:17 Maxipime 2 Gm/Ns 50 Ml IVPB 100 mls/hr Q12H JANEY Administration Vancomycin HCl 1,750 mg in 500 mls @ 250 mls/hr 11/10/23 00:00 11/10/23 12:36 Vancomycin 1,750 Mg/Ns 500 Ml IVPB 250 mls/hr Q12H JANEY Administration Insulin Aspart 1 - 3 units 11/07/23 21:00 11/09/23 21:17 Insulin Aspart (*Bkc) 100 Units/Ml SUB-Q Not Given HS JANEY Protocol Insulin Aspart 3 - 6 units 11/07/23 08:00 11/10/23 12:29 Insulin Aspart (*Bkc) 100 Units/Ml SUB-Q Not Given TIDWM [facility] Protocol Ondansetron HCl 4 mg 11/10/23 11:39 11/10/23 12:18 Ondansetron Hcl Odt 4 Mg Tablet PO 4 mg Q6H PRN Administration Nausea And Vomiting Sitagliptin Phosphate 100 mg 11/07/23 09:00 11/10/23 08:46 Sitagliptin 100 Mg Tablet PO 100 mg QAM JANEY Administration Radiology Results: ITS Impressions Chest X-Ray 11/06/23 19:42 IMPRESSION: No acute cardiopulmonary process. Foot X-Ray 11/06/23 19:42 IMPRESSION: Osteomyelitis involving the distal aspect fifth metatarsal stump. Possible oblique fracture of the fifth metatarsal base. Labs Labs: Laboratory Results - last 24 hr 11/09/23 11/09/23 11/09/23 16:49 21:14 22:24 WBC RBC Hgb Hct MCV MCH MCHC RDW Plt Count MPV Sodium Potassium Chloride Carbon Dioxide Anion Gap BUN Creatinine Estim Creat Clear Calc Estimated GFR Glucose POC Capillary Glucose 112 H 142 H Calcium Vancomycin Trough 14.4 11/10/23 11/10/23 11/10/23 05:58 08:28 12:20 WBC 14.7 H RBC 3.57 L Hgb 9.3 L Hct 32.5 L MCV 91.0 MCH 26.1 MCHC 28.6 L RDW 15.3 H Plt Count 387 H MPV 10.1 Sodium 136 L Potassium 3.8 Chloride 104 Carbon Dioxide 24 Anion Gap 8 BUN 9 Creatinine 0.60 L Estim Creat Clear Calc 87 Estimated GFR > 60 Glucose 112 H POC Capillary Glucose 106 H 126 H Calcium 9.0 Vancomycin Trough
[2023-11-10 14:00] VITALS: BP 152/68; PULSE 80; RESP 18; TEMP 36.8; O2SAT 97
[2023-11-10 17:20] LABS: Glucose Point of Care 98 mg/dl (65-105)
[2023-11-10 20:06] VITALS: BP 147/50; PULSE 80; RESP 18; TEMP 36.6; O2SAT 98
[2023-11-10] MEDS: ATORVASTATIN 40 MG TABLET PO (21:16)
[2023-11-11 00:03] LABS: Glucose Point of Care 126 mg/dl (65-105)
[2023-11-11] MEDS: VANCOMYCIN 1,750 MG/NS 500 ML 1,750 MG/500 ML BAG 250 MG IVPB ×2 (00:25→13:43)
[2023-11-11] MEDS: CEFEPIME 2 GM/NS 50 ML 2 GM/50 ML BAG IVPB (02:12)
[2023-11-11 04:34] VITALS: BP 152/60; PULSE 82; RESP 18; TEMP 36.9; O2SAT 98
[2023-11-11] MEDS: metroNIDAZOLE 500 MG/ISO 100ML 500 MG/100 ML BAG 100 MG IVPB (04:50)
[2023-11-11 06:02] LABS: Hematocrit 30.5 % (37.0-47.0); Mean Corpuscular HGB Conc 29.5 g/dl (32-36); Mean Corpuscular Volume 88.2 fl (80-100); Mean Platelet Volume 9.1 fl (7.4-10.4); Platelet Count Result 410 k/mm3 (150-375); Red Blood Count 3.46 M/mm3 (4.2-5.4); Red Cell Distribution Width 15.2 % (11.5-14.5); White Blood Count 14.3 K/mm3 (4.5-10.0)
[2023-11-11 06:18] LABS: Anion Gap 7 mmol/L (4-12); Blood Urea Nitrogen 10 mg/dL (7-17); Carbon Dioxide 23 mmol/L (22-30); Chloride 105 mmol/L (98-107); Estimated CRCL calculation 102 ml/min; Estimated Glomerular Filt Rate > 60; Glucose 108 mg/dL (65-110); Potassium 3.5 mmol/L (3.4-5.0); Sodium 135 mmol/L (137-145)
[2023-11-11 06:19] LABS: Calcium 8.5 mg/dL (8.4-10.2)
[2023-11-11 08:30] LABS: Glucose Point of Care 93 mg/dl (65-105)
[2023-11-11] MEDS: EMPAGLIFLOZIN 25 MG TABLET BY MOUTH (09:03)
[2023-11-11] MEDS: HEPARIN SODIUM 5,000 UNITS/ML VIAL 5000 UNITS SUB-Q ×2 (09:04→21:07)
--- NOTE | 2023-11-11 11:25 | P.PNIM_ITS ---
Progress Note: A&P Assessment and Plan (1) Sepsis: Qualifiers: Sepsis type: sepsis due to unspecified organism Sepsis acute organ dysfunction status: without acute organ dysfunction Qualified Code(s): A41.9 - Sepsis, unspecified organism Code(s): A41.9 - Sepsis, unspecified organism Status: Acute Assessment and Plan: 11/08/2023 * Patient currently meeting sepsis criteria with temp of 101.3, heart rate of 107, white blood cell count 12.0, and known source of infection the left foot. * Blood culture showing no growth on preliminary read * Foot wound culture is pending * Patient was originally given Zosyn and vancomycin * Will switch to cefepime, vancomycin, and Flagyl for diabetic foot wound protocol * Left foot x-ray showing osteomyelitis involving the distal aspect of the 5th metatarsal, possible oblique fracture of the 5th metatarsal base. * General surgery was consulted * Patient had a bedside debridement of her wound with General surgery 11/08: General surgery to transition patient to oral antibiotics planned discharge tomorrow after wound care consult will follow-up in clinic for further surgical planning. 11/09: foot appears more erythematous white blood cell count has increased patient has developed diarrhea and nausea. Surgery is changing planned will keep inpatient and have Dr. Johnson evaluate tomorrow (2) Osteomyelitis: Qualifiers: Osteomyelitis type: unspecified type Osteomyelitis location: foot Laterality: left Qualified Code(s): M86.9 - Osteomyelitis, unspecified Code(s): M86.9 - Osteomyelitis, unspecified Status: Acute Assessment and Plan: 11/08/2023 * The left foot x-ray showing osteomyelitis involving the distal aspect of the 5th metatarsal, possible oblique fracture of the 5th metatarsal base * General surgery consulted * Patient had a bedside debridement of her wound with General surgery * Blood culture showing no growth on preliminary read * Foot wound was cultured and is pending * Patient was given Zosyn and vancomycin initially and we will switch to cefepime vancomycin and Flagyl for diabetic foot wound protocol 11/08: General surgery to transition patient to oral antibiotics planned discharge tomorrow after wound care consult will follow-up in clinic for further surgical planning. 11/09: foot appears more erythematous white blood cell count has increased patient has developed diarrhea and nausea. Surgery is changing planned will keep inpatient and have Dr. Johnson evaluate tomorrow (3) Complication of toe amputation stump: Code(s): T87.9 - Unspecified complications of amputation stump Status: Acute Assessment and Plan: 11/08/2023 * See above 11/08: General surgery to transition patient to oral antibiotics planned discharge tomorrow after wound care consult will follow-up in clinic for further surgical planning. 11/09: foot appears more erythematous white blood cell count has increased patient has developed diarrhea and nausea. Surgery is changing planned will keep inpatient and have Dr. Johnson evaluate tomorrow (4) Type 2 diabetes mellitus with hyperglycemia: Qualifiers: Diabetes mellitus jail insulin use: without oysterman use Qualified Code(s): E11.65 - Type 2 diabetes mellitus with hyperglycemia Code(s): E11.65 - Type 2 diabetes mellitus with hyperglycemia Status: Chronic Assessment and Plan: 11/08/2023 * Blood sugars ranging 125-227 * Hemoglobin A1c on 07/24/2023 was 6.5 * Accu-Cheks AC and HS * Hypoglycemic protocol in place * Moderate does sliding scale insulin ordered * Continue Januvia and Jardiance in replacement of her Farxiga 11/08: Morning glucose 148 by fingerstick 11/09: morning glucose 106 by fingerstick (5) Peripheral vascular disease: Onset Date: 05/2022 Code(s): I73.9 - Peripheral vascular disease, unspecified Status: Chronic Assessment and Plan: 11/08/2023 * Of note (6) Diabetic foot ulcer: Qualifiers: Diabetes mellitus type: other specified (including MARINA) Diabetic foot ulcer location: heel Laterality: left Code(s): E11.621 - Type 2 diabetes mellitus with foot ulcer; L97.509 - Non-pressure chronic ulcer of other part of unspecified foot with unspecified severity Status: Acute Assessment and Plan: 11/08/2023: * Patient has a diabetic foot ulcer on the lateral aspect of her right foot that looks dry with black eschar. Dr. Álvarez notified of this finding. 11/08: General surgery to transition patient to oral antibiotics planned discharge tomorrow after wound care consult will follow-up in clinic for further surgical planning. Wound Care to consult on bilateral foot wounds tomorrow. 11/09: foot appears more erythematous white blood cell count has increased patient has developed diarrhea and nausea. Surgery is changing planned will keep inpatient and have Dr. Johnson evaluate tomorrow Time Spent With Patient Time with patient: 25 - 35 minutes Subjective Date/time seen: 11/11/23 11:25 Interval history: White blood cell count remains elevated at 14.3. Patient reports that her abdomen feels better no more constipation or diarrhea. Vancomycin is at 18. Foot wounds still wrapped, surgery to see patient after clinic today for possible amputation. Patient denies new or worsening symptoms. Review of Systems Review of Systems: All systems reviewed & are unremarkable except as noted in HPI and below Exam Narrative: GENERAL: appears older than stated age, well-nourished, and in no acute distress. HEAD: Normocephalic, atraumatic. ENT:? Mucous membranes moist. CHEST: Clear to auscultation.? No respiratory distress. HEART: Regular rate and rhythm. ? Normal peripheral pulses. ABDOMEN: Soft, nontender, nondistended. EXTREMITIES: Normal range of motion. Foot wounds wrapped. SKIN: Warm dry normal color NEURO: Alert and oriented x3. PSYCH: Normal mood and affect Neck: Other: Supple, nontender Objective Data Vital Signs Vital Signs: Vital Signs - 24 hr 11/10/23 14:00 11/10/23 20:06 11/10/23 20:00 Temperature 36.8 C 36.6 C Pulse Rate 80 80 Respiratory Rate 18 18 Blood Pressure 152/68 H 147/50 H Pulse Oximetry 97 98 Oxygen Delivery Room Air 11/11/23 04:34 Temperature 36.9 C Pulse Rate 82 Respiratory Rate 18 Blood Pressure 152/60 H Pulse Oximetry 98 Oxygen Delivery Intake/Output Intake/Output: Intake & Output 11/08/23 11/09/23 11/10/23 11/11/23 23:59 23:59 23:59 23:59 Intake Total 3410 2370 2430 640 Output Total 3600 350 Balance -190 2020 2430 640 Meds/Results Medications: Active Medications Generic Name Dose Route Start Last Admin Trade Name Freq PRN Reason Stop Dose Admin Acetaminophen 650 mg 11/07/23 21:29 11/07/23 21:43 Acetaminophen 325 Mg Tablet PO 650 mg Q4H PRN Administration Mild Pain (1-3) or Fever Atorvastatin Calcium 40 mg 11/07/23 21:00 11/10/23 21:16 Atorvastatin 40 Mg Tablet PO 40 mg QHS JANEY Administration Collagenase 1 applic 11/07/23 15:00 11/10/23 12:18 Collagenase Oint 30 Gm Tube TOPICAL 1 applic QAM JANEY Administration Dextrose 12.5 gm 11/07/23 07:14 Dextrose 50% 25 Gm/50 Ml Syringe IV PUSH PRN PRN Hypoglycemia Protocol Empagliflozin 25 mg 11/07/23 09:00 11/11/23 09:03 Empagliflozin 25 Mg Tablet BY MOUTH 25 mg QAM JANEY Administration Glucagon 1 mg 11/07/23 07:14 Glucagon For Inj 1 Mg Vial IM PRN PRN Hypoglycemia Protocol Glucose 15 gm 11/07/23 07:14 Glucose Oral Gel 15 Gm Of Glucse In 37.5 Gm Tube PO PRN PRN Hypoglycemia Protocol Heparin Sodium (Porcine) 5,000 units 11/07/23 21:00 11/11/23 09:04 Heparin Sodium 5,000 Units/Ml Vial SUB-Q 5,000 units Q12HR JANEY Administration Dextrose 1,000 mls @ 100 mls/hr 11/07/23 07:14 Dextrose 5% 1,000 Ml IVPB PRN PRN Hypoglycemia Protocol Metronidazole 500 mg in 100 mls @ 100 mls/hr 11/08/23 16:00 11/11/23 04:50 Flagyl 500 Mg/Iso Soln 100 Ml IVPB 100 mls/hr Q8HR JANEY Administration Cefepime HCl 2 gm in 50 mls @ 100 mls/hr 11/08/23 15:00 11/11/23 02:12 Maxipime 2 Gm/Ns 50 Ml IVPB 100 mls/hr Q12H JANEY Administration Vancomycin HCl 1,750 mg in 500 mls @ 250 mls/hr 11/10/23 00:00 11/11/23 00:25 Vancomycin 1,750 Mg/Ns 500 Ml IVPB 250 mls/hr Q12H JANEY Administration Insulin Aspart 1 - 3 units 11/07/23 21:00 11/10/23 21:17 Insulin Aspart (*Bkc) 100 Units/Ml SUB-Q Not Given HS JANEY Protocol Insulin Aspart 3 - 6 units 11/07/23 08:00 11/11/23 09:02 Insulin Aspart (*Bkc) 100 Units/Ml SUB-Q Not Given TIDWM JANEY Protocol Ondansetron HCl 4 mg 11/10/23 11:39 11/10/23 12:18 Ondansetron Hcl Odt 4 Mg Tablet PO 4 mg Q6H PRN Administration Nausea And Vomiting Sitagliptin Phosphate 100 mg 11/07/23 09:00 11/11/23 09:03 Sitagliptin 100 Mg Tablet PO 100 mg QAM JANEY Administration Radiology Results: ITS Impressions Chest X-Ray 11/06/23 19:42 IMPRESSION: No acute cardiopulmonary process. Foot X-Ray 11/06/23 19:42 IMPRESSION: Osteomyelitis involving the distal aspect fifth metatarsal stump. Possible oblique fracture of the fifth metatarsal base. Labs Labs: Laboratory Results - last 24 hr 11/06/23 11/06/23 11/08/23 18:47 18:48 08:59 WBC 12.0 H RBC 3.45 L Hgb 8.9 L Hct 30.0 L MCV 87.0 MCH 25.8 L MCHC 29.7 L RDW 15.2 H Plt Count 319 MPV 9.5 Immature Gran % (Auto) 0.7 H Neut % (Auto) 80.8 H Lymph % (Auto) 10.2 L [place] % (Auto) 6.7 Eos % (Auto) 1.3 Baso % (Auto) 0.3 Lymph # (Auto) 1.22 [place] # (Auto) 0.8 H Eos # (Auto) 0.2 Baso # (Auto) 0.0 Abs Immat Gran (auto) 0.08 H Absolute Neuts (auto) 9.7 H Absolute Nucleated RBC 0.000 Nucleated RBC % 0.0 Platelet Estimate Adequate Hypochromasia 1+ Anisocytosis 1+ Schistocytes None seen Sodium 134 L Potassium 4.1 Chloride 99 Carbon Dioxide 26 Anion Gap 9 BUN 19 H Creatinine 0.70 Estim Creat Clear Calc 74 Estimated GFR > 60 Glucose 204 H POC Capillary Glucose Calcium 9.3 Total Bilirubin 0.8 AST 28 ALT 17 Alkaline Phosphatase 126 C-Reactive Protein 27.4 H Total Protein 8.0 Albumin 3.7 Influenza A (RT-PCR) Negative Influenza B (RT-PCR) Negative RSV (RT-PCR) Negative SARS-CoV-2 RNA (RT-PCR) Negative 11/10/23 11/10/23 11/10/23 12:20 17:14 20:10 WBC RBC Hgb Hct MCV MCH MCHC RDW Plt Count MPV Immature Gran % (Auto) Neut % (Auto) Lymph % (Auto) [place] % (Auto) Eos % (Auto) Baso % (Auto) Lymph # (Auto) [place] # (Auto) Eos # (Auto) Baso # (Auto) Abs Immat Gran (auto) Absolute Neuts (auto) Absolute Nucleated RBC Nucleated RBC % Platelet Estimate Hypochromasia Anisocytosis Schistocytes Sodium Potassium Chloride Carbon Dioxide Anion Gap BUN Creatinine Estim Creat Clear Calc Estimated GFR Glucose POC Capillary Glucose 126 H 98 126 H Calcium Total Bilirubin AST ALT Alkaline Phosphatase C-Reactive Protein Total Protein Albumin Influenza A (RT-PCR) Influenza B (RT-PCR) RSV (RT-PCR) SARS-CoV-2 RNA (RT-PCR) 11/11/23 11/11/23 05:42 08:27 WBC 14.3 H RBC 3.46 L Hgb 9.0 L Hct 30.5 L MCV 88.2 MCH 26.0 MCHC 29.5 L RDW 15.2 H Plt Count 410 H MPV 9.1 Immature Gran % (Auto) Neut % (Auto) Lymph % (Auto) [place] % (Auto) Eos % (Auto) Baso % (Auto) Lymph # (Auto) [place] # (Auto) Eos # (Auto) Baso # (Auto) Abs Immat Gran (auto) Absolute Neuts (auto) Absolute Nucleated RBC Nucleated RBC % Platelet Estimate Hypochromasia Anisocytosis Schistocytes Sodium 135 L Potassium 3.5 Chloride 105 Carbon Dioxide 23 Anion Gap 7 L BUN 10 Creatinine 0.50 L Estim Creat Clear Calc 102 Estimated GFR > 60 Glucose 108 POC Capillary Glucose 93 Calcium 8.5 Total Bilirubin AST ALT Alkaline Phosphatase C-Reactive Protein Total Protein Albumin Influenza A (RT-PCR) Influenza B (RT-PCR) RSV (RT-PCR) SARS-CoV-2 RNA (RT-PCR) Pulse Oximetry SpO2 results: 98% on room air Attestation: I personally reviewed and interpreted this pulse oximetry as follows: Interpretation: No need for supplemental oxygenation at this time. Quality VTE Prophylaxis VTE prophylaxis: pharmacologic ordered (switched to heparin in case of surgical procedure)
[2023-11-11 12:06] LABS: Glucose Point of Care 171 mg/dl (65-105)
[2023-11-11 14:00] VITALS: BP 152/66; PULSE 78; RESP 18; TEMP 36.8; O2SAT 98
--- NOTE | 2023-11-11 14:59 | PM.PNGS ---
Progress Note: A&P Assessment and Plan (1) Open wound of left foot with complication: Qualifiers: Encounter type: subsequent encounter Qualified Code(s): S91.302D - Unspecified open wound, left foot, subsequent encounter Code(s): S91.302A - Unspecified open wound, left foot, initial encounter Status: Chronic Assessment and Plan: Left foot wound s/p excisional debridement on 11/07. Left foot x-rays showed osteomyelitis of the distal 5th metatarsal stump. JAVON's showed mildly decreased ABIs improved from 2021. Left JAVON is 0.91. Some concern that this could be falsely elevated since she does not have good palpable distal pulses. Will order a CTA of the left lower extremity to further evaluate her arterial flow. She does have a history of a left lower extremity stent that was done at [facility] years ago. If there are any concerning areas of stenosis on the CTA, then she may need vascular surgery referral to evaluate for any intervention to improve arterial flow and give her the best opportunity for wound healing. If the CTA is essentially negative, then we will may consider further surgical debridement in the next few days. Continue IV antibiotics. Wound cultures growing MSSA and bacteroides. Discussed with ID pharmacist, who recommends de-escalating to IV Ancef and metronidazole oral. 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 (5) Type 2 diabetes mellitus: Onset Date: 05/17/22 Code(s): E11.9 - Type 2 diabetes mellitus without complications Status: Chronic Plan I have discussed the patient's case and plan of care with Dr. Johnson. Subjective Subjective Date/Time Seen: 11/11/23 14:59 Post Op day: 3 (Excisional debridement skin, subcutaneous, and muscle left lateral foot wound) Patient reports: no new complaints and afebrile Interval history: Patient feels the redness on her foot has improved some. She is having diarrhea and upset stomach that she attributes to the IV antibiotics. She reports 4-5 diarrheal bowel movements daily. Exam Extrem: Right lower extremity: foot (Small dry eschar on the right lateral foot, no evident) Details: no edema; no tenderness and no unusual warmth; no edema Left lower extremity: foot Details: tenderness (tenderness at the distal necrotic area of the wound), toes with normal ROM, warmth, edema Location: diffusely (edema of the lower leg and foot) Details: pitting, 2+ and 3+ and vascular exam Details: dorsalis pedis pulse present (very weak but palpable), posterior tibial pulse present (unable to palpate) and normal capillary refill Other: Left lateral foot wound at the area of the 5th toe amputation extending proximally down to the midfoot with the most proximal area of the wound having necrotic tissue and scant purulent drainage, erythema slightly better today and more localized just proximal to the wound. Objective Data Vital Signs Vital Signs: Vital Signs - 24 hr 11/10/23 20:06 11/10/23 20:00 11/11/23 04:34 Temperature 97.8 F 98.5 F Pulse Rate 80 82 Respiratory Rate 18 18 Blood Pressure 147/50 H 152/60 H Pulse Oximetry 98 98 Oxygen Delivery Room Air Intake/Output Intake/Output: Intake & Output 11/08/23 11/09/23 11/10/23 11/11/23 23:59 23:59 23:59 23:59 Intake Total 3410 2370 2430 880 Output Total 3600 350 Balance -190 2020 2430 880 Meds/Results Medications: Active Medications Generic Name Dose Route Start Last Admin Trade Name Freq PRN Reason Stop Dose Admin Acetaminophen 650 mg 11/07/23 21:29 11/07/23 21:43 Acetaminophen 325 Mg Tablet PO 650 mg Q4H PRN Administration Mild Pain (1-3) or Fever Atorvastatin Calcium 40 mg 11/07/23 21:00 11/10/23 21:16 Atorvastatin 40 Mg Tablet PO 40 mg QHS JANEY Administration Collagenase 1 applic 11/07/23 15:00 11/10/23 12:18 Collagenase Oint 30 Gm Tube TOPICAL 1 applic QAM JANEY Administration Dextrose 12.5 gm 11/07/23 07:14 Dextrose 50% 25 Gm/50 Ml Syringe IV PUSH PRN PRN Hypoglycemia Protocol Empagliflozin 25 mg 11/07/23 09:00 11/11/23 09:03 Empagliflozin 25 Mg Tablet BY MOUTH 25 mg QAM JANEY Administration Glucagon 1 mg 11/07/23 07:14 Glucagon For Inj 1 Mg Vial IM PRN PRN Hypoglycemia Protocol Glucose 15 gm 11/07/23 07:14 Glucose Oral Gel 15 Gm Of Glucse In 37.5 Gm Tube PO PRN PRN Hypoglycemia Protocol Heparin Sodium (Porcine) 5,000 units 11/07/23 21:00 11/11/23 09:04 Heparin Sodium 5,000 Units/Ml Vial SUB-Q 5,000 units Q12HR JANEY Administration Dextrose 1,000 mls @ 100 mls/hr 11/07/23 07:14 Dextrose 5% 1,000 Ml IVPB PRN PRN Hypoglycemia Protocol Metronidazole 500 mg in 100 mls @ 100 mls/hr 11/08/23 16:00 11/11/23 04:50 Flagyl 500 Mg/Iso Soln 100 Ml IVPB 100 mls/hr Q8HR JANEY Administration Cefepime HCl 2 gm in 50 mls @ 100 mls/hr 11/08/23 15:00 11/11/23 02:12 Maxipime 2 Gm/Ns 50 Ml IVPB 100 mls/hr Q12H JANEY Administration Vancomycin HCl 1,750 mg in 500 mls @ 250 mls/hr 11/11/23 13:00 11/11/23 13:43 Vancomycin 1,750 Mg/Ns 500 Ml IVPB 250 mls/hr Q12H JANEY Administration Insulin Aspart 1 - 3 units 11/07/23 21:00 11/10/23 21:17 Insulin Aspart (*Bkc) 100 Units/Ml SUB-Q Not Given HS JANEY Protocol Insulin Aspart 3 - 6 units 11/07/23 08:00 11/11/23 12:21 Insulin Aspart (*Bkc) 100 Units/Ml SUB-Q Not Given TIDWM [facility] Protocol Ondansetron HCl 4 mg 11/10/23 11:39 11/10/23 12:18 Ondansetron Hcl Odt 4 Mg Tablet PO 4 mg Q6H PRN Administration Nausea And Vomiting Sitagliptin Phosphate 100 mg 11/07/23 09:00 11/11/23 09:03 Sitagliptin 100 Mg Tablet PO 100 mg QAM JANEY Administration Radiology Results: ITS Impressions Chest X-Ray 11/06/23 19:42 IMPRESSION: No acute cardiopulmonary process. Foot X-Ray 11/06/23 19:42 IMPRESSION: Osteomyelitis involving the distal aspect fifth metatarsal stump. Possible oblique fracture of the fifth metatarsal base. Ankle Brachial Index 11/11/23 14:19 IMPRESSION: 1. Mildly decreased ABIs, improved from 05/18/2022, consistent with arterial occlusive disease. Labs Labs: Laboratory Results - last 24 hr 11/06/23 11/06/23 11/08/23 18:47 18:48 08:59 WBC 12.0 H RBC 3.45 L Hgb 8.9 L Hct 30.0 L MCV 87.0 MCH 25.8 L MCHC 29.7 L RDW 15.2 H Plt Count 319 MPV 9.5 Immature Gran % (Auto) 0.7 H Neut % (Auto) 80.8 H Lymph % (Auto) 10.2 L [place] % (Auto) 6.7 Eos % (Auto) 1.3 Baso % (Auto) 0.3 Lymph # (Auto) 1.22 [place] # (Auto) 0.8 H Eos # (Auto) 0.2 Baso # (Auto) 0.0 Abs Immat Gran (auto) 0.08 H Absolute Neuts (auto) 9.7 H Absolute Nucleated RBC 0.000 Nucleated RBC % 0.0 Platelet Estimate Adequate Hypochromasia 1+ Anisocytosis 1+ Schistocytes None seen Sodium 134 L Potassium 4.1 Chloride 99 Carbon Dioxide 26 Anion Gap 9 BUN 19 H Creatinine 0.70 Estim Creat Clear Calc 74 Estimated GFR > 60 Glucose 204 H POC Capillary Glucose Calcium 9.3 Total Bilirubin 0.8 AST 28 ALT 17 Alkaline Phosphatase 126 C-Reactive Protein 27.4 H Total Protein 8.0 Albumin 3.7 Vancomycin Trough Influenza A (RT-PCR) Negative Influenza B (RT-PCR) Negative RSV (RT-PCR) Negative SARS-CoV-2 RNA (RT-PCR) Negative 11/10/23 11/10/23 11/11/23 17:14 20:10 05:42 WBC 14.3 H RBC 3.46 L Hgb 9.0 L Hct 30.5 L MCV 88.2 MCH 26.0 MCHC 29.5 L RDW 15.2 H Plt Count 410 H MPV 9.1 Immature Gran % (Auto) Neut % (Auto) Lymph % (Auto) [place] % (Auto) Eos % (Auto) Baso % (Auto) Lymph # (Auto) [place] # (Auto) Eos # (Auto) Baso # (Auto) Abs Immat Gran (auto) Absolute Neuts (auto) Absolute Nucleated RBC Nucleated RBC % Platelet Estimate Hypochromasia Anisocytosis Schistocytes Sodium 135 L Potassium 3.5 Chloride 105 Carbon Dioxide 23 Anion Gap 7 L BUN 10 Creatinine 0.50 L Estim Creat Clear Calc 102 Estimated GFR > 60 Glucose 108 POC Capillary Glucose 98 126 H Calcium 8.5 Total Bilirubin AST ALT Alkaline Phosphatase C-Reactive Protein Total Protein Albumin Vancomycin Trough Influenza A (RT-PCR) Influenza B (RT-PCR) RSV (RT-PCR) SARS-CoV-2 RNA (RT-PCR) 11/11/23 11/11/23 11/11/23 08:27 10:55 11:59 WBC RBC Hgb Hct MCV MCH MCHC RDW Plt Count MPV Immature Gran % (Auto) Neut % (Auto) Lymph % (Auto) [place] % (Auto) Eos % (Auto) Baso % (Auto) Lymph # (Auto) [place] # (Auto) Eos # (Auto) Baso # (Auto) Abs Immat Gran (auto) Absolute Neuts (auto) Absolute Nucleated RBC Nucleated RBC % Platelet Estimate Hypochromasia Anisocytosis Schistocytes Sodium Potassium Chloride Carbon Dioxide Anion Gap BUN Creatinine Estim Creat Clear Calc Estimated GFR Glucose POC Capillary Glucose 93 171 H Calcium Total Bilirubin AST ALT Alkaline Phosphatase C-Reactive Protein Total Protein Albumin Vancomycin Trough 18.0 Influenza A (RT-PCR) Influenza B (RT-PCR) RSV (RT-PCR) SARS-CoV-2 RNA (RT-PCR)
[2023-11-11] MEDS: ceFAZolin 2 GM/D5W 50 ML 2 GM/50 ML BAG IVPB ×2 (17:39→21:07)
[2023-11-11] MEDS: metroNIDAZOLE 500 MG TABLET PO ×2 (17:40→21:07)
[2023-11-11] MEDS: COLLAGENASE OINT 30 GM TUBE 1 APPLIC TOPICAL (17:40)
[2023-11-11 17:43] LABS: Glucose Point of Care 125 mg/dl (65-105)
[2023-11-11] MEDS: ATORVASTATIN 40 MG TABLET PO (21:07)
[2023-11-11 21:13] LABS: Glucose Point of Care 152 mg/dl (65-105)
[2023-11-11 21:26] VITALS: BP 124/51; PULSE 84; RESP 16; TEMP 37.1; O2SAT 95
[2023-11-12] VITALS (9 sets, daily range): BP systolic 105–159; BP diastolic 47–73; PULSE 70–98; RESP 12–20; TEMP 36.3–37.7; O2SAT 96–100
[2023-11-12] MEDS: metroNIDAZOLE 500 MG TABLET PO ×3 (05:52→22:16)
[2023-11-12] MEDS: ceFAZolin 2 GM/D5W 50 ML 2 GM/50 ML BAG IVPB (05:52)
[2023-11-12 08:23] LABS: Glucose Point of Care 135 mg/dl (65-105)
--- NOTE | 2023-11-12 09:25 | P.PNIM_ITS ---
Progress Note: A&P Assessment and Plan (1) Sepsis: Qualifiers: Sepsis acute organ dysfunction status: without acute organ dysfunction Sepsis type: sepsis due to unspecified organism Qualified Code(s): A41.9 - S epsis, unspecified organism Code(s): A41.9 - Sepsis, unspecified organism Status: Acute Assessment and Plan: 11/08/2023 * Patient currently meeting sepsis criteria with temp of 101.3, heart rate of 107, white blood cell count 12.0, and known source of infection the left foot. * Blood culture showing no growth on preliminary read * Foot wound culture is pending * Patient was originally given Zosyn and vancomycin * Will switch to cefepime, vancomycin, and Flagyl for diabetic foot wound protocol * Left foot x-ray showing osteomyelitis involving the distal aspect of the 5th metatarsal, possible oblique fracture of the 5th metatarsal base. * General surgery was consulted * Patient had a bedside debridement of her wound with General surgery 11/08: General surgery to transition patient to oral antibiotics planned discharge tomorrow after wound care consult will follow-up in clinic for further surgical planning. 11/09: foot appears more erythematous white blood cell count has increased patient has developed diarrhea and nausea. Surgery is changing planned will keep inpatient and have Dr. Johnson evaluate tomorrow 11/11: Going to surgery for debridement vs amputation? CTA lower extremities shows severe atherosclerotic disease in the left lower extremity with multifocal severe stenosis. Patent distal SFA/proximal popliteal stent. 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 (2) Osteomyelitis: Qualifiers: Laterality: left Osteomyelitis location: foot Osteomyelitis type: unspecified type Qualified Code(s): M86.9 - Osteomyelitis, unspecified Code(s): M86.9 - Osteomyelitis, unspecified Status: Acute Assessment and Plan: 11/08/2023 * The left foot x-ray showing osteomyelitis involving the distal aspect of the 5th metatarsal, possible oblique fracture of the 5th metatarsal base * General surgery consulted * Patient had a bedside debridement of her wound with General surgery * Blood culture showing no growth on preliminary read * Foot wound was cultured and is pending * Patient was given Zosyn and vancomycin initially and we will switch to cefepime vancomycin and Flagyl for diabetic foot wound protocol 11/08: General surgery to transition patient to oral antibiotics planned discharge tomorrow after wound care consult will follow-up in clinic for further surgical planning. 11/09: foot appears more erythematous white blood cell count has increased patient has developed diarrhea and nausea. Surgery is changing planned will keep inpatient and have Dr. Johnson evaluate tomorrow 11/11: See #1 (3) Complication of toe amputation stump: Code(s): T87.9 - Unspecified complications of amputation stump Status: Acute Assessment and Plan: 11/08/2023 * See above 11/08: General surgery to transition patient to oral antibiotics planned dischar ge tomorrow after wound care consult will follow-up in clinic for further surgical planning. 11/09: foot appears more erythematous white blood cell count has increased patient has developed diarrhea and nausea. Surgery is changing planned will keep inpatient and have Dr. Johnson evaluate tomorrow (4) Type 2 diabetes mellitus with hyperglycemia: Qualifiers: Diabetes mellitus half-way insulin use: without half-way use Qualified Code(s): E11.65 - Type 2 diabetes mellitus with hyperglycemia Code(s): E11.65 - Type 2 diabetes mellitus with hyperglycemia Status: Chronic Assessment and Plan: 11/08/2023 * Blood sugars ranging 125-227 * Hemoglobin A1c on 07/24/2023 was 6.5 * Accu-Cheks AC and HS * Hypoglycemic protocol in place * Moderate does sliding scale insulin ordered * Continue Januvia and Jardiance in replacement of her Farxiga 11/08: Morning glucose 148 by fingerstick 11/09: morning glucose 106 by fingerstick 11/11: BG stable 87-152 (5) Peripheral vascular disease: Onset Date: 05/2022 Code(s): I73.9 - Peripheral vascular disease, unspecified Status: Chronic Assessment and Plan: 11/08/2023 * Of note (6) Diabetic foot ulcer: Qualifiers: Diabetes mellitus type: other specified (including MARINA) Diabetic foot ulcer location: heel Laterality: left Code(s): E11.621 - Type 2 diabetes mellitus with foot ulcer; L97.509 - Non-pressure chronic ulcer of other part of unspecified foot with unspecified severity Status: Acute Assessment and Plan: 11/08/2023: * Patient has a diabetic foot ulcer on the lateral aspect of her right foot that looks dry with black eschar. Dr. Álvarez notified of this finding. 11/08: General surgery to transition patient to oral antibiotics planned discharge tomorrow after wound care consult will follow-up in clinic for further surgical planning. Wound Care to consult on bilateral foot wounds tomorrow. 11/09: foot appears more erythematous white blood cell count has increased patient has developed diarrhea and nausea. Surgery is changing planned will keep inpatient and have Dr. Johnson evaluate tomorrow 11/11: see # 1 and 2 Subjective Date/time seen: 11/12/23 09:25 Interval history: HPI obtained from the chart, 57-year-old female with past medical history of diabetic peripheral neuropathy, peripheral vascular disease, 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 And 1 day of chills. the patient had initially came to the ER the night before and was given fluids and discharged home after antiemetics.? She returns this evening because of chills worsening fatigue and nausea.? Interval history: 11/11: Patient is seen resting in bed with at bedside. She is in no acute distress. She is waiting to go to surgery. No questions or concerns at this time. She is hungry and thirsty. Review of Systems Review of Systems: All systems reviewed & are unremarkable except as noted in HPI and below Exam Narrative: General: well appearing, well developed, well nourished, appears older than stated age HEENT: normocephalic, atraumatic. Mucous membranes moist. EOMI, PERRLA, bilateral sclera anicteric, no conjunctival injection. Neck supple without JVD, lymphadenopathy, or bruit. Respiratory: clear to auscultation bilaterally. No rales/rhonic/wheezes. Cardiovascular: Regular rate and rhythm, normal S1-S2 upon auscultation. No murmurs, rubs, or clicks. PMI is nondisplaced, capillary re-fill less than 3 second. Abdomen: Soft, flat, no pulsatile masses, non-distended and non-tender. No rebound, no guarding. No CVA tenderness, no hepatosplenomegaly. Bowel sounds present to all four quadrants. No high pitch or tinkling sounds, resonant to percussion. Extremities: No cyanosis, clubbing, or edema present. Pulses are palpable 2/2. Active ROM to all four extremities. Lower extremity wound is wrapped with kerlix gauze. Neuro: Alert and orientated x 4. PERRLA. Cranial nerves 2-12 intact without focal deficit. Skin: Warm, dry, and intact, without rash, erythema, or lesion. Lines: Incisions: Psych: pleasant, cooperative, normal speech, normal affect, no hallucinations, no dysarthria Objective Data Vital Signs Vital Signs: Vital Signs - 24 hr 11/11/23 14:00 11/11/23 20:00 11/11/23 21:26 Temperature 98.2 F 98.8 F Pulse Rate 78 84 Respiratory Rate 18 16 Blood Pressure 152/66 H 124/51 L Pulse Oximetry 98 95 Oxygen Delivery Room Air 11/12/23 06:00 Temperature 97.8 F Pulse Rate 98 Respiratory Rate 16 Blood Pressure 152/63 H Pulse Oximetry 100 Oxygen Delivery Intake/Output Intake/Output: Intake & Output 11/09/23 11/10/23 11/11/23 11/12/23 23:59 23:59 23:59 23:59 Intake Total 2370 2430 2320 500 Output Total 350 Balance 2020 2430 2320 500 Meds/Results Medications: Active Medications Generic Name Dose Route Start Last Admin Trade Name Freq PRN Reason Stop Dose Admin Acetaminophen 650 mg 11/07/23 21:29 11/07/23 21:43 Acetaminophen 325 Mg Tablet PO 650 mg Q4H PRN Administration Mild Pain (1-3) or Fever Atorvastatin Calcium 40 mg 11/07/23 21:00 11/11/23 21:07 Atorvastatin 40 Mg Tablet PO 40 mg QHS JANEY Administration Collagenase 1 applic 11/07/23 15:00 11/11/23 17:40 Collagenase Oint 30 Gm Tube TOPICAL 1 applic QAM JANEY Administration Dextrose 12.5 gm 11/07/23 07:14 Dextrose 50% 25 Gm/50 Ml Syringe IV PUSH PRN PRN Hypoglycemia Protocol Empagliflozin 25 mg 11/07/23 09:00 11/11/23 09:03 Empagliflozin 25 Mg Tablet BY MOUTH 25 mg QAM JANEY Administration Glucagon 1 mg 11/07/23 07:14 Glucagon For Inj 1 Mg Vial IM PRN PRN Hypoglycemia Protocol Glucose 15 gm 11/07/23 07:14 Glucose Oral Gel 15 Gm Of Glucse In 37.5 Gm Tube PO PRN PRN Hypoglycemia Protocol Heparin Sodium (Porcine) 5,000 units 11/07/23 21:00 11/11/23 21:07 Heparin Sodium 5,000 Units/Ml Vial SUB-Q 5,000 units Q12HR JANEY Administration Dextrose 1,000 mls @ 100 mls/hr 11/07/23 07:14 Dextrose 5% 1,000 Ml IVPB PRN PRN Hypoglycemia Protocol Cefazolin Sodium 2 gm in 50 mls @ 100 mls/hr 11/11/23 16:00 11/12/23 05:52 Ancef 2 Gm/D5w 50 Ml IVPB 100 mls/hr Q8HR JANEY Administration Insulin Aspart 1 - 3 units 11/07/23 21:00 11/11/23 21:07 Insulin Aspart (*Bkc) 100 Units/Ml SUB-Q Not Given HS JANEY Protocol Insulin Aspart 3 - 6 units 11/07/23 08:00 11/12/23 08:23 Insulin Aspart (*Bkc) 100 Units/Ml SUB-Q Not Given TIDWM JANEY Protocol Metronidazole 500 mg 11/11/23 16:00 11/12/23 05:52 Metronidazole 500 Mg Tablet PO 500 mg Q8HR JANEY Administration Ondansetron HCl 4 mg 11/10/23 11:39 11/10/23 12:18 Ondansetron Hcl Odt 4 Mg Tablet PO 4 mg Q6H PRN Administration Nausea And Vomiting Sitagliptin Phosphate 100 mg 11/07/23 09:00 11/11/23 09:03 Sitagliptin 100 Mg Tablet PO 100 mg QAM JANEY Administration Radiology Results: ITS Impressions Chest X-Ray 11/06/23 19:42 IMPRESSION: No acute cardiopulmonary process. Foot X-Ray 11/06/23 19:42 IMPRESSION: Osteomyelitis involving the distal aspect fifth metatarsal stump. Possible oblique fracture of the fifth metatarsal base. Ankle Brachial Index 11/11/23 14:19 IMPRESSION: 1. Mildly decreased ABIs, improved from 05/18/2022, consistent with arterial occlusive disease. Lower Extremity CTA 11/11/23 18:07 IMPRESSION: CT and radiographic findings suspicious for osteomyelitis of the distal aspect of the fifth metatarsal stump. Old possibly nonunited fracture of the base the fifth metatarsal, with subtle areas of cortical thinning with an overlying soft tissue defect which may suggest the presence of subtle osteomyelitis. Consider MRI of the foot without and with contrast for further evaluation of osteomyelitis. Severe atherosclerotic disease in the left lower extremity with multifocal severe stenoses. Patent distal SFA/proximal popliteal stent. Probably patent short stent in the trunk of the peroneal and posterior tibial arteries. 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 Tenuous flow to the foot appears to be maintained via the anterior tibial artery. Labs Labs: Laboratory Results - last 24 hr 11/11/23 11/11/23 11/11/23 10:55 11:59 17:39 POC Capillary Glucose 171 H 125 H Vancomycin Trough 18.0 11/11/23 11/12/23 21:06 08:21 POC Capillary Glucose 152 H 135 H Vancomycin Trough Quality VTE Prophylaxis VTE prophylaxis: pharmacologic ordered (switched to heparin in case of surgical procedure)
[2023-11-12 12:17] LABS: Glucose Point of Care 102 mg/dl (65-105)
[2023-11-12] MEDS: LACTATED RINGERS 1,000 ML 30 ML IV CONT (14:45)
--- NOTE | 2023-11-12 14:54 | P.PNAN_ITS ---
Anes - Initial Pre Proc Eval Procedure: Operation Date: 11/12/23 15:30 Proposed Procedures p Debridement Left Foot Wound - Tadeo Johnson MD Date/Time: 11/12/23 14:54 Surgeon: Maggie Simon DO Pre Op Diagnosis: N/V,Sepsis,Osteomylitis Patient Data Age: 57 Gender: F Height: 1.63 m Weight: 78.4 kg Last Vital Signs Temp 36.6 C 11/12/23 06:00 Pulse 98 11/12/23 06:00 Resp 16 11/12/23 06:00 BP 152/63 H 11/12/23 06:00 Pulse Ox 100 11/12/23 06:00 O2 Del Method Room Air 11/12/23 08:20 Allergies Allergy/AdvReac Type Severity Reaction Status Date / Time No Known Allergies Allergy Verified 11/12/23 14:47 Home Medications Medication Instructions Recorded Confirmed Type atorvastatin 40 mg tablet 40 mg PO QHS 07/23/23 11/06/23 History dapagliflozin propanediol 10 mg 10 mg PO QAM 07/23/23 11/06/23 History tablet (Farxiga) sitagliptin phosphate 100 mg 100 mg PO QAM 11/06/23 11/06/23 History tablet (Januvia) Laboratory Tests 11/11/23 11/11/23 11/12/23 17:39 21:06 08:21 POC Capillary Glucose 125 H mg/dl 152 H mg/dl 135 H mg/dl (65-105) (65-105) (65-105) 11/12/23 12:15 POC Capillary Glucose 102 mg/dl (65-105) Patient hx anesthesia problems: none Family hx anesthesia problems: none Results Review: All pre-operative results and documents have been reviewed as part of the pre- operative evaluation. [facility] Past Medical History Medical History (Updated 11/08/23 @ 17:20 by Natalia Bennett APRN) Diabetic foot ulcer Dyslipidemia Peripheral vascular disease (05/2022) Diminished bilateral ankle and toe brachial indices consistent with [id number] peripheral arterial disease on JAVON. Tobacco abuse Type 2 diabetes mellitus (05/17/22) Surgical History Surgical History (Updated 11/08/23 @ 11:37 by Grabiel Álvarez MD) Amputation of fifth toe of left foot (07/2023) For dry gangrene of the left 5th toe. History of incision and drainage (05/2022) Incision and drainage of left foot abscess with sharp excisional debridement of left foot ulcer. Family History Family History Father Heart disease Mother Heart disease Mother Diabetes mellitus Social History Social History (Updated 11/07/23 @ 21:37 by Maggie Simon DO) Social History: Patient lives with her spouse of 23 years. She does not meet biologic children but has 2 step children. She used to smoke 1-2 packs a beers per day since she was a young teen but quit smoking February 24, 2023. She still occasionally uses marijuana. She denies any history of heavy alcohol use and has not used any alcohol in many years. She is disabled. They have a [place]. Surrogate medical decision maker: Donald De La Garza, spouse. Code status: Full code. Smoking packs per day: 2 Smoking cigarettes per day: 40.0 Years smoked: 40 Smoking pack-years: 80.00 Smoking status: Current every day smoker Tobacco type: e-cigarettes/vaping Smoking end date: 02/24/23 Alcohol intake: never Substance use: current Substance use type: marijuana Other substance usage details: Every once in awhile Do You Feel Safe in your Home?: Yes Lack of Transportation: No Lack of Food: Never True Current Housing: I Have Housing Concerned About Future Housing: No Difficulty Paying Gas/Electric Bills: No Difficulty Paying for Meds: No Currently Unemployed: No Education: Don't Know Difficulty w/ Childcare or Family Care: No Additional living arrangements comments: The patient lives with her in [place]. She has no children. Spiritual care concerns: No Anes - Eval Final PreProcedure Day of Procedure 11/12/23 14:54 Patient weight: overweight Heart: regular rate and rhythm Lungs: clear to auscultation Airway: Mallampati scale class III and special considerations poor dentition Neurological: alert and oriented Last oral intake: >/= 8 hours ASA classification: IV Emergent: no Anesthetic plan: proceed Anesthesia type and monitoring: general LMA and standard monitoring Results Review: All pre-operative results and documents have been reviewed as part of the pre- operative evaluation. Informed Consent: The patient's anesthetic plan and its attendant risks and benefits were discussed with the patient/family/POA. Questions were solicited and answers provided to the satisfaction of the patient/family/POA.
[2023-11-12 14:55] LABS: Glucose Point of Care 87 mg/dl (65-105)
--- NOTE | 2023-11-12 15:44 | WPDHPUPDATE1 ---
History and Physical Update Update Date/Time: 11/12/23 15:44 History and Physical has been reviewed, including an updated exam of the patient. There are NO changes in the patient's condition. Risks, benefits, and alternatives have been discussed and questions answered. Patient agrees to proceed with procedure.
[2023-11-12] MEDS: fentaNYL CITRATE INJ (*CRX) 100 MCG/2 ML VIAL 25 MCG IV PUSH ×4 (17:10→17:48)
[2023-11-12 17:24] LABS: Glucose Point of Care 85 mg/dl (65-105)
[2023-11-12] MEDS: EMPAGLIFLOZIN 25 MG TABLET BY MOUTH (18:00)
--- NOTE | 2023-11-12 18:32 | P.OP_ITS ---
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 Post-op Diagnosis Same Procedure Performed Completion amputation of left 5th metatarsal with sharp excisional debridement of subcutaneous tissue, skin, and bone of the left foot. Application of wound VAC 70 sq cm Surgeon Tadeo Johnson MD Anesthesia General Indications patient is a 57-year-old diabetic who underwent amputation left 5th toe due to dry gangrene of that toe. The left 5th toe and the distal metatarsal head was resected at the time of that surgery. Who wounds closed but unfortunately the subcutaneous flaps became ischemic and had necrosis. She has been undergoing serial debridements and local wound care and our wound care clinic. She had been progressing with angulation of the base of the wound until about 5 days ago when she developed redness drainage and swelling in the proximal part of the wound. X-ray revealed cellulitic changes and osteomyelitis of the 5th metatarsal. She presents now for debridement of the nonhealing left lateral 5th toe wound. Also will proceed with amputation the main her portion left 5th metatarsal. Findings The patient had a draining tract going proximally from the end of the wound and tunneling towards the heel. There was pus draining of this tract. There was necrotic tissue within the tract. The underlying shaft of the metatarsal was soft and consistent with osteomyelitis. The remaining portion of the whole left 5th metatarsal was amputated and removed. All necrotic tissue was removed as well and a wound VAC was placed. Description of Procedure After informed consent was obtained patient brought to the operating room she was placed supine position and general LMA anesthesia was administered. The left lower extremity from the distal tibia to the toes was then prepped draped usual sterile fashion circumferentially. A time-out was then performed [facility] identifying the patient as well as procedure to be performed verifying the site marking. I then 1st started by washing out foot and removing all the Betadine soak it clearly delineate the edges of the wound. I 1st started by performing a sharp excisional debridement with sharp scissors and scalpel of the proximal part of the wound excising away the necrotic skin and subcutaneous tissues from the area. I then opened the skin and subcu tissues over the tunnel to reveal the shaft of the left 5th metatarsal which was soft and appeared to be infected. I then dissected around the shaft of the left [address] all the way down to the proximal metatarsal head. I then disarticulated the left 5th metatarsal and remaining bone was then passed off table sent to pathology for examination. I then irrigated out tissue with sterile saline soluion. a few more I then irrigated out the wound very nicely with sterile saline solution. No purulent fluid or fluid collections remained. at the end of the resection the remaining portion of the left 5th metatarsal and debridement of all of the necrotic subcutaneous tissue, skin, and bone, I then proceeded to place a wound VAC into the wound. Black sponge was then placed into the wound which measured 14cm in length by 5cm in width by 4cm in depth. Clear adhesive dressings were then placed around the wound to create the wound VAC. hole was then cut in the he has a dressing to allow placement of the suction pad. The wound VAC was engaged and achieved a good seal on the wound. The foot was then cleaned and then the patient was taken to recovery in stable satisfactory condition.The patient tolerated the procedure well no complications. All sponges, needles, and instrument counts were correct at the end procedure. EBL was ___cc. The patient was awakened and taken to recovery in stable and satisfactory condition. Implants None Estimated Blood Loss 35 Tourniquet Time Total Tourniquet Time: none Urine Output 350 Drains No Packing Yes ( Wound VAC placed with black sponge. Area of wound vac was 70 cm2) Pathology Yes ( Remaining portion of the 5th metatarsal sent to pathology) Complications No immediate complications Condition Stable Disposition PACU [facility] Billing Surgery - Charge Forward: Surgery Billing
[2023-11-12 19:53] LABS: Glucose Point of Care 106 mg/dl (65-105)
[2023-11-12] MEDS: HYDROcodone/acetaminophen (*CRX) 5-325 MG TABLET 1 TAB PO (20:27)
[2023-11-12] MEDS: ATORVASTATIN 40 MG TABLET PO (20:28)
[2023-11-12] MEDS: HEPARIN SODIUM 5,000 UNITS/ML VIAL 5000 UNITS SUB-Q (20:28)
[2023-11-12] MEDS: ceFAZolin 1 GM/NS 50 ML 1 GM/50 ML BAG IVPB (22:16)
[2023-11-12] MEDS: oxyCODONE HCL (*CRX) 5 MG TAB IR PO (23:31)
[2023-11-13 04:00] VITALS: BP 113/49; PULSE 70; RESP 18; TEMP 36.5; O2SAT 100
[2023-11-13] MEDS: ceFAZolin 1 GM/NS 50 ML 1 GM/50 ML BAG IVPB ×3 (06:25→20:51)
[2023-11-13] MEDS: metroNIDAZOLE 500 MG TABLET PO ×3 (06:25→20:46)
[2023-11-13 06:38] LABS: Basophils Absolute Auto 0.1 K/mm3 (0.0-0.1); Basophils Percent Auto 0.4 % (0.2-1.2); Eosinophils Absolute Auto 0.5 K/mm3 (0-0.3); Eosinophils Percent Auto 3.5 % (0-4.4); Hematocrit 29.7 % (37.0-47.0); Hemoglobin 8.9 g/dL (12.0-15.0); Immature Granulocyte Absolute 0.28 K/mm3 (0.00-0.031); Immature Granulocyte Percent A 2.2 % (0-0.5); Lymphocytes Absolute Auto 2.02 K/mm3 (0.9-3.2); Lymphocytes Percent Auto 15.6 % (18.3-44.2); Mean Corpuscular Hemoglobin 26.1 pg (26-34); Mean Corpuscular Volume 87.1 fl (80-100); Mean Platelet Volume 9.2 fl (7.4-10.4); Monocytes Absolute Auto 0.9 K/mm3 (0.1-0.6); Monocytes Percent Auto 6.9 % (2.6-8.5); Neutrophils Absolute Auto 9.3 K/mm3 (1.3-6.7); Neutrophils Percent Auto 71.4 % (45.5-73.1); Platelet Count Result 474 k/mm3 (150-375); Red Blood Count 3.41 M/mm3 (4.2-5.4); Red Cell Distribution Width 15.6 % (11.5-14.5)
[2023-11-13 06:45] LABS: Alanine Aminotransferase 14 U/L (6-35); Alkaline Phosphatase 143 U/L (38-126); Anion Gap 6 mmol/L (4-12); Aspartate Amino Transferase 21 U/L (14-36); Bilirubin,Total 0.4 mg/dL (0.2-1.3); Blood Urea Nitrogen 12 mg/dL (7-17); Calcium 8.7 mg/dL (8.4-10.2); Carbon Dioxide 27 mmol/L (22-30); Chloride 102 mmol/L (98-107); Estimated CRCL calculation 87 ml/min; Estimated Glomerular Filt Rate > 60; Glucose 102 mg/dL (65-110); Magnesium 1.9 mg/dL (1.6-2.3); Potassium 3.1 mmol/L (3.4-5.0); Sodium 135 mmol/L (137-145)
[2023-11-13] MEDS: HYDROcodone/acetaminophen (*CRX) 5-325 MG TABLET 1 TAB PO (08:23)
[2023-11-13] MEDS: HEPARIN SODIUM 5,000 UNITS/ML VIAL 5000 UNITS SUB-Q ×2 (08:24→20:48)
[2023-11-13] MEDS: EMPAGLIFLOZIN 25 MG TABLET BY MOUTH (08:24)
[2023-11-13 08:38] LABS: Glucose Point of Care 116 mg/dl (65-105)
--- NOTE | 2023-11-13 08:39 | WPDANESPN ---
Anes - Prog Note Post-Op Date/Time: 11/13/23 08:39 Vital Signs: Last Vital Signs Temp 36.5 C 11/13/23 04:00 Pulse 70 11/13/23 04:00 Resp 18 11/13/23 04:00 BP 113/49 L 11/13/23 04:00 Pulse Ox 100 11/13/23 04:00 O2 Del Method Room Air 11/12/23 20:18 O2 Flow Rate 8 11/12/23 16:57 Pain Score (VAS): 0 I/O: Intake & Output 11/12/23 11/13/23 11/13/23 23:59 07:59 15:59 Intake Total 116 550 Output Total 350 Balance -234 550 Laboratory Tests 11/13/23 05:21 11/13/23 05:21 11/12/23 11/12/23 11/12/23 12:15 14:51 17:21 WBC RBC Hgb Hct MCV MCH MCHC RDW Plt Count MPV Immature Gran % (Auto) Neut % (Auto) Lymph % (Auto) [place] % (Auto) Eos % (Auto) Baso % (Auto) Lymph # (Auto) [place] # (Auto) Eos # (Auto) Baso # (Auto) Abs Immat Gran (auto) Absolute Neuts (auto) Absolute Nucleated RBC Nucleated RBC % Sodium Potassium Chloride Carbon Dioxide Anion Gap BUN Creatinine Estim Creat Clear Calc Estimated GFR Glucose POC Capillary Glucose 102 87 85 Calcium Magnesium Total Bilirubin AST ALT Alkaline Phosphatase Total Protein Albumin 11/12/23 11/13/23 11/13/23 19:43 05:21 08:35 WBC 13.0 H RBC 3.41 L Hgb 8.9 L Hct 29.7 L MCV 87.1 MCH 26.1 MCHC 30.0 L RDW 15.6 H Plt Count 474 H MPV 9.2 Immature Gran % (Auto) 2.2 H Neut % (Auto) 71.4 Lymph % (Auto) 15.6 L [place] % (Auto) 6.9 Eos % (Auto) 3.5 Baso % (Auto) 0.4 Lymph # (Auto) 2.02 [place] # (Auto) 0.9 H Eos # (Auto) 0.5 H Baso # (Auto) 0.1 Abs Immat Gran (auto) 0.28 H Absolute Neuts (auto) 9.3 H Absolute Nucleated RBC 0.000 Nucleated RBC % 0.0 Sodium 135 L Potassium 3.1 L Chloride 102 Carbon Dioxide 27 Anion Gap 6 BUN 12 Creatinine 0.60 L Estim Creat Clear Calc 87 Estimated GFR > 60 Glucose 102 POC Capillary Glucose 106 H 116 H Calcium 8.7 Magnesium 1.9 Total Bilirubin 0.4 AST 21 ALT 14 Alkaline Phosphatase 143 H Total Protein 7.0 Albumin 3.0 L Microbiology 11/08/23 11:18 Foot Left Anaerobic Culture - Final Bacteroides pyogenes 11/08/23 11:18 Foot Left Aerobic Culture - Final Staphylococcus aureus 11/06/23 21:04 Blood Blood Culture - Final 11/06/23 21:04 Blood Blood Culture - Final Patient Feedback: Patient satisfied with anesthetic care.
[2023-11-13] MEDS: ONDANSETRON HCL ODT 4 MG TABLET PO ×3 (08:40→21:58)
--- NOTE | 2023-11-13 09:34 | P.PNIM_ITS ---
Progress Note: A&P Assessment and Plan (1) Sepsis: Qualifiers: Sepsis acute organ dysfunction status: without acute organ dysfunction Sepsis type: sepsis due to unspecified organism Qualified Code(s): A41.9 - S epsis, unspecified organism Code(s): A41.9 - Sepsis, unspecified organism Status: Acute Assessment and Plan: 11/08/2023 * Patient currently meeting sepsis criteria with temp of 101.3, heart rate of 107, white blood cell count 12.0, and known source of infection the left foot. * Blood culture showing no growth on preliminary read * Foot wound culture is pending * Patient was originally given Zosyn and vancomycin * Will switch to cefepime, vancomycin, and Flagyl for diabetic foot wound protocol * Left foot x-ray showing osteomyelitis involving the distal aspect of the 5th metatarsal, possible oblique fracture of the 5th metatarsal base. * General surgery was consulted * Patient had a bedside debridement of her wound with General surgery 11/08: General surgery to transition patient to oral antibiotics planned discharge tomorrow after wound care consult will follow-up in clinic for further surgical planning. 11/09: foot appears more erythematous white blood cell count has increased patient has developed diarrhea and nausea. Surgery is changing planned will keep inpatient and have Dr. Johnson evaluate tomorrow 11/11: Going to surgery for debridement vs amputation? CTA lower extremities shows severe atherosclerotic disease in the left lower extremity with multifocal severe stenosis. Patent distal SFA/proximal popliteal stent. 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 11/12: White blood cell 13, wound VAC placed. On p.o. Flagyl and IV cefepime. Will discharge with oral antibiotics. Home health is being arranged. Plan for wound VAC changed. (2) Osteomyelitis: Qualifiers: Laterality: left Osteomyelitis location: foot Osteomyelitis type: unsp ecified type Qualified Code(s): M86.9 - Osteomyelitis, unspecified Code(s): M86.9 - Osteomyelitis, unspecified Status: Acute Assessment and Plan: 11/08/2023 * The left foot x-ray showing osteomyelitis involving the distal aspect of the 5th metatarsal, possible oblique fracture of the 5th metatarsal base * General surgery consulted * Patient had a bedside debridement of her wound with General surgery * Blood culture showing no growth on preliminary read * Foot wound was cultured and is pending * Patient was given Zosyn and vancomycin initially and we will switch to cefepime vancomycin and Flagyl for diabetic foot wound protocol 11/08: General surgery to transition patient to oral antibiotics planned discharge tomorrow after wound care consult will follow-up in clinic for further surgical planning. 11/09: foot appears more erythematous white blood cell count has increased patient has developed diarrhea and nausea. Surgery is changing planned will keep inpatient and have Dr. Johnson evaluate tomorrow 3: See #1 (3) Diabetic foot ulcer: Qualifiers: Diabetes mellitus type: other specified (including MARINA) Diabetic foot ulcer location: heel Laterality: left Code(s): E11.621 - Type 2 diabetes mellitus with foot ulcer; L97.509 - Non-pressure chronic ulcer of other part of unspecified foot with unspecified severity Status: Acute Assessment and Plan: 11/08/2023: * Patient has a diabetic foot ulcer on the lateral aspect of her right foot that looks dry with black eschar. Dr. Álvarez notified of this finding. 11/08: General surgery to transition patient to oral antibiotics planned discharge tomorrow after wound care consult will follow-up in clinic for further surgical planning. Wound Care to consult on bilateral foot wounds tomorrow. 11/09: foot appears more erythematous white blood cell count has increased patient has developed diarrhea and nausea. Surgery is changing planned will keep inpatient and have Dr. Johnson evaluate tomorrow 3: see # 1 and 2 (4) Type 2 diabetes mellitus with hyperglycemia: Qualifiers: Diabetes mellitus shelter insulin use: without vermin exterminator use Qualified Code(s): E11.65 - Type 2 diabetes mellitus with hyperglycemia Code(s): E11.65 - Type 2 diabetes mellitus with hyperglycemia Status: Chronic Assessment and Plan: 11/08/2023 * Blood sugars ranging 125-227 * Hemoglobin A1c on 07/24/2023 was 6.5 * Accu-Cheks AC and HS * Hypoglycemic protocol in place * Moderate does sliding scale insulin ordered * Continue Januvia and Jardiance in replacement of her Farxiga 11/08: Morning glucose 148 by fingerstick 11/09: morning glucose 106 by fingerstick 11/11: BG stable 87-152 11/12: Blood sugars reviewed and are stable Plan Home health is being arranged She will discharge with a wound VAC Oral antibiotics at discharge Subjective Date/time seen: 11/13/23 09:34 Interval history: HPI obtained from the chart, 57-year-old female with past medical history of diabetic peripheral neuropathy, peripheral vascular disease, 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 And 1 day of chills. the patient had initially came to the ER the night before and was given fluids and discharged home after antiemetics.? She returns this evening because of chills worsening fatigue and nausea.? Interval history: 11/11: Patient is seen resting in bed with at bedside. She is in no acute distress. She is waiting to go to surgery. No questions or concerns at this time. She is hungry and thirsty. 11/12: Postop day 1 from amputation and debridement to left 5th toe and lateral aspect of foot. Wound VAC is in place. Per the patient has been alarming off and on all night. With VAC was changed overnight is still alarms with leak. Dr. Johnson was actually at the bedside and there was good suction to the dressing. He recommends contacting wound care should it continue to beep. The plan will be to change wound VAC tomorrow. Home health is being arranged for VAC changes. Once that is completed the patient is stable to discharge home. She will go home on oral antibiotics. She is not having pain at this time. She reports some pain to the lateral aspect of her foot but it was controlled with her p.r.n. pain medication. She did have some nausea after taking that medication but she reports she took it on an empty stomach. Review of Systems Review of Systems: All systems reviewed & are unremarkable except as noted in HPI and below Exam Narrative: General: well appearing, well developed, well nourished, appears older than stated age HEENT: normocephalic, atraumatic. Mucous membranes moist. EOMI, PERRLA, bilateral sclera anicteric, no conjunctival injection. Neck supple without JVD, lymphadenopathy, or bruit. Respiratory: clear to auscultation bilaterally. No rales/rhonic/wheezes. Cardiovascular: Regular rate and rhythm, normal S1-S2 upon auscultation. No murmurs, rubs, or clicks. PMI is nondisplaced, capillary re-fill less than 3 second. Abdomen: Soft, flat, no pulsatile masses, non-distended and non-tender. No rebound, no guarding. No CVA tenderness, no hepatosplenomegaly. Bowel sounds present to all four quadrants. No high pitch or tinkling sounds, resonant to percussion. Extremities: No cyanosis, clubbing, or edema present. Pulses are palpable 2/2. Active ROM to all four extremities. Left foot with wound VAC present. Serosanguineous drainage approximately 50 mils present. Neuro: Alert and orientated x 4. PERRLA. Cranial nerves 2-12 intact without focal deficit. Skin: Warm, dry, and intact, without rash, erythema, or lesion. Lines: Incisions: Psych: pleasant, cooperative, normal speech, normal affect, no hallucinations, no dysarthria Objective Data Vital Signs Vital Signs: Vital Signs - 24 hr 11/12/23 15:07 11/12/23 16:57 11/12/23 17:10 Temperature 99.9 F H 97.3 F L Pulse Rate 73 75 75 Respiratory Rate 16 15 12 Blood Pressure 150/73 H 105/47 L 151/69 H Pulse Oximetry 100 100 96 Oxygen Delivery Room Air Simple Face Mask Room Air Oxygen Flow Rate 8 11/12/23 17:30 11/12/23 17:37 11/12/23 18:00 Temperature 97.8 F Pulse Rate 70 72 74 Respiratory Rate 12 12 16 Blood Pressure 119/51 L 105/51 L 159/66 H Pulse Oximetry 97 97 98 Oxygen Delivery Room Air Room Air Oxygen Flow Rate 11/12/23 21:57 11/12/23 23:42 11/12/23 20:18 Temperature 97.8 F 97.8 F Pulse Rate 80 78 Respiratory Rate 20 20 Blood Pressure 135/62 144/70 H Pulse Oximetry 97 97 Oxygen Delivery Room Air Oxygen Flow Rate 11/13/23 04:00 Temperature 97.7 F Pulse Rate 70 Respiratory Rate 18 Blood Pressure 113/49 L Pulse Oximetry 100 Oxygen Delivery Oxygen Flow Rate Intake/Output Intake/Output: Intake & Output 11/10/23 11/11/23 11/12/23 11/13/23 23:59 23:59 23:59 23:59 Intake Total 2430 2320 616 550 Output Total 350 Balance 2430 2320 266 550 Meds/Results Medications: Active Medications Generic Name Dose Route Start Last Admin Trade Name Freq PRN Reason Stop Dose Admin Acetaminophen 650 mg 11/07/23 21:29 11/07/23 21:43 Acetaminophen 325 Mg Tablet PO 650 mg Q4H PRN Administration Mild Pain (1-3) or Fever Hydrocodone Bitart/Acetaminophen 1 tab 11/12/23 17:20 11/13/23 08:23 Hydrocodone/Acetaminophen (*Crx) 5-325 Mg Tablet PO 1 tab Q4H PRN Administration Pain Rated 4-6 Atorvastatin Calcium 40 mg 11/07/23 21:00 11/12/23 20:28 Atorvastatin 40 Mg Tablet PO 40 mg QHS JANEY Administration Dextrose 12.5 gm 11/07/23 07:14 Dextrose 50% 25 Gm/50 Ml Syringe IV PUSH PRN PRN Hypoglycemia Protocol Empagliflozin 25 mg 11/07/23 09:00 11/13/23 08:24 Empagliflozin 25 Mg Tablet BY MOUTH 25 mg QAM JANEY Administration Glucagon 1 mg 11/07/23 07:14 Glucagon For Inj 1 Mg Vial IM PRN PRN Hypoglycemia Protocol Glucose 15 gm 11/07/23 07:14 Glucose Oral Gel 15 Gm Of Glucse In 37.5 Gm Tube PO PRN PRN Hypoglycemia Protocol Heparin Sodium (Porcine) 5,000 units 11/07/23 21:00 11/13/23 08:24 Heparin Sodium 5,000 Units/Ml Vial SUB-Q 5,000 units Q12HR JANEY Administration Hydromorphone HCl 1 mg 11/12/23 17:20 Hydromorphone Hcl Inj (*Crx) 1 Mg/Ml Syr IV PUSH Q4H PRN Pain Rated 7-10 Dextrose 1,000 mls @ 100 mls/hr 11/07/23 07:14 Dextrose 5% 1,000 Ml IVPB PRN PRN Hypoglycemia Protocol Cefazolin Sodium 1 gm in 50 mls @ 100 mls/hr 11/12/23 22:00 11/13/23 06:25 Ancef 1 Gm/Ns 50 Ml IVPB 100 mls/hr Q8H JANEY Administration Insulin Aspart 1 - 3 units 11/07/23 21:00 11/12/23 20:06 Insulin Aspart (*Bkc) 100 Units/Ml SUB-Q Not Given HS JANEY Protocol Insulin Aspart 3 - 6 units 11/07/23 08:00 11/13/23 08:38 Insulin Aspart (*Bkc) 100 Units/Ml SUB-Q Not Given TIDWM [facility] Protocol Metronidazole 500 mg 11/11/23 16:00 11/13/23 06:25 Metronidazole 500 Mg Tablet PO 500 mg Q8HR JANEY Administration Ondansetron HCl 4 mg 11/10/23 11:39 11/13/23 08:40 Ondansetron Hcl Odt 4 Mg Tablet PO 4 mg Q6H PRN Administration Nausea And Vomiting Ondansetron HCl 4 mg 11/12/23 15:03 Ondansetron Inj 4 Mg/2 Ml Vial IV PUSH ONCE PRN Nausea Oxycodone HCl 5 mg 11/12/23 17:20 11/12/23 23:31 Oxycodone Hcl (*Crx) 5 Mg Tab Ir PO 5 mg Q4H PRN Administration Pain Rated 7-10 Sitagliptin Phosphate 100 mg 11/07/23 09:00 11/13/23 08:24 Sitagliptin 100 Mg Tablet PO 100 mg QAM JANEY Administration Radiology Results: ITS Impressions Chest X-Ray 11/06/23 19:42 IMPRESSION: No acute cardiopulmonary process. Foot X-Ray 11/06/23 19:42 IMPRESSION: Osteomyelitis involving the distal aspect fifth metatarsal stump. Possible oblique fracture of the fifth metatarsal base. Ankle Brachial Index 11/11/23 14:19 IMPRESSION: 1. Mildly decreased ABIs, improved from 05/18/2022, consistent with arterial occlusive disease. Lower Extremity CTA 11/11/23 18:07 IMPRESSION: CT and radiographic findings suspicious for osteomyelitis of the distal aspect of the fifth metatarsal stump. Old possibly nonunited fracture of the base the fifth metatarsal, with subtle areas of cortical thinning with an overlying soft tissue defect which may suggest the presence of subtle osteomyelitis. Consider MRI of the foot without and with contrast for further evaluation of osteomyelitis. Severe atherosclerotic disease in the left lower extremity with multifocal severe stenoses. Patent distal SFA/proximal popliteal stent. Probably patent short stent in the trunk of the peroneal and posterior tibial arteries. 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 Tenuous flow to the foot appears to be maintained via the anterior tibial artery. Labs Labs: Laboratory Results - last 24 hr 11/12/23 11/12/23 11/12/23 12:15 14:51 17:21 WBC RBC Hgb Hct MCV MCH MCHC RDW Plt Count MPV Immature Gran % (Auto) Neut % (Auto) Lymph % (Auto) [place] % (Auto) Eos % (Auto) Baso % (Auto) Lymph # (Auto) [place] # (Auto) Eos # (Auto) Baso # (Auto) Abs Immat Gran (auto) Absolute Neuts (auto) Absolute Nucleated RBC Nucleated RBC % Sodium Potassium Chloride Carbon Dioxide Anion Gap BUN Creatinine Estim Creat Clear Calc Estimated GFR Glucose POC Capillary Glucose 102 87 85 Calcium Magnesium Total Bilirubin AST ALT Alkaline Phosphatase Total Protein Albumin 11/12/23 11/13/23 11/13/23 19:43 05:21 08:35 WBC 13.0 H RBC 3.41 L Hgb 8.9 L Hct 29.7 L MCV 87.1 MCH 26.1 MCHC 30.0 L RDW 15.6 H Plt Count 474 H MPV 9.2 Immature Gran % (Auto) 2.2 H Neut % (Auto) 71.4 Lymph % (Auto) 15.6 L [place] % (Auto) 6.9 Eos % (Auto) 3.5 Baso % (Auto) 0.4 Lymph # (Auto) 2.02 [place] # (Auto) 0.9 H Eos # (Auto) 0.5 H Baso # (Auto) 0.1 Abs Immat Gran (auto) 0.28 H Absolute Neuts (auto) 9.3 H Absolute Nucleated RBC 0.000 Nucleated RBC % 0.0 Sodium 135 L Potassium 3.1 L Chloride 102 Carbon Dioxide 27 Anion Gap 6 BUN 12 Creatinine 0.60 L Estim Creat Clear Calc 87 Estimated GFR > 60 Glucose 102 POC Capillary Glucose 106 H 116 H Calcium 8.7 Magnesium 1.9 Total Bilirubin 0.4 AST 21 ALT 14 Alkaline Phosphatase 143 H Total Protein 7.0 Albumin 3.0 L Quality VTE Prophylaxis VTE prophylaxis: pharmacologic ordered (switched to heparin in case of surgical procedure)
[2023-11-13] MEDS: POTASSIUM CHLORIDE 20 MEQ ER TABLET 40 MEQ PO (10:10)
--- NOTE | 2023-11-13 10:45 | PCNWS ---
Weekly nutritional screen. Patient is tolerating current diet. No weight loss reported. No nutritional needs at this time.
[2023-11-13 12:22] LABS: Glucose Point of Care 128 mg/dl (65-105)
--- NOTE | 2023-11-13 13:41 | PM.PNGS ---
Progress Note: A&P Assessment and Plan (1) Open wound of left foot with complication: Qualifiers: Encounter type: subsequent encounter Qualified Code(s): S91.302D - Unspecified open wound, left foot, subsequent encounter Code(s): S91.302A - Unspecified open wound, left foot, initial encounter Status: Chronic Assessment and Plan: Left foot wound with osteomyelitis of the distal 5th metatarsal stump. She had excisional debridement and completion amputation of left 5th metatarsal with wound vac placement yesterday. Continue IV antibiotics for now. Spoke with wound care nurses and care coordination about setting the patient up for a home wound vac and also home health. They are working on approval for both. She should be heel-touch weight bearing to her left lower extremity. She will not be able to ambulate at home with the wound vac, which was discussed, and she has ordered a knee scooter to get around her home. Could consider placing a graft on her foot early next week depending on discharge planning and how her wound looks. (2) Osteomyelitis: Qualifiers: Osteomyelitis type: unspecified type Osteomyelitis location: foot Laterality: left Qualified Code(s): M86.9 - Osteomyelitis, unspecified Code(s): M86.9 - Osteomyelitis, unspecified Status: Acute Assessment and Plan: S/p completion amputation of left 5th metatarsal. Continue IV antibiotics for now. Patient will be able to transition to oral antibiotics on discharge. (3) Peripheral vascular disease: Onset Date: 05/2022 Code(s): I73.9 - Peripheral vascular disease, unspecified Status: Chronic Assessment and Plan: CTA left lower extremity showed her arterial stents were patent, but there is severe arthrosclerotic disease with multifocal severe stenoses. Will refer to vascular surgery at [facility] as an outpatient. (4) Type 2 diabetes mellitus: Onset Date: 05/17/22 Code(s): E11.9 - Type 2 diabetes mellitus without complications Status: Chronic Plan I have discussed the patient's case and plan of care with Dr. Johnson. Subjective Subjective Date/Time Seen: 11/13/23 13:41 Post Op day: 1 (Completion amputation of left 5th metatarsal with sharp excisional debridement of subcutaneous tissue, skin, and bone of the left foot. Application wound VAC.) Patient reports: no new complaints, tolerating a regular diet and afebrile Interval history: Patient doing well today. No specific complaints. She ordered a knee scooter for her home since she is unable to ambulate on her foot with the wound vac. CC working on wound vac approval for a home wound vac. Patient is also having a friend build a ramp to get into their house since she will not be able to do stairs. Exam Const: General: comfortable and no acute distress Orientation/consciousness: patient oriented x3 Extrem: Other: Left foot with wound vac in place and functioning well. Mild diffuse erythema of the dorsal foot. Objective Data Vital Signs Vital Signs: Vital Signs - 24 hr 11/12/23 15:07 11/12/23 16:57 11/12/23 17:10 Temperature 99.9 F H 97.3 F L Pulse Rate 73 75 75 Respiratory Rate 16 15 12 Blood Pressure 150/73 H 105/47 L 151/69 H Pulse Oximetry 100 100 96 Oxygen Delivery Room Air Simple Face Mask Room Air Oxygen Flow Rate 8 11/12/23 17:30 11/12/23 17:37 11/12/23 18:00 Temperature 97.8 F Pulse Rate 70 72 74 Respiratory Rate 12 12 16 Blood Pressure 119/51 L 105/51 L 159/66 H Pulse Oximetry 97 97 98 Oxygen Delivery Room Air Room Air Oxygen Flow Rate 11/12/23 21:57 11/12/23 23:42 11/12/23 20:18 Temperature 97.8 F 97.8 F Pulse Rate 80 78 Respiratory Rate 20 20 Blood Pressure 135/62 144/70 H Pulse Oximetry 97 97 Oxygen Delivery Room Air Oxygen Flow Rate 11/13/23 04:00 11/13/23 08:20 Temperature 97.7 F Pulse Rate 70 Respiratory Rate 18 Blood Pressure 113/49 L Pulse Oximetry 100 Oxygen Delivery Room Air Oxygen Flow Rate Intake/Output Intake/Output: Intake & Output 11/10/23 11/11/23 11/12/23 11/13/23 23:59 23:59 23:59 23:59 Intake Total 2430 2320 616 550 Output Total 350 Balance 2430 2320 266 550 Meds/Results Medications: Active Medications Generic Name Dose Route Start Last Admin Trade Name Freq PRN Reason Stop Dose Admin Acetaminophen 650 mg 11/07/23 21:29 11/07/23 21:43 Acetaminophen 325 Mg Tablet PO 650 mg Q4H PRN Administration Mild Pain (1-3) or Fever Hydrocodone Bitart/Acetaminophen 1 tab 11/12/23 17:20 11/13/23 08:23 Hydrocodone/Acetaminophen (*Crx) 5-325 Mg Tablet PO 1 tab Q4H PRN Administration Pain Rated 4-6 Atorvastatin Calcium 40 mg 11/07/23 21:00 11/12/23 20:28 Atorvastatin 40 Mg Tablet PO 40 mg QHS JANEY Administration Dextrose 12.5 gm 11/07/23 07:14 Dextrose 50% 25 Gm/50 Ml Syringe IV PUSH PRN PRN Hypoglycemia Protocol Empagliflozin 25 mg 11/07/23 09:00 11/13/23 08:24 Empagliflozin 25 Mg Tablet BY MOUTH 25 mg QAM JANEY Administration Glucagon 1 mg 11/07/23 07:14 Glucagon For Inj 1 Mg Vial IM PRN PRN Hypoglycemia Protocol Glucose 15 gm 11/07/23 07:14 Glucose Oral Gel 15 Gm Of Glucse In 37.5 Gm Tube PO PRN PRN Hypoglycemia Protocol Heparin Sodium (Porcine) 5,000 units 11/07/23 21:00 11/13/23 08:24 Heparin Sodium 5,000 Units/Ml Vial SUB-Q 5,000 units Q12HR JANEY Administration Hydromorphone HCl 1 mg 11/12/23 17:20 Hydromorphone Hcl Inj (*Crx) 1 Mg/Ml Syr IV PUSH Q4H PRN Pain Rated 7-10 Dextrose 1,000 mls @ 100 mls/hr 11/07/23 07:14 Dextrose 5% 1,000 Ml IVPB PRN PRN Hypoglycemia Protocol Cefazolin Sodium 1 gm in 50 mls @ 100 mls/hr 11/12/23 22:00 11/13/23 06:25 Ancef 1 Gm/Ns 50 Ml IVPB 100 mls/hr Q8H JANEY Administration Insulin Aspart 1 - 3 units 11/07/23 21:00 11/12/23 20:06 Insulin Aspart (*Bkc) 100 Units/Ml SUB-Q Not Given HS JANEY Protocol Insulin Aspart 3 - 6 units 11/07/23 08:00 11/13/23 12:28 Insulin Aspart (*Bkc) 100 Units/Ml SUB-Q Not Given TIDWM [facility] Protocol Metronidazole 500 mg 11/11/23 16:00 11/13/23 06:25 Metronidazole 500 Mg Tablet PO 500 mg Q8HR JANEY Administration Ondansetron HCl 4 mg 11/10/23 11:39 11/13/23 08:40 Ondansetron Hcl Odt 4 Mg Tablet PO 4 mg Q6H PRN Administration Nausea And Vomiting Ondansetron HCl 4 mg 11/12/23 15:03 Ondansetron Inj 4 Mg/2 Ml Vial IV PUSH ONCE PRN Nausea Oxycodone HCl 5 mg 11/12/23 17:20 11/12/23 23:31 Oxycodone Hcl (*Crx) 5 Mg Tab Ir PO 5 mg Q4H PRN Administration Pain Rated 7-10 Sitagliptin Phosphate 100 mg 11/07/23 09:00 11/13/23 08:24 Sitagliptin 100 Mg Tablet PO 100 mg QAM JANEY Administration Radiology Results: ITS Impressions Chest X-Ray 11/06/23 19:42 IMPRESSION: No acute cardiopulmonary process. Foot X-Ray 11/06/23 19:42 IMPRESSION: Osteomyelitis involving the distal aspect fifth metatarsal stump. Possible oblique fracture of the fifth metatarsal base. Ankle Brachial Index 11/11/23 14:19 IMPRESSION: 1. Mildly decreased ABIs, improved from 05/18/2022, consistent with arterial occlusive disease. Lower Extremity CTA 11/11/23 18:07 IMPRESSION: CT and radiographic findings suspicious for osteomyelitis of the distal aspect of the fifth metatarsal stump. Old possibly nonunited fracture of the base the fifth metatarsal, with subtle areas of cortical thinning with an overlying soft tissue defect which may suggest the presence of subtle osteomyelitis. Consider MRI of the foot without and with contrast for further evaluation of osteomyelitis. Severe atherosclerotic disease in the left lower extremity with multifocal severe stenoses. Patent distal SFA/proximal popliteal stent. Probably patent short stent in the trunk of the peroneal and posterior tibial arteries. 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 Tenuous flow to the foot appears to be maintained via the anterior tibial artery. Labs Labs: Laboratory Results - last 24 hr 11/12/23 11/12/23 11/12/23 14:51 17:21 19:43 WBC RBC Hgb Hct MCV MCH MCHC RDW Plt Count MPV Immature Gran % (Auto) Neut % (Auto) Lymph % (Auto) [place] % (Auto) Eos % (Auto) Baso % (Auto) Lymph # (Auto) [place] # (Auto) Eos # (Auto) Baso # (Auto) Abs Immat Gran (auto) Absolute Neuts (auto) Absolute Nucleated RBC Nucleated RBC % Sodium Potassium Chloride Carbon Dioxide Anion Gap BUN Creatinine Estim Creat Clear Calc Estimated GFR Glucose POC Capillary Glucose 87 85 106 H Calcium Magnesium Total Bilirubin AST ALT Alkaline Phosphatase Total Protein Albumin 11/13/23 11/13/23 11/13/23 05:21 08:35 12:20 WBC 13.0 H RBC 3.41 L Hgb 8.9 L Hct 29.7 L MCV 87.1 MCH 26.1 MCHC 30.0 L RDW 15.6 H Plt Count 474 H MPV 9.2 Immature Gran % (Auto) 2.2 H Neut % (Auto) 71.4 Lymph % (Auto) 15.6 L [place] % (Auto) 6.9 Eos % (Auto) 3.5 Baso % (Auto) 0.4 Lymph # (Auto) 2.02 [place] # (Auto) 0.9 H Eos # (Auto) 0.5 H Baso # (Auto) 0.1 Abs Immat Gran (auto) 0.28 H Absolute Neuts (auto) 9.3 H Absolute Nucleated RBC 0.000 Nucleated RBC % 0.0 Sodium 135 L Potassium 3.1 L Chloride 102 Carbon Dioxide 27 Anion Gap 6 BUN 12 Creatinine 0.60 L Estim Creat Clear Calc 87 Estimated GFR > 60 Glucose 102 POC Capillary Glucose 116 H 128 H Calcium 8.7 Magnesium 1.9 Total Bilirubin 0.4 AST 21 ALT 14 Alkaline Phosphatase 143 H Total Protein 7.0 Albumin 3.0 L
[2023-11-13 17:26] LABS: Glucose Point of Care 230 mg/dl (65-105)
[2023-11-13] MEDS: INSULIN ASPART (*BKC) 100 UNITS/ML SUB-Q (17:27)
[2023-11-13 20:07] VITALS: BP 150/59; PULSE 80; RESP 20; TEMP 36.5; O2SAT 98
[2023-11-13 20:31] LABS: Glucose Point of Care 113 mg/dl (65-105)
[2023-11-13] MEDS: ATORVASTATIN 40 MG TABLET PO (20:46)
[2023-11-13 21:07] VITALS: O2SAT 94
[2023-11-14] VITALS: BP 144/55; PULSE 74; RESP 20; TEMP 36.6; O2SAT 100
[2023-11-14 04:00] VITALS: BP 159/68; PULSE 75; RESP 20; TEMP 36.5; O2SAT 97
[2023-11-14 06:06] LABS: Basophils Absolute Auto 0.1 K/mm3 (0.0-0.1); Basophils Percent Auto 0.4 % (0.2-1.2); Eosinophils Absolute Auto 0.3 K/mm3 (0-0.3); Eosinophils Percent Auto 2.1 % (0-4.4); Hemoglobin 9.2 g/dL (12.0-15.0); Immature Granulocyte Absolute 0.26 K/mm3 (0.00-0.031); Immature Granulocyte Percent A 2.1 % (0-0.5); Lymphocytes Absolute Auto 1.83 K/mm3 (0.9-3.2); Lymphocytes Percent Auto 14.8 % (18.3-44.2); Mean Corpuscular HGB Conc 29.7 g/dl (32-36); Mean Corpuscular Hemoglobin 25.7 pg (26-34); Mean Corpuscular Volume 86.6 fl (80-100); Mean Platelet Volume 8.8 fl (7.4-10.4); Monocytes Absolute Auto 0.8 K/mm3 (0.1-0.6); Monocytes Percent Auto 6.7 % (2.6-8.5); Neutrophils Absolute Auto 9.2 K/mm3 (1.3-6.7); Neutrophils Percent Auto 73.9 % (45.5-73.1); Platelet Count Result 456 k/mm3 (150-375); Red Blood Count 3.58 M/mm3 (4.2-5.4); Red Cell Distribution Width 15.6 % (11.5-14.5); White Blood Count 12.4 K/mm3 (4.5-10.0)
[2023-11-14] MEDS: ceFAZolin 1 GM/NS 50 ML 1 GM/50 ML BAG IVPB ×3 (06:23→21:06)
[2023-11-14] MEDS: metroNIDAZOLE 500 MG TABLET PO ×3 (06:24→21:05)
[2023-11-14] MEDS: ONDANSETRON HCL ODT 4 MG TABLET PO ×3 (06:26→21:06)
[2023-11-14 06:35] LABS: Alanine Aminotransferase 13 U/L (6-35); Albumin Level 3.2 g/dL (3.5-5.1); Alkaline Phosphatase 134 U/L (38-126); Anion Gap 8 mmol/L (4-12); Aspartate Amino Transferase 21 U/L (14-36); Bilirubin,Total 0.4 mg/dL (0.2-1.3); Blood Urea Nitrogen 8 mg/dL (7-17); Calcium 8.9 mg/dL (8.4-10.2); Carbon Dioxide 26 mmol/L (22-30); Chloride 101 mmol/L (98-107); Estimated CRCL calculation 87 ml/min; Estimated Glomerular Filt Rate > 60; Glucose 112 mg/dL (65-110); Potassium 3.6 mmol/L (3.4-5.0); Sodium 135 mmol/L (137-145)
[2023-11-14 06:54] LABS: Anisocytosis 1+; Hypochromasia 1+; Platelet Estimate Increased (Adequate); Schistocytes None Seen
[2023-11-14] MEDS: EMPAGLIFLOZIN 25 MG TABLET BY MOUTH (08:35)
[2023-11-14] MEDS: HEPARIN SODIUM 5,000 UNITS/ML VIAL 5000 UNITS SUB-Q ×2 (08:35→21:05)
[2023-11-14 08:42] LABS: Glucose Point of Care 116 mg/dl (65-105)
--- NOTE | 2023-11-14 10:30 | PCPTNOTE ---
Attempted physical therapy at this time however patient declined services due to stating she is too tired. Patient reports she is in no pain but continued to decline services. Will attempt at a later time.
[2023-11-14 12:04] LABS: Glucose Point of Care 134 mg/dl (65-105)
--- NOTE | 2023-11-14 13:53 | PCPTNOTE ---
Addendum entered by Mariela Holt, [employer] 11/14/23 13:56: RN notified. Original Note: Attempted to see patient for Physical Therapy this PM. Patient declined to participate in therapy due to just getting back in bed. Pt. declined to perform argelia LE exercises in bed.
[2023-11-14 16:18] VITALS: BP 122/41; PULSE 75; RESP 18; TEMP 36.8; O2SAT 98
--- NOTE | 2023-11-14 16:50 | P.PNIM_ITS ---
Progress Note: A&P Assessment and Plan (1) Sepsis: Qualifiers: Sepsis type: sepsis due to unspecified organism Sepsis acute organ dysfunction status: without acute organ dysfunction Qualified Code(s): A41.9 - Sepsis, unspecified organism Code(s): A41.9 - Sepsis, unspecified organism Status: Acute Assessment and Plan: 11/08/2023 * Patient currently meeting sepsis criteria with temp of 101.3, heart rate of 107, white blood cell count 12.0, and known source of infection the left foot. * Blood culture showing no growth on preliminary read * Foot wound culture is pending * Patient was originally given Zosyn and vancomycin * Will switch to cefepime, vancomycin, and Flagyl for diabetic foot wound protocol * Left foot x-ray showing osteomyelitis involving the distal aspect of the 5th metatarsal, possible oblique fracture of the 5th metatarsal base. * General surgery was consulted * Patient had a bedside debridement of her wound with General surgery 11/08: General surgery to transition patient to oral antibiotics planned discharge tomorrow after wound care consult will follow-up in clinic for further surgical planning. 11/09: foot appears more erythematous white blood cell count has increased patient has developed diarrhea and nausea. Surgery is changing planned will keep inpatient and have Dr. Johnson evaluate tomorrow 11/11: Going to surgery for debridement vs amputation? CTA lower extremities shows severe atherosclerotic disease in the left lower extremity with multifocal severe stenosis. Patent distal SFA/proximal popliteal stent. 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 11/12: White blood cell 13, wound VAC placed. On p.o. Flagyl and IV cefepime. Will discharge with oral antibiotics. Home health is being arranged. Plan for wound VAC changed. 11/13: Wound VAC change this morning. Continue with antibiotics. Awaiting wound VAC for home. Possibly receiving a skin graft on Friday (2) Osteomyelitis: Qualifiers: Osteomyelitis type: unspecified type Osteomyelitis location: foot Laterality: left Qualified Code(s): M86.9 - Osteomyelitis, unspecified Code(s): M86.9 - Osteomyelitis, unspecified Status: Acute Assessment and Plan: 11/08/2023 * The left foot x-ray showing osteomyelitis involving the distal aspect of the 5th metatarsal, possible oblique fracture of the 5th metatarsal base * General surgery consulted * Patient had a bedside debridement of her wound with General surgery * Blood culture showing no growth on preliminary read * Foot wound was cultured and is pending * Patient was given Zosyn and vancomycin initially and we will switch to cefepime vancomycin and Flagyl for diabetic foot wound protocol 11/08: General surgery to transition patient to oral antibiotics planned discharge tomorrow after wound care consult will follow-up in clinic for further surgical planning. 11/09: foot appears more erythematous white blood cell count has increased patient has developed diarrhea and nausea. Surgery is changing planned will keep inpatient and have Dr. Johnson evaluate tomorrow 4/3: See #1 (3) Diabetic foot ulcer: Qualifiers: Diabetes mellitus type: other specified (including MARINA) Diabetic foot ulcer location: heel Laterality: left Code(s): E11.621 - Type 2 diabetes mellitus with foot ulcer; L97.509 - Non-pressure chronic ulcer of other part of unspecified foot with unspecified severity Status: Acute Assessment and Plan: 11/08/2023: * Patient has a diabetic foot ulcer on the lateral aspect of her right foot that looks dry with black eschar. Dr. Álvarez notified of this finding. 11/08: General surgery to transition patient to oral antibiotics planned discharge tomorrow after wound care consult will follow-up in clinic for further surgical planning. Wound Care to consult on bilateral foot wounds tomorrow. 11/09: foot appears more erythematous white blood cell count has increased patient has developed diarrhea and nausea. Surgery is changing planned will keep inpatient and have Dr. Johnson evaluate tomorrow 3: see # 1 and 2 (4) Type 2 diabetes mellitus with hyperglycemia: Qualifiers: Diabetes mellitus group home insulin use: without joint terminal attack controller use Qualified Code(s): E11.65 - Type 2 diabetes mellitus with hyperglycemia Code(s): E11.65 - Type 2 diabetes mellitus with hyperglycemia Status: Chronic Assessment and Plan: 11/08/2023 * Blood sugars ranging 125-227 * Hemoglobin A1c on 07/24/2023 was 6.5 * Accu-Cheks AC and HS * Hypoglycemic protocol in place * Moderate does sliding scale insulin ordered * Continue Januvia and Jardiance in replacement of her Farxiga 11/08: Morning glucose 148 by fingerstick 11/09: morning glucose 106 by fingerstick 11/11: BG stable 87-152 4/4: Blood sugars reviewed and are stable Plan She will come to the wound clinic for wound VAC changes She will discharge with a wound VAC Oral antibiotics at discharge May be having skin graft done on Friday Subjective Date/time seen: 11/14/23 16:50 Interval history: HPI obtained from the chart, 57-year-old female with past medical history of diabetic peripheral neuropathy, peripheral vascular disease, 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 And 1 day of chills. the patient had initially came to the ER the night before and was given fluids and discharged home after antiemetics.? She returns this evening because of chills worsening fatigue and nausea.? Interval history: 11/11: Patient is seen resting in bed with at bedside. She is in no acute distress. She is waiting to go to surgery. No questions or concerns at this time. She is hungry and thirsty. 11/12: Postop day 1 from amputation and debridement to left 5th toe and lateral aspect of foot. Wound VAC is in place. Per the patient has been alarming off and on all night. With VAC was changed overnight is still alarms with leak. Dr. Johnson was actually at the bedside and there was good suction to the dressing. He recommends contacting wound care should it continue to beep. The plan will be to change wound VAC tomorrow. Home health is being arranged for VAC changes. Once that is completed the patient is stable to discharge home. She will go home on oral antibiotics. She is not having pain at this time. She reports some pain to the lateral aspect of her foot but it was controlled with her p.r.n. pain medication. She did have some nausea after taking that medication but she reports she took it on an empty stomach. 11/13: No acute events overnight. Wound VAC was changed this morning. Patient is up to the chair LCX she feels well. Her pain is well controlled. She says that she will be here through early next week as Dr. Johnson is planning on doing a skin graft on Friday. We also do not have a home wound VAC approved yet. She reports having a bowel movement yesterday and is tolerating a diet. Review of Systems Review of Systems: All systems reviewed & are unremarkable except as noted in HPI and below Exam Narrative: General: well appearing, well developed, well nourished, appears older than stated age HEENT: normocephalic, atraumatic. Mucous membranes moist. EOMI, PERRLA, bilateral sclera anicteric, no conjunctival injection. Neck supple without JVD, lymphadenopathy, or bruit. Respiratory: clear to auscultation bilaterally. No rales/rhonic/wheezes. Cardiovascular: Regular rate and rhythm, normal S1-S2 upon auscultation. No murm urs, rubs, or clicks. PMI is nondisplaced, capillary re-fill less than 3 second. Abdomen: Soft, flat, no pulsatile masses, non-distended and non-tender. No rebound, no guarding. No CVA tenderness, no hepatosplenomegaly. Bowel sounds present to all four quadrants. No high pitch or tinkling sounds, resonant to percussion. Extremities: No cyanosis, clubbing, or edema present. Pulses are palpable 2/2. Active ROM to all four extremities. Left foot with wound VAC present. Serosanguineous drainage approximately 50 mils present. Neuro: Alert and orientated x 4. PERRLA. Cranial nerves 2-12 intact without focal deficit. Skin: Warm, dry, and intact, without rash, erythema, or lesion. Lines: Incisions: Psych: pleasant, cooperative, normal speech, normal affect, no hallucinations, no dysarthria Objective Data Vital Signs Vital Signs: Vital Signs - 24 hr 11/13/23 21:07 11/13/23 20:07 11/14/23 00:00 Temperature 97.7 F 97.8 F Pulse Rate 80 74 Respiratory Rate 20 20 Blood Pressure 150/59 H 144/55 H Pulse Oximetry 94 98 100 Oxygen Delivery Room Air 11/13/23 20:00 11/14/23 04:00 11/14/23 08:43 Temperature 97.7 F Pulse Rate 75 Respiratory Rate 20 Blood Pressure 159/68 H Pulse Oximetry 97 Oxygen Delivery Room Air Room Air 11/14/23 16:18 Temperature 98.2 F Pulse Rate 75 Respiratory Rate 18 Blood Pressure 122/41 L Pulse Oximetry 98 Oxygen Delivery Intake/Output Intake/Output: Intake & Output 11/11/23 11/12/23 11/13/23 11/14/23 23:59 23:59 23:59 23:59 Intake Total 2320 616 2540 1560 Output Total 350 Balance 2320 266 2540 1560 Meds/Results Medications: Active Medications Generic Name Dose Route Start Last Admin Trade Name Freq PRN Reason Stop Dose Admin Acetaminophen 650 mg 11/07/23 21:29 11/07/23 21:43 Acetaminophen 325 Mg Tablet PO 650 mg Q4H PRN Administration Mild Pain (1-3) or Fever Hydrocodone Bitart/Acetaminophen 1 tab 11/12/23 17:20 11/13/23 08:23 Hydrocodone/Acetaminophen (*Crx) 5-325 Mg Tablet PO 1 tab Q4H PRN Administration Pain Rated 4-6 Atorvastatin Calcium 40 mg 11/07/23 21:00 11/13/23 20:46 Atorvastatin 40 Mg Tablet PO 40 mg QHS JANEY Administration Dextrose 12.5 gm 11/07/23 07:14 Dextrose 50% 25 Gm/50 Ml Syringe IV PUSH PRN PRN Hypoglycemia Protocol Empagliflozin 25 mg 11/07/23 09:00 11/14/23 08:35 Empagliflozin 25 Mg Tablet BY MOUTH 25 mg QAM JANEY Administration Glucagon 1 mg 11/07/23 07:14 Glucagon For Inj 1 Mg Vial IM PRN PRN Hypoglycemia Protocol Glucose 15 gm 11/07/23 07:14 Glucose Oral Gel 15 Gm Of Glucse In 37.5 Gm Tube PO PRN PRN Hypoglycemia Protocol Heparin Sodium (Porcine) 5,000 units 11/07/23 21:00 11/14/23 08:35 Heparin Sodium 5,000 Units/Ml Vial SUB-Q 5,000 units Q12HR JANEY Administration Hydromorphone HCl 1 mg 11/12/23 17:20 Hydromorphone Hcl Inj (*Crx) 1 Mg/Ml Syr IV PUSH Q4H PRN Pain Rated 7-10 Dextrose 1,000 mls @ 100 mls/hr 11/07/23 07:14 Dextrose 5% 1,000 Ml IVPB PRN PRN Hypoglycemia Protocol Cefazolin Sodium 1 gm in 50 mls @ 100 mls/hr 11/12/23 22:00 11/14/23 14:39 Ancef 1 Gm/Ns 50 Ml IVPB Infused Q8H JANEY Infusion Insulin Aspart 1 - 3 units 11/07/23 21:00 11/13/23 20:50 Insulin Aspart (*Bkc) 100 Units/Ml SUB-Q Not Given HS [facility] Protocol Insulin Aspart 3 - 6 units 11/07/23 08:00 11/14/23 12:14 Insulin Aspart (*Bkc) 100 Units/Ml SUB-Q Not Given TIDWM [facility] Protocol Metronidazole 500 mg 11/11/23 16:00 11/14/23 14:09 Metronidazole 500 Mg Tablet PO 500 mg Q8HR JANEY Administration Ondansetron HCl 4 mg 11/10/23 11:39 11/14/23 14:09 Ondansetron Hcl Odt 4 Mg Tablet PO 4 mg Q6H PRN Administration Nausea And Vomiting Ondansetron HCl 4 mg 11/12/23 15:03 Ondansetron Inj 4 Mg/2 Ml Vial IV PUSH ONCE PRN Nausea Oxycodone HCl 5 mg 11/12/23 17:20 11/12/23 23:31 Oxycodone Hcl (*Crx) 5 Mg Tab Ir PO 5 mg Q4H PRN Administration Pain Rated 7-10 Sitagliptin Phosphate 100 mg 11/07/23 09:00 11/14/23 08:35 Sitagliptin 100 Mg Tablet PO 100 mg QAM JANEY Administration Radiology Results: ITS Impressions Chest X-Ray 11/06/23 19:42 IMPRESSION: No acute cardiopulmonary process. Foot X-Ray 11/06/23 19:42 IMPRESSION: Osteomyelitis involving the distal aspect fifth metatarsal stump. Possible oblique fracture of the fifth metatarsal base. Ankle Brachial Index 11/11/23 14:19 IMPRESSION: 1. Mildly decreased ABIs, improved from 05/18/2022, consistent with arterial occlusive disease. Lower Extremity CTA 11/11/23 18:07 IMPRESSION: CT and radiographic findings suspicious for osteomyelitis of the distal aspect of the fifth metatarsal stump. Old possibly nonunited fracture of the base the fifth metatarsal, with subtle areas of cortical thinning with an overlying soft tissue defect which may suggest the presence of subtle osteomyelitis. Consider MRI of the foot without and with contrast for further evaluation of osteomyelitis. Severe atherosclerotic disease in the left lower extremity with multifocal severe stenoses. Patent distal SFA/proximal popliteal stent. Probably patent s hort stent in the trunk of the peroneal and posterior tibial arteries. 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 Tenuous flow to the foot appears to be maintained via the anterior tibial artery. Labs Labs: Laboratory Results - last 24 hr 11/13/23 11/13/23 11/14/23 17:23 20:25 05:52 WBC 12.4 H RBC 3.58 L Hgb 9.2 L Hct 31.0 L MCV 86.6 MCH 25.7 L MCHC 29.7 L RDW 15.6 H Plt Count 456 H MPV 8.8 Immature Gran % (Auto) 2.1 H Neut % (Auto) 73.9 H Lymph % (Auto) 14.8 L [place] % (Auto) 6.7 Eos % (Auto) 2.1 Baso % (Auto) 0.4 Lymph # (Auto) 1.83 [place] # (Auto) 0.8 H Eos # (Auto) 0.3 Baso # (Auto) 0.1 Abs Immat Gran (auto) 0.26 H Absolute Neuts (auto) 9.2 H Absolute Nucleated RBC 0.000 Nucleated RBC % 0.0 Platelet Estimate Increased Hypochromasia 1+ Anisocytosis 1+ Schistocytes None seen Sodium 135 L Potassium 3.6 Chloride 101 Carbon Dioxide 26 Anion Gap 8 BUN 8 Creatinine 0.60 L Estim Creat Clear Calc 87 Estimated GFR > 60 Glucose 112 H POC Capillary Glucose 230 H 113 H Calcium 8.9 Magnesium 2.0 Total Bilirubin 0.4 AST 21 ALT 13 Alkaline Phosphatase 134 H Total Protein 7.0 Albumin 3.2 L 11/14/23 11/14/23 08:40 12:01 WBC RBC Hgb Hct MCV MCH MCHC RDW Plt Count MPV Immature Gran % (Auto) Neut % (Auto) Lymph % (Auto) [place] % (Auto) Eos % (Auto) Baso % (Auto) Lymph # (Auto) [place] # (Auto) Eos # (Auto) Baso # (Auto) Abs Immat Gran (auto) Absolute Neuts (auto) Absolute Nucleated RBC Nucleated RBC % Platelet Estimate Hypochromasia Anisocytosis Schistocytes Sodium Potassium Chloride Carbon Dioxide Anion Gap BUN Creatinine Estim Creat Clear Calc Estimated GFR Glucose POC Capillary Glucose 116 H 134 H Calcium Magnesium Total Bilirubin AST ALT Alkaline Phosphatase Total Protein Albumin Quality VTE Prophylaxis VTE prophylaxis: pharmacologic ordered (switched to heparin in case of surgical procedure)
[2023-11-14 17:41] LABS: Glucose Point of Care 143 mg/dl (65-105)
--- NOTE | 2023-11-14 19:06 | WPDPN ---
Progress Note: A&P Assessment and Plan (1) Osteomyelitis: Qualifiers: Osteomyelitis type: unspecified type Osteomyelitis location: foot Laterality: left Qualified Code(s): M86.9 - Osteomyelitis, unspecified Code(s): M86.9 - Osteomyelitis, unspecified Status: Acute Assessment and Plan: Osteomyelitis of the left foot of the residual metatarsal has now been treated with opening the wound and completion amputation of the left 5th metatarsal. The wound is cleaning up well with the wound VAC. She continues on IV Ancef which is culture driven. Awaiting approval for I wound VAC at home. In the meantime she continues on IV antibiotics in the hospital and local wound care with a wound VAC in place. Plan for Friday is to remove the wound VAC and place a seen a graft onto the granulating bed to augment healing of the wound. If that goes well then I would expect later go home the next day with the wound VAC in place and follow-up in the Wound Care Clinic for changes of the wound VAC. Continue supportive care. Subjective Date/time seen: 11/14/23 19:06 Interval history: Patient is doing well today. She has no complaints. The wound VAC on the left foot was removed today. I examined the wound at the bedside With the wound care [place] [address] which is relatively stable. Blood sugars have been running in the 120s to 140s . Exam Extrem: Other: Left foot with open wound on the lateral portion. The wound measures 13.5cm in length by 2.5cm in width by 2cm in depth. Deep in the wound the bone is exposed but it is viable. No drainage of any pus. Drainage is mostly all serous. No necrotic nonviable tissue noted in the wound or the skin edges. Portions of the wound have excellent granulation tissue no approximate 50% granulation tissues noted the base. Minimal swelling cross the left forefoot. Remaining left toes are all viable and she has movement in all the toes. Objective Data Vital Signs Vital Signs: Vital Signs - 24 hr 11/13/23 21:07 11/13/23 20:07 11/14/23 00:00 Temperature 36.5 C 36.6 C Pulse Rate 80 74 Respiratory Rate 20 20 Blood Pressure 150/59 H 144/55 H Pulse Oximetry 94 98 100 Oxygen Delivery Room Air 11/13/23 20:00 11/14/23 04:00 11/14/23 08:43 Temperature 36.5 C Pulse Rate 75 Respiratory Rate 20 Blood Pressure 159/68 H Pulse Oximetry 97 Oxygen Delivery Room Air Room Air 11/14/23 16:18 Temperature 36.8 C Pulse Rate 75 Respiratory Rate 18 Blood Pressure 122/41 L Pulse Oximetry 98 Oxygen Delivery Intake/Output Intake/Output: Intake & Output 11/11/23 11/12/23 11/13/23 11/14/23 23:59 23:59 23:59 23:59 Intake Total 2320 616 2540 1800 Output Total 350 Balance 2320 266 2540 1800 Meds/Results Medications: Active Medications Generic Name Dose Route Start Last Admin Trade Name Freq PRN Reason Stop Dose Admin Acetaminophen 650 mg 11/07/23 21:29 11/07/23 21:43 Acetaminophen 325 Mg Tablet PO 650 mg Q4H PRN Administration Mild Pain (1-3) or Fever Hydrocodone Bitart/Acetaminophen 1 tab 11/12/23 17:20 11/13/23 08:23 Hydrocodone/Acetaminophen (*Crx) 5-325 Mg Tablet PO 1 tab Q4H PRN Administration Pain Rated 4-6 Atorvastatin Calcium 40 mg 11/07/23 21:00 11/13/23 20:46 Atorvastatin 40 Mg Tablet PO 40 mg QHS JANEY Administration Dextrose 12.5 gm 11/07/23 07:14 Dextrose 50% 25 Gm/50 Ml Syringe IV PUSH PRN PRN Hypoglycemia Protocol Empagliflozin 25 mg 11/07/23 09:00 11/14/23 08:35 Empagliflozin 25 Mg Tablet BY MOUTH 25 mg QAM JANEY Administration Glucagon 1 mg 11/07/23 07:14 Glucagon For Inj 1 Mg Vial IM PRN PRN Hypoglycemia Protocol Glucose 15 gm 11/07/23 07:14 Glucose Oral Gel 15 Gm Of Glucse In 37.5 Gm Tube PO PRN PRN Hypoglycemia Protocol Heparin Sodium (Porcine) 5,000 units 11/07/23 21:00 11/14/23 08:35 Heparin Sodium 5,000 Units/Ml Vial SUB-Q 5,000 units Q12HR JANEY Administration Hydromorphone HCl 1 mg 11/12/23 17:20 Hydromorphone Hcl Inj (*Crx) 1 Mg/Ml Syr IV PUSH Q4H PRN Pain Rated 7-10 Dextrose 1,000 mls @ 100 mls/hr 11/07/23 07:14 Dextrose 5% 1,000 Ml IVPB PRN PRN Hypoglycemia Protocol Cefazolin Sodium 1 gm in 50 mls @ 100 mls/hr 11/12/23 22:00 11/14/23 14:39 Ancef 1 Gm/Ns 50 Ml IVPB Infused Q8H JANEY Infusion Insulin Aspart 1 - 3 units 11/07/23 21:00 11/13/23 20:50 Insulin Aspart (*Bkc) 100 Units/Ml SUB-Q Not Given HS [facility] Protocol Insulin Aspart 3 - 6 units 11/07/23 08:00 11/14/23 17:38 Insulin Aspart (*Bkc) 100 Units/Ml SUB-Q Not Given TIDWM [facility] Protocol Metronidazole 500 mg 11/11/23 16:00 11/14/23 14:09 Metronidazole 500 Mg Tablet PO 500 mg Q8HR JANEY Administration Ondansetron HCl 4 mg 11/10/23 11:39 11/14/23 14:09 Ondansetron Hcl Odt 4 Mg Tablet PO 4 mg Q6H PRN Administration Nausea And Vomiting Ondansetron HCl 4 mg 11/12/23 15:03 Ondansetron Inj 4 Mg/2 Ml Vial IV PUSH ONCE PRN Nausea Oxycodone HCl 5 mg 11/12/23 17:20 11/12/23 23:31 Oxycodone Hcl (*Crx) 5 Mg Tab Ir PO 5 mg Q4H PRN Administration Pain Rated 7-10 Sitagliptin Phosphate 100 mg 11/07/23 09:00 11/14/23 08:35 Sitagliptin 100 Mg Tablet PO 100 mg QAM JANEY Administration Radiology Results: ITS Impressions Chest X-Ray 11/06/23 19:42 IMPRESSION: No acute cardiopulmonary process. Foot X-Ray 11/06/23 19:42 IMPRESSION: Osteomyelitis involving the distal aspect fifth metatarsal stump. Possible oblique fracture of the fifth metatarsal base. Ankle Brachial Index 11/11/23 14:19 IMPRESSION: 1. Mildly decreased ABIs, improved from 05/18/2022, consistent with arterial occlusive disease. Lower Extremity CTA 11/11/23 18:07 IMPRESSION: CT and radiographic findings suspicious for osteomyelitis of the distal aspect of the fifth metatarsal stump. Old possibly nonunited fracture of the base the fifth metatarsal, with subtle areas of cortical thinning with an overlying soft tissue defect which may suggest the presence of subtle osteomyelitis. Consider MRI of the foot without and with contrast for further evaluation of osteomyelitis. Severe atherosclerotic disease in the left lower extremity with multifocal severe stenoses. Patent distal SFA/proximal popliteal stent. Probably patent short stent in the trunk of the peroneal and posterior tibial arteries. 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 Tenuous flow to the foot appears to be maintained via the anterior tibial artery. Labs Labs: Laboratory Results - last 24 hr 11/13/23 11/14/23 11/14/23 20:25 05:52 08:40 WBC 12.4 H RBC 3.58 L Hgb 9.2 L Hct 31.0 L MCV 86.6 MCH 25.7 L MCHC 29.7 L RDW 15.6 H Plt Count 456 H MPV 8.8 Immature Gran % (Auto) 2.1 H Neut % (Auto) 73.9 H Lymph % (Auto) 14.8 L [place] % (Auto) 6.7 Eos % (Auto) 2.1 Baso % (Auto) 0.4 Lymph # (Auto) 1.83 [place] # (Auto) 0.8 H Eos # (Auto) 0.3 Baso # (Auto) 0.1 Abs Immat Gran (auto) 0.26 H Absolute Neuts (auto) 9.2 H Absolute Nucleated RBC 0.000 Nucleated RBC % 0.0 Platelet Estimate Increased Hypochromasia 1+ Anisocytosis 1+ Schistocytes None seen Sodium 135 L Potassium 3.6 Chloride 101 Carbon Dioxide 26 Anion Gap 8 BUN 8 Creatinine 0.60 L Estim Creat Clear Calc 87 Estimated GFR > 60 Glucose 112 H POC Capillary Glucose 113 H 116 H Calcium 8.9 Magnesium 2.0 Total Bilirubin 0.4 AST 21 ALT 13 Alkaline Phosphatase 134 H Total Protein 7.0 Albumin 3.2 L 11/14/23 11/14/23 12:01 17:38 WBC RBC Hgb Hct MCV MCH MCHC RDW Plt Count MPV Immature Gran % (Auto) Neut % (Auto) Lymph % (Auto) [place] % (Auto) Eos % (Auto) Baso % (Auto) Lymph # (Auto) [place] # (Auto) Eos # (Auto) Baso # (Auto) Abs Immat Gran (auto) Absolute Neuts (auto) Absolute Nucleated RBC Nucleated RBC % Platelet Estimate Hypochromasia Anisocytosis Schistocytes Sodium Potassium Chloride Carbon Dioxide Anion Gap BUN Creatinine Estim Creat Clear Calc Estimated GFR Glucose POC Capillary Glucose 134 H 143 H Calcium Magnesium Total Bilirubin AST ALT Alkaline Phosphatase Total Protein Albumin
[2023-11-14] MEDS: ATORVASTATIN 40 MG TABLET PO (21:06)
[2023-11-14] MEDS: INSULIN ASPART (*BKC) 100 UNITS/ML SUB-Q (21:24)
[2023-11-14 21:27] LABS: Glucose Point of Care 207 mg/dl (65-105)
[2023-11-14 21:32] VITALS: BP 138/53; PULSE 76; RESP 18; TEMP 36.6; O2SAT 99
[2023-11-14 23:27] VITALS: O2SAT 98
[2023-11-15 05:00] LABS: Basophils Absolute Auto 0.1 K/mm3 (0.0-0.1); Basophils Percent Auto 0.5 % (0.2-1.2); Eosinophils Absolute Auto 0.4 K/mm3 (0-0.3); Eosinophils Percent Auto 2.8 % (0-4.4); Hematocrit 31.5 % (37.0-47.0); Hemoglobin 9.4 g/dL (12.0-15.0); Immature Granulocyte Absolute 0.28 K/mm3 (0.00-0.031); Immature Granulocyte Percent A 2.1 % (0-0.5); Lymphocytes Absolute Auto 2.23 K/mm3 (0.9-3.2); Lymphocytes Percent Auto 17.1 % (18.3-44.2); Mean Corpuscular HGB Conc 29.8 g/dl (32-36); Mean Corpuscular Hemoglobin 25.9 pg (26-34); Mean Corpuscular Volume 86.8 fl (80-100); Mean Platelet Volume 8.8 fl (7.4-10.4); Monocytes Percent Auto 7.7 % (2.6-8.5); Neutrophils Absolute Auto 9.1 K/mm3 (1.3-6.7); Neutrophils Percent Auto 69.8 % (45.5-73.1); Platelet Count Result 494 k/mm3 (150-375); Red Blood Count 3.63 M/mm3 (4.2-5.4); Red Cell Distribution Width 15.9 % (11.5-14.5); White Blood Count 13.1 K/mm3 (4.5-10.0)
[2023-11-15 05:12] LABS: Alanine Aminotransferase 13 U/L (6-35); Albumin Level 3.1 g/dL (3.5-5.1); Alkaline Phosphatase 138 U/L (38-126); Anion Gap 4 mmol/L (4-12); Aspartate Amino Transferase 22 U/L (14-36); Bilirubin,Total 0.3 mg/dL (0.2-1.3); Blood Urea Nitrogen 9 mg/dL (7-17); Calcium 8.5 mg/dL (8.4-10.2); Carbon Dioxide 31 mmol/L (22-30); Chloride 101 mmol/L (98-107); Estimated CRCL calculation 87 ml/min; Estimated Glomerular Filt Rate > 60; Glucose 147 mg/dL (65-110); Potassium 3.5 mmol/L (3.4-5.0); Sodium 136 mmol/L (137-145)
[2023-11-15] MEDS: ceFAZolin 1 GM/NS 50 ML 1 GM/50 ML BAG IVPB ×3 (05:48→22:14)
[2023-11-15 05:49] VITALS: BP 171/71; PULSE 76; RESP 20; TEMP 36.6; O2SAT 97
[2023-11-15] MEDS: metroNIDAZOLE 500 MG TABLET PO ×3 (06:31→22:13)
[2023-11-15 08:22] LABS: Glucose Point of Care 162 mg/dl (65-105)
[2023-11-15] MEDS: HEPARIN SODIUM 5,000 UNITS/ML VIAL 5000 UNITS SUB-Q ×2 (09:12→22:14)
[2023-11-15] MEDS: EMPAGLIFLOZIN 25 MG TABLET BY MOUTH (09:12)
--- NOTE | 2023-11-15 09:49 | WPDPN ---
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 She is doing well. The wound is being dressed with a wound VAC. Continue Ancef IV for methicillin sensitive Staph aureus infection. Also continue oral Flagyl for anaerobic infection. Plan on change of wound VAC and application of the xenograft Friday. Subjective Date/time seen: 11/15/23 09:49 Interval history: Patient is doing well today. No new complaints regards to her left foot. Wound VAC is in place and is working well. Keeping good suction. Tolerating diabetic diet. No fever. White blood cell count stable [place] 12 [place] [id number]. Exam Extrem: Other: Left foot wound VAC in place. Suction. No redness or swelling around the wound across the left forefoot. Remaining toes are all viable. Objective Data Vital Signs Vital Signs: Vital Signs - 24 hr 11/14/23 16:18 11/14/23 20:33 11/14/23 21:32 Temperature 36.8 C 36.6 C Pulse Rate 75 76 Respiratory Rate 18 18 Blood Pressure 122/41 L 138/53 L Pulse Oximetry 98 99 Oxygen Delivery Room Air 11/14/23 23:27 11/15/23 05:49 Temperature 36.6 C Pulse Rate 76 Respiratory Rate 20 Blood Pressure 171/71 H Pulse Oximetry 98 97 Oxygen Delivery Room Air Intake/Output Intake/Output: Intake & Output 11/12/23 11/13/23 11/14/23 11/15/23 23:59 23:59 23:59 23:59 Intake Total 616 2540 1850 1590 Output Total 350 600 300 Balance 266 2540 1250 1290 Meds/Results Medications: Active Medications Generic Name Dose Route Start Last Admin Trade Name Freq PRN Reason Stop Dose Admin Acetaminophen 650 mg 11/07/23 21:29 11/07/23 21:43 Acetaminophen 325 Mg Tablet PO 650 mg Q4H PRN Administration Mild Pain (1-3) or Fever Hydrocodone Bitart/Acetaminophen 1 tab 11/12/23 17:20 11/13/23 08:23 Hydrocodone/Acetaminophen (*Crx) 5-325 Mg Tablet PO 1 tab Q4H PRN Administration Pain Rated 4-6 Atorvastatin Calcium 40 mg 11/07/23 21:00 11/14/23 21:06 Atorvastatin 40 Mg Tablet PO 40 mg QHS JANEY Administration Dextrose 12.5 gm 11/07/23 07:14 Dextrose 50% 25 Gm/50 Ml Syringe IV PUSH PRN PRN Hypoglycemia Protocol Empagliflozin 25 mg 11/07/23 09:00 11/15/23 09:12 Empagliflozin 25 Mg Tablet BY MOUTH 25 mg QAM JANEY Administration Glucagon 1 mg 11/07/23 07:14 Glucagon For Inj 1 Mg Vial IM PRN PRN Hypoglycemia Protocol Glucose 15 gm 11/07/23 07:14 Glucose Oral Gel 15 Gm Of Glucse In 37.5 Gm Tube PO PRN PRN Hypoglycemia Protocol Heparin Sodium (Porcine) 5,000 units 11/07/23 21:00 11/15/23 09:12 Heparin Sodium 5,000 Units/Ml Vial SUB-Q 5,000 units Q12HR JANEY Administration Hydromorphone HCl 1 mg 11/12/23 17:20 Hydromorphone Hcl Inj (*Crx) 1 Mg/Ml Syr IV PUSH Q4H PRN Pain Rated 7-10 Dextrose 1,000 mls @ 100 mls/hr 11/07/23 07:14 Dextrose 5% 1,000 Ml IVPB PRN PRN Hypoglycemia Protocol Cefazolin Sodium 1 gm in 50 mls @ 100 mls/hr 11/12/23 22:00 11/15/23 06:20 Ancef 1 Gm/Ns 50 Ml IVPB Infused Q8H JANEY Infusion Insulin Aspart 1 - 3 units 11/07/23 21:00 11/14/23 21:24 Insulin Aspart (*Bkc) 100 Units/Ml SUB-Q 1 units HS JANEY Administration Protocol Insulin Aspart 3 - 6 units 11/07/23 08:00 11/15/23 09:10 Insulin Aspart (*Bkc) 100 Units/Ml SUB-Q Not Given TIDWM [facility] Protocol Metronidazole 500 mg 11/11/23 16:00 11/15/23 06:31 Metronidazole 500 Mg Tablet PO 500 mg Q8HR JANEY Administration Ondansetron HCl 4 mg 11/10/23 11:39 11/14/23 21:06 Ondansetron Hcl Odt 4 Mg Tablet PO 4 mg Q6H PRN Administration Nausea And Vomiting Ondansetron HCl 4 mg 11/12/23 15:03 Ondansetron Inj 4 Mg/2 Ml Vial IV PUSH ONCE PRN Nausea Oxycodone HCl 5 mg 11/12/23 17:20 11/12/23 23:31 Oxycodone Hcl (*Crx) 5 Mg Tab Ir PO 5 mg Q4H PRN Administration Pain Rated 7-10 Sitagliptin Phosphate 100 mg 11/07/23 09:00 11/15/23 09:12 Sitagliptin 100 Mg Tablet PO 100 mg QAM JANEY Administration Radiology Results: ITS Impressions Chest X-Ray 11/06/23 19:42 IMPRESSION: No acute cardiopulmonary process. Foot X-Ray 11/06/23 19:42 IMPRESSION: Osteomyelitis involving the distal aspect fifth metatarsal stump. Possible oblique fracture of the fifth metatarsal base. Ankle Brachial Index 11/11/23 14:19 IMPRESSION: 1. Mildly decreased ABIs, improved from 05/18/2022, consistent with arterial occlusive disease. Lower Extremity CTA 11/11/23 18:07 IMPRESSION: CT and radiographic findings suspicious for osteomyelitis of the distal aspect of the fifth metatarsal stump. Old possibly nonunited fracture of the base the fifth metatarsal, with subtle areas of cortical thinning with an overlying soft tissue defect which may suggest the presence of subtle osteomyelitis. Consider MRI of the foot without and with contrast for further evaluation of osteomyelitis. Severe atherosclerotic disease in the left lower extremity with multifocal severe stenoses. Patent distal SFA/proximal popliteal stent. Probably patent short stent in the trunk of the peroneal and posterior tibial arteries. 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 Tenuous flow to the foot appears to be maintained via the anterior tibial artery. Labs Labs: Laboratory Results - last 24 hr 11/14/23 11/14/23 11/14/23 12:01 17:38 21:10 WBC RBC Hgb Hct MCV MCH MCHC RDW Plt Count MPV Immature Gran % (Auto) Neut % (Auto) Lymph % (Auto) [place] % (Auto) Eos % (Auto) Baso % (Auto) Lymph # (Auto) [place] # (Auto) Eos # (Auto) Baso # (Auto) Abs Immat Gran (auto) Absolute Neuts (auto) Absolute Nucleated RBC Nucleated RBC % Sodium Potassium Chloride Carbon Dioxide Anion Gap BUN Creatinine Estim Creat Clear Calc Estimated GFR Glucose POC Capillary Glucose 134 H 143 H 207 H Calcium Magnesium Total Bilirubin AST ALT Alkaline Phosphatase Total Protein Albumin 11/15/23 11/15/23 04:39 08:18 WBC 13.1 H RBC 3.63 L Hgb 9.4 L Hct 31.5 L MCV 86.8 MCH 25.9 L MCHC 29.8 L RDW 15.9 H Plt Count 494 H MPV 8.8 Immature Gran % (Auto) 2.1 H Neut % (Auto) 69.8 Lymph % (Auto) 17.1 L [place] % (Auto) 7.7 Eos % (Auto) 2.8 Baso % (Auto) 0.5 Lymph # (Auto) 2.23 [place] # (Auto) 1.0 H Eos # (Auto) 0.4 H Baso # (Auto) 0.1 Abs Immat Gran (auto) 0.28 H Absolute Neuts (auto) 9.1 H Absolute Nucleated RBC 0.000 Nucleated RBC % 0.0 Sodium 136 L Potassium 3.5 Chloride 101 Carbon Dioxide 31 H Anion Gap 4 BUN 9 Creatinine 0.60 L Estim Creat Clear Calc 87 Estimated GFR > 60 Glucose 147 H POC Capillary Glucose 162 H Calcium 8.5 Magnesium 2.0 Total Bilirubin 0.3 AST 22 ALT 13 Alkaline Phosphatase 138 H Total Protein 7.0 Albumin 3.1 L
[2023-11-15 12:14] LABS: Glucose Point of Care 222 mg/dl (65-105)
[2023-11-15] MEDS: INSULIN ASPART (*BKC) 100 UNITS/ML SUB-Q (12:35)
[2023-11-15] MEDS: ONDANSETRON HCL ODT 4 MG TABLET PO ×2 (14:06→22:13)
[2023-11-15 14:25] VITALS: BP 146/80; PULSE 73; RESP 17; TEMP 36.7; O2SAT 98
--- NOTE | 2023-11-15 15:42 | PM.IMPN ---
Progress Note: A&P Assessment and Plan (1) Sepsis: Qualifiers: Sepsis type: sepsis due to unspecified organism Sepsis acute organ dysfunction status: without acute organ dysfunction Qualified Code(s): A41.9 - Sepsis, unspecified organism Code(s): A41.9 - Sepsis, unspecified organism Status: Acute Assessment and Plan: 11/08/2023 Patient currently meeting sepsis criteria with temp of 101.3, heart rate of 107, white blood cell count 12.0, and known source of infection the left foot. Blood culture showing no growth on preliminary read Foot wound culture is pending Patient was originally given Zosyn and vancomycin Will switch to cefepime, vancomycin, and Flagyl for diabetic foot wound protocol Left foot x-ray showing osteomyelitis involving the distal aspect of the 5th metatarsal, possible oblique fracture of the 5th metatarsal base. General surgery was consulted Patient had a bedside debridement of her wound with General surgery 11/08: General surgery to transition patient to oral antibiotics planned discharge tomorrow after wound care consult will follow-up in clinic for further surgical planning. 11/09: foot appears more erythematous white blood cell count has increased patient has developed diarrhea and nausea. Surgery is changing planned will keep inpatient and have Dr. Johnson evaluate tomorrow 11/11: Going to surgery for debridement vs amputation? CTA lower extremities shows severe atherosclerotic disease in the left lower extremity with multifocal severe stenosis. Patent distal SFA/proximal popliteal stent. 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 11/12: White blood cell 13, wound VAC placed. On p.o. Flagyl and IV cefepime. Will discharge with oral antibiotics. Home health is being arranged. Plan for wound VAC changed. 11/13: Wound VAC change this morning. Continue with antibiotics. Awaiting wound VAC for home. Possibly receiving a skin graft on Tuesday 11/14: Wound VAC is intact. (2) Osteomyelitis: Qualifiers: Osteomyelitis type: unspecified type Osteomyelitis location: foot Laterality: left Qualified Code(s): M86.9 - Osteomyelitis, unspecified Code(s): M86.9 - Osteomyelitis, unspecified Status: Acute Assessment and Plan: 11/08/2023 The left foot x-ray showing osteomyelitis involving the distal aspect of the 5th metatarsal, possible oblique fracture of the 5th metatarsal base General surgery consulted Patient had a bedside debridement of her wound with General surgery Blood culture showing no growth on preliminary read Foot wound was cultured and is pending Patient was given Zosyn and vancomycin initially and we will switch to cefepime vancomycin and Flagyl for diabetic foot wound protocol 11/08: General surgery to transition patient to oral antibiotics planned discharge tomorrow after wound care consult will follow-up in clinic for further surgical planning. 11/09: foot appears more erythematous white blood cell count has increased patient has developed diarrhea and nausea. Surgery is changing planned will keep inpatient and have Dr. Johnson evaluate tomorrow 43: See #1 (3) Diabetic foot ulcer: Qualifiers: Diabetes mellitus type: other specified (including MARINA) Diabetic foot ulcer location: heel Laterality: left Code(s): E11.621 - Type 2 diabetes mellitus with foot ulcer; L97.509 - Non-pressure chronic ulcer of other part of unspecified foot with unspecified severity Status: Acute Assessment and Plan: 11/08/2023: Patient has a diabetic foot ulcer on the lateral aspect of her right foot that looks dry with black eschar. Dr. Álvarez notified of this finding. 11/08: General surgery to transition patient to oral antibiotics planned discharge tomorrow after wound care consult will follow-up in clinic for further surgical planning. Wound Care to consult on bilateral foot wounds tomorrow. 11/09: foot appears more erythematous white blood cell count has increased patient has developed diarrhea and nausea. Surgery is changing planned will keep inpatient and have Dr. Johnson evaluate tomorrow 3: see # 1 and 2 (4) Type 2 diabetes mellitus with hyperglycemia: Qualifiers: Diabetes mellitus halfway insulin use: without halfway use Qualified Code(s): E11.65 - Type 2 diabetes mellitus with hyperglycemia Code(s): E11.65 - Type 2 diabetes mellitus with hyperglycemia Status: Chronic Assessment and Plan: 11/08/2023 Blood sugars ranging 125-227 Hemoglobin A1c on 07/24/2023 was 6.5 Accu-Cheks AC and HS Hypoglycemic protocol in place Moderate does sliding scale insulin ordered Continue Lilliana and Arianaance in replacement of her Farxiga 11/08: Morning glucose 148 by fingerstick 11/09: morning glucose 106 by fingerstick 11/11: BG stable 87-152 11/12: Blood sugars reviewed and are stable Plan She will come to the wound clinic for wound VAC changes She will discharge with a wound VAC Oral antibiotics at discharge May be having skin graft done on Friday Subjective Date/time seen: 11/15/23 15:42 Interval history: HPI obtained from the chart, 57-year-old female with past medical history of diabetic peripheral neuropathy, peripheral vascular disease, 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 And 1 day of chills. the patient had initially came to the ER the night before and was given fluids and discharged home after antiemetics.? She returns this evening because of chills worsening fatigue and nausea.? Interval history: 11/11: Patient is seen resting in bed with at bedside. She is in no acute distress. She is waiting to go to surgery. No questions or concerns at this time. She is hungry and thirsty. 11/12: Postop day 1 from amputation and debridement to left 5th toe and lateral aspect of foot. Wound VAC is in place. Per the patient has been alarming off and on all night. With VAC was changed overnight is still alarms with leak. Dr. Johnson was actually at the bedside and there was good suction to the dressing. He recommends contacting wound care should it continue to beep. The plan will be to change wound VAC tomorrow. Home health is being arranged for VAC changes. Once that is completed the patient is stable to discharge home. She will go home on oral antibiotics. She is not having pain at this time. She reports some pain to the lateral aspect of her foot but it was controlled with her p.r.n. pain medication. She did have some nausea after taking that medication but she reports she took it on an empty stomach. 11/13: No acute events overnight. Wound VAC was changed this morning. Patient is up to the chair LCX she feels well. Her pain is well controlled. She says that she will be here through early next week as Dr. Johnson is planning on doing a skin graft on Friday. We also do not have a home wound VAC approved yet. She reports having a bowel movement yesterday and is tolerating a diet. 11/14: No acute changes overnight. She is sitting up in the chair with aspirin at bedside. Wound VAC with good seal. No changes today. She denies complaints. Review of Systems Review of Systems: All systems reviewed & are unremarkable except as noted in HPI and below Exam Narrative: General: well appearing, well developed, well nourished, appears older than stated age HEENT: normocephalic, atraumatic. Mucous membranes moist. EOMI, PERRLA, bilateral sclera anicteric, no conjunctival injection. Neck supple without JVD, lymphadenopathy, or bruit. Respiratory: clear to auscultation bilaterally. No rales/rhonic/wheezes. Cardiovascular: Regular rate and rhythm, normal S1-S2 upon auscultation. No murmurs, rubs, or clicks. PMI is nondisplaced, capillary re-fill less than 3 second. Abdomen: Soft, flat, no pulsatile masses, non-distended and non-tender. No rebound, no guarding. No CVA tenderness, no hepatosplenomegaly. Bowel sounds present to all four quadrants. No high pitch or tinkling sounds, resonant to percussion. Extremities: No cyanosis, clubbing, or edema present. Pulses are palpable 2/2. Active ROM to all four extremities. Left foot with wound VAC present. Serosanguineous drainage approximately 50 mils present. Neuro: Alert and orientated x 4. PERRLA. Cranial nerves 2-12 intact without focal deficit. Skin: Warm, dry, and intact, without rash, erythema, or lesion. Lines: Incisions: Psych: pleasant, cooperative, normal speech, normal affect, no hallucinations, no dysarthria Objective Data Vital Signs Vital Signs: Vital Signs - 24 hr 11/14/23 16:18 11/14/23 20:33 11/14/23 21:32 Temperature 98.2 F 97.8 F Pulse Rate 75 76 Respiratory Rate 18 18 Blood Pressure 122/41 L 138/53 L Pulse Oximetry 98 99 Oxygen Delivery Room Air 11/14/23 23:27 11/15/23 05:49 11/15/23 14:25 Temperature 97.8 F 98.0 F Pulse Rate 76 73 Respiratory Rate 20 17 Blood Pressure 171/71 H 146/80 H Pulse Oximetry 98 97 98 Oxygen Delivery Room Air Intake/Output Intake/Output: Intake & Output 11/12/23 11/13/23 11/14/23 11/15/23 23:59 23:59 23:59 23:59 Intake Total 616 2540 1850 1830 Output Total 350 600 300 Balance 266 2540 1250 1530 Meds/Results Medications: Active Medications Generic Name Dose Route Start Last Admin Trade Name Freq PRN Reason Stop Dose Admin Acetaminophen 650 mg 11/07/23 21:29 11/07/23 21:43 Acetaminophen 325 Mg Tablet PO 650 mg Q4H PRN Administration Mild Pain (1-3) or Fever Hydrocodone Bitart/Acetaminophen 1 tab 11/12/23 17:20 11/13/23 08:23 Hydrocodone/Acetaminophen (*Crx) 5-325 Mg Tablet PO 1 tab Q4H PRN Administration Pain Rated 4-6 Atorvastatin Calcium 40 mg 11/07/23 21:00 11/14/23 21:06 Atorvastatin 40 Mg Tablet PO 40 mg QHS JANEY Administration Dextrose 12.5 gm 11/07/23 07:14 Dextrose 50% 25 Gm/50 Ml Syringe IV PUSH PRN PRN Hypoglycemia Protocol Empagliflozin 25 mg 11/07/23 09:00 11/15/23 09:12 Empagliflozin 25 Mg Tablet BY MOUTH 25 mg QAM JANEY Administration Glucagon 1 mg 11/07/23 07:14 Glucagon For Inj 1 Mg Vial IM PRN PRN Hypoglycemia Protocol Glucose 15 gm 11/07/23 07:14 Glucose Oral Gel 15 Gm Of Glucse In 37.5 Gm Tube PO PRN PRN Hypoglycemia Protocol Heparin Sodium (Porcine) 5,000 units 11/07/23 21:00 11/15/23 09:12 Heparin Sodium 5,000 Units/Ml Vial SUB-Q 5,000 units Q12HR JANEY Administration Hydromorphone HCl 1 mg 11/12/23 17:20 Hydromorphone Hcl Inj (*Crx) 1 Mg/Ml Syr IV PUSH Q4H PRN Pain Rated 7-10 Dextrose 1,000 mls @ 100 mls/hr 11/07/23 07:14 Dextrose 5% 1,000 Ml IVPB PRN PRN Hypoglycemia Protocol Cefazolin Sodium 1 gm in 50 mls @ 100 mls/hr 11/12/23 22:00 11/15/23 14:05 Ancef 1 Gm/Ns 50 Ml IVPB 100 mls/hr Q8H JANEY Administration Insulin Aspart 1 - 3 units 11/07/23 21:00 11/14/23 21:24 Insulin Aspart (*Bkc) 100 Units/Ml SUB-Q 1 units HS [facility] Administration Protocol Insulin Aspart 3 - 6 units 11/07/23 08:00 11/15/23 12:35 Insulin Aspart (*Bkc) 100 Units/Ml SUB-Q 3 units TIDWM [facility] Administration Protocol Metronidazole 500 mg 11/11/23 16:00 11/15/23 14:06 Metronidazole 500 Mg Tablet PO 500 mg Q8HR [facility] Administration Ondansetron HCl 4 mg 11/10/23 11:39 11/15/23 14:06 Ondansetron Hcl Odt 4 Mg Tablet PO 4 mg Q6H PRN Administration Nausea And Vomiting Ondansetron HCl 4 mg 11/12/23 15:03 Ondansetron Inj 4 Mg/2 Ml Vial IV PUSH ONCE PRN Nausea Oxycodone HCl 5 mg 11/12/23 17:20 11/12/23 23:31 Oxycodone Hcl (*Crx) 5 Mg Tab Ir PO 5 mg Q4H PRN Administration Pain Rated 7-10 Sitagliptin Phosphate 100 mg 11/07/23 09:00 11/15/23 09:12 Sitagliptin 100 Mg Tablet PO 100 mg QAM [facility] Administration Radiology Results: ITS Impressions Chest X-Ray 11/06/23 19:42 IMPRESSION: No acute cardiopulmonary process. Foot X-Ray 11/06/23 19:42 IMPRESSION: Osteomyelitis involving the distal aspect fifth metatarsal stump. Possible oblique fracture of the fifth metatarsal base. Ankle Brachial Index 11/11/23 14:19 IMPRESSION: 1. Mildly decreased ABIs, improved from 05/18/2022, consistent with arterial occlusive disease. Lower Extremity CTA 11/11/23 18:07 IMPRESSION: CT and radiographic findings suspicious for osteomyelitis of the distal aspect of the fifth metatarsal stump. Old possibly nonunited fracture of the base the fifth metatarsal, with subtle areas of cortical thinning with an overlying soft tissue defect which may suggest the presence of subtle osteomyelitis. Consider MRI of the foot without and with contrast for further evaluation of osteomyelitis. Severe atherosclerotic disease in the left lower extremity with multifocal severe stenoses. Patent distal SFA/proximal popliteal stent. Probably patent short stent in the trunk of the peroneal and posterior tibial arteries. 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 Tenuous flow to the foot appears to be maintained via the anterior tibial artery. Labs Labs: Laboratory Results - last 24 hr 11/14/23 11/14/23 11/15/23 17:38 21:10 04:39 WBC 13.1 H RBC 3.63 L Hgb 9.4 L Hct 31.5 L MCV 86.8 MCH 25.9 L MCHC 29.8 L RDW 15.9 H Plt Count 494 H MPV 8.8 Immature Gran % (Auto) 2.1 H Neut % (Auto) 69.8 Lymph % (Auto) 17.1 L [place] % (Auto) 7.7 Eos % (Auto) 2.8 Baso % (Auto) 0.5 Lymph # (Auto) 2.23 [place] # (Auto) 1.0 H Eos # (Auto) 0.4 H Baso # (Auto) 0.1 Abs Immat Gran (auto) 0.28 H Absolute Neuts (auto) 9.1 H Absolute Nucleated RBC 0.000 Nucleated RBC % 0.0 Sodium 136 L Potassium 3.5 Chloride 101 Carbon Dioxide 31 H Anion Gap 4 BUN 9 Creatinine 0.60 L Estim Creat Clear Calc 87 Estimated GFR > 60 Glucose 147 H POC Capillary Glucose 143 H 207 H Calcium 8.5 Magnesium 2.0 Total Bilirubin 0.3 AST 22 ALT 13 Alkaline Phosphatase 138 H Total Protein 7.0 Albumin 3.1 L 11/15/23 11/15/23 08:18 12:09 WBC RBC Hgb Hct MCV MCH MCHC RDW Plt Count MPV Immature Gran % (Auto) Neut % (Auto) Lymph % (Auto) [place] % (Auto) Eos % (Auto) Baso % (Auto) Lymph # (Auto) [place] # (Auto) Eos # (Auto) Baso # (Auto) Abs Immat Gran (auto) Absolute Neuts (auto) Absolute Nucleated RBC Nucleated RBC % Sodium Potassium Chloride Carbon Dioxide Anion Gap BUN Creatinine Estim Creat Clear Calc Estimated GFR Glucose POC Capillary Glucose 162 H 222 H Calcium Magnesium Total Bilirubin AST ALT Alkaline Phosphatase Total Protein Albumin Quality VTE Prophylaxis VTE prophylaxis: pharmacologic ordered (switched to heparin in case of surgical procedure)
[2023-11-15 17:21] LABS: Glucose Point of Care 189 mg/dl (65-105)
[2023-11-15 22:00] VITALS: BP 158/75; PULSE 70; RESP 20; TEMP 36.6; O2SAT 100
[2023-11-15] MEDS: ATORVASTATIN 40 MG TABLET PO (22:13)
[2023-11-15 22:26] LABS: Glucose Point of Care 188 mg/dl (65-105)
[2023-11-16] MEDS: ceFAZolin 1 GM/NS 50 ML 1 GM/50 ML BAG IVPB ×3 (05:23→21:16)
[2023-11-16] MEDS: metroNIDAZOLE 500 MG TABLET PO ×3 (05:24→21:16)
[2023-11-16 05:28] LABS: Basophils Absolute Auto 0.1 K/mm3 (0.0-0.1); Basophils Percent Auto 0.5 % (0.2-1.2); Eosinophils Absolute Auto 0.4 K/mm3 (0-0.3); Hemoglobin 9.5 g/dL (12.0-15.0); Immature Granulocyte Absolute 0.18 K/mm3 (0.00-0.031); Immature Granulocyte Percent A 1.5 % (0-0.5); Lymphocytes Absolute Auto 2.34 K/mm3 (0.9-3.2); Lymphocytes Percent Auto 19.1 % (18.3-44.2); Mean Corpuscular HGB Conc 29.7 g/dl (32-36); Mean Corpuscular Volume 87.4 fl (80-100); Mean Platelet Volume 8.8 fl (7.4-10.4); Monocytes Absolute Auto 0.8 K/mm3 (0.1-0.6); Monocytes Percent Auto 6.7 % (2.6-8.5); Neutrophils Absolute Auto 8.5 K/mm3 (1.3-6.7); Neutrophils Percent Auto 69.2 % (45.5-73.1); Platelet Count Result 496 k/mm3 (150-375); Red Blood Count 3.66 M/mm3 (4.2-5.4); Red Cell Distribution Width 15.9 % (11.5-14.5); White Blood Count 12.2 K/mm3 (4.5-10.0)
[2023-11-16 05:36] LABS: Alanine Aminotransferase 12 U/L (6-35); Albumin Level 3.1 g/dL (3.5-5.1); Alkaline Phosphatase 141 U/L (38-126); Anion Gap 4 mmol/L (4-12); Aspartate Amino Transferase 20 U/L (14-36); Bilirubin,Total 0.3 mg/dL (0.2-1.3); Blood Urea Nitrogen 8 mg/dL (7-17); Calcium 8.4 mg/dL (8.4-10.2); Carbon Dioxide 28 mmol/L (22-30); Chloride 103 mmol/L (98-107); Estimated CRCL calculation 76 ml/min; Estimated Glomerular Filt Rate > 60; Glucose 145 mg/dL (65-110); Magnesium 1.8 mg/dL (1.6-2.3); Potassium 3.2 mmol/L (3.4-5.0); Sodium 135 mmol/L (137-145)
[2023-11-16 05:56] VITALS: BP 147/73; PULSE 74; RESP 18; TEMP 36.4; O2SAT 99
[2023-11-16 06:00] LABS: Anisocytosis 1+; Hypochromasia 1+; Platelet Estimate Increased (Adequate); Schistocytes None Seen
[2023-11-16 07:33] LABS: Glucose Point of Care 165 mg/dl (65-105)
[2023-11-16] MEDS: HEPARIN SODIUM 5,000 UNITS/ML VIAL 5000 UNITS SUB-Q ×2 (08:30→21:16)
[2023-11-16] MEDS: EMPAGLIFLOZIN 25 MG TABLET BY MOUTH (08:30)
--- NOTE | 2023-11-16 08:55 | P.PN_ITS ---
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 Wound is open with wound VAC in place. Swelling and redness in the left foot has resolved. Blood count stable 12- 13,000. She continued on Ancef IV. Will plan on discharging home on oral antibiotics to cover methicillin sensitive Staph aureus which was cultured. Tomorrow she will go to the operating room for placement of a xenograft to promote wound healing prior to discharge home with a wound VAC hopefully the next day. Subjective Date/time seen: 11/16/23 08:55 Interval history: Without acute change. Wound VAC still on left lateral foot. No issues with air leaks on the wound VAC. White blood count very stable 12 13,000 the past several days. No fever. Exam Extrem: Other: Left foot redness or swelling. Wound VAC in place. Minimal drainage. Objective Data Vital Signs Vital Signs: Vital Signs - 24 hr 11/15/23 14:25 11/15/23 22:00 11/15/23 20:00 Temperature 36.7 C 36.6 C Pulse Rate 73 70 Respiratory Rate 17 20 Blood Pressure 146/80 H 158/75 H Pulse Oximetry 98 100 Oxygen Delivery Room Air 11/16/23 05:56 Temperature 36.4 C Pulse Rate 74 Respiratory Rate 18 Blood Pressure 147/73 H Pulse Oximetry 99 Oxygen Delivery Intake/Output Intake/Output: Intake & Output 11/13/23 11/14/23 11/15/23 11/16/23 23:59 23:59 23:59 23:59 Intake Total 2540 1850 2520 800 Output Total 600 300 600 Balance 2540 1250 2220 200 Meds/Results Medications: Active Medications Generic Name Dose Route Start Last Admin Trade Name Freq PRN Reason Stop Dose Admin Acetaminophen 650 mg 11/07/23 21:29 11/07/23 21:43 Acetaminophen 325 Mg Tablet PO 650 mg Q4H PRN Administration Mild Pain (1-3) or Fever Hydrocodone Bitart/Acetaminophen 1 tab 11/12/23 17:20 11/13/23 08:23 Hydrocodone/Acetaminophen (*Crx) 5-325 Mg Tablet PO 1 tab Q4H PRN Administration Pain Rated 4-6 Atorvastatin Calcium 40 mg 11/07/23 21:00 11/15/23 22:13 Atorvastatin 40 Mg Tablet PO 40 mg QHS JANEY Administration Dextrose 12.5 gm 11/07/23 07:14 Dextrose 50% 25 Gm/50 Ml Syringe IV PUSH PRN PRN Hypoglycemia Protocol Empagliflozin 25 mg 11/07/23 09:00 11/16/23 08:30 Empagliflozin 25 Mg Tablet BY MOUTH 25 mg QAM JANEY Administration Glucagon 1 mg 11/07/23 07:14 Glucagon For Inj 1 Mg Vial IM PRN PRN Hypoglycemia Protocol Glucose 15 gm 11/07/23 07:14 Glucose Oral Gel 15 Gm Of Glucse In 37.5 Gm Tube PO PRN PRN Hypoglycemia Protocol Heparin Sodium (Porcine) 5,000 units 11/07/23 21:00 11/16/23 08:30 Heparin Sodium 5,000 Units/Ml Vial SUB-Q 5,000 units Q12HR JANEY Administration Hydromorphone HCl 1 mg 11/12/23 17:20 Hydromorphone Hcl Inj (*Crx) 1 Mg/Ml Syr IV PUSH Q4H PRN Pain Rated 7-10 Dextrose 1,000 mls @ 100 mls/hr 11/07/23 07:14 Dextrose 5% 1,000 Ml IVPB PRN PRN Hypoglycemia Protocol Cefazolin Sodium 1 gm in 50 mls @ 100 mls/hr 11/12/23 22:00 11/16/23 05:58 Ancef 1 Gm/Ns 50 Ml IVPB Infused Q8H JANEY Infusion Insulin Aspart 1 - 3 units 11/07/23 21:00 11/15/23 22:14 Insulin Aspart (*Bkc) 100 Units/Ml SUB-Q Not Given HS JANEY Protocol Insulin Aspart 3 - 6 units 11/07/23 08:00 11/16/23 08:29 Insulin Aspart (*Bkc) 100 Units/Ml SUB-Q Not Given TIDWM [facility] Protocol Metronidazole 500 mg 11/11/23 16:00 11/16/23 05:24 Metronidazole 500 Mg Tablet PO 500 mg Q8HR JANEY Administration Ondansetron HCl 4 mg 11/10/23 11:39 11/15/23 22:13 Ondansetron Hcl Odt 4 Mg Tablet PO 4 mg Q6H PRN Administration Nausea And Vomiting Ondansetron HCl 4 mg 11/12/23 15:03 Ondansetron Inj 4 Mg/2 Ml Vial IV PUSH ONCE PRN Nausea Oxycodone HCl 5 mg 11/12/23 17:20 11/12/23 23:31 Oxycodone Hcl (*Crx) 5 Mg Tab Ir PO 5 mg Q4H PRN Administration Pain Rated 7-10 Sitagliptin Phosphate 100 mg 11/07/23 09:00 11/16/23 08:30 Sitagliptin 100 Mg Tablet PO 100 mg QAM JANEY Administration Radiology Results: ITS Impressions Chest X-Ray 11/06/23 19:42 IMPRESSION: No acute cardiopulmonary process. Foot X-Ray 11/06/23 19:42 IMPRESSION: Osteomyelitis involving the distal aspect fifth metatarsal stump. Possible oblique fracture of the fifth metatarsal base. Ankle Brachial Index 11/11/23 14:19 IMPRESSION: 1. Mildly decreased ABIs, improved from 05/18/2022, consistent with arterial occlusive disease. Lower Extremity CTA 11/11/23 18:07 IMPRESSION: CT and radiographic findings suspicious for osteomyelitis of the distal aspect of the fifth metatarsal stump. Old possibly nonunited fracture of the base the fifth metatarsal, with subtle areas of cortical thinning with an overlying soft tissue defect which may suggest the presence of subtle osteomyelitis. Consider MRI of the foot without and with contrast for further evaluation of osteomyelitis. Severe atherosclerotic disease in the left lower extremity with multifocal severe stenoses. Patent distal SFA/proximal popliteal stent. Probably patent short stent in the trunk of the peroneal and posterior tibial arteries. 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 Tenuous flow to the foot appears to be maintained via the anterior tibial artery. Labs Labs: Laboratory Results - last 24 hr 11/15/23 11/15/23 11/15/23 12:09 17:17 22:12 WBC RBC Hgb Hct MCV MCH MCHC RDW Plt Count MPV Immature Gran % (Auto) Neut % (Auto) Lymph % (Auto) [place] % (Auto) Eos % (Auto) Baso % (Auto) Lymph # (Auto) [place] # (Auto) Eos # (Auto) Baso # (Auto) Abs Immat Gran (auto) Absolute Neuts (auto) Absolute Nucleated RBC Nucleated RBC % Platelet Estimate Hypochromasia Anisocytosis Schistocytes Sodium Potassium Chloride Carbon Dioxide Anion Gap BUN Creatinine Estim Creat Clear Calc Estimated GFR Glucose POC Capillary Glucose 222 H 189 H 188 H Calcium Magnesium Total Bilirubin AST ALT Alkaline Phosphatase Total Protein Albumin 11/16/23 11/16/23 05:12 07:29 WBC 12.2 H RBC 3.66 L Hgb 9.5 L Hct 32.0 L MCV 87.4 MCH 26.0 MCHC 29.7 L RDW 15.9 H Plt Count 496 H MPV 8.8 Immature Gran % (Auto) 1.5 H Neut % (Auto) 69.2 Lymph % (Auto) 19.1 [place] % (Auto) 6.7 Eos % (Auto) 3.0 Baso % (Auto) 0.5 Lymph # (Auto) 2.34 [place] # (Auto) 0.8 H Eos # (Auto) 0.4 H Baso # (Auto) 0.1 Abs Immat Gran (auto) 0.18 H Absolute Neuts (auto) 8.5 H Absolute Nucleated RBC 0.000 Nucleated RBC % 0.0 Platelet Estimate Increased Hypochromasia 1+ Anisocytosis 1+ Schistocytes None seen Sodium 135 L Potassium 3.2 L Chloride 103 Carbon Dioxide 28 Anion Gap 4 BUN 8 Creatinine 0.70 Estim Creat Clear Calc 76 Estimated GFR > 60 Glucose 145 H POC Capillary Glucose 165 H Calcium 8.4 Magnesium 1.8 Total Bilirubin 0.3 AST 20 ALT 12 Alkaline Phosphatase 141 H Total Protein 7.0 Albumin 3.1 L
[2023-11-16 12:54] LABS: Glucose Point of Care 152 mg/dl (65-105)
[2023-11-16] MEDS: ONDANSETRON HCL ODT 4 MG TABLET PO (13:55)
[2023-11-16 14:00] VITALS: BP 149/67; PULSE 73; RESP 16; TEMP 36.3; O2SAT 98
--- NOTE | 2023-11-16 16:28 | PM.IMPN ---
Progress Note: A&P Assessment and Plan (1) Sepsis: Qualifiers: Sepsis type: sepsis due to unspecified organism Sepsis acute organ dysfunction status: without acute organ dysfunction Qualified Code(s): A41.9 - Sepsis, unspecified organism Code(s): A41.9 - Sepsis, unspecified organism Status: Acute Assessment and Plan: 11/08/2023 Patient currently meeting sepsis criteria with temp of 101.3, heart rate of 107, white blood cell count 12.0, and known source of infection the left foot. Blood culture showing no growth on preliminary read Foot wound culture is pending Patient was originally given Zosyn and vancomycin Will switch to cefepime, vancomycin, and Flagyl for diabetic foot wound protocol Left foot x-ray showing osteomyelitis involving the distal aspect of the 5th metatarsal, possible oblique fracture of the 5th metatarsal base. General surgery was consulted Patient had a bedside debridement of her wound with General surgery 11/08: General surgery to transition patient to oral antibiotics planned discharge tomorrow after wound care consult will follow-up in clinic for further surgical planning. 11/09: foot appears more erythematous white blood cell count has increased patient has developed diarrhea and nausea. Surgery is changing planned will keep inpatient and have Dr. Johnson evaluate tomorrow 11/11: Going to surgery for debridement vs amputation? CTA lower extremities shows severe atherosclerotic disease in the left lower extremity with multifocal severe stenosis. Patent distal SFA/proximal popliteal stent. 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 11/12: White blood cell 13, wound VAC placed. On p.o. Flagyl and IV cefepime. Will discharge with oral antibiotics. Home health is being arranged. Plan for wound VAC changed. 11/13: Wound VAC change this morning. Continue with antibiotics. Awaiting wound VAC for home. Possibly receiving a skin graft on Tuesday 11/14: Wound VAC is intact. 11/15: Plan for surgery tomorrow with skin graft (2) Osteomyelitis: Qualifiers: Osteomyelitis type: unspecified type Osteomyelitis location: foot Laterality: left Qualified Code(s): M86.9 - Osteomyelitis, unspecified Code(s): M86.9 - Osteomyelitis, unspecified Status: Acute Assessment and Plan: 11/08/2023 The left foot x-ray showing osteomyelitis involving the distal aspect of the 5th metatarsal, possible oblique fracture of the 5th metatarsal base General surgery consulted Patient had a bedside debridement of her wound with General surgery Blood culture showing no growth on preliminary read Foot wound was cultured and is pending Patient was given Zosyn and vancomycin initially and we will switch to cefepime vancomycin and Flagyl for diabetic foot wound protocol 11/08: General surgery to transition patient to oral antibiotics planned discharge tomorrow after wound care consult will follow-up in clinic for further surgical planning. 11/09: foot appears more erythematous white blood cell count has increased patient has developed diarrhea and nausea. Surgery is changing planned will keep inpatient and have Dr. Johnson evaluate tomorrow 4/3: See #1 (3) Diabetic foot ulcer: Qualifiers: Diabetes mellitus type: other specified (including MARINA) Diabetic foot ulcer location: heel Laterality: left Code(s): E11.621 - Type 2 diabetes mellitus with foot ulcer; L97.509 - Non-pressure chronic ulcer of other part of unspecified foot with unspecified severity Status: Acute Assessment and Plan: 11/08/2023: Patient has a diabetic foot ulcer on the lateral aspect of her right foot that looks dry with black eschar. Dr. Álvarez notified of this finding. 11/08: General surgery to transition patient to oral antibiotics planned discharge tomorrow after wound care consult will follow-up in clinic for further surgical planning. Wound Care to consult on bilateral foot wounds tomorrow. 11/09: foot appears more erythematous white blood cell count has increased patient has developed diarrhea and nausea. Surgery is changing planned will keep inpatient and have Dr. Johnson evaluate tomorrow 3: see # 1 and 2 (4) Type 2 diabetes mellitus with hyperglycemia: Qualifiers: Diabetes mellitus mcfp insulin use: without predatory animal exterminator use Qualified Code(s): E11.65 - Type 2 diabetes mellitus with hyperglycemia Code(s): E11.65 - Type 2 diabetes mellitus with hyperglycemia Status: Chronic Assessment and Plan: 11/08/2023 Blood sugars ranging 125-227 Hemoglobin A1c on 07/24/2023 was 6.5 Accu-Cheks AC and HS Hypoglycemic protocol in place Moderate does sliding scale insulin ordered Continue Januvia and Jardiance in replacement of her Farxiga 11/08: Morning glucose 148 by fingerstick 11/09: morning glucose 106 by fingerstick 11/11: BG stable 87-152 11/12: Blood sugars reviewed and are stable Plan She will come to the wound clinic for wound VAC changes She will discharge with a wound VAC Oral antibiotics at discharge May be having skin graft done on Friday Subjective Date/time seen: 11/16/23 16:28 Interval history: HPI obtained from the chart, 57-year-old female with past medical history of diabetic peripheral neuropathy, peripheral vascular disease, 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 And 1 day of chills. the patient had initially came to the ER the night before and was given fluids and discharged home after antiemetics.? She returns this evening because of chills worsening fatigue and nausea.? Interval history: 11/11: Patient is seen resting in bed with at bedside. She is in no acute distress. She is waiting to go to surgery. No questions or concerns at this time. She is hungry and thirsty. 11/12: Postop day 1 from amputation and debridement to left 5th toe and lateral aspect of foot. Wound VAC is in place. Per the patient has been alarming off and on all night. With VAC was changed overnight is still alarms with leak. Dr. Johnson was actually at the bedside and there was good suction to the dressing. He recommends contacting wound care should it continue to beep. The plan will be to change wound VAC tomorrow. Home health is being arranged for VAC changes. Once that is completed the patient is stable to discharge home. She will go home on oral antibiotics. She is not having pain at this time. She reports some pain to the lateral aspect of her foot but it was controlled with her p.r.n. pain medication. She did have some nausea after taking that medication but she reports she took it on an empty stomach. 11/13: No acute events overnight. Wound VAC was changed this morning. Patient is up to the chair LCX she feels well. Her pain is well controlled. She says that she will be here through early next week as Dr. Johnson is planning on doing a skin graft on Friday. We also do not have a home wound VAC approved yet. She reports having a bowel movement yesterday and is tolerating a diet. 6: No acute changes overnight. She is sitting up in the chair with aspirin at bedside. Wound VAC with good seal. No changes today. She denies complaints. 11/15: No acute events overnight. Plan to go to surgery tomorrow for skin graft. Awaiting wound VAC at home. Review of Systems Review of Systems: All systems reviewed & are unremarkable except as noted in HPI and below Exam Narrative: General: well appearing, well developed, well nourished, appears older than stated age HEENT: normocephalic, atraumatic. Mucous membranes moist. EOMI, PERRLA, bilateral sclera anicteric, no conjunctival injection. Neck supple without JVD, lymphadenopathy, or bruit. Respiratory: clear to auscultation bilaterally. No rales/rhonic/wheezes. Cardiovascular: Regular rate and rhythm, normal S1-S2 upon auscultation. No murmurs, rubs, or clicks. PMI is nondisplaced, capillary re-fill less than 3 second. Abdomen: Soft, flat, no pulsatile masses, non-distended and non-tender. No rebound, no guarding. No CVA tenderness, no hepatosplenomegaly. Bowel sounds present to all four quadrants. No high pitch or tinkling sounds, resonant to percussion. Extremities: No cyanosis, clubbing, or edema present. Pulses are palpable 2/2. Active ROM to all four extremities. Left foot with wound VAC present. Serosanguineous drainage approximately 50 mils present. Neuro: Alert and orientated x 4. PERRLA. Cranial nerves 2-12 intact without focal deficit. Skin: Warm, dry, and intact, without rash, erythema, or lesion. Lines: Incisions: Psych: pleasant, cooperative, normal speech, normal affect, no hallucinations, no dysarthria Objective Data Vital Signs Vital Signs: Vital Signs - 24 hr 11/15/23 22:00 11/15/23 20:00 11/16/23 05:56 Temperature 97.9 F 97.6 F Pulse Rate 70 74 Respiratory Rate 20 18 Blood Pressure 158/75 H 147/73 H Pulse Oximetry 100 99 Oxygen Delivery Room Air 11/16/23 14:00 Temperature 97.4 F L Pulse Rate 73 Respiratory Rate 16 Blood Pressure 149/67 H Pulse Oximetry 98 Oxygen Delivery Intake/Output Intake/Output: Intake & Output 11/13/23 11/14/23 11/15/23/07/24 23:59 23:59 23:59 23:59 Intake Total 2540 1850 2520 995 Output Total 600 300 600 Balance 2540 1250 2220 395 Meds/Results Medications: Active Medications Generic Name Dose Route Start Last Admin Trade Name Freq PRN Reason Stop Dose Admin Acetaminophen 650 mg 11/07/23 21:29 11/07/23 21:43 Acetaminophen 325 Mg Tablet PO 650 mg Q4H PRN Administration Mild Pain (1-3) or Fever Hydrocodone Bitart/Acetaminophen 1 tab 11/12/23 17:20 11/13/23 08:23 Hydrocodone/Acetaminophen (*Crx) 5-325 Mg Tablet PO 1 tab Q4H PRN Administration Pain Rated 4-6 Atorvastatin Calcium 40 mg 11/07/23 21:00 11/15/23 22:13 Atorvastatin 40 Mg Tablet PO 40 mg QHS JANEY Administration Dextrose 12.5 gm 11/07/23 07:14 Dextrose 50% 25 Gm/50 Ml Syringe IV PUSH PRN PRN Hypoglycemia Protocol Empagliflozin 25 mg 11/07/23 09:00 11/16/23 08:30 Empagliflozin 25 Mg Tablet BY MOUTH 25 mg QAM JANEY Administration Glucagon 1 mg 11/07/23 07:14 Glucagon For Inj 1 Mg Vial IM PRN PRN Hypoglycemia Protocol Glucose 15 gm 11/07/23 07:14 Glucose Oral Gel 15 Gm Of Glucse In 37.5 Gm Tube PO PRN PRN Hypoglycemia Protocol Heparin Sodium (Porcine) 5,000 units 11/07/23 21:00 11/16/23 08:30 Heparin Sodium 5,000 Units/Ml Vial SUB-Q 5,000 units Q12HR JANEY Administration Hydromorphone HCl 1 mg 11/12/23 17:20 Hydromorphone Hcl Inj (*Crx) 1 Mg/Ml Syr IV PUSH Q4H PRN Pain Rated 7-10 Dextrose 1,000 mls @ 100 mls/hr 11/07/23 07:14 Dextrose 5% 1,000 Ml IVPB PRN PRN Hypoglycemia Protocol Cefazolin Sodium 1 gm in 50 mls @ 100 mls/hr 11/12/23 22:00 11/16/23 13:56 Ancef 1 Gm/Ns 50 Ml IVPB 100 mls/hr Q8H JANEY Administration Insulin Aspart 1 - 3 units 11/07/23 21:00 04/06/24 22:14 Insulin Aspart (*Bkc) 100 Units/Ml SUB-Q Not Given HS [facility] Protocol Insulin Aspart 3 - 6 units 11/07/23 08:00 11/16/23 12:58 Insulin Aspart (*Bkc) 100 Units/Ml SUB-Q Not Given TIDWM [facility] Protocol Metronidazole 500 mg 11/11/23 16:00 11/16/23 13:55 Metronidazole 500 Mg Tablet PO 500 mg Q8HR JANEY Administration Ondansetron HCl 4 mg 11/10/23 11:39 11/16/23 13:55 Ondansetron Hcl Odt 4 Mg Tablet PO 4 mg Q6H PRN Administration Nausea And Vomiting Ondansetron HCl 4 mg 11/12/23 15:03 Ondansetron Inj 4 Mg/2 Ml Vial IV PUSH ONCE PRN Nausea Oxycodone HCl 5 mg 11/12/23 17:20 11/12/23 23:31 Oxycodone Hcl (*Crx) 5 Mg Tab Ir PO 5 mg Q4H PRN Administration Pain Rated 7-10 Sitagliptin Phosphate 100 mg 11/07/23 09:00 11/16/23 08:30 Sitagliptin 100 Mg Tablet PO 100 mg QAM JANEY Administration Radiology Results: ITS Impressions Chest X-Ray 11/06/23 19:42 IMPRESSION: No acute cardiopulmonary process. Foot X-Ray 11/06/23 19:42 IMPRESSION: Osteomyelitis involving the distal aspect fifth metatarsal stump. Possible oblique fracture of the fifth metatarsal base. Ankle Brachial Index 11/11/23 14:19 IMPRESSION: 1. Mildly decreased ABIs, improved from 05/18/2022, consistent with arterial occlusive disease. Lower Extremity CTA 11/11/23 18:07 IMPRESSION: CT and radiographic findings suspicious for osteomyelitis of the distal aspect of the fifth metatarsal stump. Old possibly nonunited fracture of the base the fifth metatarsal, with subtle areas of cortical thinning with an overlying soft tissue defect which may suggest the presence of subtle osteomyelitis. Consider MRI of the foot without and with contrast for further evaluation of osteomyelitis. Severe atherosclerotic disease in the left lower extremity with multifocal severe stenoses. Patent distal SFA/proximal popliteal stent. Probably patent short stent in the trunk of the peroneal and posterior tibial arteries. 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 Tenuous flow to the foot appears to be maintained via the anterior tibial artery. Labs Labs: Laboratory Results - last 24 hr 11/15/23 11/15/23 11/16/23 17:17 22:12 05:12 WBC 12.2 H RBC 3.66 L Hgb 9.5 L Hct 32.0 L MCV 87.4 MCH 26.0 MCHC 29.7 L RDW 15.9 H Plt Count 496 H MPV 8.8 Immature Gran % (Auto) 1.5 H Neut % (Auto) 69.2 Lymph % (Auto) 19.1 [place] % (Auto) 6.7 Eos % (Auto) 3.0 Baso % (Auto) 0.5 Lymph # (Auto) 2.34 [place] # (Auto) 0.8 H Eos # (Auto) 0.4 H Baso # (Auto) 0.1 Abs Immat Gran (auto) 0.18 H Absolute Neuts (auto) 8.5 H Absolute Nucleated RBC 0.000 Nucleated RBC % 0.0 Platelet Estimate Increased Hypochromasia 1+ Anisocytosis 1+ Schistocytes None seen Sodium 135 L Potassium 3.2 L Chloride 103 Carbon Dioxide 28 Anion Gap 4 BUN 8 Creatinine 0.70 Estim Creat Clear Calc 76 Estimated GFR > 60 Glucose 145 H POC Capillary Glucose 189 H 188 H Calcium 8.4 Magnesium 1.8 Total Bilirubin 0.3 AST 20 ALT 12 Alkaline Phosphatase 141 H Total Protein 7.0 Albumin 3.1 L 11/16/23 11/16/23 07:29 11:49 WBC RBC Hgb Hct MCV MCH MCHC RDW Plt Count MPV Immature Gran % (Auto) Neut % (Auto) Lymph % (Auto) [place] % (Auto) Eos % (Auto) Baso % (Auto) Lymph # (Auto) [place] # (Auto) Eos # (Auto) Baso # (Auto) Abs Immat Gran (auto) Absolute Neuts (auto) Absolute Nucleated RBC Nucleated RBC % Platelet Estimate Hypochromasia Anisocytosis Schistocytes Sodium Potassium Chloride Carbon Dioxide Anion Gap BUN Creatinine Estim Creat Clear Calc Estimated GFR Glucose POC Capillary Glucose 165 H 152 H Calcium Magnesium Total Bilirubin AST ALT Alkaline Phosphatase Total Protein Albumin Quality VTE Prophylaxis VTE prophylaxis: pharmacologic ordered (switched to heparin in case of surgical procedure)
[2023-11-16] MEDS: INSULIN ASPART (*BKC) 100 UNITS/ML SUB-Q ×2 (16:30→21:16)
[2023-11-16 16:55] LABS: Glucose Point of Care 204 mg/dl (65-105)
[2023-11-16 20:35] LABS: Glucose Point of Care 222 mg/dl (65-105)
[2023-11-16 20:48] VITALS: BP 138/54; PULSE 73; RESP 16; TEMP 36.5; O2SAT 100
[2023-11-16] MEDS: ATORVASTATIN 40 MG TABLET PO (21:16)
[2023-11-17] VITALS (9 sets, daily range): BP systolic 138–183; BP diastolic 56–82; PULSE 65–79; RESP 12–18; TEMP 36.5–37; O2SAT 96–100
[2023-11-17] MEDS: metroNIDAZOLE 500 MG TABLET PO ×3 (05:21→21:12)
[2023-11-17] MEDS: ceFAZolin 1 GM/NS 50 ML 1 GM/50 ML BAG IVPB ×3 (05:21→21:13)
[2023-11-17 05:52] LABS: Basophils Absolute Auto 0.1 K/mm3 (0.0-0.1); Basophils Percent Auto 0.4 % (0.2-1.2); Eosinophils Absolute Auto 0.5 K/mm3 (0-0.3); Eosinophils Percent Auto 3.6 % (0-4.4); Hematocrit 33.1 % (37.0-47.0); Hemoglobin 9.8 g/dL (12.0-15.0); Immature Granulocyte Absolute 0.22 K/mm3 (0.00-0.031); Immature Granulocyte Percent A 1.7 % (0-0.5); Lymphocytes Absolute Auto 2.63 K/mm3 (0.9-3.2); Lymphocytes Percent Auto 20.4 % (18.3-44.2); Mean Corpuscular HGB Conc 29.6 g/dl (32-36); Mean Corpuscular Volume 87.8 fl (80-100); Mean Platelet Volume 8.8 fl (7.4-10.4); Monocytes Absolute Auto 0.9 K/mm3 (0.1-0.6); Monocytes Percent Auto 7.1 % (2.6-8.5); Neutrophils Absolute Auto 8.6 K/mm3 (1.3-6.7); Neutrophils Percent Auto 66.8 % (45.5-73.1); Platelet Count Result 539 k/mm3 (150-375); Red Blood Count 3.77 M/mm3 (4.2-5.4); Red Cell Distribution Width 16.2 % (11.5-14.5); White Blood Count 12.9 K/mm3 (4.5-10.0)
[2023-11-17 06:12] LABS: Alanine Aminotransferase 11 U/L (6-35); Albumin Level 3.3 g/dL (3.5-5.1); Alkaline Phosphatase 154 U/L (38-126); Anion Gap 3 mmol/L (4-12); Aspartate Amino Transferase 18 U/L (14-36); Bilirubin,Total 0.3 mg/dL (0.2-1.3); Blood Urea Nitrogen 10 mg/dL (7-17); Calcium 9.1 mg/dL (8.4-10.2); Carbon Dioxide 31 mmol/L (22-30); Chloride 102 mmol/L (98-107); Estimated CRCL calculation 75 ml/min; Estimated Glomerular Filt Rate > 60; Glucose 165 mg/dL (65-110); Potassium 3.8 mmol/L (3.4-5.0); Sodium 136 mmol/L (137-145)
[2023-11-17 08:28] LABS: Glucose Point of Care 179 mg/dl (65-105)
[2023-11-17 12:36] LABS: Glucose Point of Care 137 mg/dl (65-105)
--- NOTE | 2023-11-17 13:34 | P.PNAN_ITS ---
Anes - Initial Pre Proc Eval Procedure: Operation Date: 11/12/23 15:30 Proposed Procedures p Debridement Left Foot Wound - Tadeo Johnson MD Operation Date: 11/17/23 14:30 Proposed Procedures p Irrigation and Debridement Left Foot with Graft Application and Wound Vac Placement(Left) - Tadeo Johnson MD Date/Time: 11/17/23 13:34 Surgeon: Maggie Simon DO Pre Op Diagnosis: N/V,Sepsis,Osteomylitis Patient Data Age: 58 Gender: F Height: 1.63 m Weight: 78.4 kg Last Vital Signs Temp 97.7 F 11/17/23 05:25 Pulse 73 11/17/23 05:25 Resp 16 11/17/23 05:25 BP 160/72 H 11/17/23 05:25 Pulse Ox 99 11/17/23 05:25 O2 Del Method Room Air 11/16/23 20:00 O2 Flow Rate 8 11/12/23 16:57 Allergies Allergy/AdvReac Type Severity Reaction Status Date / Time No Known Allergies Allergy Verified 11/12/23 14:47 Home Medications Medication Instructions Recorded Confirmed Type atorvastatin 40 mg tablet 40 mg PO QHS 07/23/23 11/06/23 History dapagliflozin propanediol 10 mg 10 mg PO QAM 07/23/23 11/06/23 History tablet (Farxiga) sitagliptin phosphate 100 mg 100 mg PO QAM 11/06/23 11/06/23 History tablet (Januvia) Laboratory Tests 11/16/23 11/16/23 11/17/23 16:26 20:29 05:33 WBC 12.9 H K/mm3 (4.5-10.0) RBC 3.77 L M/mm3 (4.2-5.4) Hgb 9.8 L g/dL (12.0-15.0) Hct 33.1 L % (37.0-47.0) MCV 87.8 fl (80-100) MCH 26.0 pg (26-34) MCHC 29.6 L g/dl (32-36) RDW 16.2 H % (11.5-14.5) Plt Count 539 H k/mm3 (150-375) MPV 8.8 fl (7.4-10.4) Immature Gran % (Auto) 1.7 H % (0-0.5) Neut % (Auto) 66.8 % (45.5-73.1) Lymph % (Auto) 20.4 % (18.3-44.2) [place] % (Auto) 7.1 % (2.6-8.5) Eos % (Auto) 3.6 % (0-4.4) Baso % (Auto) 0.4 % (0.2-1.2) Lymph # (Auto) 2.63 K/mm3 (0.9-3.2) [place] # (Auto) 0.9 H K/mm3 (0.1-0.6) Eos # (Auto) 0.5 H K/mm3 (0-0.3) Baso # (Auto) 0.1 K/mm3 (0.0-0.1) Abs Immat Gran (auto) 0.22 H K/mm3 (0.00-0.031) Absolute Neuts (auto) 8.6 H K/mm3 (1.3-6.7) Absolute Nucleated RBC 0.000 K/mm3 (0.0-0.012) Nucleated RBC % 0.0 % (0.0-0.2) Sodium 136 L mmol/L (137-145) Potassium 3.8 mmol/L (3.4-5.0) Chloride 102 mmol/L (98-107) Carbon Dioxide 31 H mmol/L (22-30) Anion Gap 3 L mmol/L (4-12) BUN 10 mg/dL (7-17) Creatinine 0.70 mg/dL (0.7-1.0) Estim Creat Clear Calc 75 ml/min Estimated GFR > 60 (59 - ) Glucose 165 H mg/dL (65-110) POC Capillary Glucose 204 H mg/dl 222 H mg/dl (65-105) (65-105) Calcium 9.1 mg/dL (8.4-10.2) Magnesium 2.0 mg/dL (1.6-2.3) Total Bilirubin 0.3 mg/dL (0.2-1.3) AST 18 U/L (14-36) ALT 11 U/L (6-35) Alkaline Phosphatase 154 H U/L (38-126) Total Protein 8.0 g/dL (6.3-8.2) Albumin 3.3 L g/dL (3.5-5.1) 11/17/23 11/17/23 08:25 12:31 WBC RBC Hgb Hct MCV MCH MCHC RDW Plt Count MPV Immature Gran % (Auto) Neut % (Auto) Lymph % (Auto) [place] % (Auto) Eos % (Auto) Baso % (Auto) Lymph # (Auto) [place] # (Auto) Eos # (Auto) Baso # (Auto) Abs Immat Gran (auto) Absolute Neuts (auto) Absolute Nucleated RBC Nucleated RBC % Sodium Potassium Chloride Carbon Dioxide Anion Gap BUN Creatinine Estim Creat Clear Calc Estimated GFR Glucose POC Capillary Glucose 179 H mg/dl 137 H mg/dl (65-105) (65-105) Calcium Magnesium Total Bilirubin AST ALT Alkaline Phosphatase Total Protein Albumin Patient hx anesthesia problems: none Family hx anesthesia problems: none Results Review: All pre-operative results and documents have been reviewed as part of the pre- operative evaluation. [facility] Past Medical History Medical History Diabetic foot ulcer Dyslipidemia Peripheral vascular disease (05/2022) Diminished bilateral ankle and toe brachial indices consistent with [id number] peripheral arterial disease on JAVON. 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 History of incision and drainage (05/2022) Incision and drainage of left foot abscess with sharp excisional debridement of left foot ulcer. Family History Family History Father Heart disease Mother Heart disease Mother Diabetes mellitus Social History Social History Social History: Patient lives with her spouse of 23 years. She does not meet biologic children but has 2 step children. She used to smoke 1-2 packs a beers per day since she was a young teen but quit smoking February 24, 2023. She still occasionally uses marijuana. She denies any history of heavy alcohol use and has not used any alcohol in many years. She is disabled. They have a [place]. Surrogate medical decision maker: Donald Almarazosh, spouse. Code status: Full code. Smoking packs per day: 2 Smoking cigarettes per day: 40.0 Years smoked: 40 Smoking pack-years: 80.00 Smoking status: Current every day smoker Tobacco type: e-cigarettes/vaping Smoking end date: 02/24/23 Alcohol intake: never Substance use: current Substance use type: marijuana Other substance usage details: Every once in awhile Do You Feel Safe in your Home?: Yes Lack of Transportation: No Lack of Food: Never True Current Housing: I Have Housing Concerned About Future Housing: No Difficulty Paying Gas/Electric Bills: No Difficulty Paying for Meds: No Currently Unemployed: No Education: Don't Know Difficulty w/ Childcare or Family Care: No Additional living arrangements comments: The patient lives with her in [place]. She has no children. Spiritual care concerns: No Anes - Eval Final PreProcedure Day of Procedure 11/17/23 13:34 Patient weight: normal and obese Heart: regular rate and rhythm Lungs: clear to auscultation Airway: Mallampati scale and special considerations (Edentulous upper, several teeth on lower aspect in poor condition. ) Neurological: alert and oriented Last oral intake: >/= 8 hours ASA classification: IV Emergent: no Anesthetic plan: proceed Anesthesia type and monitoring: general LMA and standard monitoring Results Review: All pre-operative results and documents have been reviewed as part of the pre- operative evaluation. Ex smoker, 45 pack years, quit 2022. Poorly controlled DM. Informed Consent: The patient's anesthetic plan and its attendant risks and benefits were discussed with the patient/family/POA. Questions were solicited and answers provided to the satisfaction of the patient/family/POA.
--- NOTE | 2023-11-17 14:03 | WPDHPUPDATE1 ---
History and Physical Update Update Date/Time: 11/17/23 14:03 History and Physical has been reviewed, including an updated exam of the patient. There are NO changes in the patient's condition. Risks, benefits, and alternatives have been discussed and questions answered. Patient agrees to proceed with procedure.
[2023-11-17] MEDS: LACTATED RINGERS 1,000 ML 30 ML IV CONT (15:18)
[2023-11-17 15:27] LABS: Glucose Point of Care 131 mg/dl (65-105)
--- NOTE | 2023-11-17 16:05 | SUR.PHASEI ---
Dr. Mcdonnell aware of patient's elevated BP. No further treatment at this time.
[2023-11-17] MEDS: ONDANSETRON HCL ODT 4 MG TABLET PO (16:43)
[2023-11-17 17:32] LABS: Glucose Point of Care 150 mg/dl (65-105)
--- NOTE | 2023-11-17 17:45 | P.PNIM_ITS ---
Progress Note: A&P Assessment and Plan (1) Sepsis: Qualifiers: Sepsis type: sepsis due to unspecified organism Sepsis acute organ dysfunction status: without acute organ dysfunction Qualified Code(s): A41.9 - Sepsis, unspecified organism Code(s): A41.9 - Sepsis, unspecified organism Status: Acute Assessment and Plan: 11/08/2023 * Patient currently meeting sepsis criteria with temp of 101.3, heart rate of 107, white blood cell count 12.0, and known source of infection the left foot. * Blood culture showing no growth on preliminary read * Foot wound culture is pending * Patient was originally given Zosyn and vancomycin * Will switch to cefepime, vancomycin, and Flagyl for diabetic foot wound protocol * Left foot x-ray showing osteomyelitis involving the distal aspect of the 5th metatarsal, possible oblique fracture of the 5th metatarsal base. * General surgery was consulted * Patient had a bedside debridement of her wound with General surgery 11/08: General surgery to transition patient to oral antibiotics planned discharge tomorrow after wound care consult will follow-up in clinic for further surgical planning. 11/09: foot appears more erythematous white blood cell count has increased patient has developed diarrhea and nausea. Surgery is changing planned will keep inpatient and have Dr. Johnson evaluate tomorrow 11/11: Going to surgery for debridement vs amputation? CTA lower extremities shows severe atherosclerotic disease in the left lower extremity with multifocal severe stenosis. Patent distal SFA/proximal popliteal stent. 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 11/12: White blood cell 13, wound VAC placed. On p.o. Flagyl and IV cefepime. Will discharge with oral antibiotics. Home health is being arranged. Plan for wound VAC changed. 11/13: Wound VAC change this morning. Continue with antibiotics. Awaiting wound VAC for home. Possibly receiving a skin graft on Tuesday 11/14: Wound VAC is intact. 11/15: Plan for surgery tomorrow with skin graft (2) Osteomyelitis: Code(s): M86.9 - Osteomyelitis, unspecified Status: Acute Assessment and Plan: 11/08/2023 * The left foot x-ray showing osteomyelitis involving the distal aspect of the 5th metatarsal, possible oblique fracture of the 5th metatarsal base * General surgery consulted * Patient had a bedside debridement of her wound with General surgery * Blood culture showing no growth on preliminary read * Foot wound was cultured and is pending * Patient was given Zosyn and vancomycin initially and we will switch to cefepime vancomycin and Flagyl for diabetic foot wound protocol 11/08: General surgery to transition patient to oral antibiotics planned discharge tomorrow after wound care consult will follow-up in clinic for further surgical planning. 11/09: foot appears more erythematous white blood cell count has increased patient has developed diarrhea and nausea. Surgery is changing planned will keep inpatient and have Dr. Johnson evaluate tomorrow 4/3: See #1 (3) Diabetic foot ulcer: Qualifiers: Diabetes mellitus type: other specified (including MARINA) Diabetic foot ulcer location: heel Laterality: left Code(s): E11.621 - Type 2 diabetes mellitus with foot ulcer; L97.509 - Non-pressure chronic ulcer of other part of unspecified foot with unspecified severity Status: Acute Assessment and Plan: 11/08/2023: * Patient has a diabetic foot ulcer on the lateral aspect of her right foot that looks dry with black eschar. Dr. Álvarez notified of this finding. 11/08: General surgery to transition patient to oral antibiotics planned discharge tomorrow after wound care consult will follow-up in clinic for further surgical planning. Wound Care to consult on bilateral foot wounds tomorrow. 11/09: foot appears more erythematous white blood cell count has increased patient has developed diarrhea and nausea. Surgery is changing planned will keep inpatient and have Dr. 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: without ferry terminal supervisor use Qualified Code(s): E11.65 - Type 2 diabetes mellitus with hyperglycemia Code(s): E11.65 - Type 2 diabetes mellitus with hyperglycemia Status: Chronic Assessment and Plan: 11/08/2023 * Blood sugars ranging 125-227 * Hemoglobin A1c on 07/24/2023 was 6.5 * Accu-Cheks AC and HS * Hypoglycemic protocol in place * Moderate does sliding scale insulin ordered * Continue Januvia and Jardiance in replacement of her Farxiga 11/08: Morning glucose 148 by fingerstick 11/09: morning glucose 106 by fingerstick 11/11: BG stable 87-152 11/12: Blood sugars reviewed and are stable Plan She will come to the wound clinic for wound VAC changes She will discharge with a wound VAC Oral antibiotics at discharge Skin graft completed today 11/16 Wound vac has been approved per care coordination note Anticipate d/c tomorrow 11/17 Subjective Date/time seen: 11/17/23 17:45 Interval history: HPI obtained from the chart, 57-year-old female with past medical history of diabetic peripheral neuropathy, peripheral vascular disease, 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 And 1 day of chills. the patient had initially came to the ER the night before and was given fluids and discharged home after antiemetics.? She returns this evening because of chills worsening fatigue and nausea.? Interval history: 11/11: Patient is seen resting in bed with at bedside. She is in no acute distress. She is waiting to go to surgery. No questions or concerns at this time. She is hungry and thirsty. 11/12: Postop day 1 from amputation and debridement to left 5th toe and lateral aspect of foot. Wound VAC is in place. Per the patient has been alarming off and on all night. With VAC was changed overnight is still alarms with leak. Dr. Johnson was actually at the bedside and there was good suction to the dressing. He recommends contacting wound care should it continue to beep. The plan will be to change wound VAC tomorrow. Home health is being arranged for VAC changes. Once that is completed the patient is stable to discharge home. She will go home on oral antibiotics. She is not having pain at this time. She reports some pain to the lateral aspect of her foot but it was controlled with her p.r.n. pain medication. She did have some nausea after taking that medication but she reports she took it on an empty stomach. 11/13: No acute events overnight. Wound VAC was changed this morning. Patient is up to the chair LCX she feels well. Her pain is well controlled. She says that she will be here through early next week as Dr. Johnson is planning on doing a skin graft on Friday. We also do not have a home wound VAC approved yet. She reports having a bowel movement yesterday and is tolerating a diet. 11/14: No acute changes overnight. She is sitting up in the chair with aspirin at bedside. Wound VAC with good seal. No changes today. She denies complaints. 11/15: No acute events overnight. Plan to go to surgery tomorrow for skin graft. Awaiting wound VAC at home. 11/16: To OR today for skin graft. Having some HTN after surgery. Will give hydralazine 10 mg IVP Q 6 ours as needed for SBP > 180 mm hg. Review of Systems Review of Systems: All systems reviewed & are unremarkable except as noted in HPI and below Exam Narrative: General: well appearing, well developed, well nourished, appears older than stated age HEENT: normocephalic, atraumatic. Mucous membranes moist. EOMI, PERRLA, bilateral sclera anicteric, no conjunctival injection. Neck supple without JVD, lymphadenopathy, or bruit. Respiratory: clear to auscultation bilaterally. No rales/rhonic/wheezes. Cardiovascular: Regular rate and rhythm, normal S1-S2 upon auscultation. No murmurs, rubs, or clicks. PMI is nondisplaced, capillary re-fill less than 3 second. Abdomen: Soft, flat, no pulsatile masses, non-distended and non-tender. No rebound, no guarding. No CVA tenderness, no hepatosplenomegaly. Bowel sounds present to all four quadrants. No high pitch or tinkling sounds, resonant to percussion. Extremities: No cyanosis, clubbing, or edema present. Pulses are palpable 2/2. Active ROM to all four extremities. Left foot with wound VAC present. Serosanguineous drainage approximately 50 mils present. Neuro: Alert and orientated x 4. PERRLA. Cranial nerves 2-12 intact without focal deficit. Skin: Warm, dry, and intact, without rash, erythema, or lesion. Lines: Incisions: Psych: pleasant, cooperative, normal speech, normal affect, no hallucinations, no dysarthria Objective Data Vital Signs Vital Signs: Vital Signs - 24 hr 11/16/23 20:48 11/16/23 20:00 11/17/23 05:25 Temperature 97.7 F 97.7 F Pulse Rate 73 73 Respiratory Rate 16 16 Blood Pressure 138/54 L 160/72 H Pulse Oximetry 100 99 Oxygen Delivery Room Air Oxygen Flow Rate 11/17/23 14:01 11/17/23 15:18 11/17/23 15:30 Temperature 97.8 F Pulse Rate 65 73 69 Respiratory Rate 18 12 12 Blood Pressure 162/63 H 138/56 L 147/65 H Pulse Oximetry 100 100 100 Oxygen Delivery Room Air Simple Face Mask Simple Face Mask Oxygen Flow Rate 10 10 11/17/23 15:45 11/17/23 16:00 11/17/23 17:00 Temperature 98.4 F Pulse Rate 69 69 79 Respiratory Rate 13 12 16 Blood Pressure 178/82 H 183/73 H 178/70 H Pulse Oximetry 98 100 96 Oxygen Delivery Room Air Room Air Oxygen Flow Rate Intake/Output Intake/Output: Intake & Output 11/14/23 11/15/23 11/16/23 11/17/23 23:59 23:59 23:59 23:59 Intake Total 1850 2520 1895 500 Output Total 600 300 600 0 Balance 1250 2220 1295 500 Meds/Results Medications: Active Medications Generic Name Dose Route Start Last Admin Trade Name Freq PRN Reason Stop Dose Admin Acetaminophen 650 mg 11/07/23 21:29 11/07/23 21:43 Acetaminophen 325 Mg Tablet PO 650 mg Q4H PRN Administration Mild Pain (1-3) or Fever Hydrocodone Bitart/Acetaminophen 1 tab 11/12/23 17:20 11/13/23 08:23 Hydrocodone/Acetaminophen (*Crx) 5-325 Mg Tablet PO 1 tab Q4H PRN Administration Pain Rated 4-6 Atorvastatin Calcium 40 mg 11/07/23 21:00 11/16/23 21:16 Atorvastatin 40 Mg Tablet PO 40 mg QHS JANEY Administration Dextrose 12.5 gm 11/07/23 07:14 Dextrose 50% 25 Gm/50 Ml Syringe IV PUSH PRN PRN Hypoglycemia Protocol Empagliflozin 25 mg 11/07/23 09:00 11/17/23 12:33 Empagliflozin 25 Mg Tablet BY MOUTH Not Given QAM JANEY Glucagon 1 mg 11/07/23 07:14 Glucagon For Inj 1 Mg Vial IM PRN PRN Hypoglycemia Protocol Glucose 15 gm 11/07/23 07:14 Glucose Oral Gel 15 Gm Of Glucse In 37.5 Gm Tube PO PRN PRN Hypoglycemia Protocol Heparin Sodium (Porcine) 5,000 units 11/07/23 21:00 11/17/23 16:32 Heparin Sodium 5,000 Units/Ml Vial SUB-Q Not Given Q12HR JANEY Hydralazine HCl 10 mg 11/17/23 16:56 Hydralazine Hcl 20 Mg/Ml Vial IV PUSH Q6H PRN Blood Pressure - High Hydromorphone HCl 1 mg 11/12/23 17:20 Hydromorphone Hcl Inj (*Crx) 1 Mg/Ml Syr IV PUSH Q4H PRN Pain Rated 7-10 Dextrose 1,000 mls @ 100 mls/hr 11/07/23 07:14 Dextrose 5% 1,000 Ml IVPB PRN PRN Hypoglycemia Protocol Cefazolin Sodium 1 gm in 50 mls @ 100 mls/hr 11/12/23 22:00 11/17/23 14:43 Ancef 1 Gm/Ns 50 Ml IVPB Infused Q8H JANEY Infusion Lactated Ringer's 1,000 mls @ 30 mls/hr 11/17/23 12:40 11/17/23 16:15 Lr - Lactated Ringers Iv IV CONT Infused .Q24H JANEY Infusion Insulin Aspart 1 - 3 units 11/07/23 21:00 11/16/23 21:16 Insulin Aspart (*Bkc) 100 Units/Ml SUB-Q 1 units HS [facility] Administration Protocol Insulin Aspart 3 - 6 units 11/07/23 08:00 11/17/23 13:01 Insulin Aspart (*Bkc) 100 Units/Ml SUB-Q Not Given TIDWM [facility] Protocol Metronidazole 500 mg 11/11/23 16:00 11/17/23 16:43 Metronidazole 500 Mg Tablet PO 500 mg Q8HR JANEY Administration Ondansetron HCl 4 mg 11/10/23 11:39 11/17/23 16:43 Ondansetron Hcl Odt 4 Mg Tablet PO 4 mg Q6H PRN Administration Nausea And Vomiting Ondansetron HCl 4 mg 11/17/23 13:38 Ondansetron Inj 4 Mg/2 Ml Vial IV PUSH ONCE PRN Nausea Oxycodone HCl 5 mg 11/12/23 17:20 11/12/23 23:31 Oxycodone Hcl (*Crx) 5 Mg Tab Ir PO 5 mg Q4H PRN Administration Pain Rated 7-10 Sitagliptin Phosphate 100 mg 11/07/23 09:00 11/17/23 12:33 Sitagliptin 100 Mg Tablet PO Not Given QAM [facility] Radiology Results: ITS Impressions Chest X-Ray 11/06/23 19:42 IMPRESSION: No acute cardiopulmonary process. Foot X-Ray 11/06/23 19:42 IMPRESSION: Osteomyelitis involving the distal aspect fifth metatarsal stump. Possible oblique fracture of the fifth metatarsal base. Ankle Brachial Index 11/11/23 14:19 IMPRESSION: 1. Mildly decreased ABIs, improved from 05/18/2022, consistent with arterial occlusive disease. Lower Extremity CTA 11/11/23 18:07 IMPRESSION: CT and radiographic findings suspicious for osteomyelitis of the distal aspect of the fifth metatarsal stump. Old possibly nonunited fracture of the base the fifth metatarsal, with subtle areas of cortical thinning with an overlying soft tissue defect which may suggest the presence of subtle osteomyelitis. Consider MRI of the foot without and with contrast for further evaluation of osteomyelitis. Severe atherosclerotic disease in the left lower extremity with multifocal severe stenoses. Patent distal SFA/proximal popliteal stent. Probably patent short stent in the trunk of the peroneal and posterior tibial arteries. 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 Tenuous flow to the foot appears to be maintained via the anterior tibial artery. Labs Labs: Laboratory Results - last 24 hr 11/16/23 11/17/23 11/17/23 20:29 05:33 08:25 WBC 12.9 H RBC 3.77 L Hgb 9.8 L Hct 33.1 L MCV 87.8 MCH 26.0 MCHC 29.6 L RDW 16.2 H Plt Count 539 H MPV 8.8 Immature Gran % (Auto) 1.7 H Neut % (Auto) 66.8 Lymph % (Auto) 20.4 [place] % (Auto) 7.1 Eos % (Auto) 3.6 Baso % (Auto) 0.4 Lymph # (Auto) 2.63 [place] # (Auto) 0.9 H Eos # (Auto) 0.5 H Baso # (Auto) 0.1 Abs Immat Gran (auto) 0.22 H Absolute Neuts (auto) 8.6 H Absolute Nucleated RBC 0.000 Nucleated RBC % 0.0 Sodium 136 L Potassium 3.8 Chloride 102 Carbon Dioxide 31 H Anion Gap 3 L BUN 10 Creatinine 0.70 Estim Creat Clear Calc 75 Estimated GFR > 60 Glucose 165 H POC Capillary Glucose 222 H 179 H Calcium 9.1 Magnesium 2.0 Total Bilirubin 0.3 AST 18 ALT 11 Alkaline Phosphatase 154 H Total Protein 8.0 Albumin 3.3 L 11/17/23 11/17/23 11/17/23 12:31 15:25 17:29 WBC RBC Hgb Hct MCV MCH MCHC RDW Plt Count MPV Immature Gran % (Auto) Neut % (Auto) Lymph % (Auto) [place] % (Auto) Eos % (Auto) Baso % (Auto) Lymph # (Auto) [place] # (Auto) Eos # (Auto) Baso # (Auto) Abs Immat Gran (auto) Absolute Neuts (auto) Absolute Nucleated RBC Nucleated RBC % Sodium Potassium Chloride Carbon Dioxide Anion Gap BUN Creatinine Estim Creat Clear Calc Estimated GFR Glucose POC Capillary Glucose 137 H 131 H 150 H Calcium Magnesium Total Bilirubin AST ALT Alkaline Phosphatase Total Protein Albumin Quality VTE Prophylaxis VTE prophylaxis: pharmacologic ordered (switched to heparin in case of surgical procedure)
[2023-11-17] MEDS: ATORVASTATIN 40 MG TABLET PO (21:12)
[2023-11-17 21:13] LABS: Glucose Point of Care 272 mg/dl (65-105)
[2023-11-17] MEDS: INSULIN ASPART (*BKC) 100 UNITS/ML SUB-Q (21:13)
[2023-11-17] MEDS: HEPARIN SODIUM 5,000 UNITS/ML VIAL 5000 UNITS SUB-Q (21:13)
[2023-11-18] MEDS: metroNIDAZOLE 500 MG TABLET PO (05:04)
[2023-11-18] MEDS: ceFAZolin 1 GM/NS 50 ML 1 GM/50 ML BAG IVPB (05:04)
[2023-11-18 06:00] VITALS: BP 158/74; PULSE 78; RESP 18; TEMP 36.4; O2SAT 98
[2023-11-18 06:12] LABS: Basophils Absolute Auto 0.1 K/mm3 (0.0-0.1); Basophils Percent Auto 0.4 % (0.2-1.2); Eosinophils Absolute Auto 0.4 K/mm3 (0-0.3); Eosinophils Percent Auto 2.8 % (0-4.4); Hematocrit 31.7 % (37.0-47.0); Hemoglobin 9.5 g/dL (12.0-15.0); Immature Granulocyte Absolute 0.15 K/mm3 (0.00-0.031); Immature Granulocyte Percent A 1.1 % (0-0.5); Lymphocytes Percent Auto 17.6 % (18.3-44.2); Mean Corpuscular Hemoglobin 26.4 pg (26-34); Mean Corpuscular Volume 88.1 fl (80-100); Mean Platelet Volume 9.2 fl (7.4-10.4); Monocytes Absolute Auto 0.8 K/mm3 (0.1-0.6); Monocytes Percent Auto 6.1 % (2.6-8.5); Neutrophils Absolute Auto 9.4 K/mm3 (1.3-6.7); Platelet Count Result 547 k/mm3 (150-375); Red Cell Distribution Width 16.4 % (11.5-14.5); White Blood Count 13.1 K/mm3 (4.5-10.0)
[2023-11-18 06:34] LABS: Alanine Aminotransferase 10 U/L (6-35); Albumin Level 3.3 g/dL (3.5-5.1); Alkaline Phosphatase 137 U/L (38-126); Anion Gap 1 mmol/L (4-12); Aspartate Amino Transferase 22 U/L (14-36); Bilirubin,Total 0.3 mg/dL (0.2-1.3); Blood Urea Nitrogen 11 mg/dL (7-17); Calcium 8.8 mg/dL (8.4-10.2); Carbon Dioxide 31 mmol/L (22-30); Chloride 102 mmol/L (98-107); Estimated CRCL calculation 75 ml/min; Estimated Glomerular Filt Rate > 60; Glucose 194 mg/dL (65-110); Magnesium 1.9 mg/dL (1.6-2.3); Potassium 4.1 mmol/L (3.4-5.0); Sodium 134 mmol/L (137-145)
--- NOTE | 2023-11-18 08:19 | P.PNIM_ITS ---
Progress Note: A&P Assessment and Plan (1) Diabetic foot ulcer: Qualifiers: Diabetes mellitus type: other specified (including MARINA) Diabetic foot ulcer location: heel Laterality: left Code(s): E11.621 - Type 2 diabetes mellitus with foot ulcer; L97.509 - Non-pressure chronic ulcer of other part of unspecified foot with unspecified severity Status: Acute (2) Type 2 diabetes mellitus with hyperglycemia: Qualifiers: Diabetes mellitus retirement insulin use: without vermin exterminator use Qualified Code(s): E11.65 - Type 2 diabetes mellitus with hyperglycemia Code(s): E11.65 - Type 2 diabetes mellitus with hyperglycemia Status: Chronic (3) Sepsis: Qualifiers: Sepsis acute organ dysfunction status: without acute organ dysfunction Sepsis type: sepsis due to unspecified organism Qualified Code(s): A41.9 - Sepsis, unspecified organism Code(s): A41.9 - Sepsis, unspecified organism Status: Acute (4) Complication of toe amputation stump: Code(s): T87.9 - Unspecified complications of amputation stump Status: Acute Plan (1) Sepsis: ?Qualifiers: ?Sepsis type:?sepsis due to unspecified organism??Sepsis acute organ dysfunction status:?without acute organ dysfunction? Qualified Code(s):?A41.9 - Sepsis, unspecified organism ?Code(s): A41.9 - Sepsis, unspecified organism ?Status:?Acute ?Assessment and Plan: 11/08/2023 * Patient currently meeting sepsis criteria with temp of 101.3, heart rate of 107, white blood cell count 12.0, and known source of infection the left foot. * Blood culture showing no growth on preliminary read * Foot wound culture is pending * Patient was originally given Zosyn and vancomycin * Will switch to cefepime, vancomycin, and Flagyl for diabetic foot wound protocol * Left foot x-ray showing osteomyelitis involving the distal aspect of the 5th metatarsal, possible oblique fracture of the 5th metatarsal base. * General surgery was consulted * Patient had a bedside debridement of her wound with General surgery 11/08:? General surgery to transition patient to oral antibiotics planned discharge tomorrow after wound care consult will follow-up in clinic for further surgical planning. 11/09: foot appears more erythematous white blood cell count has increased patient has developed diarrhea and nausea.? Surgery is changing planned will keep inpatient and have Dr. Johnson evaluate tomorrow 11/11: Going to surgery for debridement vs amputation? CTA lower extremities shows severe atherosclerotic disease in the left lower extremity with multifocal severe stenosis. Patent distal SFA/proximal popliteal stent. 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 11/12:? White blood cell 13, wound VAC placed.? On p.o. Flagyl and IV cefepime.? Will discharge with oral antibiotics.? Home health is being arranged.? Plan for wound VAC changed. 11/13:? Wound VAC change this morning.? Continue with antibiotics.? Awaiting wound VAC for home.? Possibly receiving a skin graft on Tuesday 11/14:? Wound VAC is intact. 11/15:? Plan for surgery tomorrow with skin graft 4:9, sepsis has resolved, changed to Augmentin p.o. (2) Osteomyelitis: ?Code(s): M86.9 - Osteomyelitis, unspecified ?Status:?Acute ?Assessment and Plan: 11/08/2023 * The left foot x-ray showing osteomyelitis involving the distal aspect of the 5th metatarsal, possible oblique fracture of the 5th metatarsal base * General surgery consulted * Patient had a bedside debridement of her wound with General surgery * Blood culture showing no growth on preliminary read * Foot wound was cultured and is pending * Patient was given Zosyn and vancomycin initially and we will switch to cefepime vancomycin and Flagyl for diabetic foot wound protocol 11/08: General surgery to transition patient to oral antibiotics planned discharge tomorrow after wound care consult will follow-up in clinic for further surgical planning. 11/09: foot appears more erythematous white blood cell count has increased patient has developed diarrhea and nausea.? Surgery is changing planned will keep inpatient and have Dr. Johnson evaluate tomorrow 11/11: See #1 discharge with Augmentin p.o. for 10 more days, patient will see general surgeon and PCP in the office, further treatment per general surgeon or PCP evaluation (3) Diabetic foot ulcer: ?Qualifiers: ?Diabetes mellitus type:?other specified (including MARINA)??Diabetic foot ulcer location:?heel??Laterality:?left ?Code(s): E11.621 - Type 2 diabetes mellitus with foot ulcer; L97.509 - Non-pressure chronic ulcer of other part of unspecified foot with unspecified severity ?Status:?Acute ?Assessment and Plan: 11/08/2023: * Patient has a diabetic foot ulcer on the lateral aspect of her right foot that looks dry with black eschar.? Dr. Álvarez notified of this finding. 11/08:? General surgery to transition patient to oral antibiotics planned discharge tomorrow after wound care consult will follow-up in clinic for further surgical planning.? Wound Care to consult on bilateral foot wounds tomorrow. 11/09: foot appears more erythematous white blood cell count has increased patient has developed diarrhea and nausea.? Surgery is changing planned will keep inpatient and have Dr. Johnson evaluate tomorrow 11/11: see # 1 and 2 (4) Type 2 diabetes mellitus with hyperglycemia: ?Qualifiers: ?Diabetes mellitus vermin exterminator insulin use:?without vermin exterminator use? Qualified Code(s):?E11.65 - Type 2 diabetes mellitus with hyperglycemia ?Code(s): E11.65 - Type 2 diabetes mellitus with hyperglycemia ?Status:?Chronic ?Assessment and Plan: 11/08/2023 * Blood sugars ranging 125-227 * Hemoglobin A1c on 07/24/2023 was 6.5 * Accu-Cheks AC and HS * Hypoglycemic protocol in place * Moderate does sliding scale insulin ordered * Continue Januvia and Jardiance in replacement of her Farneil 11/08:? Morning glucose 148 by fingerstick 11/09: morning glucose 106 by fingerstick 11/11: BG stable 87-152 11/12:? Blood sugars reviewed and are stable She will come to the wound clinic for wound VAC changes She will discharge with a wound VAC Oral antibiotics at discharge Skin graft completed 11/16 Wound vac has been approved per care coordination note patient will discharge home with home health Subjective Date/time seen: 11/18/23 08:19 Interval history: I saw and examined patient today. patient feels better today, no significant pain, patient denies headache, chest pain, shortness of breath, abdomen pain, nausea vomiting diarrhea. Patient is afebrile, blood pressure stable Exam Narrative: GENERAL: Pleasant, in no acute distress. Well-nourished. - EYES: EOMI. Anicteric. - HENT: Moist mucous membranes. - LUNGS: Clear to auscultation bilateral ly, no wheezing, rhonchi, or rales. - CARDIOVASCULAR: Regular rate and rhyth m. No murmur. No JVD. - ABDOMEN: Soft, non-tender and non-dist ended. No palpable masses. - EXTREMITIES: No edema. Peripheral puls es 2+. Non-tender.Left 5th toe amputation, wound is well dressed, dressing is dry and clean - NEUROLOGIC: No focal neurological defi cits. CN II-XII grossly intact. - PSYCHIATRIC: Awake, Alert and oriented x 3. Appropriate mood and affect. - SKIN: No rashes or lesions. Warm. - LYMPH: No cervical lymphadenopathy. Objective Data Vital Signs Vital Signs: Vital Signs - 24 hr 11/17/23 14:01 11/17/23 15:18 11/17/23 15:30 Temperature 97.8 F Pulse Rate 65 73 69 Respiratory Rate 18 12 12 Blood Pressure 162/63 H 138/56 L 147/65 H Pulse Oximetry 100 100 100 Oxygen Delivery Room Air Simple Face Mask Simple Face Mask Oxygen Flow Rate 10 10 11/17/23 15:45 11/17/23 16:00 11/17/23 17:00 Temperature 98.4 F Pulse Rate 69 69 79 Respiratory Rate 13 12 16 Blood Pressure 178/82 H 183/73 H 178/70 H Pulse Oximetry 98 100 96 Oxygen Delivery Room Air Room Air Oxygen Flow Rate 11/17/23 21:15 11/17/23 22:00 11/18/23 06:00 Temperature 98.6 F 97.6 F Pulse Rate 78 78 78 Respiratory Rate 16 16 18 Blood Pressure 146/62 H 158/74 H Pulse Oximetry 97 100 98 Oxygen Delivery Room Air Oxygen Flow Rate Intake/Output Intake/Output: Intake & Output 11/15/23 11/16/23 11/17/23 11/18/23 23:59 23:59 23:59 23:59 Intake Total 2520 1895 1472 500 Output Total 300 600 900 800 Balance 2220 1295 572 -300 Meds/Results Medications: Active Medications Generic Name Dose Route Start Last Admin Trade Name Freq PRN Reason Stop Dose Admin Acetaminophen 650 mg 11/07/23 21:29 11/07/23 21:43 Acetaminophen 325 Mg Tablet PO 650 mg Q4H PRN Administration Mild Pain (1-3) or Fever Hydrocodone Bitart/Acetaminophen 1 tab 11/12/23 17:20 11/13/23 08:23 Hydrocodone/Acetaminophen (*Crx) 5-325 Mg Tablet PO 1 tab Q4H PRN Administration Pain Rated 4-6 Atorvastatin Calcium 40 mg 11/07/23 21:00 11/17/23 21:12 Atorvastatin 40 Mg Tablet PO 40 mg QHS JANEY Administration Dextrose 12.5 gm 11/07/23 07:14 Dextrose 50% 25 Gm/50 Ml Syringe IV PUSH PRN PRN Hypoglycemia Protocol Empagliflozin 25 mg 11/07/23 09:00 11/17/23 12:33 Empagliflozin 25 Mg Tablet BY MOUTH Not Given QAM JANEY Glucagon 1 mg 11/07/23 07:14 Glucagon For Inj 1 Mg Vial IM PRN PRN Hypoglycemia Protocol Glucose 15 gm 11/07/23 07:14 Glucose Oral Gel 15 Gm Of Glucse In 37.5 Gm Tube PO PRN PRN Hypoglycemia Protocol Heparin Sodium (Porcine) 5,000 units 11/07/23 21:00 11/17/23 21:13 Heparin Sodium 5,000 Units/Ml Vial SUB-Q 5,000 units Q12HR JANEY Administration Hydralazine HCl 10 mg 11/17/23 16:56 Hydralazine Hcl 20 Mg/Ml Vial IV PUSH Q6H PRN Blood Pressure - High Hydromorphone HCl 1 mg 11/12/23 17:20 Hydromorphone Hcl Inj (*Crx) 1 Mg/Ml Syr IV PUSH Q4H PRN Pain Rated 7-10 Dextrose 1,000 mls @ 100 mls/hr 11/07/23 07:14 Dextrose 5% 1,000 Ml IVPB PRN PRN Hypoglycemia Protocol Cefazolin Sodium 1 gm in 50 mls @ 100 mls/hr 11/12/23 22:00 11/18/23 05:04 Ancef 1 Gm/Ns 50 Ml IVPB 100 mls/hr Q8H JANEY Administration Lactated Ringer's 1,000 mls @ 30 mls/hr 11/17/23 12:40 11/17/23 16:15 Lr - Lactated Ringers Iv IV CONT Infused .Q24H JANEY Infusion Insulin Aspart 1 - 3 units 11/07/23 21:00 11/17/23 21:13 Insulin Aspart (*Bkc) 100 Units/Ml SUB-Q 2 units HS [facility] Administration Protocol Insulin Aspart 3 - 6 units 11/07/23 08:00 11/17/23 19:24 Insulin Aspart (*Bkc) 100 Units/Ml SUB-Q Not Given TIDWM [facility] Protocol Metronidazole 500 mg 11/11/23 16:00 11/18/23 05:04 Metronidazole 500 Mg Tablet PO 500 mg Q8HR JANEY Administration Ondansetron HCl 4 mg 11/10/23 11:39 11/17/23 16:43 Ondansetron Hcl Odt 4 Mg Tablet PO 4 mg Q6H PRN Administration Nausea And Vomiting Ondansetron HCl 4 mg 11/17/23 13:38 Ondansetron Inj 4 Mg/2 Ml Vial IV PUSH ONCE PRN Nausea Oxycodone HCl 5 mg 11/12/23 17:20 11/12/23 23:31 Oxycodone Hcl (*Crx) 5 Mg Tab Ir PO 5 mg Q4H PRN Administration Pain Rated 7-10 Sitagliptin Phosphate 100 mg 11/07/23 09:00 11/17/23 12:33 Sitagliptin 100 Mg Tablet PO Not Given QAM [facility] Radiology Results: ITS Impressions Chest X-Ray 11/06/23 19:42 IMPRESSION: No acute cardiopulmonary process. Foot X-Ray 11/06/23 19:42 IMPRESSION: Osteomyelitis involving the distal aspect fifth metatarsal stump. Possible oblique fracture of the fifth metatarsal base. Ankle Brachial Index 11/11/23 14:19 IMPRESSION: 1. Mildly decreased ABIs, improved from 05/18/2022, consistent with arterial occlusive disease. Lower Extremity CTA 11/11/23 18:07 IMPRESSION: CT and radiographic findings suspicious for osteomyelitis of the distal aspect of the fifth metatarsal stump. Old possibly nonunited fracture of the base the fifth metatarsal, with subtle areas of cortical thinning with an overlying soft tissue defect which may suggest the presence of subtle osteomyelitis. Consider MRI of the foot without and with contrast for further evaluation of osteomyelitis. Severe atherosclerotic disease in the left lower extremity with multifocal severe stenoses. Patent distal SFA/proximal popliteal stent. Probably patent short stent in the trunk of the peroneal and posterior tibial arteries. 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 Tenuous flow to the foot appears to be maintained via the anterior tibial artery. Labs Labs: Laboratory Results - last 24 hr 11/17/23 11/17/23 11/17/23 08:25 12:31 15:25 WBC RBC Hgb Hct MCV MCH MCHC RDW Plt Count MPV Immature Gran % (Auto) Neut % (Auto) Lymph % (Auto) Garza % (Auto) Eos % (Auto) Baso % (Auto) Lymph # (Auto) Garza # (Auto) Eos # (Auto) Baso # (Auto) Abs Immat Gran (auto) Absolute Neuts (auto) Absolute Nucleated RBC Nucleated RBC % Sodium Potassium Chloride Carbon Dioxide Anion Gap BUN Creatinine Estim Creat Clear Calc Estimated GFR Glucose POC Capillary Glucose 179 H 137 H 131 H Calcium Magnesium Total Bilirubin AST ALT Alkaline Phosphatase Total Protein Albumin 11/17/23 11/17/23 11/18/23 17:29 21:10 05:23 WBC 13.1 H RBC 3.60 L Hgb 9.5 L Hct 31.7 L MCV 88.1 MCH 26.4 MCHC 30.0 L RDW 16.4 H Plt Count 547 H MPV 9.2 Immature Gran % (Auto) 1.1 H Neut % (Auto) 72.0 Lymph % (Auto) 17.6 L Garza % (Auto) 6.1 Eos % (Auto) 2.8 Baso % (Auto) 0.4 Lymph # (Auto) 2.30 Garza # (Auto) 0.8 H Eos # (Auto) 0.4 H Baso # (Auto) 0.1 Abs Immat Gran (auto) 0.15 H Absolute Neuts (auto) 9.4 H Absolute Nucleated RBC 0.000 Nucleated RBC % 0.0 Sodium 134 L Potassium 4.1 Chloride 102 Carbon Dioxide 31 H Anion Gap 1 L BUN 11 Creatinine 0.70 Estim Creat Clear Calc 75 Estimated GFR > 60 Glucose 194 H POC Capillary Glucose 150 H 272 H Calcium 8.8 Magnesium 1.9 Total Bilirubin 0.3 AST 22 ALT 10 Alkaline Phosphatase 137 H Total Protein 7.0 Albumin 3.3 L
--- NOTE | 2023-11-18 08:26 | P.DS_ITS ---
DS: Admitting Diagnosis Discharge Date 11/17 Admitting Diagnosis Sepsis: ?Osteomyelitis: DS: Discharge Diagnosis Discharge Diagnosis (1) Diabetic foot ulcer: Qualifiers: Diabetes mellitus type: other specified (including MARINA) Diabetic foot ulcer location: heel Laterality: left Code(s): E11.621 - Type 2 diabetes mellitus with foot ulcer; L97.509 - Non-pressure chronic ulcer of other part of unspecified foot with unspecified severity Status: Acute (2) Type 2 diabetes mellitus with hyperglycemia: Qualifiers: Diabetes mellitus chcf insulin use: without superintendent container terminal use Qualified Code(s): E11.65 - Type 2 diabetes mellitus with hyperglycemia Code(s): E11.65 - Type 2 diabetes mellitus with hyperglycemia Status: Chronic (3) Sepsis: Qualifiers: Sepsis acute organ dysfunction status: without acute organ dysfunction Sepsis type: sepsis due to unspecified organism Qualified Code(s): A41.9 - Sepsis, unspecified organism Code(s): A41.9 - Sepsis, unspecified organism Status: Acute (4) Complication of toe amputation stump: Code(s): T87.9 - Unspecified complications of amputation stump Status: Acute DS: Summary Hospital Course Hospital Course: per H&P, ?57-year-old female with past medical history of diabetic peripheral neuropathy, peripheral vascular disease, 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 And 1 day of chills. the patient had initially came to the ER the night before and was given fluids and discharged home after antiemetics.? She returns this evening because of chills worsening fatigue and nausea.? On arrival to the ER she was found to be febrile with a temperature of 100.1?.? The dressings were removed from her left ray wound site and she was noted have some purulent appearing drainage from the area and increased erythema.? The patient stated that her wound had not changed prior to that in that they usually visualized the wound each day.? Patient did have moderate leukocytosis with a white count of 15.8 and her CRP and ESR ? Were at or exceeding limits she had when she had prior infection.? She reports that her glucoses have been pretty good and her fasting glucose is the only Accu- Cheks she does during the day and it is been between 120 and 160 on average.? She did not check her glucoses on the because she felt so bad.? The patient does smell strongly of urine but denies any dysuria or urinary symptoms? Beyond her baseline. her UA performed on the demonstrate 3+ protein 3+ glucose 1+ ketones and 1+ blood without evidence of infection.? Blood cultures were obtained in the ER.? She received 1 dose of Rocephin and 1 dose of vancomycin. the following med issues have been addressed during hospitalization (1) Sepsis: ?Qualifiers: ?Sepsis type:?sepsis due to unspecified organism??Sepsis acute organ dysfunction status:?without acute organ dysfunction? Qualified Code(s):?A41.9 - Sepsis, unspecified organism ?Code(s): A41.9 - Sepsis, unspecified organism ?Status:?Acute ?Assessment and Plan: 11/08/2023 * Patient currently meeting sepsis criteria with temp of 101.3, heart rate of 107, white blood cell count 12.0, and known source of infection the left foot. * Blood culture showing no growth on preliminary read * Foot wound culture is pending * Patient was originally given Zosyn and vancomycin * Will switch to cefepime, vancomycin, and Flagyl for diabetic foot wound protocol * Left foot x-ray showing osteomyelitis involving the distal aspect of the 5th metatarsal, possible oblique fracture of the 5th metatarsal base. * General surgery was consulted * Patient had a bedside debridement of her wound with General surgery 11/08:? General surgery to transition patient to oral antibiotics planned jim crews tomorrow after wound care consult will follow-up in clinic for further surgical planning. 11/09: foot appears more erythematous white blood cell count has increased patient has developed diarrhea and nausea.? Surgery is changing planned will keep inpatient and have Dr. Johnson evaluate tomorrow 11/11: Going to surgery for debridement vs amputation? CTA lower extremities shows severe atherosclerotic disease in the left lower extremity with multifocal severe stenosis. Patent distal SFA/proximal popliteal stent. 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 11/12:? White blood cell 13, wound VAC placed.? On p.o. Flagyl and IV cefepime.? Will discharge with oral antibiotics.? Home health is being arranged.? Plan for wound VAC changed. 11/13:? Wound VAC change this morning.? Continue with antibiotics.? Awaiting wound VAC for home.? Possibly receiving a skin graft on Tuesday 11/14:? Wound VAC is intact. 11/15:? Plan for surgery tomorrow with skin graft 4:9, sepsis has resolved, changed to Augmentin p.o. (2) Osteomyelitis: ?Code(s): M86.9 - Osteomyelitis, unspecified ?Status:?Acute ?Assessment and Plan: 11/08/2023 * The left foot x-ray showing osteomyelitis involving the distal aspect of the 5th metatarsal, possible oblique fracture of the 5th metatarsal base * General surgery consulted * Patient had a bedside debridement of her wound with General surgery * Blood culture showing no growth on preliminary read * Foot wound was cultured and is pending * Patient was given Zosyn and vancomycin initially and we will switch to cefepime vancomycin and Flagyl for diabetic foot wound protocol 11/08: General surgery to transition patient to oral antibiotics planned discharge tomorrow after wound care consult will follow-up in clinic for further surgical planning. 11/09: foot appears more erythematous white blood cell count has increased patient has developed diarrhea and nausea.? Surgery is changing planned will keep inpatient and have Dr. Johnson evaluate tomorrow 11/11: See #1 discharge with Augmentin p.o. for 10 more days, patient will see general surgeon and PCP in the office, further treatment per general surgeon or PCP evaluation (3) Diabetic foot ulcer: ?Qualifiers: ?Diabetes mellitus type:?other specified (including MARINA)??Diabetic foot ulcer location:?heel??Laterality:?left ?Code(s): E11.621 - Type 2 diabetes mellitus with foot ulcer; L97.509 - Non-pressure chronic ulcer of other part of unspecified foot with unspecified severity ?Status:?Acute ?Assessment and Plan: 11/08/2023: * Patient has a diabetic foot ulcer on the lateral aspect of her right foot that looks dry with black eschar.? Dr. Álvarez notified of this finding. 11/08:? General surgery to transition patient to oral antibiotics planned discharge tomorrow after wound care consult will follow-up in clinic for further surgical planning.? Wound Care to consult on bilateral foot wounds tomorrow. 11/09: foot appears more erythematous white blood cell count has increased patient has developed diarrhea and nausea.? Surgery is changing planned will keep inpatient and have Dr. Johnson evaluate tomorrow 11/11: see # 1 and 2 (4) Type 2 diabetes mellitus with hyperglycemia: ?Qualifiers: ?Diabetes mellitus chcf insulin use:?without superintendent container terminal use? Qualified Code(s):?E11.65 - Type 2 diabetes mellitus with hyperglycemia ?Code(s): E11.65 - Type 2 diabetes mellitus with hyperglycemia ?Status:?Chronic ?Assessment and Plan: 11/08/2023 * Blood sugars ranging 125-227 * Hemoglobin A1c on 07/24/2023 was 6.5 * Accu-Cheks AC and HS * Hypoglycemic protocol in place * Moderate does sliding scale insulin ordered * Continue Januvia and Jardiance in replacement of her Farxiga 11/08:? Morning glucose 148 by fingerstick 11/09: morning glucose 106 by fingerstick 11/11: BG stable 87-152 11/12:? Blood sugars reviewed and are stable She will come to the wound clinic for wound VAC changes She will discharge with a wound VAC Oral antibiotics at discharge Skin graft completed 11/16 Wound vac has been approved per care coordination note patient will discharge home with home health Time Spent with Patient Time attestation: Total time spent providing and/or coordinating discharge services: Exam Narrative: GENERAL: Pleasant, in no acute distress. Well-nourished. - EYES: EOMI. Anicteric. - HENT: Moist mucous membranes. - LUNGS: Clear to auscultation bilateral ly, no wheezing, rhonchi, or rales. - CARDIOVASCULAR: Regular rate and rhyth m. No murmur. No JVD. - ABDOMEN: Soft, non-tender and non-dist ended. No palpable masses. - EXTREMITIES: No edema. Peripheral puls es 2+. Non-tender.Left 5th toe amputation, wound is well dressed, dressing is dry and clean - NEUROLOGIC: No focal neurological defi cits. CN II-XII grossly intact. - PSYCHIATRIC: Awake, Alert and oriented x 3. Appropriate mood and affect. - SKIN: No rashes or lesions. Warm. - LYMPH: No cervical lymphadenopathy. DS: Data Data Completed and Pending Completed studies during hospitalization: Pending at discharge 11/12/23 16:31 Surgical [PTH] Routine Labs on day of discharge: Labs from last 24 hours 11/18/23 11/17/23 11/17/23 05:23 21:10 17:29 WBC 13.1 H RBC 3.60 L Hgb 9.5 L Hct 31.7 L MCV 88.1 MCH 26.4 MCHC 30.0 L RDW 16.4 H Plt Count 547 H MPV 9.2 Immature Gran % (Auto) 1.1 H Neut % (Auto) 72.0 Lymph % (Auto) 17.6 L [place] % (Auto) 6.1 Eos % (Auto) 2.8 Baso % (Auto) 0.4 Lymph # (Auto) 2.30 [place] # (Auto) 0.8 H Eos # (Auto) 0.4 H Baso # (Auto) 0.1 Abs Immat Gran (auto) 0.15 H Absolute Neuts (auto) 9.4 H Absolute Nucleated RBC 0.000 Nucleated RBC % 0.0 Sodium 134 L Potassium 4.1 Chloride 102 Carbon Dioxide 31 H Anion Gap 1 L BUN 11 Creatinine 0.70 Estim Creat Clear Calc 75 Estimated GFR > 60 Glucose 194 H POC Capillary Glucose 272 H 150 H Calcium 8.8 Magnesium 1.9 Total Bilirubin 0.3 AST 22 ALT 10 Alkaline Phosphatase 137 H Total Protein 7.0 Albumin 3.3 L 11/17/23 11/17/23 11/17/23 15:25 12:31 08:25 WBC RBC Hgb Hct MCV MCH MCHC RDW Plt Count MPV Immature Gran % (Auto) Neut % (Auto) Lymph % (Auto) [place] % (Auto) Eos % (Auto) Baso % (Auto) Lymph # (Auto) [place] # (Auto) Eos # (Auto) Baso # (Auto) Abs Immat Gran (auto) Absolute Neuts (auto) Absolute Nucleated RBC Nucleated RBC % Sodium Potassium Chloride Carbon Dioxide Anion Gap BUN Creatinine Estim Creat Clear Calc Estimated GFR Glucose POC Capillary Glucose 131 H 137 H 179 H Calcium Magnesium Total Bilirubin AST ALT Alkaline Phosphatase Total Protein Albumin Discharge Plan Discharge Attending physician on discharge: Kaleb Maya Consulting providers: Tadeo Johnson Discharging Clinician: Maya,Changqing Patient Disposition: Home Health Service Activity: as tolerated Diet: as tolerated and diabetic Wound Care Instructions: other - see discharge instructions Discharge Instructions: Patient to come to [facility] 3 times a week for wound vac dressing changes. First follow up appointment will be on Tuesday November 21, 2023 at 1:00pm Patient Instructions: Antibiotic Form, How to Stop Smoking (DC) Stand Alone Forms: General Discharge Information Follow-up/Referrals: Desi,ANA ROSA Christie [Primary Care Provider] - ( patient needs to see primary care doctor in 1 week) Tadeo Johnson MD [Physician] - 11/21/23 1:00 pm (You will see Dr. Johnson at the [facility] on Tuesday November 21, 2023 at 1:00pm) Discharge Medications: New hydrocodone-acetaminophen 5-325 mg Tablet 1 tablet PO Q4H PRN (Reason: Pain Rated 4-6) Qty: 14 0RF amoxicillin-pot clavulanate 875-125 mg tablet 1 tablet PO Q12H Qty: 20 0RF Continued atorvastatin 40 mg tablet 40 mg PO QHS dapagliflozin propanediol [Farxiga] 10 mg tablet 10 mg PO QAM Januvia 100 mg tablet 100 mg PO QAM Date of admission: 11/06/23 23:19 Primary Care Provider: Shahnaz Moreland Admitting Provider: Maggie Simon Attending physician on admission: Maggie Simon Condition: Stable
[2023-11-18 08:33] LABS: Glucose Point of Care 186 mg/dl (65-105)
[2023-11-18] MEDS: EMPAGLIFLOZIN 25 MG TABLET BY MOUTH (09:37)
[2023-11-18] MEDS: HEPARIN SODIUM 5,000 UNITS/ML VIAL 5000 UNITS SUB-Q (09:37)
[2023-11-18 12:30] LABS: Glucose Point of Care 197 mg/dl (65-105)
--- NOTE | 2023-11-18 14:25 | P.PNGS_ITS ---
Progress Note: A&P Assessment and Plan (1) Complication of toe amputation stump: Code(s): T87.9 - Unspecified complications of amputation stump Status: Acute Assessment and Plan: Doing well after completion amputation of the left 5th metatarsal. S/p graft application to the left foot wound yesterday with wound vac placement. Okay to discharge on oral antibiotics today from a surgical standpoint. She will follow up with Dr. Johnson on Friday for her first wound VAC change. Plan I have discussed the patient's case and plan of care with Dr. Johnson. Subjective Subjective Date/Time Seen: 11/18/23 11:25 Post Op day: 1 (Irrigation and debridement left foot wound with graft application) Patient reports: no new complaints and afebrile Interval history: Plan to discharge today. Patient without any specific complaints. Denies any pain at this time. Wound VAC placed during surgery yesterday. Wound care nurses are coming to change her to a home VAC this afternoon. Exam Narrative: Left foot dressing dry and intact. Wound VAC in place and functioning well. Objective Data Vital Signs Vital Signs: Vital Signs - 24 hr 11/17/23 15:18 11/17/23 15:30 11/17/23 15:45 Temperature Pulse Rate 73 69 69 Respiratory Rate 12 12 13 Blood Pressure 138/56 L 147/65 H 178/82 H Pulse Oximetry 100 100 98 Oxygen Delivery Simple Face Mask Simple Face Mask Room Air Oxygen Flow Rate 10 10 11/17/23 16:00 11/17/23 17:00 11/17/23 21:15 Temperature 98.4 F Pulse Rate 69 79 78 Respiratory Rate 12 16 16 Blood Pressure 183/73 H 178/70 H Pulse Oximetry 100 96 97 Oxygen Delivery Room Air Room Air Oxygen Flow Rate 11/17/23 22:00 11/18/23 06:00 Temperature 98.6 F 97.6 F Pulse Rate 78 78 Respiratory Rate 16 18 Blood Pressure 146/62 H 158/74 H Pulse Oximetry 100 98 Oxygen Delivery Oxygen Flow Rate Intake/Output Intake/Output: Intake & Output 11/15/23 11/16/23 11/17/23 11/18/23 23:59 23:59 23:59 23:59 Intake Total 2520 1895 1472 980 Output Total 300 600 900 800 Balance 2220 1295 572 180 Meds/Results Medications: Active Medications Generic Name Dose Route Start Last Admin Trade Name Freq PRN Reason Stop Dose Admin Acetaminophen 650 mg 11/07/23 21:29 11/07/23 21:43 Acetaminophen 325 Mg Tablet PO 650 mg Q4H PRN Administration Mild Pain (1-3) or Fever Hydrocodone Bitart/Acetaminophen 1 tab 11/12/23 17:20 11/13/23 08:23 Hydrocodone/Acetaminophen (*Crx) 5-325 Mg Tablet PO 1 tab Q4H PRN Administration Pain Rated 4-6 Atorvastatin Calcium 40 mg 11/07/23 21:00 11/17/23 21:12 Atorvastatin 40 Mg Tablet PO 40 mg QHS JANEY Administration Dextrose 12.5 gm 11/07/23 07:14 Dextrose 50% 25 Gm/50 Ml Syringe IV PUSH PRN PRN Hypoglycemia Protocol Empagliflozin 25 mg 11/07/23 09:00 11/18/23 09:37 Empagliflozin 25 Mg Tablet BY MOUTH 25 mg QAM JANEY Administration Glucagon 1 mg 11/07/23 07:14 Glucagon For Inj 1 Mg Vial IM PRN PRN Hypoglycemia Protocol Glucose 15 gm 11/07/23 07:14 Glucose Oral Gel 15 Gm Of Glucse In 37.5 Gm Tube PO PRN PRN Hypoglycemia Protocol Heparin Sodium (Porcine) 5,000 units 11/07/23 21:00 11/18/23 09:37 Heparin Sodium 5,000 Units/Ml Vial SUB-Q 5,000 units Q12HR JANEY Administration Hydralazine HCl 10 mg 11/17/23 16:56 Hydralazine Hcl 20 Mg/Ml Vial IV PUSH Q6H PRN Blood Pressure - High Hydromorphone HCl 1 mg 11/12/23 17:20 Hydromorphone Hcl Inj (*Crx) 1 Mg/Ml Syr IV PUSH Q4H PRN Pain Rated 7-10 Dextrose 1,000 mls @ 100 mls/hr 11/07/23 07:14 Dextrose 5% 1,000 Ml IVPB PRN PRN Hypoglycemia Protocol Cefazolin Sodium 1 gm in 50 mls @ 100 mls/hr 11/12/23 22:00 11/18/23 05:04 Ancef 1 Gm/Ns 50 Ml IVPB 100 mls/hr Q8H JANEY Administration Insulin Aspart 1 - 3 units 11/07/23 21:00 11/17/23 21:13 Insulin Aspart (*Bkc) 100 Units/Ml SUB-Q 2 units HS JANEY Administration Protocol Insulin Aspart 3 - 6 units 11/07/23 08:00 11/18/23 12:50 Insulin Aspart (*Bkc) 100 Units/Ml SUB-Q Not Given TIDWM [facility] Protocol Metronidazole 500 mg 11/11/23 16:00 11/18/23 05:04 Metronidazole 500 Mg Tablet PO 500 mg Q8HR JANEY Administration Ondansetron HCl 4 mg 11/10/23 11:39 11/17/23 16:43 Ondansetron Hcl Odt 4 Mg Tablet PO 4 mg Q6H PRN Administration Nausea And Vomiting Ondansetron HCl 4 mg 11/17/23 13:38 Ondansetron Inj 4 Mg/2 Ml Vial IV PUSH ONCE PRN Nausea Oxycodone HCl 5 mg 11/12/23 17:20 11/12/23 23:31 Oxycodone Hcl (*Crx) 5 Mg Tab Ir PO 5 mg Q4H PRN Administration Pain Rated 7-10 Sitagliptin Phosphate 100 mg 11/07/23 09:00 11/18/23 09:37 Sitagliptin 100 Mg Tablet PO 100 mg QAM JANEY Administration Radiology Results: ITS Impressions Chest X-Ray 11/06/23 19:42 IMPRESSION: No acute cardiopulmonary process. Foot X-Ray 11/06/23 19:42 IMPRESSION: Osteomyelitis involving the distal aspect fifth metatarsal stump. Possible oblique fracture of the fifth metatarsal base. Ankle Brachial Index 11/11/23 14:19 IMPRESSION: 1. Mildly decreased ABIs, improved from 05/18/2022, consistent with arterial occlusive disease. Lower Extremity CTA 11/11/23 18:07 IMPRESSION: CT and radiographic findings suspicious for osteomyelitis of the distal aspect of the fifth metatarsal stump. Old possibly nonunited fracture of the base the fifth metatarsal, with subtle areas of cortical thinning with an overlying soft tissue defect which may suggest the presence of subtle osteomyelitis. Consider MRI of the foot without and with contrast for further evaluation of osteomyelitis. Severe atherosclerotic disease in the left lower extremity with multifocal severe stenoses. Patent distal SFA/proximal popliteal stent. Probably patent short stent in the trunk of the peroneal and posterior tibial arteries. 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 Tenuous flow to the foot appears to be maintained via the anterior tibial artery. Labs Labs: Laboratory Results - last 24 hr 04/04/0311/17/23 11/17/23 15:25 17:29 21:10 WBC RBC Hgb Hct MCV MCH MCHC RDW Plt Count MPV Immature Gran % (Auto) Neut % (Auto) Lymph % (Auto) [place] % (Auto) Eos % (Auto) Baso % (Auto) Lymph # (Auto) [place] # (Auto) Eos # (Auto) Baso # (Auto) Abs Immat Gran (auto) Absolute Neuts (auto) Absolute Nucleated RBC Nucleated RBC % Sodium Potassium Chloride Carbon Dioxide Anion Gap BUN Creatinine Estim Creat Clear Calc Estimated GFR Glucose POC Capillary Glucose 131 H 150 H 272 H Calcium Magnesium Total Bilirubin AST ALT Alkaline Phosphatase Total Protein Albumin 11/18/23 11/18/23 11/18/23 05:23 08:29 12:10 WBC 13.1 H RBC 3.60 L Hgb 9.5 L Hct 31.7 L MCV 88.1 MCH 26.4 MCHC 30.0 L RDW 16.4 H Plt Count 547 H MPV 9.2 Immature Gran % (Auto) 1.1 H Neut % (Auto) 72.0 Lymph % (Auto) 17.6 L [place] % (Auto) 6.1 Eos % (Auto) 2.8 Baso % (Auto) 0.4 Lymph # (Auto) 2.30 [place] # (Auto) 0.8 H Eos # (Auto) 0.4 H Baso # (Auto) 0.1 Abs Immat Gran (auto) 0.15 H Absolute Neuts (auto) 9.4 H Absolute Nucleated RBC 0.000 Nucleated RBC % 0.0 Sodium 134 L Potassium 4.1 Chloride 102 Carbon Dioxide 31 H Anion Gap 1 L BUN 11 Creatinine 0.70 Estim Creat Clear Calc 75 Estimated GFR > 60 Glucose 194 H POC Capillary Glucose 186 H 197 H Calcium 8.8 Magnesium 1.9 Total Bilirubin 0.3 AST 22 ALT 10 Alkaline Phosphatase 137 H Total Protein 7.0 Albumin 3.3 L
--- NOTE | 2023-11-20 14:21 | W.PM.PROC2 ---
Procedure Note - Detailed Date of Procedure 11/17/23 Pre-op Diagnosis N/V,Sepsis,Osteomylitis left foot Post-op Diagnosis Same Procedure Performed debridement of left foot wound with application of xenograft and placement of wound VAC. Surgeon Tadeo Johnson MD Anesthesia General Indications patient is a 57-year-old female who initially had dry gangrene of her left 5th toe. She underwent amputation of the gangrenous toe but the subcutaneous flap closing the wound became ischemic and I would. This left an open wound in the area and she eventually developed osteomyelitis of the metatarsal. She recently underwent complete excision of the left 5th metatarsal and the wound was left open with a wound VAC in place. She is now developed granulation tissue across the base of the wound and so she presents now for debridement of the wound as well as application of xenograft to promote faster healing and placement of another wound VAC. Findings the wound measured approximately 12cm in length by 2.5cm in width by 2cm in depth. Granulation tissue was noted across the base and of at least 95% of the wound was well granulated. No purulent drainage. There was a small amount of remaining tendon at the base of the wound which was sharply debrided in an excisional manner utilizing sharp scissor and scalpel dissection. This tissue was discarded. The wound VAC was then placed onto the wound and the procedure. Description of Procedure After informed consent was obtained patient brought to the operating room she was placed supine position and general LMA anesthesia was administered. Left lower extremity from the mid tibial region all the way to the toes was then prepped in a circumferential manner in the usual sterile fashion after removal of the existing wound VAC. I then proceeded to perform a time-out correctly identifying the patient as well as the procedure to be performed and verifying the site marking. I then irrigated out the wound to remove all the Betadine prep. There was excellent granulation tissue across at least 95% the base of the wound. There is no evidence of residual infection in the wound. I did an excisional fashion utilizing sharp scissors and scalpel debride a small portion of residual tendon in the base of the wound. This tissue was discarded. I then proceeded to measure the wound and it was 12cm in length by 2.5cm in width by 2cm in depth. A piece of Marigen expanse the xenograft measuring 10x8cm in a 2 to 1 meshed configuration was then chosen to place across the base of the wound to promote more rapid healing of the wound. It was doubled over to better conform to the depth of the wound and it was secured in place circumferentially with interrupted 3-0 chromic sutures. 80 square cm of xenograft was placed. I then placed a piece of non adherent gauze on top of the xenograft and then placed a black foam wound VAC over the top of the graft. The wound VAC area covered was approximately 61 cubic cm. We obtained a good seal on the wound VAC. The patient tolerated the procedure well no complications. All sponges, needles, and instrument counts were correct at the end procedure. EBL was _20__cc. The patient was awakened and taken to recovery in stable and satisfactory condition. Implants Marigen xenograft 8 x 10 cm Estimated Blood Loss 20 Tourniquet Time Total Tourniquet Time: none Urine Output 800 Drains No Packing Yes ( wound VAC placed) Pathology None sent Complications No immediate complications Condition Stable Disposition PACU [facility] Billing Surgery - Charge Forward: Surgery Billing
== END 2023-11-18 15:15 | disposition home or self-care (01) | DRG 305 ==
LOC: ANHED 21:25 → ANH3MED 23:27
PROVIDERS: Nurse Practitioner; Nurse Practitioner Acute Care; Physician Assistant; Surgery; Admitting Provider Internal Medicine; Emergency Provider Emergency Medicine; PCP Physician Assistant; Visit Provider Hospitalist
PROC: 0Y6N0Z8 Detachment at Left Foot, Complete 5th Ray, Open Approach (ICD-10-PCS; principal; 2023-11-12 15:30)
PROC: 0LBW0ZZ Excision of Left Foot Tendon, Open Approach (ICD-10-PCS; principal; 2023-11-17 14:30)
DX: T87.44 Infection of amputation stump, left lower extremity (principal); A41.9 Sepsis, unspecified organism; A49.01 Methicillin susceptible Staphylococcus aureus infection, unspecified site; Z20.822 Contact with and (suspected) exposure to COVID-19; E11.42 Type 2 diabetes mellitus with diabetic polyneuropathy; E11.52 Type 2 diabetes mellitus with diabetic peripheral angiopathy with gangrene; I96 Gangrene, not elsewhere classified; M86.172 Other acute osteomyelitis, left ankle and foot; E11.621 Type 2 diabetes mellitus with foot ulcer; L97.429 Non-pressure chronic ulcer of left heel and midfoot with unspecified severity; E11.65 Type 2 diabetes mellitus with hyperglycemia; E78.5 Hyperlipidemia, unspecified; F17.210 Nicotine dependence, cigarettes, uncomplicated; Z89.422 Acquired absence of other left toe(s)
CPT/HCPCS: 36415; 71045; 73630; 73706; 80048; 80053; 80202; 82565; 82948; 83605; 83735; 85025; 85027; 85652; 86140; 87040; 87070; 87075; 87076; 87147; 87181; 87185; 87205; 87637; 88305; 88311; 93005; 93922; 96365; 96366; 96367; 97110; 97161; 97165; 97530; 97535; 99285; A9270; J0690; J0692; J0696; J1644; J1650; J1815; J1836; J2250; J2405; J2543; J2704; J3010; J3370; J7030; J7120; Q9967

== ENCOUNTER 2023-12-16 07:11 | Outpatient (RCR) | payer BC, SELFPAY ==
[2023-09-17 12:13] VITALS: BMI 28.5
--- NOTE | 2023-09-17 17:20 | P.PN_ITS ---
Progress Note: A&P Assessment and Plan (1) Amputation of fifth toe of left foot: Onset Date: 07/2023 Code(s): S98.132A - Complete traumatic amputation of one left lesser toe, initial encounter Status: Acute Assessment and Plan: For sugars been poor wound healing of the amputation site on the lateral aspect of the left foot. Sharp debridement with scissor and scalpel of the necrotic as shower and some of the necrotic fat in the wound was done in the [facility] today. There was noted be some bleeding from the underlying tissue. Will place Santyl enzymatic debriding agent on the wound for now. Hopefully will get this cleaned up to the point we get some good granulation tissue and then we can apply a Patricia collagen sheet onto the wound to accelerat e healing. We will see the patient back in the [facility] in 1 week. Subjective Date/time seen: 09/17/23 17:20 Interval history: Patient is status post amputation of the 5th toe. For she has developed necrosis of the skin flap closing the wound. She has dry necrotic as sharp and liquefying adipose tissue around and in the wound. No exposed bone is noted. Exam Extrem: Other: On the lateral aspect of the patient's left foot there is a 7x3.5x0.5cm wound with some dry necrotic eschar and underlying draining liquefying fat tissue. There is minimal erythema around the wound and really no swelling of the left foot. Objective Data Meds/Results Medications: Active Medications Generic Name Dose Route Start Last Admin Trade Name Freq PRN Reason Stop Dose Admin Collagenase 1 applic 09/17/23 12:30 Collagenase Oint 30 Gm Tube TOPICAL 12/16/23 23:55 PRN PRN Wound Care Silver Nitrate 1 each 09/17/23 14:39 Silver Nitrate (*Sp) Stick TOPICAL 12/16/23 23:55 PRN PRN Wound Care
--- NOTE | 2023-09-25 13:04 | WPDPN ---
Progress Note: A&P Assessment and Plan (1) Amputation of fifth toe of left foot: Onset Date: 07/2023 Code(s): S98.132A - Complete traumatic amputation of one left lesser toe, initial encounter Status: Acute Assessment and Plan: Unfortunate she has had complete dehiscence surgical wound. She has undergone sharp debridement as well as enzymatic debridement of the nonviable tissue. We are starting to see some granulation tissue at the base of the wound. We will continue Santyl for now local wound care. We will see her next week again to see if she needs further debridement. Subjective Date/time seen: 09/25/23 13:04 Interval history: Patient returns to the [facility] for evaluation of the left lateral foot wound. Amputation left 5th toe and unfortunately has had dehiscence of the wound. The wound was debrided in the clinic sharply last week and Santyl topical enzymatic debriding was started. Patient denies any fevers or any redness streaking up her left foot. Exam Extrem: Other: The left foot wound does have a couple islands of granulation starting at the base. Still surrounding necrotic adipose tissue she is to be debrided. The skin around the wound is healthy. No ascending cellulitis of the foot. There is no abscess to drain. The wound now measures 7x3x0.3cm. Objective Data Meds/Results Medications: Active Medications Generic Name Dose Route Start Last Admin Trade Name Freq PRN Reason Stop Dose Admin Collagenase 1 applic 09/17/23 12:30 Collagenase Oint 30 Gm Tube TOPICAL 12/16/23 23:55 PRN PRN Wound Care Silver Nitrate 1 each 09/17/23 14:39 Silver Nitrate (*Sp) Stick TOPICAL 12/16/23 23:55 PRN PRN Wound Care
--- NOTE | 2023-10-01 13:09 | WPDPN ---
Progress Note: A&P Assessment and Plan (1) Complication of toe amputation stump: Code(s): T87.9 - Unspecified complications of amputation stump Status: Acute Assessment and Plan: Patient continues to heal her left 5th toe amputation dehisced wound by secondary intention. There is no infection. Debrided some of the fibrinous nonviable tissue from the wound today. There is about 50% granulation tissue at the base. Continue using Santyl topical enzymatic debridement agent daily and wrapping the foot. We will see her back in the Wound clinic in about 2 weeks. If she gets a good 100% granulation base , there may be an option for placement of a xenograft for tissue coverage depending on if her insurance will cover placement of the xenograft Subjective Date/time seen: 10/01/23 13:09 Interval history: Patient returns today for one-week interval follow-up in the wound care clinic. She has been applying Santyl to the wound daily. No complaints. Exam Skin: Other: On the left lateral foot 5th toe amputation dehisced wound there is approximately 50% granulation tissue at the base. The other 50% is yellow fibrinous tissue. No spreading cellulitis or redness around the wound. Remaining toes on left foot are viable. The wound now measures 7.5x3x0.4cm. Objective Data Meds/Results Medications: Active Medications Generic Name Dose Route Start Last Admin Trade Name Freq PRN Reason Stop Dose Admin Collagenase 1 applic 09/17/23 12:30 Collagenase Oint 30 Gm Tube TOPICAL 12/16/23 23:55 PRN PRN Wound Care Silver Nitrate 1 each 09/17/23 14:39 Silver Nitrate (*Sp) Stick TOPICAL 12/16/23 23:55 PRN PRN Wound Care
--- NOTE | 2023-10-15 18:49 | WPDPN ---
Progress Note: A&P Assessment and Plan (1) Complication of toe amputation stump: Code(s): T87.9 - Unspecified complications of amputation stump Status: Acute Assessment and Plan: Patient had breakdown of her wound and dehiscence with necrosis of the fatty tissue after her left 5th toe amputation. The wound is now healing by secondary intention with about 50% granulation of the base of the wound. Small amount of fibrinous tissue was sharply removed from the wound today. There is good bleeding tissue. We will continue with the Santyl topical debridement and wrapping the foot. We will see her back in the Wound Care Clinic in about 2 weeks. If she qualifies would consider placing a xenograft for wound coverage after he has granulated the whole base of the wound. Follow-up in the Wound Care Clinic in 2 weeks. Subjective Date/time seen: 10/15/23 18:49 Interval history: Patient is seen in the [facility] for a 2 week interval follow-up visit for her left foot wound. She had amputation of the left 5th toe but then had breakdown of the subcutaneous flaps and has an open wound which is been slowly healing by secondary intention for the past several weeks. She has no complaints. She is continuing to dress the wound with Santyl topical debridement ointment. Exam Skin: Other: On the lateral aspect of the left foot there is a 8x2.5x1cm wound with about 50% granulation tissue at the base. The remaining portion of the wound has some yellowish fibrinous tissue. There was no pus drainage. Remaining toes are viable and without evidence of infection or wounds. Objective Data Meds/Results Medications: Active Medications Generic Name Dose Route Start Last Admin Trade Name Freq PRN Reason Stop Dose Admin Collagenase 1 applic 09/17/23 12:30 Collagenase Oint 30 Gm Tube TOPICAL 12/16/23 23:55 PRN PRN Wound Care Silver Nitrate 1 each 09/17/23 14:39 Silver Nitrate (*Sp) Stick TOPICAL 12/16/23 23:55 PRN PRN Wound Care
--- NOTE | 2023-11-03 08:28 | P.PN_ITS ---
Progress Note: A&P Assessment and Plan (1) Complication of toe amputation stump: Code(s): T87.9 - Unspecified complications of amputation stump Status: Acute Assessment and Plan: Patient continues to have slow secondary intention closure of the left foot wound. She continues to get good results from applying the Santyl enzymatic debridement to the non granulated areas of the wound. Hopefully will continue to granulate over the course in next couple of weeks. At that point then there can be consideration for application of a xenograft if her insurance coverage allows it. Continue present wound care and see her back in the Wound Care Clinic in 2 weeks. No sharp debridement of the wound was necessary today. Subjective Date/time seen: 10/31/23 Interval history: Patient returns to the [facility] for an interval to week exam on her left lateral foot wound. He continues to heal well and she is putting Santyl topical enzymatic debridement ointment onto the non granulated areas on the base of the wound. Otherwise has no complaints. Exam Skin: Other: The left lateral foot wound now measures 8x2.5x1cm. There is approximately 80% granulation tissue at the base and 20% fibrin this non granulated tissue. No cellulitis is noted. Minimal swelling of the left foot. No foul-smelling odor. Objective Data Meds/Results Medications: Active Medications Generic Name Dose Route Start Last Admin Trade Name Freq PRN Reason Stop Dose Admin Collagenase 1 applic 09/17/23 12:30 Collagenase Oint 30 Gm Tube TOPICAL 12/16/23 23:55 PRN PRN Wound Care Silver Nitrate 1 each 09/17/23 14:39 Silver Nitrate (*Sp) Stick TOPICAL 12/16/23 23:55 PRN PRN Wound Care
--- NOTE | 2023-11-21 18:25 | P.PN_ITS ---
Progress Note: A&P Assessment and Plan (1) Open wound of left foot with complication: Qualifiers: Encounter type: subsequent encounter Qualified Code(s): S91.302D - Unspecified open wound, left foot, subsequent encounter Code(s): S91.302A - Unspecified open wound, left foot, initial encounter Status: Chronic Assessment and Plan: Patient here for wound check change of the wound VAC dressing. The underlying graft is completely 100% viable. No cellulitis is noted. Wound VAC was reapplied today and will change the wound VAC next Friday. See her back in the Wound Care Clinic that time. Continue to be nonweightbearing on the left foot. Subjective Date/time seen: 11/21/23 18:25 Interval history: Patient comes to the [facility] today 4 days after she had debridement of a left lateral foot wound and application of Marigen xenograft. The area been dressed with a wound VAC since that time. She has no complaints. Exam Extrem: Other: The left forefoot has minimal swelling. There is no redness. The wound VAC d ressing was removed revealing a wound measures 12.5 x 3x2.5cm. There was 100% take of the the xenograft. No necrotic tissue is present. Remaining toes on left foot are viable and she can move all the toes. Objective Data Meds/Results Medications: Active Medications Generic Name Dose Route Start Last Admin Trade Name Freq PRN Reason Stop Dose Admin Collagenase 1 applic 09/17/23 12:30 Collagenase Oint 30 Gm Tube TOPICAL 12/16/23 23:55 PRN PRN Wound Care Silver Nitrate 1 each 09/17/23 14:39 Silver Nitrate (*Sp) Stick TOPICAL 12/16/23 23:55 PRN PRN Wound Care
--- NOTE | 2023-11-26 16:47 | WPDPN ---
Progress Note: A&P Assessment and Plan (1) Open wound of left foot with complication: Qualifiers: Encounter type: subsequent encounter Qualified Code(s): S91.302D - Unspecified open wound, left foot, subsequent encounter Code(s): S91.302A - Unspecified open wound, left foot, initial encounter Status: Chronic Assessment and Plan: Patient continues to do well with a wound VAC on the left foot wound. The graft has taken and is helping with granulation tissue at the base of the wound. There is no necrotic tissue or purulent drainage. The wound measurements are slightly smaller today than last week. I recommended continue application of the wound VAC. we will plan on seeing her in the Wound Care Clinic in 2 weeks. Continue twice weekly changing of the wound VAC in the wound care clinic. I Will see her in the Wound Care Clinic in 2 weeks. Subjective Date/time seen: 11/25/23 Interval history: Patient returns to the [facility] for 1 week interval follow-up on the left foot wound. The left foot wound VAC was removed and the underlying wound is granulating well with the previously placed Marigen xenograft. The graft is incorporating well and there is new granulation tissue forming at the base of the wound. Has been some contraction of the wound with the wound VAC. There is no active cellulitis necrotic tissue in the wound. Exam Extrem: Other: The left lateral foot wound measures 13x2.5x1.8cm. There is excellent granulation tissue forming in the distal 1/2 of the base of the wound. Objective Data Meds/Results Medications: Active Medications Generic Name Dose Route Start Last Admin Trade Name Freq PRN Reason Stop Dose Admin Collagenase 1 applic 09/17/23 12:30 Collagenase Oint 30 Gm Tube TOPICAL 12/16/23 23:55 PRN PRN Wound Care Silver Nitrate 1 each 09/17/23 14:39 Silver Nitrate (*Sp) Stick TOPICAL 12/16/23 23:55 PRN PRN Wound Care
--- NOTE | 2023-12-02 15:24 | WPDPN ---
Progress Note: A&P Assessment and Plan (1) Open wound of left foot with complication: Qualifiers: Encounter type: subsequent encounter Qualified Code(s): S91.302D - Unspecified open wound, left foot, subsequent encounter Code(s): S91.302A - Unspecified open wound, left foot, initial encounter Status: Chronic Assessment and Plan: Left foot wound continues to slowly heal by secondary intention. The xenograft has completely incorporated without any loss and is promoting rapid ingrowth of granulation tissue and faster healing. Continue the wound VAC on the left foot in continue dressing changes in the Wound Care Clinic 2-3 times per week. I will see her back wound care clinic in 2 weeks. Subjective Date/time seen: 12/02/23 15:24 Interval history: Patient returns to clinic for a interval follow-up clinic on her left foot wound. She is doing very well has no complaints. Has no pain in the wound. No fevers or chills at home. She continues to have wound VAC on the left foot and comes to Wound Care Clinic to have a change twice a week. Exam Skin: Other: The left foot wound is a little bit smaller today. Canal measures 12.5cm in length by 2.5cm width by 1.3cm in greatest depth. There is no surrounding erythema. There is no swelling of the left foot. All remaining left foot toes are viable. The wound has excellent granulation tissue over approximately 60% of the wound. There is no necrotic tissue noted. The previously placed Marigen xenograft has now completely integrated into the robust granulation tissue. Objective Data Meds/Results Medications: Active Medications Generic Name Dose Route Start Last Admin Trade Name Freq PRN Reason Stop Dose Admin Collagenase 1 applic 09/17/23 12:30 Collagenase Oint 30 Gm Tube TOPICAL 12/16/23 23:55 PRN PRN Wound Care Silver Nitrate 1 each 09/17/23 14:39 Silver Nitrate (*Sp) Stick TOPICAL 12/16/23 23:55 PRN PRN Wound Care
--- NOTE | 2023-12-17 17:08 | WPDPN ---
Progress Note: A&P Assessment and Plan (1) Open wound of left foot with complication: Qualifiers: Encounter type: subsequent encounter Qualified Code(s): S91.302D - Unspecified open wound, left foot, subsequent encounter Code(s): S91.302A - Unspecified open wound, left foot, initial encounter Status: Chronic Assessment and Plan: Continued gradual improvement and closing of the left lateral foot wound with gradual contraction and increased granulation tissue at the base making the wound much more shallow. Continue wound VAC to left foot. Will see her twice a week in Wound Care Clinic for wound VAC change by the wound care nurses and I will see her again in clinic in 2 weeks. Subjective Date/time seen: 12/16/23 17:08 Interval history: Patient returns to the Wound Care Clinic for a 2 week interval check on her left lateral foot wound. She is doing very well. Continues to have wound VAC on the area. No real complaints. Exam Extrem: Other: The left lateral foot wound continues to contract and heal by secondary intention. It now measures 12cm in length by 1.8cm in width by 1.3cm in greatest depth. There is excellent granulation tissue over approximately 90% of the base of the wound. There is no cellulitis and no swelling or redness of the left foot. Psych: Mental Status: mental status grossly normal
== END 2023-12-16 23:59 | disposition home or self-care (01) ==
LOC: ANHWOC 07:11
PROVIDERS: PCP Physician Assistant; Visit Provider Surgery
DX: S91.302D Unspecified open wound, left foot, subsequent encounter (principal)
CPT/HCPCS: 11042; 11043; 11044; 97605; 99214; G0463

== ENCOUNTER 2024-02-25 15:13 | Inpatient (IN) | payer BC, SELFPAY ==
--- NOTE | ~2024-02-25 | XR_ITS ---
EXAMINATION: XR foot RT min 3V DATE: 02/25/2024 16:16 INDICATION: Right heel ulcer. TECHNIQUE: Dorsoplantar, oblique and lateral views of the right foot were obtained. COMPARISON: None. FINDINGS: Old healed diaphyseal fracture deformity at the right fifth metatarsal. Alignment is otherwise normal . No acute fracture. Mild polyarticular osteoarthritis in the mid and forefoot. There is small amount of soft tissue gas on the oblique projection projecting along the lateral margin of the posterior ca lcaneus. No definitive adjacent cortical erosion or osteolysis. The cortex at the lateral process of the talus is indistinct and cannot exclude osteolysis in the setting of osteomyelitis although this a ppears somewhat remote from the soft tissue gas in this could also be artifact of osteopenia. No othe r lesions suspicious for osteolysis identified. Small Achilles and plantar calcaneal spurs. IMPRESSION: 1. Soft tissue gas along the lateral margin of the posterior calcaneus without evident osteolysis to suggest osteomyelitis. 2. Indistinct cortex along the lateral process of the talus which appears relatively remote from the soft tissue gas most likely artifact of prominent osteopenia although osteolysis could not be absolut nathan excluded. Consider further evaluation with either CT or MRI. Reviewed, dictated and finalized at location A. IMPRESSION: 1. Soft tissue gas along the lateral margin of the posterior calcaneus without evident osteolysis to suggest osteomyelitis. 2. Indistinct cortex along the lateral process of the talus which appears relat ively remote from the soft tissue gas most likely artifact of prominent osteope pat although osteolysis could not be absolutely excluded. Consider further eval uation with either CT or MRI.
--- NOTE | 2024-02-25 14:59 | ADMGEN ---
This patient, Debbie Elizalde, was admitted to [facility] Surg Room 331-01. Patient/family oriented to hospital policies and general routines including ID bracelet, bed and alarms, visiting hours, pain management, procedures, bathroom and other care routines, personal items, smoking policy, room service/diet, and visiting hours. Information on how to activate the Rapid Response Team has been discussed. Patient/Family are encouraged to report perceived risks to care and to ask questions if they do not understand what they are told or what they should do.
[2024-02-25 15:16] VITALS: BP 137/72; PULSE 84; RESP 16; TEMP 36.2; O2SAT 97
--- NOTE | 2024-02-25 15:53 | PM.IMHP ---
H&P: HPI History of Present Illness Date/Time: 02/25/24 15:53 Chief Complaint: Right foot ulcer Narrative: This is a 58-year-old diabetic woman with peripheral vascular disease in her left leg at an outside facility. She had dry gangrene of the left 5th toe and underwent amputation of the left 5th toe on 07/25/[address] Johnson. After the amputation, she has had nonviable tissue with multiple debridements, and eventually had findings of osteomyelitis of the left 5th metatarsal resulting in completion amputation of left 5th metatarsal with debridement and placement of wound vac by Dr. Johnson on 11/12/23. She has been followed in the wound clinic by Dr. Johnson as an outpatient and the left foot wound eventually healed. Over the past month or two, she has developed an ulcer to her right lateral foot and heel. She has peripheral vascular disease with a history of stenting in her left leg at an outside facility, and Dr. Johnson had previously referred her to a vascular surgeon in [place]. Instead, the patient decided to see an spot billing clerk who did an angiogram but did not perform any intervention. She reports being told that she did not have good arterial flow to the foot and was prescribed topical nitroglycerin to her foot. Over the past few days, her right foot has become red and swollen. She had an appointment in the wound clinic today and was evaluated by Dr. Johnson as the wound care nurses had concerns for cellulitis and possibly an infected right foot ulcer. She is now being directly admitted in the setting of right lower extremity cellulitis and infected right foot ulcer for IV antibiotics and surgical debridement. Review of Systems Review of Systems: All systems reviewed & are unremarkable except as noted in HPI and below PMFSH Past Medical History Medical History Diabetic foot ulcer Dyslipidemia Peripheral vascular disease (05/2022) Diminished bilateral ankle and toe brachial indices consistent with [id number] peripheral arterial disease on JAVON. 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 History of incision and drainage (05/2022) Incision and drainage of left foot abscess with sharp excisional debridement of left foot ulcer. Family History Family History Father Heart disease Mother Heart disease Mother Diabetes mellitus Social History Social History Social History: Patient lives with her spouse of 23 years. She does not meet biologic children but has 2 step children. She used to smoke 1-2 packs a beers per day since she was a young teen but quit smoking February 24, 2023. She still occasionally uses marijuana. She denies any history of heavy alcohol use and has not used any alcohol in many years. She is disabled. They have a [place]. Surrogate medical decision maker: Donald De La Garza, spouse. Code status: Full code. Smoking packs per day: 45 Smoking cigarettes per day: 900.0 Years smoked: 40 Smoking pack-years: 1800.00 Smoking status: Former smoker Tobacco type: e-cigarettes/vaping Smoking end date: 02/24/23 Alcohol intake: never Substance use: current Substance use type: marijuana Other substance usage details: Every once in awhile Do You Feel Safe in your Home?: Yes Lack of Transportation: No Lack of Food: Never True Current Housing: I Have Housing Concerned About Future Housing: No Difficulty Paying Gas/Electric Bills: No Difficulty Paying for Meds: No Currently Unemployed: No Education: High School Diploma/GED Difficulty w/ Childcare or Family Care: No Additional living arrangements comments: The patien
[2024-02-25 16:05] LABS: Glucose Point of Care 235 mg/dl (65-105)
[2024-02-25 16:40] LABS: Basophils Absolute Auto 0.1 K/mm3 (0.0-0.1); Basophils Percent Auto 0.5 % (0.2-1.2); Eosinophils Absolute Auto 0.6 K/mm3 (0-0.3); Eosinophils Percent Auto 3.9 % (0-4.4); Hematocrit 36.9 % (37.0-47.0); Hemoglobin 11.3 g/dL (12.0-15.0); Immature Granulocyte Percent A 0.7 % (0-0.5); Lymphocytes Absolute Auto 2.12 K/mm3 (0.9-3.2); Mean Corpuscular HGB Conc 30.6 g/dl (32-36); Mean Corpuscular Hemoglobin 26.4 pg (26-34); Mean Corpuscular Volume 86.2 fl (80-100); Mean Platelet Volume 8.8 fl (7.4-10.4); Monocytes Absolute Auto 0.7 K/mm3 (0.1-0.6); Monocytes Percent Auto 5.2 % (2.6-8.5); Neutrophils Absolute Auto 10.6 K/mm3 (1.3-6.7); Neutrophils Percent Auto 74.7 % (45.5-73.1); Platelet Count Result 424 k/mm3 (150-375); Red Blood Count 4.28 M/mm3 (4.2-5.4); Red Cell Distribution Width 14.4 % (11.5-14.5); White Blood Count 14.2 K/mm3 (4.5-10.0)
[2024-02-25 16:50] LABS: Anion Gap 9 mmol/L (4-12); Blood Urea Nitrogen 16 mg/dL (7-17); Carbon Dioxide 26 mmol/L (22-30); Chloride 102 mmol/L (98-107); Estimated Glomerular Filt Rate > 60; Glucose 227 mg/dL (65-110); Potassium 4.1 mmol/L (3.4-5.0); Sodium 137 mmol/L (137-145)
[2024-02-25 16:52] VITALS: BMI 28.4
[2024-02-25] MEDS: metroNIDAZOLE 500 MG/ISO 100ML 500 MG/100 ML BAG 100 MG IVPB (17:08)
[2024-02-25] MEDS: VANCOMYCIN 2,000 MG/NS 500 ML 2,000 MG/500 ML BAG 250 MG IVPB (18:10)
[2024-02-25 19:55] VITALS: PULSE 84; RESP 16; O2SAT 97
[2024-02-25] MEDS: ATORVASTATIN 40 MG TABLET PO (20:24)
[2024-02-25] MEDS: CEFEPIME 2 GM/NS 50 ML 2 GM/50 ML BAG IVPB (20:25)
[2024-02-25] MEDS: MELATONIN 5 MG TABLET 10 MG PO (20:27)
[2024-02-25 21:31] LABS: Glucose Point of Care 189 mg/dl (65-105)
[2024-02-25 22:00] VITALS: BP 122/61; PULSE 83; RESP 18; TEMP 37.1; O2SAT 97
[2024-02-25] MEDS: SODIUM CHLORIDE 0.9% IV 500 ML 20 ML (22:30)
[2024-02-25] MEDS: diphenhydrAMINE HCl CAP 25 MG CAPSULE PO (22:30)
[2024-02-26] VITALS (15 sets, daily range): BP systolic 100–171; BP diastolic 54–75; PULSE 67–86; RESP 12–18; TEMP 35.9–37.2; O2SAT 95–100
[2024-02-26] MEDS: metroNIDAZOLE 500 MG/ISO 100ML 500 MG/100 ML BAG 100 MG IVPB ×4 (00:01→21:17)
[2024-02-26 06:22] LABS: Hematocrit 34.9 % (37.0-47.0); Hemoglobin 10.4 g/dL (12.0-15.0); Mean Corpuscular HGB Conc 29.8 g/dl (32-36); Mean Corpuscular Hemoglobin 26.2 pg (26-34); Mean Corpuscular Volume 87.9 fl (80-100); Mean Platelet Volume 8.9 fl (7.4-10.4); Platelet Count Result 412 k/mm3 (150-375); Red Blood Count 3.97 M/mm3 (4.2-5.4); Red Cell Distribution Width 14.4 % (11.5-14.5); White Blood Count 10.7 K/mm3 (4.5-10.0)
[2024-02-26 06:35] LABS: Anion Gap 7 mmol/L (4-12); Blood Urea Nitrogen 17 mg/dL (7-17); Calcium 8.8 mg/dL (8.4-10.2); Carbon Dioxide 27 mmol/L (22-30); Chloride 105 mmol/L (98-107); Estimated CRCL calculation 65 ml/min; Estimated Glomerular Filt Rate > 60; Glucose 171 mg/dL (65-110); Potassium 3.8 mmol/L (3.4-5.0); Sodium 139 mmol/L (137-145)
--- NOTE | 2024-02-26 07:25 | WPDCN ---
Assessment and Plan Assessment and plan (1) Cellulitis in diabetic foot: Code(s): E11.628 - Type 2 diabetes mellitus with other skin complications; L03.119 - Cellulitis of unspecified part of limb Status: Acute Assessment and Plan: 02/26/24: Right foot x-ray showing soft tissue gas along the lateral margin of the posterior calcaneus without evidence of osteolysis to suggest osteomyelitis Continue cefepime, vancomycin, Flagyl General surgery following Plan to go to OR today for a debridement of her right foot ulcer around 2 pm today White blood cell count initially 14.2, now down to 10.7 Continue pain control (2) Diabetic foot ulcer: Qualifiers: Diabetes mellitus type: other specified (including MARINA) Diabetic foot ulcer location: heel Laterality: left Code(s): E11.621 - Type 2 diabetes mellitus with foot ulcer; L97.509 - Non-pressure chronic ulcer of other part of unspecified foot with unspecified severity Status: Acute Assessment and Plan: See above (3) Type 2 diabetes mellitus: Onset Date: 05/17/22 Code(s): E11.9 - Type 2 diabetes mellitus without complications Status: Chronic Assessment and Plan: 02/26/24: Blood sugars ranging 171-235 Hemoglobin A1c 6.5 on 07/24/2023 We will add this to morning labs today. Accu-Cheks q.6 hour while NPO will switch taking a.c. and HS postsurgical Low-dose sliding scale insulin ordered Continue Januvia Hypoglycemic protocol in place Currently NPO but will transition to a diabetic diet postsurgical (4) Tobacco abuse: Code(s): Z72.0 - Tobacco use Status: Chronic Assessment and Plan: 02/26/24: Nicotine patch ordered (5) Dyslipidemia: Code(s): E78.5 - Hyperlipidemia, unspecified Status: Acute Assessment and Plan: 02/26/24: Continue atorvastatin Will hold aspirin for today for debridement which General surgery HPI Data of Consult Date/Time: 02/26/24 07:25 Requesting Physician: Tadeo Johnson MD Primary Care Provider: Shahnaz Pratt, PA Consult Narrative Narrative: Interval history: Debbie Elizalde is a 58 year old female with a significant past medical history of diabetic foot ulcer status post amputation of 5th toe on the left foot on 07/25/2023, dyslipidemia, peripheral vascular disease, tobacco abuse, type 2 diabetes mellitus for evaluation right foot ulcer. She has been followed in the wound clinic by Dr. Johnson as an outpatient on the left foot which eventually healed. Over the past month she developed an ulcer on the right lateral foot and heel. She was referred to a vascular surgeon in [place] but did not make an appointment. She was told that she does not have good arterial blood flow to the foot and was prescribed topical nitroglycerin. Over the past few days patient developed redness and swelling to the foot. She was seen in the wound clinic yesterday with Dr. Johnson and was directly admitted for cellulitis and infected right foot ulcer. She was placed on Vancomycin, Flagyl, and Cefepime. General surgery plans to do debridement today. We were consulted for medical management. Patient denies any fever, chills, nausea, vomiting, diarrhea, abdominal pain, chest pain, shortness a breath. Patient endorses numbness and tingling in bilateral lower extremities and wound infection. Labs today showing white blood cell count of 10.7, hemoglobin 10.4, blood glucose ranging 171-235, otherwise unremarkable. We will continue to follow along with the general surgery team for now. Review of Systems Review of Systems: All systems reviewed & are unremarkable except as noted in HPI and below Constitutional: Constitutional: Reports as per HPI and Reports no additional constitutional complaints Eyes: Eyes: Reports as per HPI and Reports no additional eye complaints ENT: Reports system reviewed and no additional complaints, except as documented and Reports as per HPI
[2024-02-26 07:34] LABS: Glucose Point of Care 171 mg/dl (65-105)
[2024-02-26 08:36] LABS: Hemoglobin A1C 7.5 % (<5.7)
[2024-02-26] MEDS: CEFEPIME 2 GM/NS 50 ML 2 GM/50 ML BAG IVPB ×2 (09:23→20:32)
[2024-02-26 11:39] LABS: Glucose Point of Care 136 mg/dl (65-105)
[2024-02-26] MEDS: VANCOMYCIN 1,500 MG/NS 500 ML 1,500 MG/500 ML BAG 250 MG IVPB (12:06)
[2024-02-26] MEDS: LACTATED RINGERS 1,000 ML 30 ML IV CONT (13:10)
--- NOTE | 2024-02-26 13:14 | WPDHPUPDATE1 ---
History and Physical Update Update Date/Time: 02/26/24 13:14 History and Physical has been reviewed, including an updated exam of the patient. There are NO changes in the patient's condition. Risks, benefits, and alternatives have been discussed and questions answered. Patient agrees to proceed with procedure.
--- NOTE | 2024-02-26 13:19 | WPDANESEPPF ---
Anes - Initial Pre Proc Eval Procedure: Operation Date: 02/26/24 14:00 Proposed Procedures p Incision and Drainage Right Heel - Tadeo Johnson MD Date/Time: 02/26/24 13:19 Surgeon: Tadeo Johnson MD Pre Op Diagnosis: Diabetic Foot Ulcer Patient Data Age: 58 Gender: F Height: 1.63 m Weight: 75.2 kg Last Vital Signs Temp 98.4 F 02/26/24 05:36 Pulse 71 02/26/24 05:36 Resp 16 02/26/24 05:36 BP 144/69 H 02/26/24 05:36 Pulse Ox 100 02/26/24 05:36 O2 Del Method Room Air 02/26/24 09:23 Allergies Allergy/AdvReac Type Severity Reaction Status Date / Time No Known Allergies Allergy Verified 11/17/23 13:58 Home Medications Medication Instructions Recorded Confirmed Type atorvastatin 40 mg tablet 40 mg PO QHS 07/23/23 02/25/24 History dapagliflozin propanediol 10 mg 10 mg PO QAM 07/23/23 02/25/24 History tablet (Farxiga) sitagliptin phosphate 100 mg 100 mg PO QAM 11/06/23 02/25/24 History tablet (Januvia) amoxicillin 875 mg-potassium 1 tablet PO DAILY 02/25/24 02/25/24 History clavulanate 125 mg tablet aspirin 81 mg chewable tablet 81 mg PO DAILY 02/25/24 02/25/24 History lisinopril 2.5 mg tablet 2.5 mg PO DAILY 02/25/24 02/25/24 History melatonin 10 mg tablet 10 mg PO HS PRN Sleep 02/25/24 02/25/24 History Laboratory Tests 02/25/24 02/25/24 02/25/24 16:01 16:33 20:44 WBC 14.2 H K/mm3 (4.5-10.0) RBC 4.28 M/mm3 (4.2-5.4) Hgb 11.3 L g/dL (12.0-15.0) Hct 36.9 L % (37.0-47.0) MCV 86.2 fl (80-100) MCH 26.4 pg (26-34) MCHC 30.6 L g/dl (32-36) RDW 14.4 % (11.5-14.5) Plt Count 424 H k/mm3 (150-375) MPV 8.8 fl (7.4-10.4) Immature Gran % (Auto) 0.7 H % (0-0.5) Neut % (Auto) 74.7 H % (45.5-73.1) Lymph % (Auto) 15.0 L % (18.3-44.2) [place] % (Auto) 5.2 % (2.6-8.5) Eos % (Auto) 3.9 % (0-4.4) Baso % (Auto) 0.5 % (0.2-1.2) Lymph # (Auto) 2.12 K/mm3 (0.9-3.2) [place] # (Auto) 0.7 H K/mm3 (0.1-0.6) Eos # (Auto) 0.6 H K/mm3 (0-0.3) Baso # (Auto) 0.1 K/mm3 (0.0-0.1) Abs Immat Gran (auto) 0.10 H K/mm3 (0.00-0.031) Absolute Neuts (auto) 10.6 H K/mm3 (1.3-6.7) Absolute Nucleated RBC 0.000 K/mm3 (0.0-0.012) Nucleated RBC % 0.0 % (0.0-0.2) Sodium 137 mmol/L (137-145) Potassium 4.1 mmol/L (3.4-5.0) Chloride 102 mmol/L (98-107) Carbon Dioxide 26 mmol/L (22-30) Anion Gap 9 mmol/L (4-12) BUN 16 mg/dL (7-17) Creatinine 0.80 mg/dL (0.7-1.0) Estim Creat Clear Calc Not Reportable Estimated GFR > 60 (59 - ) Glucose 227 H mg/dL (65-110) POC Capillary Glucose 235 H mg/dl 189 H mg/dl (65-105) (65-105) Hemoglobin A1c Calcium 9.0 mg/dL (8.4-10.2) 02/26/24 02/26/24 02/26/24 05:43 05:45 07:31 WBC 10.7 H K/mm3 (4.5-10.0) RBC 3.97 L M/mm3 (4.2-5.4) Hgb 10.4 L g/dL (12.0-15.0) Hct 34.9 L % (37.0-47.0) MCV 87.9 fl (80-100) MCH 26.2 pg (26-34) MCHC 29.8 L g/dl (32-36) RDW 14.4 % (11.5-14.5) Plt Count 412 H k/mm3 (150-375) MPV 8.9 fl (7.4-10.4) Immature Gran % (Auto) Neut % (Auto) Lymph % (Auto) [place] % (Auto) Eos % (Auto) Baso % (Auto) Lymph # (Auto) [place] # (Auto) Eos # (Auto) Baso # (Auto) Abs Immat Gran (auto) Absolute Neuts (auto) Absolute Nucleated RBC Nucleated RBC % Sodium 139 mmol/L (137-145) Potassium 3.8 mmol/L (3.4-5.0) Chloride 105 mmol/L (98-
--- NOTE | 2024-02-26 13:54 | SUR.OPER ---
culture for right heel wound taken to lab by Ricky Sanders RN and received in lab by Shanon @[phone]
[2024-02-26] MEDS: LIDO 1%/EPINEPHRINE 1:100,000 20 ML VIAL INFILTRATE (14:00)
[2024-02-26 14:18] LABS: Glucose Point of Care 120 mg/dl (65-105)
[2024-02-26] MEDS: fentaNYL CITRATE INJ (*CRX) 100 MCG/2 ML VIAL 25 MCG IV PUSH (14:49)
--- NOTE | 2024-02-26 14:54 | SUR.PHASEI ---
Simple mask removed at 1445.
--- NOTE | 2024-02-26 15:13 | SUR.PHASEI ---
This RN attempted to call report to floor RN, but she was busy at this time.
[2024-02-26] MEDS: lisinopriL 2.5 MG TABLET PO (16:13)
[2024-02-26] MEDS: EMPAGLIFLOZIN 25 MG TABLET BY MOUTH (16:13)
[2024-02-26] MEDS: SITagliptin PHOSPHATE 100 MG TABLET PO (16:13)
[2024-02-26 16:37] LABS: Glucose Point of Care 114 mg/dl (65-105)
--- NOTE | 2024-02-26 17:39 | W.PM.PROC2 ---
Procedure Note - Detailed Date of Procedure 02/26/24 Pre-op Diagnosis Diabetic Foot Ulcer right heel. Post-op Diagnosis Same Procedure Performed Excisional debridement with sharp scalpel excision of skin and subcutaneous tissue of the right heel diabetic foot ulcer. Surgeon Tadeo Johnson MD Anesthesia General Indications Patient is a 58-year-old female who is well known to me from wound care of chronic wound on her left lower extremity and left foot from diabetic ulcers. She had her left 5th toe amputated earlier this year and finally completely healed the wound last month. She unfortunate presents now with an enlarging diabetic foot ulcer of her right heel. The calcaneus is not exposed there is necrotic tissue in the ulcer which needs to be removed. She presents now for debridement of the right heel ulcer. Findings The patient necrotic skin and subcutaneous tissue the lateral aspect of the right heel. There is no abscess. Necrotic tissue extended down to the periosteum of the calcaneus but the bone was not exposed or grossly infected with osteomyelitis. There was mild erythema and no tracking of the infectious process. Description of Procedure After informed consent was obtained patient brought to the operating room she is placed in supine position and general LMA anesthesia was administered. The right lower extremity from the mid tibia distally to the foot was then prepped and draped usual sterile fashion per circumferentially. A time-out was then performed correctly identifying the patient as well as procedure to be performed verifying the site marking. She was already on scheduled IV antibiotics. I 1st started by injecting 1% lidocaine mixed with 0.5% Marcaine around the ulcer for local anesthetic effect. I then proceeded to perform excisional debridement of skin and subcutaneous tissue which was necrotic off of the right lateral heel diabetic foot wound with the sharp scalpel dissection. The excisional debridement was carried down through the subcutaneous tissues and the periosteum of the calcaneus was encountered but the bone itself was not exposed and there is no gross evidence osteolytic bone to suggest osteomyelitis grossly. There was some bleeding from the skin edges and subcutaneous tissue. There was no evidence of abscess or tracking and tunneling of the wound laterally. I obtained a deep wound swab and sent this to microbiology for aerobic and anaerobic cultures. Once I completely excised all the necrotic skin and subcutaneous tissue I then irrigated with sterile saline solution. Hemostasis was then good. I then measured the wound is approximately 4cm in length by 4cm width by 1.5cm in depth. I then packed the wound with quarter-inch iodoform gauze. The wound was then dressed with 4x4 gauze a Kerlix wrap and an Fili wrap. The patient tolerated the procedure well no complications. All sponges, needles, and instrument counts were correct at the end procedure. EBL was _10__cc. The patient was awakened and taken to recovery in stable and satisfactory condition. Implants none Estimated Blood Loss 10 Drains No Packing Yes ( quarter-inch iodoform gauze into the wound) Pathology Other ( culture swab sent to microbiology for aerobic anaerobic culture and routine Gram stain) Complications No immediate complications Condition Stable Disposition PACU [facility] Billing Surgery - Charge Forward: Surgery Billing
[2024-02-26] MEDS: ATORVASTATIN 40 MG TABLET PO (20:28)
[2024-02-26] MEDS: MELATONIN 5 MG TABLET 10 MG PO (20:29)
[2024-02-26] MEDS: HYDROcodone/acetaminophen (*CRX) 5-325 MG TABLET 1 TAB PO (20:31)
[2024-02-26 21:04] LABS: Glucose Point of Care 144 mg/dl (65-105)
[2024-02-27] VITALS: BP 134/57; PULSE 69; RESP 20; TEMP 35.9; O2SAT 99
[2024-02-27 04:55] VITALS: BP 132/54; PULSE 66; RESP 18; TEMP 35.8; O2SAT 98
[2024-02-27] MEDS: metroNIDAZOLE 500 MG/ISO 100ML 500 MG/100 ML BAG 100 MG IVPB ×3 (05:30→22:30)
[2024-02-27 06:27] LABS: Basophils Absolute Auto 0.1 K/mm3 (0.0-0.1); Basophils Percent Auto 0.5 % (0.2-1.2); Eosinophils Absolute Auto 0.5 K/mm3 (0-0.3); Eosinophils Percent Auto 4.6 % (0-4.4); Hematocrit 35.9 % (37.0-47.0); Hemoglobin 10.5 g/dL (12.0-15.0); Immature Granulocyte Absolute 0.07 K/mm3 (0.00-0.031); Immature Granulocyte Percent A 0.6 % (0-0.5); Lymphocytes Absolute Auto 2.45 K/mm3 (0.9-3.2); Lymphocytes Percent Auto 21.2 % (18.3-44.2); Mean Corpuscular HGB Conc 29.2 g/dl (32-36); Mean Corpuscular Volume 88.9 fl (80-100); Mean Platelet Volume 9.1 fl (7.4-10.4); Monocytes Absolute Auto 0.8 K/mm3 (0.1-0.6); Monocytes Percent Auto 7.2 % (2.6-8.5); Neutrophils Absolute Auto 7.6 K/mm3 (1.3-6.7); Neutrophils Percent Auto 65.9 % (45.5-73.1); Platelet Count Result 413 k/mm3 (150-375); Red Blood Count 4.04 M/mm3 (4.2-5.4); Red Cell Distribution Width 14.5 % (11.5-14.5); White Blood Count 11.6 K/mm3 (4.5-10.0)
[2024-02-27 06:51] LABS: Alanine Aminotransferase 13 U/L (6-35); Albumin Level 3.8 g/dL (3.5-5.1); Alkaline Phosphatase 101 U/L (38-126); Anion Gap 9 mmol/L (4-12); Aspartate Amino Transferase 24 U/L (14-36); Bilirubin,Total 0.3 mg/dL (0.2-1.3); Blood Urea Nitrogen 15 mg/dL (7-17); Calcium 8.9 mg/dL (8.4-10.2); Carbon Dioxide 27 mmol/L (22-30); Chloride 104 mmol/L (98-107); Estimated CRCL calculation 65 ml/min; Estimated Glomerular Filt Rate > 60; Glucose 147 mg/dL (65-110); Potassium 3.6 mmol/L (3.4-5.0); Sodium 140 mmol/L (137-145)
[2024-02-27 06:56] LABS: Vancomycin Trough 11.7 ug/mL (10.0-20.0)
[2024-02-27 07:06] LABS: Platelet Estimate Adequate (Adequate)
[2024-02-27 07:07] LABS: Hypochromasia 1+; Schistocytes None Seen
[2024-02-27 07:52] LABS: Glucose Point of Care 150 mg/dl (65-105)
[2024-02-27] MEDS: EMPAGLIFLOZIN 25 MG TABLET BY MOUTH (09:08)
[2024-02-27] MEDS: lisinopriL 2.5 MG TABLET PO (09:08)
[2024-02-27] MEDS: SITagliptin PHOSPHATE 100 MG TABLET PO (09:08)
[2024-02-27] MEDS: ENOXAPARIN 40 MG/0.4 ML SYRINGE SUB-Q (09:09)
[2024-02-27] MEDS: VANCOMYCIN 1,500 MG/NS 500 ML 1,500 MG/500 ML BAG 250 MG IVPB ×2 (09:09→20:13)
[2024-02-27] MEDS: CEFEPIME 2 GM/NS 50 ML 2 GM/50 ML BAG IVPB ×2 (09:09→20:12)
[2024-02-27 09:11] VITALS: BP 165/62; PULSE 69; RESP 18; TEMP 36.4; O2SAT 99
--- NOTE | 2024-02-27 11:29 | P.PNIM_ITS ---
Progress Note: A&P Assessment and Plan (1) Cellulitis in diabetic foot: Code(s): E11.628 - Type 2 diabetes mellitus with other skin complications; L03.119 - Cellulitis of unspecified part of limb Status: Acute Assessment and Plan: 02/26/24: * Right foot x-ray showing soft tissue gas along the lateral margin of the posterior calcaneus without evidence of osteolysis to suggest osteomyelitis * Continue cefepime, vancomycin, Flagyl * General surgery following * Plan to go to OR today for a debridement of her right foot ulcer around 2 pm today * White blood cell count initially 14.2, now down to 10.7 * Continue pain control 02/27/24: * Postop day 1 from debridement diabetic foot ulcer * Continue pain control * General surgery following * Continue IV antibiotics with cefepime, vancomycin, Flagyl * Likely discharge on Friday * White blood cell count 11.6 today (2) Diabetic foot ulcer: Qualifiers: Diabetes mellitus type: other specified (including MARINA) Diabetic foot ulcer location: heel Laterality: left Code(s): E11.621 - Type 2 diabetes mellitus with foot ulcer; L97.509 - Non-pressure chronic ulcer of other part of unspecified foot with unspecified severity Status: Acute Assessment and Plan: See above (3) Type 2 diabetes mellitus: Onset Date: 05/17/22 Code(s): E11.9 - Type 2 diabetes mellitus without complications Status: Chronic Assessment and Plan: 02/26/24: * Blood sugars ranging 171-235 * Hemoglobin A1c 6.5 on 07/24/2023 * We will add this to morning labs today. * Accu-Cheks q.6 hour while NPO will switch taking a.c. and HS postsurgical * Low-dose sliding scale insulin ordered * Continue Januvia * Hypoglycemic protocol in place * Currently NPO but will transition to a diabetic diet postsurgical 02/27/24: * Blood sugars ranging 147-179 * Hemoglobin A1c 7.5 * Will change to mid dose sliding scale insulin * Accu-Cheks AC and HS * Diabetic diet ordered (4) Tobacco abuse: Code(s): Z72.0 - Tobacco use Status: Chronic Assessment and Plan: 02/26/24: * Nicotine patch ordered 02/27/24: * No change to current treatment plan (5) Dyslipidemia: Code(s): E78.5 - Hyperlipidemia, unspecified Status: Acute Assessment and Plan: 02/26/24: * Continue atorvastatin * Will hold aspirin for today for debridement which General surgery 02/27/24: * Patient restarted on baby aspirin Time Spent With Patient Time with patient: 15 - 25 minutes Subjective Date/time seen: 02/27/24 11:29 Interval history: Interval history: Debbie Elizalde is a 58 year old female with a significant past medical history of diabetic foot ulcer status post amputation of 5th toe on the left foot on 07/25/2023, dyslipidemia, peripheral vascular disease, tobacco abuse, type 2 diabetes mellitus for evaluation right foot ulcer. She has been followed in the wound clinic by Dr. Johnson as an outpatient on the left foot which eventually healed. Over the past month she developed an ulcer on the right lateral foot and heel. She was referred to a vascular surgeon in [place] but did not make an appointment. She was told that she does not have good arterial blood flow to the foot and was prescribed topical nitroglycerin. Over the past few days patient developed redness and swelling to the foot. She was seen in the wound clinic yesterday with Dr. Johnson and was directly admitted for cellulitis and infected right foot ulcer. She was placed on Vancomycin, Flagyl, and Cefepime. General surgery plans to do sasha
--- NOTE | 2024-02-27 11:29 | PM.IMPN ---
Progress Note: A&P Assessment and Plan (1) Cellulitis in diabetic foot: Code(s): E11.628 - Type 2 diabetes mellitus with other skin complications; L03.119 - Cellulitis of unspecified part of limb Status: Acute Assessment and Plan: 02/26/24: Right foot x-ray showing soft tissue gas along the lateral margin of the posterior calcaneus without evidence of osteolysis to suggest osteomyelitis Continue cefepime, vancomycin, Flagyl General surgery following Plan to go to OR today for a debridement of her right foot ulcer around 2 pm today White blood cell count initially 14.2, now down to 10.7 Continue pain control 02/27/24: Postop day 1 from debridement diabetic foot ulcer Continue pain control General surgery following Continue IV antibiotics with cefepime, vancomycin, Flagyl Likely discharge on Friday White blood cell count 11.6 today (2) Diabetic foot ulcer: Qualifiers: Diabetes mellitus type: other specified (including MARINA) Diabetic foot ulcer location: heel Laterality: left Code(s): E11.621 - Type 2 diabetes mellitus with foot ulcer; L97.509 - Non-pressure chronic ulcer of other part of unspecified foot with unspecified severity Status: Acute Assessment and Plan: See above (3) Type 2 diabetes mellitus: Onset Date: 05/17/22 Code(s): E11.9 - Type 2 diabetes mellitus without complications Status: Chronic Assessment and Plan: 02/26/24: Blood sugars ranging 171-235 Hemoglobin A1c 6.5 on 07/24/2023 We will add this to morning labs today. Accu-Cheks q.6 hour while NPO will switch taking a.c. and HS postsurgical Low-dose sliding scale insulin ordered Continue Januvia Hypoglycemic protocol in place Currently NPO but will transition to a diabetic diet postsurgical 02/27/24: Blood sugars ranging 147-179 Hemoglobin A1c 7.5 Will change to mid dose sliding scale insulin Accu-Cheks AC and HS Diabetic diet ordered (4) Tobacco abuse: Code(s): Z72.0 - Tobacco use Status: Chronic Assessment and Plan: 02/26/24: Nicotine patch ordered 02/27/24: No change to current treatment plan (5) Dyslipidemia: Code(s): E78.5 - Hyperlipidemia, unspecified Status: Acute Assessment and Plan: 02/26/24: Continue atorvastatin Will hold aspirin for today for debridement which General surgery 02/27/24: Patient restarted on baby aspirin Time Spent With Patient Time with patient: 15 - 25 minutes Subjective Date/time seen: 02/27/24 11:29 Interval history: Interval history: Debbie Elizalde is a 58 year old female with a significant past medical history of diabetic foot ulcer status post amputation of 5th toe on the left foot on 07/25/2023, dyslipidemia, peripheral vascular disease, tobacco abuse, type 2 diabetes mellitus for evaluation right foot ulcer. She has been followed in the wound clinic by Dr. Johnson as an outpatient on the left foot which eventually healed. Over the past month she developed an ulcer on the right lateral foot and heel. She was referred to a vascular surgeon in [place] but did not make an appointment. She was told that she does not have good arterial blood flow to the foot and was prescribed topical nitroglycerin. Over the past few days patient developed redness and swelling to the foot. She was seen in the wound clinic yesterday with Dr. Johnson and was directly admitted for cellulitis and infected right foot ulcer. She was placed on Vancomycin, Flagyl, and Cefepime. General surgery plans to do debridement today. We were consulted for medical management. 02/26/24: Patient denies any fever, chills, nausea, vomiting, diarrhea, abdominal pain, chest pain, shortness a breath. Patient endorses numbness and tingling in bilateral lower extremities and wound infection. Labs today showing white blood cell count of 10.7, hemoglobin 10.4, blood glucose ranging 171-235, otherwise unremarkable. We will continue to f
[2024-02-27 11:30] LABS: Glucose Point of Care 179 mg/dl (65-105)
[2024-02-27 14:00] VITALS: BP 152/62; PULSE 73; RESP 18; TEMP 36.3; O2SAT 100
--- NOTE | 2024-02-27 14:25 | PCCDE ---
Pt visited due to reports of daily low blood sugars on admission assessment. Pt takes Farxiga and Januvia at home. Pt sts she saw her PCP 2 weeks ago and her A1c was 6.6%. Pt denies hypoglycemia. Will be available per request.
--- NOTE | 2024-02-27 15:52 | WPDPN ---
Progress Note: A&P Assessment and Plan (1) Diabetic ulcer of heel: Code(s): E11.621 - Type 2 diabetes mellitus with foot ulcer; L97.409 - Non-pressure chronic ulcer of unspecified heel and midfoot with unspecified severity Status: Acute Assessment and Plan: Status post debridement of diabetic right heel ulcer, pod #1. White blood count is still 11,000. no fever. Wound care nurses change dressing today and the wound is clean. A wound VAC has been applied to the wound to help promote faster healing and controlled any drainage. Continue IV antibiotics over the weekend until culture results available. Next wound change of the Friday to change the wound VAC. Hospitalist service managing her diabetes. Subjective Date/time seen: 02/27/24 15:52 Interval history: Patient is 1 day postop after surgical debridement of diabetic right heel ulcer. She has no specific complaints today. Right heel was dressed with iodoform gauze and then wrapped with dry gauze and Fili wrap. She has been able to stand and bear weight on the right forefoot to transfer to a wheelchair. Exam Skin: Other: Right foot dressed dressing is dry no strike through any blood. Objective Data Vital Signs Vital Signs: Vital Signs - 24 hr 02/26/24 20:50 02/27/24 00:00 02/27/24 04:55 Temperature 35.9 C L 35.9 C L 35.8 C L Pulse Rate 79 69 66 Respiratory Rate 16 20 18 Blood Pressure 127/55 L 134/57 L 132/54 L Pulse Oximetry 95 99 98 Oxygen Delivery 02/27/24 09:11 02/27/24 09:40 02/27/24 11:19 Temperature 36.4 C Pulse Rate 69 Respiratory Rate 18 Blood Pressure 165/62 H Pulse Oximetry 99 Oxygen Delivery Room Air Room Air 02/27/24 09:00 02/27/24 14:00 Temperature 36.3 C L Pulse Rate 73 Respiratory Rate 18 Blood Pressure 152/62 H Pulse Oximetry 100 Oxygen Delivery Room Air Intake/Output Intake/Output: Intake & Output 02/24/24 02/25/24 02/26/24 02/27/24 23:59 23:59 23:59 23:59 Intake Total 390 1620 970 Balance 390 1620 970 Meds/Results Medications: Active Medications Generic Name Dose Route Start Last Admin Trade Name Freq PRN Reason Stop Dose Admin Acetaminophen 650 mg 02/26/24 07:41 Acetaminophen 325 Mg Tablet PO Q4H PRN Mild Pain (1-3) or Fever Hydrocodone Bitart/Acetaminophen 1 tab 02/26/24 07:41 02/26/24 20:31 Hydrocodone/Acetaminophen (*Crx) 5-325 Mg Tablet PO 1 tab Q4H PRN Administration Moderate Pain (4-6) Aspirin 81 mg 02/28/24 09:00 Aspirin 81 Mg Chewable Tablet PO DAILY JANEY Atorvastatin Calcium 40 mg 02/25/24 21:00 02/26/24 20:28 Atorvastatin 40 Mg Tablet PO 40 mg QHS JANEY Administration Dextrose 12.5 gm 02/26/24 07:44 Dextrose 50% 25 Gm/50 Ml Syringe IV PUSH PRN PRN Hypoglycemia Protocol Empagliflozin 25 mg 02/26/24 09:00 02/27/24 09:08 Empagliflozin 25 Mg Tablet BY MOUTH 25 mg QAM JANEY Administration Enoxaparin Sodium 40 mg 02/27/24 09:00 02/27/24 09:09 Enoxaparin 40 Mg/0.4 Ml Syringe SUB-Q 40 mg DAILY JANEY Administration Glucagon 1 mg 02/26/24 07:44 Glucagon For Inj 1 Mg Vial IM PRN PRN Hypoglycemia Protocol Glucose 15 gm 02/26/24 07:44 Glucose Oral Gel 15 Gm Of Glucse In 37.5 Gm Tube PO PRN PRN Hypoglycemia Protocol Cefepime HCl 2 gm in 50 mls @ 100 mls/hr 02/25/24 21:00 02/27/24 09:09 Maxipime 2 Gm/Ns 50 Ml IVPB 100 mls/hr Q12HR JANEY Administration Metronidazole 500 mg in 100 mls @ 100 mls/hr 02/25/24 17:00 02/27/24 14:43 Flagyl 500 Mg/Iso Soln 100 Ml IVPB 100 mls/hr Q8HR JANEY Administration Dextrose 1,000 mls @ 100 mls/hr 02/26/24 07:44 Dextrose 5% 1,000 Ml IVPB PRN PRN Hypoglycemia Protocol Vancomycin HCl 1,500 mg in 500 mls @ 250 mls/hr 02/27/24 08:00 02/27/24 09:09 Vancomycin 1,500 Mg/Ns 500 Ml IVPB 250 mls/hr Q12H JANEY Administration Insulin Aspart 3 -
[2024-02-27 16:31] LABS: Glucose Point of Care 174 mg/dl (65-105)
[2024-02-27] MEDS: ATORVASTATIN 40 MG TABLET PO (20:13)
[2024-02-27 20:15] VITALS: BP 132/62; PULSE 76; RESP 20; TEMP 36; O2SAT 98
[2024-02-27] MEDS: MELATONIN 5 MG TABLET 10 MG PO (20:21)
[2024-02-27 20:37] LABS: Glucose Point of Care 168 mg/dl (65-105)
[2024-02-27] MEDS: HYDROcodone/acetaminophen (*CRX) 5-325 MG TABLET 1 TAB PO (23:36)
[2024-02-28 04:55] VITALS: BP 155/66; PULSE 72; RESP 20; TEMP 36.1; O2SAT 100
[2024-02-28] MEDS: metroNIDAZOLE 500 MG/ISO 100ML 500 MG/100 ML BAG 100 MG IVPB ×3 (05:29→21:18)
[2024-02-28 07:09] LABS: Basophils Absolute Auto 0.1 K/mm3 (0.0-0.1); Basophils Percent Auto 0.5 % (0.2-1.2); Eosinophils Absolute Auto 0.6 K/mm3 (0-0.3); Eosinophils Percent Auto 5.7 % (0-4.4); Hematocrit 36.4 % (37.0-47.0); Hemoglobin 10.9 g/dL (12.0-15.0); Immature Granulocyte Absolute 0.05 K/mm3 (0.00-0.031); Immature Granulocyte Percent A 0.5 % (0-0.5); Lymphocytes Absolute Auto 2.15 K/mm3 (0.9-3.2); Mean Corpuscular HGB Conc 29.9 g/dl (32-36); Mean Corpuscular Hemoglobin 25.9 pg (26-34); Mean Corpuscular Volume 86.5 fl (80-100); Mean Platelet Volume 8.7 fl (7.4-10.4); Monocytes Absolute Auto 0.8 K/mm3 (0.1-0.6); Monocytes Percent Auto 7.4 % (2.6-8.5); Neutrophils Absolute Auto 6.7 K/mm3 (1.3-6.7); Neutrophils Percent Auto 64.9 % (45.5-73.1); Platelet Count Result 385 k/mm3 (150-375); Red Blood Count 4.21 M/mm3 (4.2-5.4); Red Cell Distribution Width 14.3 % (11.5-14.5); White Blood Count 10.3 K/mm3 (4.5-10.0)
[2024-02-28 07:29] LABS: Alanine Aminotransferase 15 U/L (6-35); Albumin Level 3.8 g/dL (3.5-5.1); Alkaline Phosphatase 105 U/L (38-126); Anion Gap 8 mmol/L (4-12); Aspartate Amino Transferase 21 U/L (14-36); Bilirubin,Total 0.3 mg/dL (0.2-1.3); Blood Urea Nitrogen 13 mg/dL (7-17); Calcium 8.8 mg/dL (8.4-10.2); Carbon Dioxide 28 mmol/L (22-30); Chloride 102 mmol/L (98-107); Estimated CRCL calculation 73 ml/min; Estimated Glomerular Filt Rate > 60; Glucose 155 mg/dL (65-110); Potassium 4.2 mmol/L (3.4-5.0); Sodium 138 mmol/L (137-145)
[2024-02-28 07:36] LABS: Glucose Point of Care 142 mg/dl (65-105)
[2024-02-28 08:00] LABS: Platelet Estimate Adequate (Adequate)
[2024-02-28 08:01] LABS: Hypochromasia 1+; Schistocytes None Seen
--- NOTE | 2024-02-28 09:06 | PM.PNGS ---
Progress Note: A&P Assessment and Plan (1) Diabetic ulcer of heel: Code(s): E11.621 - Type 2 diabetes mellitus with foot ulcer; L97.409 - Non-pressure chronic ulcer of unspecified heel and midfoot with unspecified severity Status: Acute Assessment and Plan: Continue wound VAC. Subjective Subjective Date/Time Seen: 02/28/24 09:06 Patient reports: no new complaints and feels better Exam Extrem: Right lower extremity: foot (Wound VAC in place and working well, has walking shoe) Objective Data Vital Signs Vital Signs: Vital Signs - 24 hr 02/27/24 09:11 02/27/24 09:40 02/27/24 11:19 Temperature 36.4 C Pulse Rate 69 Respiratory Rate 18 Blood Pressure 165/62 H Pulse Oximetry 99 Oxygen Delivery Room Air Room Air 02/27/24 14:00 02/27/24 20:15 02/28/24 04:55 Temperature 36.3 C L 36.0 C L 36.1 C L Pulse Rate 73 76 72 Respiratory Rate 18 20 20 Blood Pressure 152/62 H 132/62 155/66 H Pulse Oximetry 100 98 100 Oxygen Delivery Intake/Output Intake/Output: Intake & Output 02/25/24 02/26/24 02/27/24 02/28/24 23:59 23:59 23:59 23:59 Intake Total 390 1620 3510 200 Balance 390 1620 3510 200 Meds/Results Medications: Active Medications Generic Name Dose Route Start Last Admin Trade Name Freq PRN Reason Stop Dose Admin Acetaminophen 650 mg 02/26/24 07:41 Acetaminophen 325 Mg Tablet PO Q4H PRN Mild Pain (1-3) or Fever Hydrocodone Bitart/Acetaminophen 1 tab 02/26/24 07:41 02/27/24 23:36 Hydrocodone/Acetaminophen (*Crx) 5-325 Mg Tablet PO 1 tab Q4H PRN Administration Moderate Pain (4-6) Aspirin 81 mg 02/28/24 09:00 Aspirin 81 Mg Chewable Tablet PO DAILY JANEY Atorvastatin Calcium 40 mg 02/25/24 21:00 02/27/24 20:13 Atorvastatin 40 Mg Tablet PO 40 mg QHS JANEY Administration Dextrose 12.5 gm 02/26/24 07:44 Dextrose 50% 25 Gm/50 Ml Syringe IV PUSH PRN PRN Hypoglycemia Protocol Empagliflozin 25 mg 02/26/24 09:00 02/27/24 09:08 Empagliflozin 25 Mg Tablet BY MOUTH 25 mg QAM JANEY Administration Enoxaparin Sodium 40 mg 02/27/24 09:00 02/27/24 09:09 Enoxaparin 40 Mg/0.4 Ml Syringe SUB-Q 40 mg DAILY JANEY Administration Glucagon 1 mg 02/26/24 07:44 Glucagon For Inj 1 Mg Vial IM PRN PRN Hypoglycemia Protocol Glucose 15 gm 02/26/24 07:44 Glucose Oral Gel 15 Gm Of Glucse In 37.5 Gm Tube PO PRN PRN Hypoglycemia Protocol Cefepime HCl 2 gm in 50 mls @ 100 mls/hr 02/25/24 21:00 02/27/24 20:42 Maxipime 2 Gm/Ns 50 Ml IVPB Infused Q12HR JANEY Infusion Metronidazole 500 mg in 100 mls @ 100 mls/hr 02/25/24 17:00 02/28/24 05:29 Flagyl 500 Mg/Iso Soln 100 Ml IVPB 100 mls/hr Q8HR JANEY Administration Dextrose 1,000 mls @ 100 mls/hr 02/26/24 07:44 Dextrose 5% 1,000 Ml IVPB PRN PRN Hypoglycemia Protocol Vancomycin HCl 1,500 mg in 500 mls @ 250 mls/hr 02/27/24 08:00 02/27/24 22:13 Vancomycin 1,500 Mg/Ns 500 Ml IVPB Infused Q12H JANEY Infusion Insulin Aspart 3 - 6 units 02/27/24 12:00 02/27/24 16:30 Insulin Aspart (*Bkc) 100 Units/Ml SUB-Q Not Given TIDWM [facility] Protocol Insulin Aspart 1 - 3 units 02/27/24 21:00 02/27/24 20:19 Insulin Aspart (*Bkc) 100 Units/Ml SUB-Q Not Given HS JANEY Protocol Lisinopril 2.5 mg 02/26/24 09:00 02/27/24 09:08 Lisinopril 2.5 Mg Tablet PO 2.5 mg DAILY JANEY Administration Melatonin 10 mg 02/26/24 07:40 02/27/24 20:21 Melatonin 5 Mg Tablet PO 10 mg HS PRN Administration Sleep Morphine Sulfate 2 mg 02/26/24 07:41 Morphine Sulfate (*Crx) 2 Mg/Ml Inj IV PUSH Q4H PRN Pain Rated 7-10 Nicotine 1 patch 02/26/24 09:00 02/27/24 09:09 Nicotine (*Melodie) 14 Mg Patch TRANSDERM Not Given DAILY JANEY Ondansetron HCl 4 mg 02/26/24 07:41 Ondansetron Inj 4 Mg/2 Ml Vial IV PUSH Q6H PRN Nausea And Vomitin
[2024-02-28] MEDS: CEFEPIME 2 GM/NS 50 ML 2 GM/50 ML BAG IVPB ×2 (09:27→20:39)
[2024-02-28] MEDS: SITagliptin PHOSPHATE 100 MG TABLET PO (09:28)
[2024-02-28] MEDS: ENOXAPARIN 40 MG/0.4 ML SYRINGE SUB-Q (09:28)
[2024-02-28] MEDS: lisinopriL 2.5 MG TABLET PO (09:28)
[2024-02-28] MEDS: ASPIRIN 81 MG CHEWABLE TABLET PO (09:28)
[2024-02-28] MEDS: EMPAGLIFLOZIN 25 MG TABLET BY MOUTH (09:28)
[2024-02-28] MEDS: VANCOMYCIN 1,500 MG/NS 500 ML 1,500 MG/500 ML BAG 250 MG IVPB (09:29)
--- NOTE | 2024-02-28 10:12 | PM.IMPN ---
Progress Note: A&P Assessment and Plan (1) Diabetic foot ulcer: Qualifiers: Diabetes mellitus type: other specified (including MARINA) Diabetic foot ulcer location: heel Laterality: left Code(s): E11.621 - Type 2 diabetes mellitus with foot ulcer; L97.509 - Non-pressure chronic ulcer of other part of unspecified foot with unspecified severity Status: Acute Assessment and Plan: Underwent excisional debridement of right heel foot ulcer on 02/26/[address] Johnson. Tolerated this procedure well. Wound VAC in place, continue at this time. Wound cultures pending at this time. Continue broad-spectrum antibiotics while awaiting culture results. Being managed by General surgery, appreciate consultation. Wound Care following, appreciate recommendations. (2) Cellulitis in diabetic foot: Code(s): E11.628 - Type 2 diabetes mellitus with other skin complications; L03.119 - Cellulitis of unspecified part of limb Status: Acute Assessment and Plan: Management as above. Reports overall improvement. WBC trending down, 10.3 today. Remains afebrile. (3) Type 2 diabetes mellitus: Onset Date: 05/17/22 Code(s): E11.9 - Type 2 diabetes mellitus without complications Status: Chronic Assessment and Plan: A1c is 7.5. Continue Accu-Cheks, sliding scale insulin, hypoglycemic protocol, diabetic diet. Continue home Januvia and Jardiance. Blood sugars well controlled, in the 150s today. (4) Tobacco abuse: Code(s): Z72.0 - Tobacco use Status: Chronic Assessment and Plan: Current everyday smoker. Continue nicotine patch during admission. Pocketed Spring Machine Operator regarding smoking cessation (5) Dyslipidemia: Code(s): E78.5 - Hyperlipidemia, unspecified Status: Acute Assessment and Plan: Continue home atorvastatin. LFTs are within normal limits Subjective Date/time seen: 02/28/24 10:12 Interval history: Debbie is doing well today. She has no foot pain. Reports no issues with wound VAC. She is getting up and transferring to bedside commode without difficulty while only placing weight on the ball of the right foot. She has been wearing a walking shoe. This morning she had some congestion which has resolved. She denies nausea, vomiting, fever, chills. She is tolerating her diet. Voiding without difficulty. Reports normal bowel movements. Denies chest pain, shortness of breath, cough. Review of Systems Review of Systems: All systems reviewed & are unremarkable except as noted in HPI and below Exam Narrative: General: Well-nourished, well-appearing 58-year-old female, sitting up in bed, comfortable, NARD Neuro: awake, alert and oriented x4, speech clear, no focal neuro deficits noted HEENMT: normocephalic, atraumatic, EOMI, sclerae anicteric, moist oral mucosa Respiratory: clear to auscultation bilaterally, nonlabored breathing Cardio: regular rate, regular rhythm with S1-S2 Abdomen: nondistended, normoactive bowel sounds, soft, nontender to palpation Extremities: no edema, erythema, or tenderness to palpation, right foot in walking boot, wrapped with wound VAC in place, working well, able to wiggle toes bilaterally Skin: no rashes or lesions, warm and dry Psych: appropriate mood and affect, judgment and insight intact Objective Data Vital Signs Vital Signs: Vital Signs - 24 hr 02/27/24 11:19 02/27/24 14:00 02/27/24 20:15 Temperature 97.4 F L 96.8 F L Pulse Rate 73 76 Respiratory Rate 18 20 Blood Pressure 152/62 H 132/62 Pulse Oximetry 100 98 Oxygen Delivery Room Air 02/28/24 04:55 Temperature 96.9 F L Pulse Rate 72 Respiratory Rate 20 Blood Pressure 155/66 H Pulse Oximetry 100 Oxygen Delivery Intake/Output Intake/Output: Intake & Output 02/25/24 02/26/24 02/27/24 02/28/24 23:59 23:59 23:59 23:59 Intake Total 390 1620 3510 200 Balance 390 1620 3510 200 Meds/Results Medications: Active
[2024-02-28 11:42] LABS: Glucose Point of Care 186 mg/dl (65-105)
[2024-02-28 16:00] VITALS: BP 120/65; PULSE 88; RESP 20; TEMP 36.6; O2SAT 92
[2024-02-28 16:48] LABS: Glucose Point of Care 198 mg/dl (65-105)
[2024-02-28] MEDS: HYDROcodone/acetaminophen (*CRX) 5-325 MG TABLET 1 TAB PO (20:40)
[2024-02-28] MEDS: ATORVASTATIN 40 MG TABLET PO (20:40)
[2024-02-28] MEDS: MELATONIN 5 MG TABLET 10 MG PO (20:40)
[2024-02-28 20:42] VITALS: BP 161/74; PULSE 77; RESP 20; TEMP 36.3; O2SAT 97
[2024-02-28 21:55] LABS: Glucose Point of Care 134 mg/dl (65-105)
[2024-02-29] MEDS: VANCOMYCIN 1,250 MG/NS 250 ML 1,250 MG/250 ML BAG 166.67 MG IVPB ×2 (00:55→12:04)
[2024-02-29 05:46] VITALS: BP 120/72; PULSE 65; RESP 20; TEMP 36.2; O2SAT 99
[2024-02-29] MEDS: metroNIDAZOLE 500 MG/ISO 100ML 500 MG/100 ML BAG 100 MG IVPB (06:05)
[2024-02-29 07:31] LABS: Basophils Absolute Auto 0.1 K/mm3 (0.0-0.1); Basophils Percent Auto 0.7 % (0.2-1.2); Eosinophils Absolute Auto 0.5 K/mm3 (0-0.3); Eosinophils Percent Auto 6.1 % (0-4.4); Hematocrit 35.2 % (37.0-47.0); Hemoglobin 10.5 g/dL (12.0-15.0); Immature Granulocyte Absolute 0.06 K/mm3 (0.00-0.031); Immature Granulocyte Percent A 0.7 % (0-0.5); Lymphocytes Absolute Auto 1.85 K/mm3 (0.9-3.2); Lymphocytes Percent Auto 21.3 % (18.3-44.2); Mean Corpuscular HGB Conc 29.8 g/dl (32-36); Mean Corpuscular Hemoglobin 26.1 pg (26-34); Mean Corpuscular Volume 87.3 fl (80-100); Mean Platelet Volume 9.2 fl (7.4-10.4); Monocytes Absolute Auto 0.6 K/mm3 (0.1-0.6); Monocytes Percent Auto 7.1 % (2.6-8.5); Neutrophils Absolute Auto 5.6 K/mm3 (1.3-6.7); Neutrophils Percent Auto 64.1 % (45.5-73.1); Platelet Count Result 373 k/mm3 (150-375); Red Blood Count 4.03 M/mm3 (4.2-5.4); Red Cell Distribution Width 14.3 % (11.5-14.5); White Blood Count 8.7 K/mm3 (4.5-10.0)
[2024-02-29 07:46] LABS: Glucose Point of Care 173 mg/dl (65-105)
[2024-02-29 07:52] LABS: Albumin Level 3.6 g/dL (3.5-5.1); Alkaline Phosphatase 97 U/L (38-126); Anion Gap 9 mmol/L (4-12); Bilirubin,Total 0.3 mg/dL (0.2-1.3); Blood Urea Nitrogen 14 mg/dL (7-17); Calcium 8.7 mg/dL (8.4-10.2); Carbon Dioxide 26 mmol/L (22-30); Chloride 105 mmol/L (98-107); Glucose 165 mg/dL (65-110); Potassium 3.8 mmol/L (3.4-5.0); Sodium 140 mmol/L (137-145)
[2024-02-29 07:57] LABS: Alanine Aminotransferase 15 U/L (6-35); Aspartate Amino Transferase 32 U/L (14-36); Estimated CRCL calculation 73 ml/min; Estimated Glomerular Filt Rate > 60
[2024-02-29 08:01] LABS: Hypochromasia 1+; Platelet Estimate Adequate (Adequate); Schistocytes None Seen
[2024-02-29] MEDS: lisinopriL 2.5 MG TABLET PO (08:22)
[2024-02-29] MEDS: EMPAGLIFLOZIN 25 MG TABLET BY MOUTH (08:22)
[2024-02-29] MEDS: ASPIRIN 81 MG CHEWABLE TABLET PO (08:22)
[2024-02-29] MEDS: SITagliptin PHOSPHATE 100 MG TABLET PO (08:22)
[2024-02-29] MEDS: CEFEPIME 2 GM/NS 50 ML 2 GM/50 ML BAG IVPB (08:23)
[2024-02-29] MEDS: ENOXAPARIN 40 MG/0.4 ML SYRINGE SUB-Q (08:23)
[2024-02-29 11:48] LABS: Glucose Point of Care 181 mg/dl (65-105)
--- NOTE | 2024-02-29 13:36 | PM.IMPN ---
Progress Note: A&P Assessment and Plan (1) Diabetic foot ulcer: Qualifiers: Diabetes mellitus type: other specified (including MARINA) Diabetic foot ulcer location: heel Laterality: left Code(s): E11.621 - Type 2 diabetes mellitus with foot ulcer; L97.509 - Non-pressure chronic ulcer of other part of unspecified foot with unspecified severity Status: Acute Assessment and Plan: Underwent excisional debridement of right heel foot ulcer on 02/26/[address] Johnson. Tolerated this procedure well. Wound VAC in place, continue at this time. Wound cultures pending at this time. Lost IV access. Augmentin x1 dose tonight. Being managed by General surgery, appreciate consultation. Wound Care following, appreciate recommendations. --Wound Eval in AM --Cultures pending --Change Cefepime/Flagyl to Augmentin since no IV access --Stop Vanc for now, no hx MRSA (2) Cellulitis in diabetic foot: Code(s): E11.628 - Type 2 diabetes mellitus with other skin complications; L03.119 - Cellulitis of unspecified part of limb Status: Acute Assessment and Plan: Management as above. Reports overall improvement. WBC trending down, 10.3 today. Remains afebrile. (3) Type 2 diabetes mellitus: Onset Date: 05/17/22 Code(s): E11.9 - Type 2 diabetes mellitus without complications Status: Chronic Assessment and Plan: A1c is 7.5. Continue Accu-Cheks, sliding scale insulin, hypoglycemic protocol, diabetic diet. Continue home Januvia and Jardiance. Blood sugars well controlled, in the 150s today. (4) Tobacco abuse: Code(s): Z72.0 - Tobacco use Status: Chronic Assessment and Plan: Current everyday smoker. Continue nicotine patch during admission. Life Skills Educator regarding smoking cessation (5) Dyslipidemia: Code(s): E78.5 - Hyperlipidemia, unspecified Status: Acute Assessment and Plan: Continue home atorvastatin. LFTs are within normal limits Plan Follow appearance of wounds--wound nurse to see in AM. Dose of augmentin tonight since no IV access Time Spent With Patient Time: 59 minutes Subjective Date/time seen: 02/29/24 13:36 Interval history: Feeling better but lost IV access. Has a wound vac and planning to change tomorrow Oral antibiotics today since No IV access Exam Narrative: General: Well-nourished, well-appearing 58-year-old female, sitting up in bed, comfortable, NARD Neuro: awake, alert and oriented x4, speech clear, no focal neuro deficits noted HEENMT: normocephalic, atraumatic, EOMI, sclerae anicteric, moist oral mucosa Respiratory: clear to auscultation bilaterally, nonlabored breathing Cardio: regular rate, regular rhythm with S1-S2 Abdomen: nondistended, normoactive bowel sounds, soft, nontender to palpation Extremities: no edema, erythema, or tenderness to palpation, right foot in walking boot, wrapped with wound VAC in place, working well, able to wiggle toes bilaterally Skin: no rashes or lesions, warm and dry Psych: appropriate mood and affect, judgment and insight intact Objective Data Vital Signs Vital Signs: Vital Signs - 24 hr 02/28/24 16:00 02/28/24 20:42 02/28/24 20:00 Temperature 97.9 F 97.3 F L Pulse Rate 88 77 Respiratory Rate 20 20 Blood Pressure 120/65 161/74 H Pulse Oximetry 92 97 Oxygen Delivery Room Air 02/29/24 05:46 02/29/24 08:20 Temperature 97.1 F L Pulse Rate 65 Respiratory Rate 20 Blood Pressure 120/72 Pulse Oximetry 99 Oxygen Delivery Room Air Intake/Output Intake/Output: Intake & Output 02/26/24 02/27/24 02/28/24 02/29/24 23:59 23:59 23:59 23:59 Intake Total 1620 3510 1600 1110 Balance 1620 3510 1600 1110 Meds/Results Medications: Active Medications Generic Name Dose Route Start Last Admin Trade Name Freq PRN Reason Stop Dose Admin Acetaminophen 650 mg 02/26/24 07:41 Acetaminophen 325 Mg Tablet PO Q4H PRN
[2024-02-29] MEDS: metroNIDAZOLE 500 MG TABLET PO (14:09)
--- NOTE | 2024-02-29 15:13 | PM.PNGS ---
Progress Note: A&P Assessment and Plan (1) Diabetic ulcer of heel: Code(s): E11.621 - Type 2 diabetes mellitus with foot ulcer; L97.409 - Non-pressure chronic ulcer of unspecified heel and midfoot with unspecified severity Status: Chronic Assessment and Plan: No new complaints. Wound VAC in place. Plans are for dressing change tomorrow. Subjective Subjective Date/Time Seen: 02/29/24 15:13 Patient reports: no new complaints, feels better, tolerating a regular diet and afebrile Review of Systems Review of Systems: All systems reviewed & are unremarkable except as noted in HPI and below (HPI) Exam Const: General: comfortable, alert and awake Extrem: Left lower extremity: foot (Wound VAC and walking shoe in place on right foot.) Objective Data Vital Signs Vital Signs: Vital Signs - 24 hr 02/28/24 16:00 02/28/24 20:42 02/28/24 20:00 Temperature 36.6 C 36.3 C L Pulse Rate 88 77 Respiratory Rate 20 20 Blood Pressure 120/65 161/74 H Pulse Oximetry 92 97 Oxygen Delivery Room Air 02/29/24 05:46 02/29/24 08:20 Temperature 36.2 C L Pulse Rate 65 Respiratory Rate 20 Blood Pressure 120/72 Pulse Oximetry 99 Oxygen Delivery Room Air Intake/Output Intake/Output: Intake & Output 02/26/24 02/27/24 02/28/24 02/29/24 23:59 23:59 23:59 23:59 Intake Total 1620 3510 1600 1610 Balance 1620 3510 1600 1610 Meds/Results Medications: Active Medications Generic Name Dose Route Start Last Admin Trade Name Freq PRN Reason Stop Dose Admin Acetaminophen 650 mg 02/26/24 07:41 Acetaminophen 325 Mg Tablet PO Q4H PRN Mild Pain (1-3) or Fever Hydrocodone Bitart/Acetaminophen 1 tab 02/26/24 07:41 02/28/24 20:40 Hydrocodone/Acetaminophen (*Crx) 5-325 Mg Tablet PO 1 tab Q4H PRN Administration Moderate Pain (4-6) Aspirin 81 mg 02/28/24 09:00 02/29/24 08:22 Aspirin 81 Mg Chewable Tablet PO 81 mg DAILY JANEY Administration Atorvastatin Calcium 40 mg 02/25/24 21:00 02/28/24 20:40 Atorvastatin 40 Mg Tablet PO 40 mg QHS JANEY Administration Dextrose 12.5 gm 02/26/24 07:44 Dextrose 50% 25 Gm/50 Ml Syringe IV PUSH PRN PRN Hypoglycemia Protocol Empagliflozin 25 mg 02/26/24 09:00 02/29/24 08:22 Empagliflozin 25 Mg Tablet BY MOUTH 25 mg QAM JANEY Administration Enoxaparin Sodium 40 mg 02/27/24 09:00 02/29/24 08:23 Enoxaparin 40 Mg/0.4 Ml Syringe SUB-Q 40 mg DAILY JANEY Administration Glucagon 1 mg 02/26/24 07:44 Glucagon For Inj 1 Mg Vial IM PRN PRN Hypoglycemia Protocol Glucose 15 gm 02/26/24 07:44 Glucose Oral Gel 15 Gm Of Glucse In 37.5 Gm Tube PO PRN PRN Hypoglycemia Protocol Cefepime HCl 2 gm in 50 mls @ 100 mls/hr 02/25/24 21:00 02/29/24 08:53 Maxipime 2 Gm/Ns 50 Ml IVPB Infused Q12HR JANEY Infusion Dextrose 1,000 mls @ 100 mls/hr 02/26/24 07:44 Dextrose 5% 1,000 Ml IVPB PRN PRN Hypoglycemia Protocol Insulin Aspart 3 - 6 units 02/27/24 12:00 02/29/24 11:51 Insulin Aspart (*Bkc) 100 Units/Ml SUB-Q Not Given TIDWM [facility] Protocol Insulin Aspart 1 - 3 units 02/27/24 21:00 02/28/24 20:43 Insulin Aspart (*Bkc) 100 Units/Ml SUB-Q Not Given HS [facility] Protocol Lisinopril 2.5 mg 02/26/24 09:00 02/29/24 08:22 Lisinopril 2.5 Mg Tablet PO 2.5 mg DAILY JANEY Administration Melatonin 10 mg 02/26/24 07:40 02/28/24 20:40 Melatonin 5 Mg Tablet PO 10 mg HS PRN Administration Sleep Metronidazole 500 mg 02/29/24 14:00 02/29/24 14:09 Metronidazole 500 Mg Tablet PO 500 mg Q8HR JANEY Administration Morphine Sulfate 2 mg 02/26/24 07:41 Morphine Sulfate (*Crx) 2 Mg/Ml Inj IV PUSH Q4H PRN Pain Rated 7-10 Nicotine 1 patch 02/26/24 09:00 02/29/24 08:22 Nicotine (*Pbkc) 14 Mg Patch TRANSDERM Not Given DAILY JANEY Ondansetron HCl 4 mg 02/26/24 07:41 Onda
[2024-02-29 16:00] VITALS: BP 120/44; PULSE 98; RESP 18; TEMP 36.7; O2SAT 98
[2024-02-29 16:54] LABS: Glucose Point of Care 177 mg/dl (65-105)
--- NOTE | 2024-02-29 18:40 | PC.NURSE ---
Patient refusing IV placement for IV antibiotics. This RN will administer oral antibiotic in place of IV cefapime per physician to nurse communication.
[2024-02-29] MEDS: AMOXICILLIN/CLAVULANATE K 875-125 MG TAB 1 TABLET PO (18:50)
[2024-02-29] MEDS: ATORVASTATIN 40 MG TABLET PO (20:43)
[2024-02-29] MEDS: HYDROcodone/acetaminophen (*CRX) 5-325 MG TABLET 1 TAB PO (20:43)
[2024-02-29] MEDS: MELATONIN 5 MG TABLET 10 MG PO (20:43)
[2024-02-29 21:16] LABS: Glucose Point of Care 178 mg/dl (65-105)
[2024-02-29 21:24] VITALS: BP 151/70; PULSE 71; RESP 18; TEMP 36.4; O2SAT 99
[2024-03-01 06:23] VITALS: BP 148/72; PULSE 67; RESP 18; TEMP 36.4; O2SAT 98
[2024-03-01 06:38] LABS: Basophils Absolute Auto 0.1 K/mm3 (0.0-0.1); Basophils Percent Auto 0.8 % (0.2-1.2); Eosinophils Absolute Auto 0.7 K/mm3 (0-0.3); Eosinophils Percent Auto 7.2 % (0-4.4); Hemoglobin 10.6 g/dL (12.0-15.0); Immature Granulocyte Absolute 0.09 K/mm3 (0.00-0.031); Immature Granulocyte Percent A 0.9 % (0-0.5); Lymphocytes Absolute Auto 2.42 K/mm3 (0.9-3.2); Lymphocytes Percent Auto 24.1 % (18.3-44.2); Mean Corpuscular HGB Conc 30.3 g/dl (32-36); Mean Corpuscular Hemoglobin 26.1 pg (26-34); Mean Corpuscular Volume 86.2 fl (80-100); Mean Platelet Volume 8.9 fl (7.4-10.4); Monocytes Absolute Auto 0.8 K/mm3 (0.1-0.6); Monocytes Percent Auto 8.2 % (2.6-8.5); Neutrophils Absolute Auto 5.9 K/mm3 (1.3-6.7); Neutrophils Percent Auto 58.8 % (45.5-73.1); Platelet Count Result 401 k/mm3 (150-375); Red Blood Count 4.06 M/mm3 (4.2-5.4); Red Cell Distribution Width 14.4 % (11.5-14.5); White Blood Count 10.1 K/mm3 (4.5-10.0)
[2024-03-01 06:59] LABS: Alanine Aminotransferase 17 U/L (6-35); Albumin Level 3.5 g/dL (3.5-5.1); Alkaline Phosphatase 88 U/L (38-126); Anion Gap 8 mmol/L (4-12); Aspartate Amino Transferase 25 U/L (14-36); Bilirubin,Total 0.3 mg/dL (0.2-1.3); Blood Urea Nitrogen 13 mg/dL (7-17); Calcium 8.4 mg/dL (8.4-10.2); Carbon Dioxide 25 mmol/L (22-30); Chloride 103 mmol/L (98-107); Estimated CRCL calculation 73 ml/min; Estimated Glomerular Filt Rate > 60; Glucose 153 mg/dL (65-110); Potassium 3.6 mmol/L (3.4-5.0); Sodium 136 mmol/L (137-145)
[2024-03-01 07:50] LABS: Glucose Point of Care 154 mg/dl (65-105)
--- NOTE | 2024-03-01 08:29 | PM.IMPN ---
Progress Note: A&P Assessment and Plan (1) Diabetic foot ulcer: Qualifiers: Diabetes mellitus type: other specified (including MARINA) Diabetic foot ulcer location: heel Laterality: left Code(s): E11.621 - Type 2 diabetes mellitus with foot ulcer; L97.509 - Non-pressure chronic ulcer of other part of unspecified foot with unspecified severity Status: Acute Assessment and Plan: Underwent excisional debridement of right heel foot ulcer on 02/26/[address] Johnson. Tolerated this procedure well. Wound VAC in place, continue at this time. Wound cultures pending at this time. Lost IV access. Augmentin x1 dose tonight. Being managed by General surgery, appreciate consultation. Wound Care following, appreciate recommendations. --Wound nurse to change vac today --Cultures from right leg 02/25 pending, speciating GNB --Holding Cefepime/Flagyl, resumed Augmentin since no IV access --Stop Vanc for now, no hx MRSA --Can likely continue Augmentin for discharge, but consider PICC and IV antibiotics depending on culture results and improvement in wound. (2) Cellulitis in diabetic foot: Code(s): E11.628 - Type 2 diabetes mellitus with other skin complications; L03.119 - Cellulitis of unspecified part of limb Status: Acute Assessment and Plan: Management as above. Reports overall improvement. Remains afebrile. (3) Type 2 diabetes mellitus: Onset Date: 05/17/22 Code(s): E11.9 - Type 2 diabetes mellitus without complications Status: Chronic Assessment and Plan: A1c is 7.5. Continue Accu-Cheks, sliding scale insulin, hypoglycemic protocol, diabetic diet. Continue home Januvia and Jardiance. Blood sugars moderately well controlled, 150-180's --Continue SSI (4) Tobacco abuse: Code(s): Z72.0 - Tobacco use Status: Chronic Assessment and Plan: Current everyday smoker. Continue nicotine patch during admission. 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 LFTs are within normal limits Plan Follow appearance of wounds--wound nurse to see today. Dose of augmentin tonight since no IV access Time Spent With Patient Time: 40 minutes Subjective Date/time seen: 03/01/24 08:29 Interval history: Feeling okay, but lost IV access. Declined a new IV last night after several attempts. Holding cefepime, vanc, and Flagyl. On Augmentin pending culture results. Anaerobic culture to right leg pending, growing Gram-negative bacilli. A repeat culture significant growth polymicrobial organisms. Wound vac to be changed today by Wound nurse. Blood sugars moderately well controlled, 153-181 in the last 24 hours Review of Systems Review of Systems: No new complaints All systems reviewed & are unremarkable except as noted in HPI and below Exam Narrative: General: Well-nourished, well-appearing 58-year-old female, sitting up in bed, comfortable, NARD Neuro: awake, alert and oriented x4, speech clear, no focal neuro deficits noted HEENMT: normocephalic, atraumatic, EOMI, sclerae anicteric, moist oral mucosa Respiratory: clear to auscultation bilaterally, nonlabored breathing Cardio: regular rate, regular rhythm with S1-S2 Abdomen: nondistended, normoactive bowel sounds, soft, nontender to palpation Extremities: no edema, erythema, or tenderness to palpation, right foot in walking boot, wrapped with wound VAC in place, working well, able to wiggle toes bilaterally Skin: no rashes or lesions, warm and dry Psych: appropriate mood and affect, judgment and insight intact Objective Data Vital Signs Vital Signs: Vital Signs - 24 hr 02/29/24 16:00 02/29/24 21:24 03/01/24 06:23 Temperature 98.0 F 97.6 F 97.6 F Pulse Rate 98 71 67 Respiratory Rate 18 18 18 Blood Pressure 120/44 L 151/70 H 148/7
[2024-03-01] MEDS: lisinopriL 2.5 MG TABLET PO (08:42)
[2024-03-01] MEDS: SITagliptin PHOSPHATE 100 MG TABLET PO (08:42)
[2024-03-01] MEDS: ENOXAPARIN 40 MG/0.4 ML SYRINGE SUB-Q (08:42)
[2024-03-01] MEDS: AMOXICILLIN/CLAVULANATE K 875-125 MG TAB 1 TABLET PO (08:42)
[2024-03-01] MEDS: EMPAGLIFLOZIN 25 MG TABLET BY MOUTH (08:42)
[2024-03-01] MEDS: ASPIRIN 81 MG CHEWABLE TABLET PO (08:42)
--- NOTE | 2024-03-01 11:38 | WPDPN ---
Progress Note: A&P Assessment and Plan (1) Diabetic ulcer of heel: Code(s): E11.621 - Type 2 diabetes mellitus with foot ulcer; L97.409 - Non-pressure chronic ulcer of unspecified heel and midfoot with unspecified severity Status: Chronic Assessment and Plan: Wound remains clean. Will change the wound VAC today and sent her home with a wound VAC today. She has been approved to get it on the right heel. Have [facility]. She will need outpatient vascular surgery evaluation in [place], [place] at the [facility]. My office will arrange for an outpatient evaluation. Will discharge her home on Bactrim for antibiotic therapy. Subjective Date/time seen: 03/01/24 11:38 Interval history: Patient is doing well. No issues over the weekend. No fever. White blood cell count has fluctuated [place] 8000 [place] [address]. Cultures of the wound were mixed wilman nonspecific. Wound VAC for the right heel is still in place. Exam Extrem: Other: Wound VAC in place. Nose redness or swelling around the dressing. Output from the wound VAC is minimal. Objective Data Vital Signs Vital Signs: Vital Signs - 24 hr 02/29/24 16:00 02/29/24 21:24 03/01/24 06:23 Temperature 36.7 C 36.4 C 36.4 C Pulse Rate 98 71 67 Respiratory Rate 18 18 18 Blood Pressure 120/44 L 151/70 H 148/72 H Pulse Oximetry 98 99 98 Oxygen Delivery 03/01/24 08:45 Temperature Pulse Rate Respiratory Rate Blood Pressure Pulse Oximetry Oxygen Delivery Room Air Intake/Output Intake/Output: Intake & Output 02/27/24 02/28/24 02/29/24 03/01/24 23:59 23:59 23:59 23:59 Intake Total 3510 1600 2160 440 Balance 3510 1600 2160 440 Meds/Results Medications: Active Medications Generic Name Dose Route Start Last Admin Trade Name Freq PRN Reason Stop Dose Admin Acetaminophen 650 mg 02/26/24 07:41 Acetaminophen 325 Mg Tablet PO Q4H PRN Mild Pain (1-3) or Fever Hydrocodone Bitart/Acetaminophen 1 tab 02/26/24 07:41 02/29/24 20:43 Hydrocodone/Acetaminophen (*Crx) 5-325 Mg Tablet PO 1 tab Q4H PRN Administration Moderate Pain (4-6) Amoxicillin/Clavulanate Potassium 1 tablet 03/01/24 09:00 03/01/24 08:42 Amoxicillin/Clavulanate K 875-125 Mg Tab PO 1 tablet Q12HR JANEY Administration Aspirin 81 mg 02/28/24 09:00 03/01/24 08:42 Aspirin 81 Mg Chewable Tablet PO 81 mg DAILY JANEY Administration Atorvastatin Calcium 40 mg 02/25/24 21:00 02/29/24 20:43 Atorvastatin 40 Mg Tablet PO 40 mg QHS JANEY Administration Dextrose 12.5 gm 02/26/24 07:44 Dextrose 50% 25 Gm/50 Ml Syringe IV PUSH PRN PRN Hypoglycemia Protocol Empagliflozin 25 mg 02/26/24 09:00 03/01/24 08:42 Empagliflozin 25 Mg Tablet BY MOUTH 25 mg QAM JANEY Administration Enoxaparin Sodium 40 mg 02/27/24 09:00 03/01/24 08:42 Enoxaparin 40 Mg/0.4 Ml Syringe SUB-Q 40 mg DAILY JANEY Administration Glucagon 1 mg 02/26/24 07:44 Glucagon For Inj 1 Mg Vial IM PRN PRN Hypoglycemia Protocol Glucose 15 gm 02/26/24 07:44 Glucose Oral Gel 15 Gm Of Glucse In 37.5 Gm Tube PO PRN PRN Hypoglycemia Protocol Cefepime HCl 2 gm in 50 mls @ 100 mls/hr 02/25/24 21:00 02/29/24 08:53 Maxipime 2 Gm/Ns 50 Ml IVPB Infused Q12HR JANEY Infusion Dextrose 1,000 mls @ 100 mls/hr 02/26/24 07:44 Dextrose 5% 1,000 Ml IVPB PRN PRN Hypoglycemia Protocol Insulin Aspart 3 - 6 units 02/27/24 12:00 03/01/24 07:54 Insulin Aspart (*Bkc) 100 Units/Ml SUB-Q Not Given TIDWM [facility] Protocol Insulin Aspart 1 - 3 units 02/27/24 21:00 02/29/24 20:45 Insulin Aspart (*Bkc) 100 Units/Ml SUB-Q Not Given HS [facility] Protocol Lisinopril 2.5 mg 02/26/24 09:00 03/01/24 08:42 Lisinopril 2.5 Mg Tablet PO 2.5 mg DAILY JANEY Administration Melatonin 10 mg
[2024-03-01 11:40] LABS: Glucose Point of Care 201 mg/dl (65-105)
--- NOTE | 2024-03-01 11:46 | PM.DS ---
DS: Admitting Diagnosis Discharge Date March 01, 2024 Admitting Diagnosis Diabetic right heel ulcer DS: Discharge Diagnosis Discharge Diagnosis (1) Diabetic ulcer of heel: Code(s): E11.621 - Type 2 diabetes mellitus with foot ulcer; L97.409 - Non-pressure chronic ulcer of unspecified heel and midfoot with unspecified severity Status: Chronic DS: Summary Hospital Course Reason for hospitalization: Diabetic right heel ulcer Hospital Course: Patient was seen initially in the [facility] on the date of admission for follow-up on the healing left foot wound. Wound had completely healed but she developed a new diabetic wound on the right heel. The wound had some purulent drainage and necrotic tissue with cellulitic changes around it and so she was admitted to the hospital directly to the floor and started on IV antibiotics. Hospitalist service was consulted to help manage her diabetes and other medical issues. The next day she was then taken to the operating room she underwent a debridement of the right heel necrotic tissue. The wound was initially dressed with iodoform gauze and dry dressings. The next day the was examined by the wound care nurses and there was clean. Swelling redness was decreased around the incision. No further debridement was needed and so a wound VAC was placed onto the wound on the right heel. She tolerated that very well. Her white blood cell count decreased to normal. She had no fever. Cultures of the wound revealed just mixed wilman with out MRSA, Pseudomonas, or Streptococcus. No anaerobic organisms were cultured. I did discharge she is doing very well. Pain in the right heel was minimal. She is able to ambulate to chair and wheelchair with weight-bearing only on the right heel. Physical therapy and occupational therapy work with her while she was in the hospital. They have no concerns at time of discharge. Status at Discharge Overall status at discharge: patient is progressing back to baseline Time Spent with Patient Time attestation: Total time spent providing and/or coordinating discharge services: Time spent: Less than 30 minutes Exam Extrem: Other: The right heel ulcer is without any necrotic tissue. Minimal redness and swelling around the ulcer. No granulation tissue is present yet. Cellulitis is improved. No further debridement is needed. DS: Data Data Completed and Pending Labs on day of discharge: Labs from last 24 hours 03/01/24 03/01/24 03/01/24 11:31 07:43 06:25 WBC 10.1 H RBC 4.06 L Hgb 10.6 L Hct 35.0 L MCV 86.2 MCH 26.1 MCHC 30.3 L RDW 14.4 Plt Count 401 H MPV 8.9 Immature Gran % (Auto) 0.9 H Neut % (Auto) 58.8 Lymph % (Auto) 24.1 [place] % (Auto) 8.2 Eos % (Auto) 7.2 H Baso % (Auto) 0.8 Lymph # (Auto) 2.42 [place] # (Auto) 0.8 H Eos # (Auto) 0.7 H Baso # (Auto) 0.1 Abs Immat Gran (auto) 0.09 H Absolute Neuts (auto) 5.9 Absolute Nucleated RBC 0.000 Nucleated RBC % 0.0 Sodium 136 L Potassium 3.6 Chloride 103 Carbon Dioxide 25 Anion Gap 8 BUN 13 Creatinine 0.70 Estim Creat Clear Calc 73 Estimated GFR > 60 Glucose 153 H POC Capillary Glucose 201 H 154 H Calcium 8.4 Total Bilirubin 0.3 AST 25 ALT 17 Alkaline Phosphatase 88 Total Protein 7.0 Albumin 3.5 02/29/24 02/29/24 02/29/24 20:42 16:45 11:36 WBC RBC Hgb Hct MCV MCH MCHC RDW Plt Count MPV Immature Gran % (Auto) Neut % (Auto) Lymph % (Auto) [place] % (Auto) Eos % (Auto) Baso % (Auto) Lymph # (Auto) [place] # (Auto) Eos # (Auto) Baso # (Auto) Abs Immat Gran (auto) Absolute Neuts (auto) Absolute Nucleated RBC Nucleated RBC % Sodium Potassium Chloride Carbon Dioxide Anion Gap BUN Creatinine Estim Creat Clear Calc Estimated
== END 2024-03-01 13:15 | disposition home or self-care (01) | DRG 380 ==
PROVIDERS: Nurse Practitioner Acute Care; Nurse Practitioner Family; Admitting Provider Surgery; PCP Physician Assistant; Visit Provider Nurse Practitioner Acute Care
PROC: 0JBQ0ZZ Excision of Right Foot Subcutaneous Tissue and Fascia, Open Approach (ICD-10-PCS; principal; 2024-02-26 14:00)
DX: E11.621 Type 2 diabetes mellitus with foot ulcer (principal); L97.419 Non-pressure chronic ulcer of right heel and midfoot with unspecified severity; L03.115 Cellulitis of right lower limb; E11.628 Type 2 diabetes mellitus with other skin complications; E11.51 Type 2 diabetes mellitus with diabetic peripheral angiopathy without gangrene; E78.5 Hyperlipidemia, unspecified; F12.90 Cannabis use, unspecified, uncomplicated; Z89.422 Acquired absence of other left toe(s); Z87.891 Personal history of nicotine dependence; Z79.82 Long term (current) use of aspirin
CPT/HCPCS: 36415; 73630; 80048; 80053; 80202; 82948; 83036; 85025; 85027; 87070; 87075; 87205; 97161; 97165; 97605; A9270; J0692; J1650; J1836; J2250; J2405; J2704; J3010; J3370; J7040; J7120

== ENCOUNTER 2024-03-16 07:11 | Outpatient (RCR) | payer BC, SELFPAY ==
[2023-12-17 00:04] VITALS: BMI 28.5
--- NOTE | 2023-12-31 10:23 | WPDPN ---
Progress Note: A&P Assessment and Plan (1) Open wound of left foot with complication: Qualifiers: Encounter type: subsequent encounter Qualified Code(s): S91.302D - Unspecified open wound, left foot, subsequent encounter Code(s): S91.302A - Unspecified open wound, left foot, initial encounter Status: Chronic Assessment and Plan: Patient is doing very well and continues to have excellent granulation tissue forming in the left lateral foot wound. I would expected to hopefully be pretty much close to the point that the wound VAC is no longer needed with in the next 2 weeks. The very small wounds on the right lateral heel and right lateral foot are very superficial and will continue to be monitored. They are being treated with topical agents and does not need any debridement. Continue wound VAC therapy for the left lateral foot wound. I will see her back in the office about 2 weeks. Subjective Date/time seen: 12/30/23 Interval history: Debbie returns to the [facility] for interval exam. She has her wound VAC changed on the left foot wound 3 times a week. I have not seen her for 2 weeks. She continues do very well the wound VAC and the wound is healing very well. She is not on any antibiotics and she has no complaints. Exam Skin: Other: The wound on the left lateral foot now measures 11.1cm in length by 1cm in width by 0.9cm in depth. There is excellent granulation tissue throughout about 95% of the wound. There is about 5% yellow slough. The wound edges are roel well. There is no swelling or redness around the wound or the foot. Remaining toes on her left foot are all viable. She also has a small very superficial wound on the left heel which is 0.6x1.0x0.3cm which just small amount of yellow slough. There is also a right lateral foot wound measuring 1.4x1.4x0.3cm. Again this wound is very superficial with a small amount yellow slough. Objective Data Meds/Results Medications: Active Medications Generic Name Dose Route Start Last Admin Trade Name Freq PRN Reason Stop Dose Admin Collagenase 1 applic 12/19/23 13:03 Collagenase Oint 30 Gm Tube TOPICAL 03/20/24 23:59 PRN PRN Wound Care
--- NOTE | 2024-01-13 19:07 | WPDPN ---
Progress Note: A&P Assessment and Plan (1) Open wound of left foot with complication: Qualifiers: Encounter type: subsequent encounter Qualified Code(s): S91.302D - Unspecified open wound, left foot, subsequent encounter Code(s): S91.302A - Unspecified open wound, left foot, initial encounter Status: Chronic Assessment and Plan: Left lateral foot wound is healing very well. Only need to be seen once a week in the Wound Care Clinic now. I expect the wound probably closed by the time I see her again in the Wound Care Clinic in about 3 weeks. Patient was encouraged to continue wearing socks and a well-fitting shoe. Subjective Date/time seen: 01/13/24 19:07 Interval history: Patient returns to the Wound Care Clinic for her weekly follow-up visit. She is no longer using wound VAC. She is being packed with some silver rope in the left lateral foot wound. She has no complaints. Exam Skin: Other: Left lateral foot wound now measures 6x0.9x0.4cm. Excellent granulation tissue was noted. About 2/3 the wound is completely closed. There is no redness or swelling. Objective Data Meds/Results Medications: Active Medications Generic Name Dose Route Start Last Admin Trade Name Freq PRN Reason Stop Dose Admin Collagenase 1 applic 12/19/23 13:03 Collagenase Oint 30 Gm Tube TOPICAL 03/20/24 23:59 PRN PRN Wound Care
--- NOTE | 2024-01-29 15:17 | WPDPN ---
Progress Note: A&P Assessment and Plan (1) Diabetic foot ulcer: Qualifiers: Diabetes mellitus type: other specified (including MARINA) Diabetic foot ulcer location: heel Laterality: left Code(s): E11.621 - Type 2 diabetes mellitus with foot ulcer; L97.509 - Non-pressure chronic ulcer of other part of unspecified foot with unspecified severity Status: Acute Assessment and Plan: Patient has now developed a new diabetic foot ulcer x2 on the right foot. The wounds right now our superficial and there is no necrotic tissue to debride. Current treatment with Santyl for enzymatic debridement is being performed with dressing coverage. She is a known vasculopath with prior history of iliac stent placement at [place] [facility] was [facility]. A portion she states she can no longer go back to that facility due to her change in her insurance. I did check with [facility] and vascular surgery Department at [facility] and unfortunately they do not take her insurance either. I discussed with her that she likely needs a vascular surgery evaluation to see if there is any interventions that can be done to help her wounds heal on her right foot. Will need to check with [facility] vascular surgery department in [facility] as that is most likely the next closest place to try to get her evaluated by vascular surgeon. Will look into this and get back with the patient about if we can make a referral up to [place]. (2) Open wound of left foot with complication: Qualifiers: Encounter type: subsequent encounter Qualified Code(s): S91.302D - Unspecified open wound, left foot, subsequent encounter Code(s): S91.302A - Unspecified open wound, left foot, initial encounter Status: Chronic Assessment and Plan: The left foot wound is nearly healed. Continue applying silver rope to the wound until completely closes. We will see her back in the office in 2 weeks. (3) Type 2 diabetes mellitus with hyperglycemia: Qualifiers: Diabetes mellitus retirement insulin use: without retirement use Qualified Code(s): E11.65 - Type 2 diabetes mellitus with hyperglycemia Code(s): E11.65 - Type 2 diabetes mellitus with hyperglycemia Status: Chronic Assessment and Plan: Long-term diabetic. She is well controlled. Subjective Date/time seen: January 27, 2024 Interval history: patient returns to for a follow-up visit in the [facility]. Looking at her left lateral foot wound is seems to be healing very well. She is only placing some silver rope in the small portion of the open wound. No redness or drainage. She has developed a new area of ulceration on the lateral portion of the right heel. Currently being seen by the wound care nurses for that wound is well and being treated with Santyl application. None history of peripheral vascular disease and prior iliac artery stents done at [place]. Unfortunately she states that her insurance is not taken at the facility any longer. Exam Extrem: Other: The lateral measures 2.2cm in length by 0. 4cm in width and 0.2cm in depth. It is nearly closed the remaining portion of the wound is completely closed. The remaining toes on the left foot are completely viable. No further wounds are noted in the left foot. On the right foot posterior lateral heel there is a 1.3x1.8x0.3cm ulcer. Has some swelling and minimal redness. There is no necrotic tissue at this time. She also has a small wound on the right lateral foot measuring 1.2x1.3x0.3cm. This wound is very superficial as well with minimal to no cellulitis. Objective Data Meds/Results Medications: Active Medications Generic Name Dose Route Start Last Admin Trade Name Freq PRN Reason Stop Dose Admin Collagenase 1 applic 12/19/23 13:03 Collagenase Oint 30 Gm Tube TOPICAL 03/20/24 23:59 PRN PRN Wound Care
--- NOTE | 2024-03-09 17:46 | WPDPN ---
Progress Note: A&P Assessment and Plan (1) Diabetic ulcer of heel: Code(s): E11.621 - Type 2 diabetes mellitus with foot ulcer; L97.409 - Non-pressure chronic ulcer of unspecified heel and midfoot with unspecified severity Status: Chronic Assessment and Plan: Continue with wound VAC the right heel diabetic foot wound. Continue to apply Santyl to the right lateral foot diabetic foot wound. Viable tissue was noted of both of these wounds without need for debrided of any necrotic tissue. Continue with taking Bactrim for both wounds right now. Continue wound VAC changed twice a week in the Wound Care Clinic. I will see the patient again in the Wound Care Clinic in about 2 weeks. The patient is to be seen by a vascular surgeon in [place] in 1 month to see if there is any way to a improve blood supply to the right foot for limb salvage. Subjective Date/time seen: 03/09/24 17:46 Interval history: Debbie is seen in the Wound Care Clinic today. She had debridement of the right lateral heel wound last week. A wound VAC was placed on a before she was discharged from the hospital. She comes the wound care clinic twice a week to have the wound VAC changed. She has no complaints. Still on Bactrim for antibiotic therapy for the wound. She now has an appointment to see a vascular surgeon in [facility] at the end of March. Exam Extrem: Other: The right lateral heel wound now measures [id number]. There is only about 5% granulation tissue and and about 95% viable yellow subcutaneous tissue. The calcaneus is palpable but there is overlying periosteum which appears to be viable. There is no necrotic tissue. There is no undrained abscess. There is also a 0.6x0.8x0.3cm right lateral forefoot wound which is clean and needs no debridement. there is about 95% red granulation tissue 5% slough. There is no surrounding cellulitis. Objective Data Meds/Results Medications: Active Medications Generic Name Dose Route Start Last Admin Trade Name Freq PRN Reason Stop Dose Admin Collagenase 1 applic 12/19/23 13:03 Collagenase Oint 30 Gm Tube TOPICAL 03/20/24 23:59 PRN PRN Wound Care
== END 2024-03-18 23:59 | disposition home or self-care (01) ==
LOC: ANHWOC 07:11
PROVIDERS: PCP Physician Assistant; Visit Provider Surgery
DX: S91.302D Unspecified open wound, left foot, subsequent encounter (principal)
CPT/HCPCS: 97605; 99213; 99214; G0463

== ENCOUNTER 2024-04-27 07:13 | Outpatient (RCR) | payer BC, SELFPAY ==
[2024-03-19 00:03] VITALS: BMI 28.5
--- NOTE | 2024-03-25 18:39 | P.PN_ITS ---
Progress Note: A&P Assessment and Plan (1) Diabetic ulcer of heel: Code(s): E11.621 - Type 2 diabetes mellitus with foot ulcer; L97.409 - Non-pressure chronic ulcer of unspecified heel and midfoot with unspecified severity Status: Chronic Assessment and Plan: Stable right heel ulcer but improved right lateral foot ulcer. Continue present wound care management with application of wound VAC and silver gel. She has an appointment to see a vascular surgeon in [place], [place] at the end of this month. Hopefully they can find a way to get better blood supply to the right foot so that she can heal the right heel ulcer. We will see her back in the Wound Care Clinic in 2 weeks for my evaluation. Subjective Date/time seen: 03/23/24 Interval history: Patient returns for me to see her in the Wound Care Clinic for 2 week interval follow-up. Has no complaints today. She has been coming to the Wound Care Clinic to see the wound care nurses twice a week for wound VAC change. Exam Extrem: Other: The right lateral foot has a small 0.3x0.9x0.4 wound which is granulating at the base and roel at the edges. There is no cellulitis. The wound in the right lateral heel now measures 2.8x3.1x1.3cm. There is some contraction at the edges however the base of the wound has viable subcutaneous tissue without any significant granulation tissue formation. There is minimal swelling in the right foot.
--- NOTE | 2024-04-07 20:41 | P.PN_ITS ---
Progress Note: A&P Assessment and Plan (1) Diabetic ulcer of heel: Code(s): E11.621 - Type 2 diabetes mellitus with foot ulcer; L97.409 - Non-pressure chronic ulcer of unspecified heel and midfoot with unspecified severity Status: Chronic Assessment and Plan: Continue local wound care to the right heel and right lateral foot wound. Which is packed with silver rope for now. She is to see the vascular surgeon in [place] only and hopefully they can perform some procedure to get better blood supply to the right foot allow this heel wound to close. Continue current management. Will see the patient back in the Wound Care Clinic a couple weeks. Subjective Date/time seen: 04/06/24 Interval history: Patient here for 2 week interval follow-up visit in the Wound Care Clinic to be seen by me. She has had really no acute changes in her wound. Not much pain. She is scheduled to go see the vascular surgeon in [facility] a next week. She continues to apply wound VAC to the right heel wound. Exam Extrem: Other: The lateral right heel there is a 2.4 by 5x1.1cm ulcer the soft tissues. There is minimal if any granulation tissue formed. The tissue is viable and yellow without any necrosis. There is drainage is noted. No surrounding redness to suggest ongoing cellulitis. On the lateral right foot there is a healing small wound measuring 0.2x0.6x0.2cm. This is roel with well and has good granulation tissue at the base. There is no surrounding cellulitis.
--- NOTE | 2024-04-21 13:35 | WPDPN ---
Progress Note: A&P Assessment and Plan (1) Diabetic ulcer of heel: Code(s): E11.621 - Type 2 diabetes mellitus with foot ulcer; L97.409 - Non-pressure chronic ulcer of unspecified heel and midfoot with unspecified severity Status: Chronic Assessment and Plan: Patient is undergo diagnostic arteriogram possible therapeutic intervention to revascularize the right lower extremity and get better blood supply to the right foot by vascular surgeon in [facility]. That surgeon will be taking over care for the patient right heel wound. A portion the patient when all longer be approved for further treatment and [facility] and by me after May 11, 2024. I told the patient her that I would be happy to see them again at any time for care of her chronic wounds if they were to obtain a insurance coverage that is covered by [facility] and by [facility]. In the meantime it would be in her best interest at least financially to have her care in [place] where her insurance is covering her care. They understand agree to the plan. Subjective Date/time seen: 04/20/24 Interval history: Patient is seen in the Wound Care Clinic today. She has no specific complaints that are new. Her right lateral heel wound continues to be dressed with a wound VAC change on a regular basis. She denies any fevers or chills. No increasing pain in the right foot. She has seen her vascular surgeon in [facility] and next week is planned to go up there to have an arteriogram performed and possibly some vascular intervention to hopefully increase perfusion to her right foot help the heel ulcer close. Patient tells me that there is also a plan to operatively debride the ulcer bed and place a biologic xenograft on the wound. Exam Extrem: Other: the right lateral heel wound measures 2.5x3.5x1.4cm. There is no spreading erythema around the wound. The base of the wound is 100% yellow fibrinous slough without any significant granulation tissue. No necrotic drainage or grossly necrotic tissue.
== END 2024-05-24 14:46 | disposition home or self-care (01) ==
LOC: ANHWOC 07:13
PROVIDERS: PCP Physician Assistant; Visit Provider Surgery
DX: Z48.00 Encounter for change or removal of nonsurgical wound dressing (principal); S91.302D Unspecified open wound, left foot, subsequent encounter; L97.429 Non-pressure chronic ulcer of left heel and midfoot with unspecified severity; L97.529 Non-pressure chronic ulcer of other part of left foot with unspecified severity; E11.621 Type 2 diabetes mellitus with foot ulcer; E11.65 Type 2 diabetes mellitus with hyperglycemia
CPT/HCPCS: 97605; 99213; G0463

== ENCOUNTER 2024-07-21 12:42 | Emergency (ER) | payer BC, SELFPAY ==
[2024-07-21 12:36] VITALS: BP 160/77; PULSE 84; RESP 18; TEMP 36.8; O2SAT 94
--- NOTE | 2024-07-21 12:41 | ECG_ITS ---
Test Date: 2024-07-21 12:52:14 Measurements Intervals [place] Rate: 80 P: 63 CA: 155 QRS: -26 QRSD: 109 T: 33 QT: 392 QTc: 455 Interpretive Statements SINUS RHYTHM LOW QRS VOLTAGE IN PRECORDIAL LEADS [QRS DEFLECTION < 1.0 mV IN CHEST LEADS] INCOMPLETE RIGHT BUNDLE BRANCH BLOCK [90+ ms QRS DURATION, TERMINAL R IN V1/V2, 40+ ms S IN I/aVL/V4/V5/V6] POSSIBLE LATERAL MYOCARDIAL INFARCTION , PROBABLY OLD [30 ms Q WAVE IN I/aVL/V5/V6] No previous ECG available for comparison Electronically Signed On 07-21-2024 19:00:51 MGMT ANALYST by Laura Bender
[2024-07-21 13:49] LABS: Basophils Percent Auto 0.2 % (0.2-1.2); Eosinophils Absolute Auto 0.2 K/mm3 (0-0.3); Eosinophils Percent Auto 1.6 % (0-4.4); Hematocrit 33.5 % (37.0-47.0); Hemoglobin 10.4 g/dL (12.0-15.0); Immature Granulocyte Absolute 0.04 K/mm3 (0.00-0.031); Immature Granulocyte Percent A 0.3 % (0-0.5); Lymphocytes Absolute Auto 2.35 K/mm3 (0.9-3.2); Lymphocytes Percent Auto 19.4 % (18.3-44.2); Mean Corpuscular Hemoglobin 27.4 pg (26-34); Mean Corpuscular Volume 88.4 fl (80-100); Mean Platelet Volume 9.8 fl (7.4-10.4); Monocytes Absolute Auto 0.8 K/mm3 (0.1-0.6); Monocytes Percent Auto 6.3 % (2.6-8.5); Neutrophils Absolute Auto 8.7 K/mm3 (1.3-6.7); Neutrophils Percent Auto 72.2 % (45.5-73.1); Platelet Count Result 362 k/mm3 (150-375); Red Blood Count 3.79 M/mm3 (4.2-5.4); Red Cell Distribution Width 14.3 % (11.5-14.5); White Blood Count 12.1 K/mm3 (4.5-10.0)
[2024-07-21 13:56] LABS: Alanine Aminotransferase 21 U/L (6-35); Alkaline Phosphatase 117 U/L (38-126); Anion Gap 3 mmol/L (4-12); Aspartate Amino Transferase 26 U/L (14-36); Bilirubin,Total 0.4 mg/dL (0.2-1.3); Blood Urea Nitrogen 16 mg/dL (7-17); Calcium 8.6 mg/dL (8.4-10.2); Carbon Dioxide 33 mmol/L (22-30); Chloride 99 mmol/L (98-107); Estimated Glomerular Filt Rate > 60; Glucose 203 mg/dL (65-110); Potassium 3.3 mmol/L (3.4-5.0); Sodium 135 mmol/L (137-145)
[2024-07-21 14:36] LABS: Add Urine Microscopic? YES; Appearance Urine Clear (Clear); Bacteria Urine None Seen /hpf; Bilirubin Urine Negative (Negative); Blood Urine Negative (Negative); Color Urine Yellow (Yellow); Glucose Urine UA Negative (Negative); Ketones Urine Negative (Negative); Leukocyte Esterase Ur Negative LEU/UL (Negative); Need Manual Microscopic Reviewed; Nitrate Urine Negative (Negative); Non Pathogenic Casts 0-2; Protein Urine 3+ mg/dL (Negative); Specific Grav Ur 1.018 (1.001-1.035); Squamous Epithelial Cell Urine None Seen /hpf (Few); WBC Urine 0-5 /hpf (0-3); pH Urine 6.5 (5.0-9.0)
--- NOTE | 2024-07-21 15:09 | PCCCNOTE ---
1503-Called to speak with the pt and her . Pt is wanting to go home but cannot walk. The states she keeps falling and cannot take care of her anymore at home. Pt currently has a wound vac in place to her LE, has HHRN come in several times a week. Educated the family on placement options d/t LE weakness, home safety concerns and the family requested to speak to each other privately and will let staff know what they would like to do moving forward.-jose e.
--- NOTE | 2024-07-21 15:36 | PCCCNOTE ---
1536-Called to the pt's room. Stated they want to go home and declined any further intervention with rehab/placement opportunities.-jose e.
--- NOTE | 2024-07-21 15:44 | ED.GENADULT ---
HPI - General Adult General Chief complaint: Urogenital-Female Stated complaint: uro femal Source: patient and EMS Mode of arrival: EMS Limitations: no limitations History of Present Illness HPI narrative: 58-year-old with a history of diabetes, hypertension here with a complaint of lower extremity weakness. She states that she had vascular surgery done for her chronic wound on the right leg few weeks ago . she denies any fall. This morning she was unable to walk. No history of fever or chills. Patient states that she went to urgent care a week ago for possible UTI and was told that she has blood and protein in the urine. Onset (ago): day(s) (1) Location: lower extremity Associated symptoms: denies other symptoms Related Data Home Medications ?Medication ?Instructions ?Recorded ?Confirmed ?Last Taken ?Type atorvastatin 40 mg tablet 40 mg PO QHS 07/23/23 02/25/24 Unknown History dapagliflozin propanediol 10 mg 10 mg PO QAM 07/23/23 02/25/24 Unknown History tablet (Farxiga) sitagliptin phosphate 100 mg 100 mg PO QAM 11/06/23 02/25/24 Unknown History tablet (Januvia) aspirin 81 mg chewable tablet 81 mg PO DAILY 02/25/24 02/25/24 Unknown History lisinopril 2.5 mg tablet 2.5 mg PO DAILY 02/25/24 02/25/24 Unknown History melatonin 10 mg tablet 10 mg PO HS PRN Sleep 02/25/24 02/25/24 Unknown History Allergies Allergy/AdvReac Type Severity Reaction Status Date / Time No Known Allergies Allergy Verified 02/26/24 13:26 Review of Systems Review of Systems: All systems reviewed & are unremarkable except as noted in HPI and below Constitutional: Constitutional: Reports no additional constitutional complaints Eyes: Eyes: Reports no additional eye complaints ENT: Reports system reviewed and no additional complaints, except as documented Cardiovascular: Cardiovascular: Reports no additional cardiovascular complaints Respiratory: Respiratory: Reports no additional respiratory complaints Musculoskeletal: Musculoskeletal: Reports as per HPI Neurologic: Reports system reviewed and no additional complaints, except as documented Psychiatric: Psychiatric: Reports no additional psychiatric complaints Endocrine: Endocrine: Reports no additional endocrine complaints PMFSH Past Medical History Medical History Dyslipidemia Peripheral vascular disease (05/2022) Diminished bilateral ankle and toe brachial indices consistent with [id number] peripheral arterial disease on JAVON. 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 History of incision and drainage (05/2022) Incision and drainage of left foot abscess with sharp excisional debridement of left foot ulcer. Family History Family History Father Heart disease Mother Heart disease Mother Diabetes mellitus Social History Social History Social History: Patient lives with her spouse of 23 years. She does not meet biologic children but has 2 step children. She used to smoke 1-2 packs a beers per day since she was a young teen but quit smoking February 24, 2023. She still occasionally uses marijuana. She denies any history of heavy alcohol use and has not used any alcohol in many years. She is disabled. They have a [place]. Surrogate medical decision maker: Donald De La Garza, spouse. Code status: Full code. Smoking packs per day: 45 Smoking cigarettes per day: 900.0 Years smoked: 40 Smoking pack-years: 1800.00 Smoking status: Former smoker Tobacco type: e-cigarettes/vaping Smoking end date: 02/24/23 Alcohol intake: never Substance use: current Substance use type: marijuana Other substance usage details: Every once in awhile Do You Feel Safe in your Home?: Yes Lack of Transportation: No Lack of Food: Never True Current Housing: I Have Housing Concerned About Future Housing: No Difficulty Paying Gas/Electric Bills: No Difficulty Paying for Meds: No Currently Unemployed: No Education: High School Diploma/GED Difficulty w/ Childcare or Family Care: No Additional living arrangements comments: The patient lives with her in [place]. She has no children. Spiritual care concerns: No Exam Narrative: GENERAL: Well-appearing, well-nourished, and in no acute distress. HEAD: Normocephalic, atraumatic. EYES: PERRLA and EOMI. NECK: Supple. CHEST: Clear to auscultation. No respiratory distress. HEART: Regular rate and rhythm. No murmur heard. Normal peripheral pulses. ABDOMEN: Soft, nontender, nondistended, normal active bowel sounds. EXTREMITIES: Normal range of motion. has wound vac on the right leg . SKIN: Warm, dry, no rash. NEURO: No focal deficits. Alert and oriented x3. PSYCH: Normal mood and affect. Course Course Emergency Course: Notified patient and about her lab work. states that cannot take her home as she is unable to walk. I did offer admission to be placed in a assisted for rehab. I did discuss with the case management, who came and spoke to the patient. However patient declined to place her in the rehab center or admission. Vital Signs Vital signs: Vital Signs Temperature 36.8 C 07/21/24 12:36 Pulse Rate 84 07/21/24 12:36 Respiratory Rate 18 07/21/24 12:36 Blood Pressure 160/77 H 07/21/24 12:36 Pulse Oximetry 94 07/21/24 12:36 Oxygen Delivery Room Air 07/21/24 12:36 Temperature 36.8 C 07/21/24 12:36 Pulse Rate 84 07/21/24 12:36 Respiratory Rate 18 07/21/24 12:36 Blood Pressure 160/77 H 07/21/24 12:36 Pulse Oximetry 94 07/21/24 12:36 Oxygen Delivery Room Air 07/21/24 12:36 Medical Decision Making Vital Signs Vital Signs: Vital Signs Temperature 36.8 C 07/21/24 12:36 Pulse Rate 84 07/21/24 12:36 Respiratory Rate 18 07/21/24 12:36 Blood Pressure 160/77 H 07/21/24 12:36 Pulse Oximetry 94 07/21/24 12:36 Oxygen Delivery Room Air 07/21/24 12:36 Temperature 36.8 C 07/21/24 12:36 Pulse Rate 84 07/21/24 12:36 Respiratory Rate 18 07/21/24 12:36 Blood Pressure 160/77 H 07/21/24 12:36 Pulse Oximetry 94 07/21/24 12:36 Oxygen Delivery Room Air 07/21/24 12:36 Lab Data 07/21/24 12:48 07/21/24 12:48 Labs: Lab Results 07/21/24 07/21/24 Range/Units 12:48 14:08 WBC 12.1 H (4.5-10.0) K/mm3 RBC 3.79 L (4.2-5.4) M/mm3 Hgb 10.4 L (12.0-15.0) g/dL Hct 33.5 L (37.0-47.0) % MCV 88.4 (80-100) fl MCH 27.4 (26-34) pg MCHC 31.0 L (32-36) g/dl RDW 14.3 (11.5-14.5) % Plt Count 362 (150-375) k/mm3 MPV 9.8 (7.4-10.4) fl Immature Gran % (Auto) 0.3 (0-0.5) % Neut % (Auto) 72.2 (45.5-73.1) % Lymph % (Auto) 19.4 (18.3-44.2) % [place] % (Auto) 6.3 (2.6-8.5) % Eos % (Auto) 1.6 (0-4.4) % Baso % (Auto) 0.2 (0.2-1.2) % Lymph # (Auto) 2.35 (0.9-3.2) K/mm3 [place] # (Auto) 0.8 H (0.1-0.6) K/mm3 Eos # (Auto) 0.2 (0-0.3) K/mm3 Baso # (Auto) 0.0 (0.0-0.1) K/mm3 Abs Immat Gran (auto) 0.04 H (0.00-0.031) K/mm3 Absolute Neuts (auto) 8.7 H (1.3-6.7) K/mm3 Absolute Nucleated RBC 0.000 (0.0-0.012) K/mm3 Nucleated RBC % 0.0 (0.0-0.2) % Sodium 135 L (137-145) mmol/L Potassium 3.3 L (3.4-5.0) mmol/L Chloride 99 (98-107) mmol/L Carbon Dioxide 33 H (22-30) mmol/L Anion Gap 3 L (4-12) mmol/L BUN 16 (7-17) mg/dL Creatinine 0.60 L (0.7-1.0) mg/dL Estim Creat Clear Calc Not Reportable Estimated GFR > 60 (59 - ) Glucose 203 H (65-110) mg/dL Calcium 8.6 (8.4-10.2) mg/dL Total Bilirubin 0.4 (0.2-1.3) mg/dL AST 26 (14-36) U/L ALT 21 (6-35) U/L Alkaline Phosphatase 117 (38-126) U/L Total Protein 7.0 (6.3-8.2) g/dL Albumin 3.0 L (3.5-5.1) g/dL Urine Color Yellow (Yellow) Urine Appearance Clear (Clear) Urine pH 6.5 (5.0-9.0) Ur Specific [place] 1.018 (1.001-1.035) Urine Protein 3+ H (Negative) mg/dL Urine Glucose (UA) Negative (Negative) mg/dL Urine Ketones Negative (Negative) mg/dL Ur Blood (Man) Negative (Negative) Urine Nitrate Negative (Negative) Urine Bilirubin Negative (Negative) Urine Urobilinogen 1.0 (<2.0) mg/dL Add Ur Microanalysis Reviewed Leukocyte Esterase Rfl Negative (Negative) ANNELISE/UL Urine RBC 3-5 H (0-2) /hpf Urine WBC 0-5 (0-3) /hpf Ur Squamous Epith Cells None seen (Few) /hpf Urine Bacteria None seen /hpf Urine Casts 0-2 Discharge Plan Discharge Clinical Impression: Leg weakness, bilateral Patient Disposition: Home, Self-Care Condition: Stable Instructions: Weakness (ED) Additional Instructions: continue home meds , follow with your doctor , recommend physical therapy , continue home medication Patient Language: Wolof Prescriptions: No Action atorvastatin 40 mg tablet 40 mg PO QHS dapagliflozin propanediol [Farxiga] 10 mg tablet 10 mg PO QAM Januvia 100 mg tablet 100 mg PO QAM lisinopril 2.5 mg tablet 2.5 mg PO DAILY aspirin 81 mg Tablet,Chewable 81 mg PO DAILY melatonin 10 mg Tablet 10 mg PO HS PRN (Reason: Sleep) sulfamethoxazole-trimethoprim [Bactrim DS] 800-160 mg tablet 1 tablet PO Q12H Qty: 20 2RF Follow-up/Referrals: [place],ANA ROSA Christie [Primary Care Provider] - Time of Disposition: 16:03
[2024-07-21 16:47] VITALS: BP 162/81; PULSE 86; RESP 20; TEMP 36.9; O2SAT 96
== END 2024-07-21 16:49 | disposition home or self-care (01) ==
PROVIDERS: Emergency Provider Family Medicine; PCP Physician Assistant
DX: R53.1 Weakness (principal); E78.5 Hyperlipidemia, unspecified; E11.51 Type 2 diabetes mellitus with diabetic peripheral angiopathy without gangrene; I73.9 Peripheral vascular disease, unspecified; Z87.891 Personal history of nicotine dependence; Z89.422 Acquired absence of other left toe(s); Z79.899 Other long term (current) drug therapy; Z79.84 Long term (current) use of oral hypoglycemic drugs; Z79.82 Long term (current) use of aspirin
CPT/HCPCS: 36415; 80053; 81001; 85025; 93005; 99283